=== PATIENT | female | born 1960 | race Caucasian/White ===

== ENCOUNTER 2018-02-05 07:05 | Inpatient (IN) ==
[2018-02-05] MEDS ORDERED: Naloxone 0.4 MG/ML INJ IVP PRN (10:51)
[2018-02-05] MEDS ORDERED: Vancomycin (wt based) 1,000 MG VIAL IVPB SCH (11:00)
[2018-02-05] MEDS ORDERED: Acetaminophen 325 MG TABLET PO PRN (11:09)
--- NOTE | 2018-02-05 11:44 | Internal Med History&Physical ---
Date of Encounter: 02/05/18 Time of Encounter: 11:36 Internal Medicine - H&P: HPI Chief complaint: Chest Pain Admitted From: Hospital to Hospital Transfer Plans for Post Hospital Care: Transfer Halfway Facility History of present illness: Ms. Orozco is a 57 year old female with many comorbidities presented to [facility] emergency department chief complaint of chest pain that started 20 minutes prior to arrival. The patient describes the pain as stabbing without radiation but with associated nausea. At [facility] emergency department multiple EKGs were obtained and no significant ischemic changes were noted compared to prior EKGs. Initial troponin at [facility] was negative as well. The patient was transferred to [facility] for further evaluation and treatment. Upon presentation the patient is somewhat somnolent but arousable and appropriate. The patient currently is not admitting to chest pain. Patient also denies any shortness of breath, palpitations, abdominal pain, vomiting, diarrhea. Patient does admit to intermittent nausea that was improved with Zofran at [facility]. Patient's temperature upon arrival was 102 RN reports it was [address] [facility]. Blood glucose is also over 300 upon evaluation. At [facility] the patient had CTA of the chest abdomen and pelvis which was negative for any acute pulmonary or abdominal pathology. Patient is end-stage dialysis receives dialysis Friday through a permacath. Patient also has a peritoneal dialysis catheter however she states she has not used this in 18 months. Initial labs reviewed from [facility] include anemia at 7.7 ; negative troponin, negative lactic acid; slightly elevated white blood cell count at 11.2. The patient has a wound on her right toe she is unable to elaborate how long this has been present or if it is painful. The patient falls asleep during conversation. Patient is able to move all extremities symmetrically however appears to have generalized weakness and somnolence. Stat labs were ordered including ECG, BMP, ABG, ammonia, , lactic acid, urinalysis, chest x-ray and right foot x-ray. Empiric broad-spectrum antibiotics were immediately started including vancomycin and cefepime and Flagyl to cover possible osteomyelitis and cellulitis of the right first toe. The patient will be admitted for sepsis, altered mental status, and chest pain; infectious disease, nephrology, podiatry will be consulted Past Med Surg Social Fam HX - Past Medical History Medical history: COPD, coronary artery disease, diabetes, dialysis, hypertension , renal disease Psychiatric history: anxiety, depression - Past Surgical History Surgical History: non-contributory Additional surgical history: ankle sx, hip sx, 3 hand sx, partial hysterectomy, tubal, left arm fistula, peritoneal port - Social History Smoking Status: Former smoker Smokeless Tobacco Status: No Alcohol use: none Drug use: none - Family History Mother Living Status: Hx Family Cardiac Disorders: Yes (CHF, PA) Father Living Status: Hx Family Respiratory Disorders: Yes (Asthma) Hx Family Endocrine Disorder: Yes (Kidney disease) - Additional Family History Additional family history: Family history reviewed; patient denies any pertinent family history Internal Medicine - H&P: Meds Albuterol Sulfate [Proair Hfa] 1 - 2 puff IH Q4-6H PRN 07/10/17 [History] Atorvastatin [Lipitor] 40 mg PO HS 07/10/17 [History] Esomeprazole Magnesium [Nexium] 40 mg PO DAILY 07/10/17 [History] Fenofibrate Nanocrystallized [Triglide] 160 mg PO DAILY 07/10/17 [History] Furosemide [Lasix] 40 mg PO 1400 07/10/17 [History] Furosemide [Lasix] 80 mg PO QAM 07/10/17 [History] Insulin Glargine,Hum.rec.anlog [Lantus Solostar] 60 unit SQ QPM 07/10/17 [ History] Isosorbide MONOnitrate (24 HR) [Imdur] 30 mg PO DAILY 07/10/17 [History] Lisinopril [Zestril] 10 mg PO BID 07/10/17 [History] Metoprolol [Lopressor] 50 mg PO QPM 07/10/17 [History] Metoprolol [Lopressor] 100 mg PO QAM 07/10/17 [History] Oxybutynin [Ditropan] 5 mg PO TID 07/10/17 [History] Renal Vitamin [Renal Caps Softgel] 1 mg PO DAILY 07/10/17 [History] Sertraline [Zoloft] 25 mg PO DAILY 07/10/17 [History] Sevelamer [Renvela] 800 mg PO TIDWM 07/10/17 [History] Tiotropium [Spiriva] 18 mcg IH DAILY 07/10/17 [History] Insulin LISPRO [HumaLOG] 15 - 20 units SQ TID 12/30/17 [History] Gabapentin [Neurontin] 100 mg PO TID 02/05/18 [History] 3 Allergy/AdvReac Type Severity Reaction Status Date / Time Penicillins Allergy Hives Verified 12/30/17 12:35 Sulfa (Sulfonamide Allergy Hives Verified 12/30/17 12:35 Antibiotics) hydrocodone AdvReac Nausea Verified 12/30/17 12:35 metformin [From Glucophage] AdvReac Nausea Verified 12/30/17 12:35 niacin AdvReac Redness of Verified 12/30/17 12:35 Skin Oxycodone [From Percocet] AdvReac Nausea Verified 12/30/17 12:35 tramadol [From Ultram] AdvReac Nausea Verified 12/30/17 12:35 All Systems PM: A 10-system review of systems was performed and is negative for pertinent findings except as documented above in the HPI. Review of systems: 10 point review of systems is somewhat limited secondary to the patient's altered mental status and somnolence but is otherwise negative other than described in history of present illness - Constitutional Vitals: Temp Pulse Resp BP Pulse Ox 102.2 F H 100 18 93/43 99 02/05/18 10:20 02/05/18 10:20 02/05/18 10:20 02/05/18 10:20 02/05/18 10:20 Exam: Constitutional: No acute distress, somnolent but arousable Derm: Appears mildly jaundiced Psych: AAO x 3 HEENT: NCAT, EOMI Neck: supple, no JVD Cardio: regular rate and rhythm, +s1s2, no murmurs/rubs/gallops, no JVD Chest: Right tunneled permacath in place with no surrounding erythema or tenderness felt patient Resp: Coarse breath sounds however no wheezes rales or rhonchi Abd: soft, non tender/non distended, positive bowel sounds, no gaurding/reboud/ ridgitity; peritoneal dialysis catheter and left abdomen with no obvious erythema or drainage from site Extremities: Right lower extremity with 2 areas of skin breakdown on interior chavarria with no surrounding erythema; right great toe necrotic with purulent drainage and loose toenail; there is surrounding erythema around the toe that extends to the base of the toe; there is no obvious crepitus appreciated Neuro: no focal deficits appreciated Lymph: no cervical/supraclavicular adenopahty apprecitated - Assessment and plan (1) Sepsis Current Visit: Yes Status: Acute Assessment and plan: -Patient meets sepsis criteria with tachycardia and temperature of 102-104 -Unclear etiology but currently suspect infected right first toe with cellulitis and possible osteomyelitis -Stat Blood and wound cultures ordered -Empiric antibiotics started, vancomycin, cefepime, Flagyl -Blood pressure currently okay and with history of hemodialysis will hold off on fluids for now will give fluids if blood pressure decreases -Podiatry consulted for evaluation of infected right first toe -Infectious disease consultation for any further recommendations -Monitor on telemetry Qualifiers: Sepsis type: sepsis due to unspecified organism Qualified Code(s): A41.9 - Sepsis, unspecified organism (2) Encephalopathy Current Visit: Yes Status: Acute Assessment and plan: -Patient with somnolence however is arousable and appropriate on exam alert and oriented 3 -Possibly toxic metabolic encephalopathy secondary to sepsis; also received Phenergan which could be contributing although this is a home medication -We will check stat ABG to rule out hypercapnia -We will check ammonia as the patient does appear slightly jaundiced -We will monitor closely (3) Necrosis of toe Current Visit: Yes Status: Acute Assessment and plan: Patient with necrosis of right first toe with surrounding cellulitis and foul purulent drainage -Currently concered about osteomyelitis -We will order stat x-ray of the foot to evaluate for osteomyelitis and rule out gas formation; no current crepitus appreciated -Consult podiatry for evaluation and possible debridement and biopsy if needed; Podiatry aware -Blood and wound cultures ordered -Continue broad-spectrum antibiotics including vancomycin, cefepime, Flagyl due to allergies to sulfa and penicillin; infectious disease consult for recommendation (4) Chest pain Current Visit: Yes Status: Acute Assessment and plan: Patient presented with substernal chest pain that was described as sharp with no radiation and associated nausea -Chest pain did improve with nitroglycerin and currently chest pain-free -initial troponin was negative and EKG largely unchanged from prior; EKG is reviewed personally by myself patient does have T-wave inversions in lateral leads that were present in December 2017 -We will trend troponins and order echocardiogram -We will consider cardiology evaluation based on workup Qualifiers: Chest pain type: unspecified Qualified Code(s): R07.9 - Chest pain, unspecified (5) ESRD (end stage renal disease) on dialysis Current Visit: Yes Status: Acute Assessment and plan: -Friday hemodialysis via permacath -Patient also has perineal dialysis catheter however she states she has not used this in 18 months -Nephrology will be consult. Further evaluation and scheduling of dialysis as needed (6) Diabetes Current Visit: Yes Status: Acute Assessment and plan: -History of long-standing diabetes on insulin with current hyperglycemia -Resume home insulin regimen -Patient does have history of DKA on review of paperwork -Due to somnolence will check urinalysis for ketones and check beta hydroxybutyric acid -Serum bicarbonate unremarkable on Liane labs current labs pending Qualifiers: Diabetes mellitus type: type 2 Diabetes mellitus roasterman insulin use: with care home use Diabetes mellitus complication status: with kidney complications Diabetes mellitus complication detail: with chronic kidney disease Chronic kidney disease stage: on chronic dialysis Qualified Code(s) : E11.22 - Type 2 diabetes mellitus with diabetic chronic kidney disease; N18.6 - End stage renal disease; Z79.4 - residential (current) use of insulin; Z99.2 - Dependence on renal dialysis (7) HTN (hypertension) Current Visit: Yes Status: Acute Assessment and plan: History of chronic essential hypertension -BP on low normal side -We will resume some home bp medications with parameters Qualifiers: Hypertension type: essential hypertension Qualified Code(s): I10 - Essential (primary) hypertension (8) COPD (chronic obstructive pulmonary disease) Current Visit: Yes Status: Acute Assessment and plan: -History of chronic COPD with no acute exacerbation -Continue home bronchodilators as needed Qualifiers: COPD type: unspecified COPD Qualified Code(s): J44.9 - Chronic obstructive pulmonary disease, unspecified (9) Pulmonary HTN Current Visit: Yes Status: Acute Assessment and plan: -Per review of records -Echocardiogram ordered to evaluate (10) CAD (coronary artery disease) Current Visit: Yes Status: Acute Assessment and plan: -History of CAD and coronary current catheterization and past per documentation -Unsure if the patient has coronary stent -Presented with chest pain and initial troponin negative EKG unchanged from prior -troponins will be trended and echocardiogram ordered -currently no cp Qualifiers: Coronary Disease-Associated Artery/Lesion type: unspecified vessel or lesion type [place] vs. transplanted heart: [place] heart Associated angina: angina presence unspecified Qualified Code(s): I25.10 - Atherosclerotic heart disease of [place] coronary artery without angina pectoris (11) KEMAR (obstructive sleep apnea) Current Visit: Yes Status: Acute Assessment and plan: -Per documentation history of KEMAR -Unknown if patient is on home CPAP will order at nighttime (12) CHF (congestive heart failure) Current Visit: Yes Status: Acute Assessment and plan: -Chronic compensated congestive heart failure not in acute exacerbation; unknown systolic versus diastolic dysfunction -Significantly elevated BNP; possibly due to other etiology -Echocardiogram ordered Qualifiers: Heart failure type: unspecified Heart failure chronicity: chronic Qualified Code(s): I50.9 - Heart failure, unspecified (13) DVT prophylaxis Current Visit: Yes Status: Acute Assessment and plan: hep sq - Time Spent With Patient Total time spent is greater than 50% in coordination of care (as documented) at patient's floor/unit and/or counseling patient: Greater than 35 minutes (65 minutes)
[2018-02-05 11:59] LABS: INR 1.4
[2018-02-05 12:00] LABS: Basophils % 0.1 %; Eosinophils % 0.1 %; Hematocrit 23.4 % (35.3-44.9); Hemoglobin 7.4 g/dL (11.5-15.4); Immature Granulocytes % 1.6 % (0-4); Lymphocytes # 0.4 K/mcL (0.6-4.6); Lymphocytes % 2.3 %; Mean Corpuscular HGB Conc 31.6 g/dL (31.6-35.5); Mean Corpuscular Hemoglobin 34.3 pg (28.0-33.3); Mean Corpuscular Volume 108.3 fL (83.0-100.0); Mean Platelet Volume 8.9 fL (9.4-12.4); Monocytes # 1.2 K/mcL (0.0-1.3); Monocytes % 7.4 %; Neutrophils # 14.1 K/mcL (1.6-8.9); Platelet Count 375 K/mcL (140-400); Red Blood Count 2.16 M/mcL (3.82-4.97); Red Cell Distribution Width 13.9 % (11.5-14.5); Segmented Neutrophils % 88.5 %
[2018-02-05] MEDS ORDERED: Cefepime HCl 1,000 MG in Water for inj. (sterile) 20 ML 10 ML IVP ONE (12:00)
[2018-02-05 12:10] LABS: ABG Base Excess 2 mEq/L (-2 to 3); ABG HCO3 25 mEq/L (21-27); ABG Oxygen Saturation 82 % (95-98); ABG PCO2 35 mmHg (35-45); ABG PH 7.47 pH Units (7.32-7.45); ABG PO2 43 mmHg (85-104); ABG TCO2 26 mEq/L (20-26)
[2018-02-05 12:28] LABS: Albumin 2.5 g/dL (3.5-5.7); Bilirubin,Direct 0.3 mg/dL (0.0-0.2); Bilirubin,Indirect 0.3 mg/dL (0.0-1.2); Bilirubin,Total 0.6 mg/dL (0.3-1.0); Calcium 7.6 mg/dL (8.6-10.3); Globulin 2.5 g/dL (2.4-3.5); Magnesium 1.7 mg/dL (1.6-2.6); Phosphorous 2.9 mg/dL (2.7-4.5); Potassium 3.7 mEq/L (3.5-5.1)
[2018-02-05] MEDS: Insulin LISPRO 300 UNITS/3 ML VIAL SQ SCH ×2 (12:28→17:47)
[2018-02-05] MEDS: *HR* Heparin 5,000 UNIT/ML VIAL SQ SCH ×2 (12:28→21:07)
--- NOTE | 2018-02-05 13:04 | Infectious Disease Consult ---
Date of Encounter: 02/05/18 Time of Encounter: 12:59 Assessment and Plan (1) Sepsis Status: Acute Assessment and plan: The patient has 3 sepsis criteria plus hypotension. Likely secondary to right great toe infection vs UTI vs. other. Blood cell count elevated at 16,000 with neutrophilic predominance. The patient continues to have tachycardia. She was febrile on admission with a MAXIMUM TEMPERATURE of 102. Peripheral blood cultures obtained 02/05/18 are pending 2 sets. The patient does have a relatively new Perma-cath noted to the right upper chest , but it does not appear infected. Qualifiers: Sepsis type: sepsis due to unspecified organism Qualified Code(s): A41.9 - Sepsis, unspecified organism (2) Necrosis of toe Status: Acute Assessment and plan: Location: Right great toe. Etiology: Unclear. The patient does have a known history of PVD. There is also concern that there may be an element of infection as well. X-ray of the right foot was negative for osteomyelitis. Pressure Test Operator been consulted. Will defer additional imaging recommendations and wound care to them. Get wound culture if able. There is a small area that is open and draining, but otherwise the toe is necrotic. Check ESR and CRP. The patient has a documented allergy to penicillin. She states she gets hives. She is unable to tell me when the last time she took penicillin was. We will avoid penicillins at this point. She may benefit from penicillin allergy testing at some point later. Continue cefepime 1 g IV every 24 hours for now. We will start with 2 g on HD days only starting tomorrow after the patient receives dialysis. Continue vancomycin IV. Pharmacy to dose. Goal trough approximately 15. Continue Flagyl 500 mg IV every 8 hours. Duration of treatment depends on the clinical picture. Monitor renal function for drug toxicity and dose adjust antibiotics. (3) Dysuria Status: Acute Assessment and plan: The patient reports a one-week history of urinary frequency and dysuria. Check urinalysis and culture. May need to straight catheter the patient is unable to provide an adequate specimen. Continue antibiotics as above for now. (4) Encephalopathy Status: Acute Assessment and plan: Etiology unclear: Medication-induced versus hyperammonemia vs. sepsis versus other. No focal neuro deficits noted on exam. Consider CT had her symptoms do not improve. Continue to monitor closely. (5) Hyperammonemia Status: Acute Assessment and plan: Ammonia level elevated at 76. Etiology unclear. LFTs are normal. Abdominal exam reveals mild tenderness with palpation over the entire abdomen, but nothing focal. CT of the abdomen and pelvis was negative for acute abnormality. Further workup and management per the primary team. (6) Anemia Status: Chronic Assessment and plan: Hemoglobin down to 7.4 on admission. No acute bleeding noted on exam. Further workup and management per the primary nephrology teams. Qualifiers: Anemia type: due to chronic kidney disease Chronic kidney disease stage: on chronic dialysis Qualified Code(s): N18.6 - End stage renal disease; D63.1 - Anemia in chronic kidney disease; Z99.2 - Dependence on renal dialysis (7) Nausea Status: Acute Assessment and plan: The patient reports persistent nausea for the past couple of weeks. Etiology unclear. Consider GI to evaluate if symptoms persist. Management per the primary team. (8) Chest pain Status: Acute Assessment and plan: Etiology unclear. Pain is reproducible on exam. EKGs have been unchanged. CT of the chest was negative. Further workup and management per the primary team. Qualifiers: Chest pain type: unspecified Qualified Code(s): R07.9 - Chest pain, unspecified (9) Pulmonary HTN Status: Chronic (10) CAD (coronary artery disease) Status: Chronic Qualifiers: Coronary Disease-Associated Artery/Lesion type: unspecified vessel or lesion type [place] vs. transplanted heart: [place] heart Associated angina: angina presence unspecified Qualified Code(s): I25.10 - Atherosclerotic heart disease of [place] coronary artery without angina pectoris (11) KEMAR (obstructive sleep apnea) Status: Chronic (12) CHF (congestive heart failure) Status: Chronic Qualifiers: Heart failure type: unspecified Heart failure chronicity: chronic Qualified Code(s): I50.9 - Heart failure, unspecified (13) ESRD (end stage renal disease) Status: Chronic Assessment and plan: Nephrology has been consulted to assist with HD management. We will dose adjust antibiotics based on HD status. (14) COPD (chronic obstructive pulmonary disease) Status: Chronic Qualifiers: COPD type: COPD with acute exacerbation Qualified Code(s): J44.1 - Chronic obstructive pulmonary disease with (acute) exacerbation Infectious Disease HPI - Data of Consult Patient: new to practice Consult date: 02/05/18 Requesting Physician: Alyx Andrade MD Primary Care Provider: Guero Clement, DO - Consult Narrative Reason for consult: Sepsis unclear source History of present illness: Ms. Orozco is a 57 year old female with a past medical history of end- stage renal disease currently on hemodialysis, diabetes, hypertension, CHF, GERD , COPD, PVD, and allergic rhinitis. The patient was admitted to the hospital February 05 for sepsis. We are consulted February 05 for further recommendations for sepsis of unclear etiology. Briefly, the patient is a 57-year-old female with past medical history as stated above. The patient presented to an outside hospital with complaints of 1 day history of substernal chest pain that was nonradiating and was worse with deep inspiration or cough. Upon arrival to the ER, the patient was febrile and tachycardic and had leukocytosis. Workup revealed findings consistent with her end-stage renal disease. Lactic acid was normal. BNP was elevated at 9717. Lipase was normal at 118. LFTs were within normal limits. She had a CT of the chest, abdomen, and pelvis that were negative for acute abnormality. She had blood cultures obtained 2 sets that were pending. She was transferred here for further evaluation. Since admission, the patient has continued to have fevers with a MAXIMUM TEMPERATURE of 102. She is still tachycardic. Ammonia level checked here is elevated at 76. Troponin is positive at 0.04. The patient does have a right great toe ulceration. Right foot x-ray was negative for acute abnormality. She also had a chest x-ray that was negative. Blood cultures obtained 2 sets here pending. Currently, patient is on IV vancomycin, cefepime, and Flagyl. Podiatry and nephrology have been consulted. We have been asked to evaluate and make further recommendations. During my exam today, the patient is somewhat drowsy and difficult to give me any information. She falls asleep several times throughout the interview. She does tell me that her chest pain started last night and she was unable to sleep for most of the night. She denies any associated shortness of breath or cough. She states the pain is substernal and is sharp in nature and worse with deep inspiration or cough. She reports nausea for the past several weeks, but denies any vomiting. She states her appetite is okay. She was recently transitioned to hemodialysis from peritoneal dialysis in December. She had a permacath placed on January 06 to the right upper chest via intermittent vaginal radiology. She has been going to dialysis as scheduled. She denies any pain or drainage or warmth at the permacath insertion site. She does still have her peritoneal dialysis catheter and states she has not been doing anything with that since starting hemodialysis. She does report that she still does still urinate and states she has had increased frequency and some dysuria over the past week. The ulceration to the right great toe is of unclear onset. She states she typically uses a wheelchair at home and stubbed her toe on the cabinet. She reports increased pain over the past few days. She denies any known drainage. She states she typically sees a fixed income director Liane for this wound. She denies any oral thrush or other skin lesions. The patient lives at home with her . She does not work outside the home. She does report she smokes pack of cigarettes per day. She denies any alcohol or illicit drug use. She denies any recent travel outside the [facility]. She denies any known chronic infectious diseases. CC: Alyx Andrade MD Past Med Surg Social Fam HX - Past Medical History Attestation: Yes The following information was validated with the patient. Source: patient, old records reviewed, nursing notes reviewed Medical history: COPD, coronary artery disease, diabetes, dialysis, hypertension , renal disease Psychiatric history: anxiety, depression - Past Surgical History Surgical History: other Additional surgical history: ankle sx, hip sx, 3 hand sx, partial hysterectomy, tubal, left arm fistula, peritoneal port - Social History Smoking Status: Former smoker Smokeless Tobacco Status: No Alcohol use: none Drug use: none Occupational status: unemployed Current living situation: Home, With Family Activity Level: Uses cane/walker Recent Out of Country Travel Within the Last 8 Weeks: No Exposure or Possible Exposure to Illness During Travel: No - Family History Mother Living Status: Hx Family Cardiac Disorders: Yes (CHF, [place]) Father Living Status: Hx Family Respiratory Disorders: Yes (Asthma) Hx Family Endocrine Disorder: Yes (Kidney disease) Infectious Disease-CN:Meds Albuterol Sulfate [Proair Hfa] 1 - 2 puff IH Q4-6H PRN 07/10/17 [History] Atorvastatin [Lipitor] 40 mg PO HS 07/10/17 [History] Esomeprazole Magnesium [Nexium] 40 mg PO DAILY 07/10/17 [History] Fenofibrate Nanocrystallized [Triglide] 160 mg PO DAILY 07/10/17 [History] Furosemide [Lasix] 40 mg PO 1400 07/10/17 [History] Furosemide [Lasix] 80 mg PO QAM 07/10/17 [History] Insulin Glargine,Hum.rec.anlog [Lantus Solostar] 60 unit SQ QPM 07/10/17 [ History] Isosorbide MONOnitrate (24 HR) [Imdur] 30 mg PO DAILY 07/10/17 [History] Lisinopril [Zestril] 10 mg PO BID 07/10/17 [History] Metoprolol [Lopressor] 50 mg PO QPM 07/10/17 [History] Metoprolol [Lopressor] 100 mg PO QAM 07/10/17 [History] Oxybutynin [Ditropan] 5 mg PO TID 07/10/17 [History] Renal Vitamin [Renal Caps Softgel] 1 mg PO DAILY 07/10/17 [History] Sertraline [Zoloft] 25 mg PO DAILY 07/10/17 [History] Sevelamer [Renvela] 800 mg PO TIDWM 07/10/17 [History] Tiotropium [Spiriva] 18 mcg IH DAILY 07/10/17 [History] Insulin LISPRO [HumaLOG] 15 - 20 units SQ TID 12/30/17 [History] Gabapentin [Neurontin] 100 mg PO TID 02/05/18 [History] 3 Allergy/AdvReac Type Severity Reaction Status Date / Time Penicillins Allergy Hives Verified 12/30/17 12:35 Sulfa (Sulfonamide Allergy Hives Verified 12/30/17 12:35 Antibiotics) hydrocodone AdvReac Nausea Verified 12/30/17 12:35 metformin [From Glucophage] AdvReac Nausea Verified 12/30/17 12:35 niacin AdvReac Redness of Verified 12/30/17 12:35 Skin Oxycodone [From Percocet] AdvReac Nausea Verified 12/30/17 12:35 tramadol [From Ultram] AdvReac Nausea Verified 12/30/17 12:35 All systems: reviewed and no additional remarkable complaints except as stated Exam - Constitutional Vitals: Temp Pulse Resp BP Pulse Ox 100.8 F H 97 18 127/58 99 02/05/18 12:52 02/05/18 12:30 02/05/18 12:30 02/05/18 12:30 02/05/18 12:30 General appearance: cooperative, no acute distress, obese - Head Head exam: Present: atraumatic, normal inspection, normocephalic - Eye Eye exam: Present: EOMI, normal appearance, PERRL Pupils: Present: normal accommodation - ENT ENT exam: Present: mucous membranes moist - Neck Neck exam: Present: normal inspection - Respiratory Respiratory exam: Present: CTAB. Absent: rales, respiratory distress, rhonchi, wheezes - Cardiovascular Cardiovascular exam: Present: +S1, +S2, tachycardia. Absent: irregular rhythm - GI/Abdominal GI/Abdominal exam: Present: distended (obese), normal bowel sounds, soft, tenderness (Generalized) - Extremities Exam Extremities exam: Present: tenderness (Right great toe). Absent: normal inspection (Necrotic ulceration noted to the distal plantar aspect of the right great toe extending to the lateral aspect. Foul odor noted. No purulent drainage. Tenderness noted with palpation. No streaking up the leg or lymphangitis noted.) - Neurological Exam Neurological exam: Present: altered (The patient is drowsy and difficult to maintain wakefulness during my exam.), oriented X3 - Psychiatric Psychiatric exam: Present: normal affect, normal mood - Skin Skin exam: Present: dry, intact, pallor, warm - Additional findings Additional findings: Permacath noted to the right upper chest wall with transparent dressing clean, dry, and intact. No erythema, warmth, tenderness, or drainage noted. Peritoneal dialysis catheter noted to the left lower abdomen. No erythema, drainage, or tenderness noted at the insertion site. Infectious Disease CN: Results - Labs CBC & Chem 7: 02/05/18 11:20 02/05/18 11:20 Cultures: Cultures 02/05/18 11:20 Blood Culture - Preliminary Peripheral Venipuncture Culture is incubating and being continuously monitored for growth. Final report to follow. 02/05/18 11:20 Blood Culture - Preliminary Peripheral Venipuncture Culture is incubating and being continuously monitored for growth. Final report to follow. Consult Discharge Plan - Plan Referrals: Guero Clement DO [Primary Care Provider] - - Attending Attestation I examined this patient and my medical decision-making was reviewed with the Resident Physician. I agree with the documented findings, disposition and treatment plan as described except to the extent set forth below. This is an addendum to original report dictated by Mayela Ayoub CNP. Please refer to Mayela's note for full detail. Patient is a 57-year-old woman with past medical history mentioned below and multiple drug allergies including penicillin and sulfa presented with sepsis like picture. Sepsis is likely secondary to necrosis of the great toe on the right foot or possibly due to UTI. Patient was treated By nursing and milky urine came out. Apparently the specimen had too many squamous cells so they did not on the culture. As for the necrotic toe the x-ray reveals no osteomyelitis fixed income director consult with awaiting further recommendations At this point I agree with broad-spectrum antibiotics including vancomycin, cefepime and Flagyl. Check inflammatory markers Check urine culture. I did speak with microanalysis to run a culture on the specimen. Await blood cultures to finalize. Dose adjust antibiotic creatinine clearance with hemodialysis. Monitor labs and for drug toxicity
[2018-02-05] MEDS ORDERED: 0.9 % Sodium Chloride 500 ML IVC SCH (13:30)
--- NOTE | 2018-02-05 13:52 | Nephrology Consult Note ---
<Ramya Wise - Last Filed: 02/05/18 14:18> Date of Encounter: 02/05/18 Time of Encounter: 13:50 Assessment and Plan (1) ESRD (end stage renal disease) on dialysis Status: Acute Current regimen MWF at [facility]. Last tx was yesterday (per patient). Will plan for HD tomorrow. Renal dose and avoid nephrotoxins. Strict I/O (2) COPD (chronic obstructive pulmonary disease) Status: Acute Continue breathing tx's. Qualifiers: COPD type: unspecified COPD Qualified Code(s): J44.9 - Chronic obstructive pulmonary disease, unspecified (3) Chest pain Status: Acute Per primary. Chest pain free at time of examination. Qualifiers: Chest pain type: unspecified Qualified Code(s): R07.9 - Chest pain, unspecified (4) Diabetes Status: Acute Per primary. Qualifiers: Diabetes mellitus type: type 2 Diabetes mellitus estimating engineer insulin use: with residential use Diabetes mellitus complication status: with kidney complications Diabetes mellitus complication detail: with chronic kidney disease Chronic kidney disease stage: on chronic dialysis Qualified Code(s): E11.22 - Type 2 diabetes mellitus with diabetic chronic kidney disease; N18.6 - End stage renal disease; Z79.4 - group home (current) use of insulin; Z99.2 - Dependence on renal dialysis History of Present Illness - Reason for Consult Consult date: 02/05/18 end stage renal disease - Chief Complaint CP/sepsis - History of Present Illness Ms. Orozco is a 57 year old female with ESRD. 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. The patient presented to [facility] for chest pain with nausea. She described the pain as stabbing. PMH: COPD, coronary artery disease, diabetes, dialysis, hypertension. The patient appears drowsy with examination. She does tell me that she had HD yesterday and her current regimen is MWF. She dialyzes through a Tunneled Line, that is "fairly new" she says. She also has a failed graft and a PD cath. She has not used her PD cath for approximately 3 months. In formed HD unit to please get cell count and culture PD cath. Pt is being followed by ID for sepsis. Etiology right great toe vs. UTI vs other. Dr. Denny examined right great toe. He does want to remove, but only when medically stable. Pt appears stable in ICU at this time. She was on 2 liters per n/c. SBP greater than 120. Will plan on HD for tomorrow. Past Med Surg Social Fam HX - Past Medical History Medical history: COPD, coronary artery disease, diabetes, dialysis, hypertension, renal disease Psychiatric history: anxiety, depression - Past Surgical History Surgical History: other Additional surgical history: ankle sx, hip sx, 3 hand sx, partial hysterectomy, tubal, left arm fistula, peritoneal port - Social History Smoking Status: Former smoker Smokeless Tobacco Status: No Alcohol use: none Drug use: none - Family History Father Living Status: Hx Family Respiratory Disorders: Yes (Asthma) Hx Family Endocrine Disorder: Yes (Kidney disease) Mother Living Status: Hx Family Cardiac Disorders: Yes (CHF, [place]) Medications and Allergies RX: Albuterol Sulfate [Proair Hfa] 1 - 2 puff IH Q4-6H PRN 07/10/17 [History] RX: Atorvastatin [Lipitor] 40 mg PO HS 07/10/17 [History] RX: Esomeprazole Magnesium [Nexium] 40 mg PO DAILY 07/10/17 [History] RX: Fenofibrate Nanocrystallized [Triglide] 160 mg PO DAILY 07/10/17 [History] RX: Furosemide [Lasix] 40 mg PO 1400 07/10/17 [History] RX: Furosemide [Lasix] 80 mg PO QAM 07/10/17 [History] RX: Insulin Glargine,Hum.rec.anlog [Lantus Solostar] 60 unit SQ QPM 07/10/17 [History] RX: Isosorbide MONOnitrate (24 HR) [Imdur] 30 mg PO DAILY 07/10/17 [History] RX: Lisinopril [Zestril] 10 mg PO BID 07/10/17 [History] RX: Metoprolol [Lopressor] 50 mg PO QPM 07/10/17 [History] RX: Metoprolol [Lopressor] 100 mg PO QAM 07/10/17 [History] RX: Oxybutynin [Ditropan] 5 mg PO TID 07/10/17 [History] RX: Renal Vitamin [Renal Caps Softgel] 1 mg PO DAILY 07/10/17 [History] RX: Sertraline [Zoloft] 25 mg PO DAILY 07/10/17 [History] RX: Sevelamer [Renvela] 800 mg PO TIDWM 07/10/17 [History] RX: Tiotropium [Spiriva] 18 mcg IH DAILY 07/10/17 [History] RX: Insulin LISPRO [HumaLOG] 15 - 20 units SQ TID 12/30/17 [History] RX: Gabapentin [Neurontin] 100 mg PO TID 02/05/18 [History] RX: Sucralfate [Carafate] 1 gm PO TIDAC #12 tablet 02/20/18 [Rx] Allergy/AdvReac Type Severity Reaction Status Date / Time Penicillins Allergy Hives Verified 12/30/17 12:35 Sulfa (Sulfonamide Allergy Hives Verified 12/30/17 12:35 Antibiotics) hydrocodone AdvReac Nausea Verified 12/30/17 12:35 metformin [From Glucophage] AdvReac Nausea Verified 12/30/17 12:35 niacin AdvReac Redness of Verified 12/30/17 12:35 Skin Oxycodone [From Percocet] AdvReac Nausea Verified 12/30/17 12:35 tramadol [From Ultram] AdvReac Nausea Verified 12/30/17 12:35 Review of Systems All Systems review (narrative): The remainder of the systems are negative. Constitutional: fever(s), no chills, no weakness Cardiovascular: chest pain, dyspnea, edema, no palpitations Gastrointestinal: no diarrhea, no nausea, no vomiting Exam - Vital Signs Vital signs: Initial Vital Signs Pulse 100 02/05/18 10:19 Vital Signs - Last 8 Hours Temp Pulse Resp BP Pulse Ox 02/05/18 13:00 94 20 124/59 99 02/05/18 12:52 100.8 F H 02/05/18 12:30 97 18 127/58 99 02/05/18 11:30 97 16 128/58 100 02/05/18 10:20 102.2 F H 100 18 93/43 99 02/05/18 10:19 100 Intake and Output 02/04/18 02/05/18 02/05/18 23:59 07:59 15:59 Intake Total Balance Intake: IV Fluids Maxipime 1,000 MG In Water for inj. (sterile) 10 ML @ 300 mls/ hr IVP ONCE ONE Rx#:[id number] Oral 0 / 0 Other: Weight 90.5 kg Blood Glucose* 278 Patient Weight 02/05/18 23:59 Weight 90.5 kg Results - Lab Results 02/05/18 11:20 02/05/18 11:20 Most recent lab results ABG pH 7.47 pH Units (7.32-7.45) H 02/05/18 11:49 ABG pCO2 35 mmHg (35-45) 02/05/18 11:49 ABG pO2 43 mmHg (85-104) L* 02/05/18 11:49 ABG HCO3 25 mEq/L (21-27) 02/05/18 11:49 ABG O2 Saturation 82 % (95-98) L 02/05/18 11:49 Calcium 7.6 mg/dL (8.6-10.3) L 02/05/18 11:20 Phosphorus 2.9 mg/dL (2.7-4.5) 02/05/18 11:20 Magnesium 1.7 mg/dL (1.6-2.6) 02/05/18 11:20 Consult Discharge Plan - Plan Additional Instructions: PWB right lower extremity. Orthowedge shoe for heel transfers. Follow up with Dr. Denny in wound care clinic next week. Follow-up with PCP and nephrology within 1 week. Take all medications as prescribed and return to the hospital stay worsening return of symptoms. Referrals: Mayela Ayoub CNP [Advanced Practice Nurse] - 02/26/18 8:40 am Guero Clement DO [Primary Care Provider] - 02/26/18 2:00 pm () Prescriptions: RX: Sucralfate [Carafate] 1 gm PO TIDAC #12 tablet <Travis Lee - Last Filed: 03/06/18 19:29> Assessment and Plan (1) Anemia Status: Chronic Qualifiers: Anemia type: due to chronic kidney disease Chronic kidney disease stage: on chronic dialysis Qualified Code(s): N18.6 - End stage renal disease; D63.1 - Anemia in chronic kidney disease; Z99.2 - Dependence on renal dialysis (2) ESRD (end stage renal disease) Status: Chronic (3) Diabetes Status: Chronic Qualifiers: Diabetes mellitus type: type 2 Diabetes mellitus residential insulin use: with residential use Diabetes mellitus complication status: with kidney complications Diabetes mellitus complication detail: with chronic kidney disease Chronic kidney disease stage: on chronic dialysis Qualified Code(s): E11.22 - Type 2 diabetes mellitus with diabetic chronic kidney disease; N18.6 - End stage renal disease; Z79.4 - group home (current) use of insulin; Z99.2 - Dependence on renal dialysis (4) Hyponatremia Status: Acute Exam - Vital Signs Vital signs: Initial Vital Signs Pulse 100 02/05/18 10:19 - General Appearance General appearance: chronically ill, fatigue EENT: ATNC, mucous membranes dry Neck: no JVD, supple Respiratory: course breath sounds Cardiology: no edema, normal S1, normal S2 - Dialysis Access Dialysis Vascular Access: Venous Catheter (permcath) Gastrointestinal: no tenderness, no guarding (PD catheter in place with no signs of erythema at exit site) Additional Comments: Right foot with dressing Neurologic: no focal deficit Psychiatric: mood/affect appropriate Results - Lab Results 02/20/18 04:00 02/20/18 04:00 Most recent lab results ABG pH 7.47 pH Units (7.32-7.45) H 02/05/18 11:49 ABG pCO2 35 mmHg (35-45) 02/05/18 11:49 ABG pO2 43 mmHg (85-104) L* 02/05/18 11:49 ABG HCO3 25 mEq/L (21-27) 02/05/18 11:49 ABG O2 Saturation 82 % (95-98) L 02/05/18 11:49 Calcium 7.7 mg/dL (8.6-10.3) L 02/20/18 04:00 Phosphorus 4.2 mg/dL (2.7-4.5) 02/06/18 04:15 Magnesium 1.9 mg/dL (1.6-2.6) 02/15/18 02:55 - Attending Attestation I examined this patient and my medical decision-making was reviewed with the Resident Physician/COMPUTER TECHNICIAN. I agree with the documented findings, disposition and treatment plan as described except to the extent set forth below. In brief; 57 y o female with PMH of DM, HTN, CAD , COPD and ESRD on HD, previously on PD but discontinued several months ago with PD catheter still in place! (follows with profile grinder technician, Dr Painting) admitted with chest pain but being assessed in the ICU for likely sepsis with noted gangrenous right great toe. She dialyzes via permcath placed months ago after failed AVG and stopped PD. Last HD was yesterday and uneventful. Pt seen and exaamied noted very lethargic and unable to give many answers. Also quite hypotensive. No acute indication for RESEARCH PROJECT COORDINATOR at this time. Infections sources include gangrenous toe vs PD catheter vs permcath. Though no abdominal discomfort. will ask dialysis nurse for cell count, gram stain and culture from peritoneal source. ID on board, empiric coverage pending culture results. Plan to dialyze tomorrow if hemodyna mically stable.
[2018-02-05] MEDS: Lactulose Oral Soln 20 GM/30 ML UDC PO SCH ×3 (13:57→20:52)
[2018-02-05 14:07] LABS: Bilirubin,Urine Negative (Negative); Blood,Urine Moderate (Negative); Clarity,Urine Turbid (Clear); Color,Urine Yellow (Yellow); Glucose,Urine (UA) 250 mg/dL (Normal); Ketones,Urine Negative (Negative); Leukocyte Esterase,Urine Large (Negative); Nitrite,Urine Negative (Negative); Protein,Urine >=300 mg/dL (Neg-Trace); Specific Gravity,Urine 1.017 (1.010-1.025); Urobilinogen,Urine Normal (Normal)
[2018-02-05 14:10] LABS: Bacteria,Urine Many per hpf (None-Few); Hyaline Casts,Urine None Seen per lpf (None-Few); RBC,Urine 15-30 per hpf (0-3); Squamous Epithelial Cell,Urine Many per lpf (None-Few); WBC,Urine TNTC per hpf (0-3)
[2018-02-05 14:56] LABS: Ferritin > 1500 ng/mL (10-120); Iron < 10 mcg/dL (50-170); Transferrin 105 mg/dL (203-362)
[2018-02-05] MEDS: MetroNIDAZOLE 500 MG/100 ML 500 MG/100 ML BAG IVPB SCH ×2 (15:40→23:26)
[2018-02-05] MEDS ORDERED: Aztreonam 2,000 MG in Water for inj. (sterile) 20 ML 20 ML IVP SCH (16:00)
[2018-02-05] MEDS ORDERED: Insulin DETEMIR 100 UNIT/ML X5UNITS SQ SCH (18:00)
[2018-02-05 19:09] LABS: Hepatitis B Surface Antigen Nonreactive (Nonreactive)
[2018-02-05] MEDS ORDERED: *HR* Promethazine 25 MG/ML VIAL ONE (22:09)
[2018-02-05] MEDS ORDERED: *HR* Promethazine 25 MG/ML VIAL IVP ONE (22:32)
[2018-02-05] MEDS ORDERED: Acetaminophen 650 MG RECTAL SUPP RC PRN (23:35)
[2018-02-06 02:03] LABS: Enterococcus by PCR Not Detected (Not Detect); blaKPC Carbapenem-Resist Gene Not Detected (Not Detect); mecA Methicillin-Resist Gene DETECTED (Not Detect); vanA/B Vancomycin-Resist Genes Not Detected (Not Detect)
[2018-02-06 02:04] LABS: Acinetobacter baumannii by PCR Not Detected (Not Detect); Candida albicans by PCR Not Detected (Not Detect); Candida glabrata by PCR Not Detected (Not Detect); Candida krusei by PCR Not Detected (Not Detect); Candida parapsilosis by PCR Not Detected (Not Detect); Candida tropicalis by PCR Not Detected (Not Detect); Enterobacter cloacae Cmplx PCR Not Detected (Not Detect); Enterobacteriaceae by PCR Not Detected (Not Detect); Escherichia coli by PCR Not Detected (Not Detect); Klebsiella oxytoca by PCR Not Detected (Not Detect); Klebsiella pneumoniae by PCR Not Detected (Not Detect); Proteus by PCR Not Detected (Not Detect); Pseudomonas aeruginosa by PCR Not Detected (Not Detect); Serratia marcescens by PCR Not Detected (Not Detect); Staphylococcus aureus by PCR DETECTED (Not Detect); Staphylococcus by PCR DETECTED (Not Detect); Streptococcus agalactiae(B)PCR Not Detected (Not Detect); Streptococcus by PCR Not Detected (Not Detect); Streptococcus pneumoniae PCR Not Detected (Not Detect); Streptococcus pyogenes (A) PCR Not Detected (Not Detect)
[2018-02-06 04:40] LABS: Basophils % 0.1 %; Eosinophils % 0.1 %; Hematocrit 21.8 % (35.3-44.9); Hemoglobin 6.9 g/dL (11.5-15.4); Immature Granulocytes % 2.4 % (0-4); Lymphocytes # 0.4 K/mcL (0.6-4.6); Lymphocytes % 2.5 %; Mean Corpuscular HGB Conc 31.7 g/dL (31.6-35.5); Mean Corpuscular Hemoglobin 33.7 pg (28.0-33.3); Mean Corpuscular Volume 106.3 fL (83.0-100.0); Monocytes # 0.9 K/mcL (0.0-1.3); Monocytes % 5.7 %; Neutrophils # 13.4 K/mcL (1.6-8.9); Platelet Count 356 K/mcL (140-400); Red Blood Count 2.05 M/mcL (3.82-4.97); Red Cell Distribution Width 14.3 % (11.5-14.5); Segmented Neutrophils % 89.2 %
[2018-02-06 04:49] LABS: Albumin 2.4 g/dL (3.5-5.7); Albumin/Globulin Ratio 0.8 (1.1-2.2); Bilirubin,Total 0.5 mg/dL (0.3-1.0); Calcium 7.5 mg/dL (8.6-10.3); Globulin 2.9 g/dL (2.4-3.5); Magnesium 1.8 mg/dL (1.6-2.6); Phosphorous 4.2 mg/dL (2.7-4.5); Total Protein 5.3 g/dL (6.4-8.9)
[2018-02-06 04:59] LABS: Hypochromasia Present (Not Present); Platelet Estimate Normal (Normal)
[2018-02-06] MEDS: *HR* Heparin 5,000 UNIT/ML VIAL SQ SCH (05:58)
[2018-02-06] MEDS ORDERED: *HR* Heparin 10,000 UNIT/10 ML VIAL IV PRN (08:03)
[2018-02-06] MEDS ORDERED: 0.9 % Sodium Chloride 250 ML IVC PRN (08:03)
[2018-02-06] MEDS: Tiotropium 18 MCG inhalation IH SCH (08:04)
[2018-02-06] MEDS ORDERED: 0.9 % Sodium Chloride 1,000 ML PRIME SCH (08:15)
[2018-02-06] MEDS: Lactulose Oral Soln 20 GM/30 ML UDC PO SCH ×2 (08:16→20:25)
[2018-02-06] MEDS: MetroNIDAZOLE 500 MG/100 ML 500 MG/100 ML BAG IVPB SCH ×2 (08:24→15:32)
[2018-02-06] MEDS: Insulin LISPRO 300 UNITS/3 ML VIAL SQ SCH (08:29)
--- NOTE | 2018-02-06 08:54 | Cardiology Consult Note ---
Date of Encounter: 02/06/18 Time of Encounter: 08:51 Assessment and Plan (1) Chest pain Current Visit: Yes Status: Acute atypical chest pain Qualifiers: Chest pain type: unspecified Qualified Code(s): R07.9 - Chest pain, unspecified (2) Elevated troponin Current Visit: Yes Status: Acute minimal, type 2 NSTEMI likely 2/2 sepsis, ESRD. unlikley ACS. no heparin needed. (3) PAD (peripheral artery disease) Current Visit: Yes Status: Acute recent B/L LE artery stents per pt, please obtain records fro [facility]. need ASA+plavix (4) CAD (coronary artery disease) Current Visit: Yes Status: Chronic please obtain records from [facility]. S/p 2 stents, no angina on BB, imdur at home c/w home meds Qualifiers: Coronary Disease-Associated Artery/Lesion type: unspecified vessel or lesion type [place] vs. transplanted heart: [place] heart Associated angina: without angina Qualified Code(s): I25.10 - Atherosclerotic heart disease of [place] coronary artery without angina pectoris (5) CHF (congestive heart failure) Current Visit: Yes Status: Chronic limited ET, NYNA unclear, likely II, no [place] fluid overload, on HD. pending echo c/w HD, BB, ACEi, lasix home meds Qualifiers: Heart failure type: unspecified Heart failure chronicity: chronic Qualified Code(s): I50.9 - Heart failure, unspecified (6) ESRD (end stage renal disease) Current Visit: No Status: Chronic on HD MWF (7) Sepsis Current Visit: Yes Status: Acute MRSA bacteremia w/u and management per ID, source UTI vs others TTE pending, FREDIS if source of MRSA bacteremia unclear Qualifiers: Sepsis type: sepsis due to unspecified organism Qualified Code(s): A41.9 - Sepsis, unspecified organism (8) Anemia Current Visit: No Status: Chronic Qualifiers: Anemia type: due to chronic kidney disease Chronic kidney disease stage: on chronic dialysis Qualified Code(s): N18.6 - End stage renal disease; D63.1 - Anemia in chronic kidney disease; Z99.2 - Dependence on renal dialysis Discussion w patient/family: The assessment and plan as outlined above was discussed with the patient and/or family members who expressed understanding and agreement. All questions were answered. Thank you for involving us in the care of your patient. Please call with any questions. History of Present Illness Consult date: 02/06/18 Requesting physician: Diego Cody Consult reason: elevated troponin Chief complaint: chest pain History of present illness: Ms. Orozco is a 57 year old female ho ESRD on HD, CAD (stentsx2 in [facility] for + stress test 5 yrs ago), PAD ("B/L leg stents" in [facility] 2 wks ago per pt) , CHF unclear detail, DM, HTN, COPD, KEMAR. P/w cp w/ fever to OSH, CTA chest and abd neg for acute findings; transfer to [place] for sepsis, AMS. Imp SIRS, suspected MRSA bacteremia source UTI or DM foot , anemia 7. Consulted for trop 0.04-0.06 flat. Pt's chest pain feels different than angina in the past, rest, sharp, lasting hrs. No angina since stents 4-5 yrs ago. No dynamic ECG changes (Reviewed ECGs from [facility] and [place]). Baseline sedentary due to left ankle fractures and hip pain. No PND/orthopnea. + chronic B/L LE edema. No palpitations, syncope. + intermittent N/V. ECG NSR, low voltage precordial, NS STT Tele no events TTE pending Past Med Surg Social Fam HX - Past Medical History Medical history: COPD, coronary artery disease, diabetes, dialysis, hypertension , renal disease Additional medical history: vascular stents Psychiatric history: anxiety, depression - Past Surgical History Surgical History: other Additional surgical history: ankle sx, hip sx, 3 hand sx, partial hysterectomy, tubal, left arm fistula, peritoneal port - Social History Smoking Status: Former smoker Smokeless Tobacco Status: No Alcohol use: none Drug use: none - Family History Mother Living Status: Hx Family Cardiac Disorders: Yes (CHF, [place]) Father Living Status: Hx Family Respiratory Disorders: Yes (Asthma) Hx Family Endocrine Disorder: Yes (Kidney disease) Medications and Allergies Albuterol Sulfate [Proair Hfa] 1 - 2 puff IH Q4-6H PRN 07/10/17 [History] Atorvastatin [Lipitor] 40 mg PO HS 07/10/17 [History] Esomeprazole Magnesium [Nexium] 40 mg PO DAILY 07/10/17 [History] Fenofibrate Nanocrystallized [Triglide] 160 mg PO DAILY 07/10/17 [History] Furosemide [Lasix] 40 mg PO 1400 07/10/17 [History] Furosemide [Lasix] 80 mg PO QAM 07/10/17 [History] Insulin Glargine,Hum.rec.anlog [Lantus Solostar] 60 unit SQ QPM 07/10/17 [ History] Isosorbide MONOnitrate (24 HR) [Imdur] 30 mg PO DAILY 07/10/17 [History] Lisinopril [Zestril] 10 mg PO BID 07/10/17 [History] Metoprolol [Lopressor] 50 mg PO QPM 07/10/17 [History] Metoprolol [Lopressor] 100 mg PO QAM 07/10/17 [History] Oxybutynin [Ditropan] 5 mg PO TID 07/10/17 [History] Renal Vitamin [Renal Caps Softgel] 1 mg PO DAILY 07/10/17 [History] Sertraline [Zoloft] 25 mg PO DAILY 07/10/17 [History] Sevelamer [Renvela] 800 mg PO TIDWM 07/10/17 [History] Tiotropium [Spiriva] 18 mcg IH DAILY 07/10/17 [History] Insulin LISPRO [HumaLOG] 15 - 20 units SQ TID 12/30/17 [History] Gabapentin [Neurontin] 100 mg PO TID 02/05/18 [History] 3 Allergy/AdvReac Type Severity Reaction Status Date / Time Penicillins Allergy Hives Verified 12/30/17 12:35 Sulfa (Sulfonamide Allergy Hives Verified 12/30/17 12:35 Antibiotics) hydrocodone AdvReac Nausea Verified 12/30/17 12:35 metformin [From Glucophage] AdvReac Nausea Verified 12/30/17 12:35 niacin AdvReac Redness of Verified 12/30/17 12:35 Skin Oxycodone [From Percocet] AdvReac Nausea Verified 12/30/17 12:35 tramadol [From Ultram] AdvReac Nausea Verified 12/30/17 12:35 All Systems Review: The remainder of the systems were reviewed and are negative - Constitutional Constitutional: fever(s), malaise - Cardiovascular Cardiovascular: as per HPI - Gastrointestinal Gastrointestinal: nausea - Hematological/Lymphatic Hematologic/Lymphatic: no easy bleeding Physical Examination Vital Signs, Last 4 Hours Temp Pulse Resp BP Pulse Ox 02/06/18 08:00 98.5 F 86 14 129/63 95 02/06/18 07:40 16 96 02/06/18 06:00 98.7 F 89 16 121/60 94 02/06/18 05:00 94 20 135/61 92 Other: General: NAD, AAO, cogent HEENT: anicteric Neck: no JVD, no bruits Chest: CTA B/L, no W/R/C Heart: RRR, S1/S2, no S3/S4, no M/G/R Abdominal: BS +, soft, ND, NT Peripheral Pulses: radial pulse 2+ B/L, DP vague B/L Skin/Extremities: no cyanosis, B/L lower chavarria edema chronic Neurological: grossly non-focal. Results 02/06/18 04:15 02/06/18 04:15 Lab Results 02/05/18 02/05/18 02/05/18 11:15 11:20 11:20 WBC 16.0 H Hgb 7.4 L Hct 23.4 L Plt Count 375 INR 1.4 Sodium Potassium Chloride Carbon Dioxide BUN Creatinine Glucose Calcium Magnesium Total Bilirubin AST ALT Alkaline Phosphatase Troponin I 0.04 H* B-Natriuretic Peptide 02/05/18 02/05/18 02/05/18 11:20 11:20 16:56 WBC Hgb Hct Plt Count INR Sodium 135 L Potassium 3.7 Chloride 96 L Carbon Dioxide 24 BUN 17 Creatinine 4.32 H Glucose 263 H Calcium 7.6 L Magnesium 1.7 Total Bilirubin 0.6 AST 35 ALT 15 Alkaline Phosphatase 40 Troponin I 0.05 H* B-Natriuretic Peptide 580 H 02/05/18 02/06/18 02/06/18 23:00 04:15 04:15 WBC 15.0 H Hgb 6.9 L Hct 21.8 L Plt Count 356 INR Sodium 136 Potassium 4.0 Chloride 98 Carbon Dioxide 25 BUN 25 H Creatinine 5.20 H Glucose 230 H Calcium 7.5 L Magnesium 1.8 Total Bilirubin 0.5 AST 34 ALT 15 Alkaline Phosphatase 45 Troponin I 0.06 H* B-Natriuretic Peptide - Imaging and Cardiology Chest Xray: report reviewed Echo: pending Other Results: Tele reviewed - EKG Interpretation EKG results cardiology: personally reviewed, sinus rhythm, no diagnostic ischemia Consult Discharge Plan - Plan Referrals: Guero Clement DO [Primary Care Provider] -
[2018-02-06] MEDS ORDERED: Isosorbide MONOnitrate (24 HR) 30 MG TAB.ER.24H PO SCH (09:00)
[2018-02-06] MEDS ORDERED: Ondansetron 4 MG/2 ML VIAL ONE (09:00)
[2018-02-06] MEDS ORDERED: 0.9 % Sodium Chloride 250 ML ONE (09:00)
[2018-02-06] MEDS ORDERED: Vancomycin 1 EACH in EMPTY BAG 1 EACH IVPB SCH (09:00)
[2018-02-06] MEDS ORDERED: Renal Vitamin 1 CAP CAPSULE PO SCH (09:00)
[2018-02-06] MEDS ORDERED: Metoprolol 100 MG TABLET PO SCH (09:00)
[2018-02-06] MEDS ORDERED: Fenofibrate 54 MG TABLET PO SCH (09:00)
[2018-02-06] MEDS: Ondansetron 4 MG/2 ML VIAL IVP PRN ×3 (09:02→18:57)
--- NOTE | 2018-02-06 09:16 | Electrocardiograph Report ---
[address] [address] Test Date: 2018-02-05 Pat Name: Marilynn Orozco Department: 112 Room: [facility] Gender: F Business Assistant: : 1960 Requested By: Benny Cody Order Number: [id number] Reading MD: Efren Varner Measurements Intervals [place] Rate: 93 P: 52 MN: 179 QRS: 21 QRSD: 108 T: 15 QT: 400 QTc: 451 Interpretive Statements SINUS RHYTHM LOW QRS VOLTAGE IN PRECORDIAL LEADS Borderline prolonged QT interval nonspecific ST T changes Electronically Signed On 02-06-2018 9:14:36 EDT by Efren Varner
--- NOTE | 2018-02-06 09:34 | Internal Med Progress Note ---
<JimboMik - Last Filed: 02/06/18 11:28> Hospitalist Progress Note - Encounter Date of Encounter: 02/06/18 Time of Encounter: 09:34 - Subjective Interval History: Patient reports doing better overnight. Patient is a lot more awake and alert than yesterday and even according to patient report. Patient reports that she had been dealing with wound care for her right hallux wound for about 6 weeks. Overnight patient has had some nausea with vomiting, vomitus is brown in color and on gown does not appear to be coffee ground, no large volume vomitus. Did have a bowel movement overnight that was soft nondiarrhea. Patient also denies dysuria this morning. Patient denies any abdominal pain and denies chest pain. Has some chills on occassion. Has known neuropathy with loss of sensation of feet bilaterally. Patient denies fevers, sweats, changes in vision or hearing, neck pain, chest pain, shortness of breath, cough, abdominal pain, changes in bowels or bladder, weakness, new loss of sensation, or new skin lesions. - Exam Vitals: Temp Pulse Resp BP Pulse Ox 98.6 F 98 16 206/92 100 02/06/18 09:17 02/06/18 09:17 02/06/18 09:17 02/06/18 09:17 02/06/18 09:17 Exam: General: alert and oriented x 3, no acute distress, awake HEENT: moist mucus membranes, noted brown vomitus dried on gown and in bag Neck: no adenopathy, supple CV: RRR, no murmurs Lungs: CTAB, no wheezes, rhonchi or rales Abd: soft nontender, normal bowel sounds, nondistended. Ports: Right upper chest perma cath in place no surrouding erythema or drainage , Left abdominal peritoneal dialysis port clean dry intact no surrounding erythema. Extremities: Right lower extremity with hallux darkened/necrotic, clean dry intact dressings, no sensation bilaterally plantar surface, no edema, no cyanosis. MSK: 5/5 bilatrally all extremities Neuro: no focal deficits, answers questions appropriately, EOMI, PERRLA. - Assessment and Plan (1) Sepsis Current Visit: Yes Status: Acute Assessment and Plan: Patient meets sepsis criteria with tachycardia, temp to 102-104F, WBC 16.0, lactic acid 3.9 on arrival and likely source R hallux wound vs permacath, and bp low but responsive at 93/43 WBC today improved to 15 from 16 yesterday. Lactic acidosis resolved: 3.9, 2.4, 1.6 Blood cultures 02/05/18 x 2 gram positive cocci, PCR with Staph aureus and mecA gene positive Blood cultures 02/06/18 x 2 drawn Wound culture sent 02/05/18 Continue with d2 of Cefepime, Vancomycin, and Flagyl. -Caution with fluids as patient is ESRD on dialysis. -ID on board, continue following recommendations -Continued telemetry -Podiatry consulted -Cardiology on board, Echo ordered -ICU consulted (2) Encephalopathy acute Current Visit: Yes Status: Resolved Assessment and Plan: Presented with AMS, suspected likely due to Sepsis, possible hyperammonenemia, and hypoxia (noted on ABG, not pulse ox) Resolved Ammonia elevated 76 on arrival, repeat 40. ABG: pH 7.47, pCO2 35, pO2 43, O2 sat 82%. -Continue to monitor symptoms. (3) Bacteremia Current Visit: Yes Status: Acute Assessment and Plan: Blood cultures 02/05/18 x 2 gram positive cocci Blood cultures drawn 02/06/18 x 2 PCR with Staph aureus and mecA gene positive Source likely Right hallux wound vs perma cath Continue with antibiotics per plan in assessment above -ID on board. (4) Necrosis of toe Current Visit: Yes Status: Acute Assessment and Plan: Found to have Right hallux necrosis Likely source of gram positive cocci bacteremia and sepsis XR foot revealed no evidence of osteomyelitis, no obvious gas identified Wound culture sent -Podiatry consulted -Antibiotics per plan in assessments above. (5) Nausea & vomiting Current Visit: Yes Status: Acute Assessment and Plan: Patient developed some nausea and vomiting overnight. Vomitus was visualized as brown, questionable if feculent. No abdominal pain, did have bowel movement overnight. KUB overnight revealed moderate gaseous distension, nonobstructive gas patten. -Continue serial abdominal exams -Phenergan as needed -Protonix bid for ppx. -Consider additional or repeat imaging if continues or does not improve. (6) Chest pain Current Visit: Yes Status: Resolved Assessment and Plan: Patient presented with chest pain. Symptoms resolved overnight, no active chest pain Uncertain etiology EKG with no acute findings/changes from prior, has some T-wave inversion in lateral leads. Troponin adynamic 0.04, 0.05, 0.06 -Echo ordered -Cardiology consulted (7) Elevated troponin Current Visit: Yes Status: Acute Assessment and Plan: Elevated troponin 0.04, 0.05, 0.06 Adynamic -Cardiology consulted. (8) Dysuria Current Visit: Yes Status: Resolved Assessment and Plan: Complaint of dysuria on admission. Currently symptom resolved. UA with protein > 300, glucose, moderate blood, large leuk, 15-30 RBC, TNTC wbc , many squamous, many bacteria. -Urine culture was ordered -Continue per plan in assessments above for sepsis/abx. (9) Anemia Current Visit: Yes Status: Chronic Assessment and Plan: acute on chronic mixed anemia from esrd, iron deficiency, and megaloblastic anemia of unknown etiology. Question if vomit of brown vomitus concerning for gi bleed Hb on admission 7.4, currently 6.9 B12 normal, folate pending -3 Units pRBC ordered, 1 transfusing. -Goal Hb in ESRD 10-11. -Hemoccult ordered (10) Hyperammonemia Current Visit: Yes Status: Resolved Assessment and Plan: AMS upon arrival now resolved. Ammonia level on arrival elevated at 76, currently 40. Uncertain etiology. Not necessary to follow as mental status improved and liver enzymes have been normal. (11) ESRD (end stage renal disease) on dialysis Current Visit: Yes Status: Chronic Assessment and Plan: Known ESRD on dialysis MWF -Nephrology on board. -Access: right upper chest perma cath, left abdominal peritoneal cath. -Continue monitoring labs. 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 (13) CAD (coronary artery disease) Current Visit: No Status: Chronic Assessment and Plan: Known history of CAD with cath and stents in past. Presented with chest pain which is now resolved. EKG on this visit unchanged, troponins adynamic. -Cardiology consulted -Echo ordered (14) COPD (chronic obstructive pulmonary disease) Current Visit: No Status: Chronic Assessment and Plan: Known history of COPD, no acute exacerbation. -Continue home meds for chronic disease management. (15) PAD (peripheral artery disease) Current Visit: No Status: Chronic Assessment and Plan: Known history of PAD with leg stents bilaterally -Continue with asa and plavix. (16) Pulmonary HTN Current Visit: No Status: Chronic Assessment and Plan: History mentioned pulmonary hypertension. -Echo ordered. (17) HTN (hypertension) Current Visit: No Status: Chronic Assessment and Plan: Known history of chronic htn Continue monitoring bp -Continue home meds for chronic disease management. (18) KEMAR (obstructive sleep apnea) Current Visit: No Status: Chronic Assessment and Plan: Known history of KEMAR, CPAP ordered. (19) DVT prophylaxis Current Visit: Yes Status: Acute Assessment and Plan: heparin sq - Time Spent with Patient Total time spent is greater than 50% in coordination of care (as documented) at patient's floor/unit and/or counseling patient: Internal Medicine: Result - Labs CBC & Chem 7: 02/06/18 04:15 02/06/18 04:15 Labs: Short CBC 02/05/18 02/06/18 Range/Units 11:20 04:15 WBC 16.0 H 15.0 H (4.3-11.1) K/mcL Hgb 7.4 L 6.9 L (11.5-15.4) g/dL Hct 23.4 L 21.8 L (35.3-44.9) % Plt Count 375 356 (140-400) K/mcL Neutrophils # 14.1 H 13.4 H (1.6-8.9) K/mcL BMP 02/05/18 02/06/18 11:20 04:15 Sodium 135 L 136 Potassium 3.7 4.0 Chloride 96 L 98 Carbon Dioxide 24 25 BUN 17 25 H Creatinine 4.32 H 5.20 H Glucose 263 H 230 H Calcium 7.6 L 7.5 L Cardiac Enzymes 02/05/18 02/05/18 02/05/18 Range/Units 11:15 16:56 23:00 Troponin I 0.04 H* 0.05 H* 0.06 H* (< 0.04) ng/mL Liver Function 02/05/18 02/06/18 Range/Units 11:20 04:15 Total Bilirubin 0.6 0.5 (0.3-1.0) mg/dL Direct Bilirubin 0.3 H (0.0-0.2) mg/dL AST 35 34 (13-39) Units/L ALT 15 15 (7-52) Units/L Alkaline Phosphatase 40 45 (34-104) Units/L Albumin 2.5 L 2.4 L (3.5-5.7) g/dL Urine 02/05/18 Range/Units 10:58 Urine Color Yellow (Yellow) Urine Clarity Turbid A (Clear) Urine pH 6.0 (5.0-8.0) pH Units Ur Specific [place] 1.017 (1.010-1.025) Urine Protein >=300 H (Neg-Trace) mg/dL Urine Glucose (UA) 250 H (Normal) mg/dL - ABG Interpretation ABG results: ABG ABG pH 7.47 pH Units (7.32-7.45) H 02/05/18 11:49 ABG pCO2 35 mmHg (35-45) 02/05/18 11:49 ABG pO2 43 mmHg (85-104) L* 02/05/18 11:49 ABG O2 Saturation 82 % (95-98) L 02/05/18 11:49 PT/INR, D-dimer PT 16.0 Seconds (9.4-12.1) H 02/05/18 11:20 - Impressions Impressions Chest X-Ray 02/05/18 10:56 IMPRESSION: 1. No acute cardiopulmonary disease. D/ / 02/05/2018 12:01:39 Dolores Morgan MD / vicky Interpreting Provider: Dolores Morgan MD Foot X-Ray 02/05/18 10:56 IMPRESSION: 1. No radiographic evidence of osteomyelitis. 2. Overlying bandage of the great toe limits evaluation for subcutaneous gas. No obvious gas identified. D/ / 02/05/2018 12:02:09 Dolores Morgan MD / Hannah Davison Interpreting Provider: Dolores Morgan MD KUB X-Ray 02/06/18 04:52 IMPRESSION: Moderate gaseous distention of the stomach. Nonobstructive bowel gas pattern. D/ / Benny Baumann / Benny Baumann Interpreting Provider: Benny Baumann Consult Discharge Plan - Plan Referrals: Guero Clement DO [Primary Care Provider] - <HemantMariellechencho - Last Filed: 02/06/18 14:19> Hospitalist Progress Note - Encounter Date of Encounter: 02/06/18 - Exam Vitals: Temp Pulse Resp BP Pulse Ox 98 F 88 14 157/68 100 02/06/18 13:15 02/06/18 13:15 02/06/18 13:15 02/06/18 13:45 02/06/18 13:15 - Assessment and Plan (1) Sepsis Current Visit: Yes Status: Acute (2) Necrosis of toe Current Visit: Yes Status: Acute (3) Chest pain Current Visit: Yes Status: Resolved (4) ESRD (end stage renal disease) on dialysis Current Visit: Yes Status: Chronic (5) Diabetes Current Visit: Yes Status: Acute (6) HTN (hypertension) Current Visit: Yes Status: Acute (7) COPD (chronic obstructive pulmonary disease) Current Visit: No Status: Chronic (8) Pulmonary HTN Current Visit: No Status: Chronic (9) CAD (coronary artery disease) Current Visit: No Status: Chronic (10) KEMAR (obstructive sleep apnea) Current Visit: No Status: Chronic (11) CHF (congestive heart failure) Current Visit: Yes Status: Chronic (12) DVT prophylaxis Current Visit: Yes Status: Acute (13) Encephalopathy Current Visit: Yes Status: Acute - Time Spent with Patient Total time spent is greater than 50% in coordination of care (as documented) at patient's floor/unit and/or counseling patient: Internal Medicine: Result - Labs CBC & Chem 7: 02/06/18 04:15 02/06/18 04:15 Labs: Short CBC 02/06/18 Range/Units 04:15 WBC 15.0 H (4.3-11.1) K/mcL Hgb 6.9 L (11.5-15.4) g/dL Hct 21.8 L (35.3-44.9) % Plt Count 356 (140-400) K/mcL Neutrophils # 13.4 H (1.6-8.9) K/mcL BMP 02/06/18 04:15 Sodium 136 Potassium 4.0 Chloride 98 Carbon Dioxide 25 BUN 25 H Creatinine 5.20 H Glucose 230 H Calcium 7.5 L Cardiac Enzymes 02/05/18 02/05/18 Range/Units 16:56 23:00 Troponin I 0.05 H* 0.06 H* (< 0.04) ng/mL Liver Function 02/06/18 Range/Units 04:15 Total Bilirubin 0.5 (0.3-1.0) mg/dL AST 34 (13-39) Units/L ALT 15 (7-52) Units/L Alkaline Phosphatase 45 (34-104) Units/L Albumin 2.4 L (3.5-5.7) g/dL - ABG Interpretation ABG results: ABG ABG pH 7.47 pH Units (7.32-7.45) H 02/05/18 11:49 ABG pCO2 35 mmHg (35-45) 02/05/18 11:49 ABG pO2 43 mmHg (85-104) L* 02/05/18 11:49 ABG O2 Saturation 82 % (95-98) L 02/05/18 11:49 PT/INR, D-dimer PT 16.0 Seconds (9.4-12.1) H 02/05/18 11:20 - Impressions Impressions Echocardiogram 02/05/18 11:36 Impressions: LVEF 60%. Mildly dilated left ventricle. Normal LV wall thickness and function. Moderate left ventricular diastolic dysfunction. Normal right ventricular structure and function. No evidence of a PFO with agitated saline contrast. Mild mitral regurgitation. No evidence of pulmonary hypertension. There is a small inferior and inferoalteral pericardial effusion present. Left Ventricular Wall Motion: Rest Echo Findings All wall segments showed normal motion. Findings: Study Quality * Technically sub-optimal due to poor echocardiographic windows. ECG Findings * Normal sinus rhythm. Left Ventricle * LVEF 60%. * Mildly dilated left ventricle. * Normal LV wall thickness and function. * Moderate left ventricular diastolic dysfunction. Right Ventricle * Normal right ventricular structure and function. Left Atrium * Moderately dilated left atrium. Right Atrium * Normal right atrial size. Interatrial Septum * No evidence of a PFO with agitated saline contrast. Aortic Valve * No aortic stenosis. * Trileaflet aortic valve. * Trace aortic regurgitation. Mitral Valve * Normal mitral valve structure. * Mild mitral regurgitation. * No mitral stenosis. Tricuspid Valve * Normal tricuspid valve structure and function. * Trace tricuspid regurgitation. * No evidence of pulmonary hypertension. Pulmonic Valve * Pulmonic valve is not well visualized. * No pulmonic regurgitation. Aorta * Normally sized aortic root. Pericardium * There is a small inferior and inferoalteral pericardial effusion present. IVC * Normal IVC dimensions and inspiratory collapse. Pulmonary Artery * Normal visualized portions of the main pulmonary artery. KUB X-Ray 02/06/18 04:52 IMPRESSION: Moderate gaseous distention of the stomach. Nonobstructive bowel gas pattern. D/ / Benny Baumann / Benny Baumann Interpreting Provider: Benny Baumann - Attending Attestation I have seen and examined this pt independently. I have discussed with resident physician Dr Choi regarding the management plan. Agree with the documentation. <Mik Choi - Last Filed: 02/06/18 11:28> (1) Sepsis Qualifiers: Sepsis type: sepsis due to unspecified organism Qualified Code(s): A41.9 - Sepsis, unspecified organism (5) Nausea & vomiting Qualifiers: Vomiting type: unspecified Vomiting Intractability: unspecified Qualified Code(s): R11.2 - Nausea with vomiting, unspecified (6) Chest pain Qualifiers: Chest pain type: unspecified Qualified Code(s): R07.9 - Chest pain, unspecified (9) Anemia Qualifiers: Anemia type: due to chronic kidney disease Chronic kidney disease stage: on chronic dialysis Qualified Code(s): N18.6 - End stage renal disease; D63.1 - Anemia in chronic kidney disease; Z99.2 - Dependence on renal dialysis (12) Diabetes Qualifiers: Diabetes mellitus type: type 2 Diabetes mellitus buttermaker helper insulin use: with nursing home use Diabetes mellitus complication status: without complication Qualified Code(s): E11.9 - Type 2 diabetes mellitus without complications; Z79.4 - supervisor intermediates (current) use of insulin (13) CAD (coronary artery disease) Qualifiers: Coronary Disease-Associated Artery/Lesion type: unspecified vessel or lesion type [place] vs. transplanted heart: [place] heart Associated angina: without angina Qualified Code(s): I25.10 - Atherosclerotic heart disease of [place] coronary artery without angina pectoris (14) COPD (chronic obstructive pulmonary disease) Qualifiers: COPD type: unspecified COPD Qualified Code(s): J44.9 - Chronic obstructive pulmonary disease, unspecified (17) HTN (hypertension) Qualifiers: Hypertension type: essential hypertension Qualified Code(s): I10 - Essential (primary) hypertension <Chloe Marcos - Last Filed: 02/06/18 14:19> (1) Sepsis Qualifiers: Qualified Code(s): A41.9 - Sepsis, unspecified organism (3) Chest pain Qualifiers: Qualified Code(s): R07.9 - Chest pain, unspecified (5) Diabetes Qualifiers: Qualified Code(s): E11.22 - Type 2 diabetes mellitus with diabetic chronic kidney disease; N18.6 - End stage renal disease; Z79.4 - halfway (current) use of insulin; Z99.2 - Dependence on renal dialysis (6) HTN (hypertension) Qualifiers: Qualified Code(s): I10 - Essential (primary) hypertension (7) COPD (chronic obstructive pulmonary disease) Qualifiers: Qualified Code(s): J44.9 - Chronic obstructive pulmonary disease, unspecified (9) CAD (coronary artery disease) Qualifiers: Qualified Code(s): I25.10 - Atherosclerotic heart disease of [place] coronary artery without angina pectoris (11) CHF (congestive heart failure) Qualifiers: Qualified Code(s): I50.9 - Heart failure, unspecified
[2018-02-06] MEDS: *HR* Promethazine 25 MG/ML VIAL IVP PRN ×2 (09:37→15:26)
[2018-02-06] MEDS ORDERED: 0.9 % Sodium Chloride 1,000 ML ONE (09:38)
[2018-02-06] MEDS: Pantoprazole 40 MG VIAL IVP SCH ×2 (11:59→17:30)
[2018-02-06] MEDS ORDERED: Vancomycin 500 MG in 0.9 % Sodium Chloride Mini Bag 100 ML IVPB ONE ×2 (12:00→17:00)
--- NOTE | 2018-02-06 12:18 | Pulmonology Consult Note ---
<AdorehermannWes nina M - Last Filed: 02/06/18 13:19> Date of Encounter: 02/06/18 Medications and Allergies Albuterol Sulfate [Proair Hfa] 1 - 2 puff IH Q4-6H PRN 07/10/17 [History] Atorvastatin [Lipitor] 40 mg PO HS 07/10/17 [History] Esomeprazole Magnesium [Nexium] 40 mg PO DAILY 07/10/17 [History] Fenofibrate Nanocrystallized [Triglide] 160 mg PO DAILY 07/10/17 [History] Furosemide [Lasix] 40 mg PO 1400 07/10/17 [History] Furosemide [Lasix] 80 mg PO QAM 07/10/17 [History] Insulin Glargine,Hum.rec.anlog [Lantus Solostar] 60 unit SQ QPM 07/10/17 [ History] Isosorbide MONOnitrate (24 HR) [Imdur] 30 mg PO DAILY 07/10/17 [History] Lisinopril [Zestril] 10 mg PO BID 07/10/17 [History] Metoprolol [Lopressor] 50 mg PO QPM 07/10/17 [History] Metoprolol [Lopressor] 100 mg PO QAM 07/10/17 [History] Oxybutynin [Ditropan] 5 mg PO TID 07/10/17 [History] Renal Vitamin [Renal Caps Softgel] 1 mg PO DAILY 07/10/17 [History] Sertraline [Zoloft] 25 mg PO DAILY 07/10/17 [History] Sevelamer [Renvela] 800 mg PO TIDWM 07/10/17 [History] Tiotropium [Spiriva] 18 mcg IH DAILY 07/10/17 [History] Insulin LISPRO [HumaLOG] 15 - 20 units SQ TID 12/30/17 [History] Gabapentin [Neurontin] 100 mg PO TID 02/05/18 [History] 3 Allergy/AdvReac Type Severity Reaction Status Date / Time Penicillins Allergy Hives Verified 12/30/17 12:35 Sulfa (Sulfonamide Allergy Hives Verified 12/30/17 12:35 Antibiotics) hydrocodone AdvReac Nausea Verified 12/30/17 12:35 metformin [From Glucophage] AdvReac Nausea Verified 12/30/17 12:35 niacin AdvReac Redness of Verified 12/30/17 12:35 Skin Oxycodone [From Percocet] AdvReac Nausea Verified 12/30/17 12:35 tramadol [From Ultram] AdvReac Nausea Verified 12/30/17 12:35 All Systems: The remainder of the systems were reviewed and are negative Physical Examination Vital Signs: Vital Signs, Last 4 Hours Temp Pulse Resp BP Pulse Ox 02/06/18 13:15 166/77 02/06/18 13:00 168/78 02/06/18 12:45 169/78 02/06/18 12:30 98.2 F 87 14 169/74 100 02/06/18 12:15 98.3 F 88 12 169/78 100 02/06/18 12:14 98.3 F 88 12 169/78 100 02/06/18 12:00 88 14 167/79 100 02/06/18 11:45 142/67 02/06/18 11:35 98.5 F 90 16 133/68 100 02/06/18 11:30 148/76 02/06/18 11:21 98.5 F 88 14 147/68 100 02/06/18 11:15 142/67 02/06/18 11:07 98.5 F 87 16 148/72 100 02/06/18 11:01 98.5 F 91 14 155/70 100 02/06/18 11:00 148/72 02/06/18 10:45 142/69 02/06/18 10:30 98.5 F 20 142/66 02/06/18 10:00 89 16 142/66 100 Results - Laboratory Findings CBC and BMP: 02/06/18 04:15 02/06/18 04:15 ABG ABG pH 7.47 pH Units (7.32-7.45) H 02/05/18 11:49 ABG pCO2 35 mmHg (35-45) 02/05/18 11:49 ABG pO2 43 mmHg (85-104) L* 02/05/18 11:49 ABG O2 Saturation 82 % (95-98) L 02/05/18 11:49 PT/INR, D-dimer PT 16.0 Seconds (9.4-12.1) H 02/05/18 11:20 Abnormal lab findings: Abnormal lab results WBC 15.0 K/mcL (4.3-11.1) H 02/06/18 04:15 RBC 2.05 M/mcL (3.82-4.97) L 02/06/18 04:15 Hgb 6.9 g/dL (11.5-15.4) L 02/06/18 04:15 Hct 21.8 % (35.3-44.9) L 02/06/18 04:15 MCV 106.3 fL (83.0-100.0) H 02/06/18 04:15 MCH 33.7 pg (28.0-33.3) H 02/06/18 04:15 MPV 9.0 fL (9.4-12.4) L 02/06/18 04:15 Neutrophils # 13.4 K/mcL (1.6-8.9) H 02/06/18 04:15 Lymphocytes # 0.4 K/mcL (0.6-4.6) L 02/06/18 04:15 Hypochromasia Present (Not Present) A 02/06/18 04:15 PT 16.0 Seconds (9.4-12.1) H 02/05/18 11:20 ABG pH 7.47 pH Units (7.32-7.45) H 02/05/18 11:49 ABG pO2 43 mmHg (85-104) L* 02/05/18 11:49 ABG O2 Saturation 82 % (95-98) L 02/05/18 11:49 BUN 25 mg/dL (6-20) H 02/06/18 04:15 Creatinine 5.20 mg/dL (0.60-1.20) H 02/06/18 04:15 Est GFR ( Amer) 10 (> 60) L 02/06/18 04:15 Est GFR (Non-Af Amer) 8 (> 60) L 02/06/18 04:15 BUN/Creatinine Ratio 5 (6-26) L 02/06/18 04:15 Glucose 230 mg/dL (70-105) H 02/06/18 04:15 POC Glucose 122 mg/dL (70-99) H 02/06/18 11:52 Calcium 7.5 mg/dL (8.6-10.3) L 02/06/18 04:15 Iron < 10 mcg/dL (50-170) L 02/05/18 13:50 Transferrin 105 mg/dL (203-362) L 02/05/18 13:50 Ferritin > 1500 ng/mL (10-120) H 02/05/18 13:50 Direct Bilirubin 0.3 mg/dL (0.0-0.2) H 02/05/18 11:20 Troponin I 0.06 ng/mL (< 0.04) H* 02/05/18 23:00 B-Natriuretic Peptide 580 pg/mL (Less than 100) H 02/05/18 11:20 Serum Total Protein 5.3 g/dL (6.4-8.9) L 02/06/18 04:15 Albumin 2.4 g/dL (3.5-5.7) L 02/06/18 04:15 Albumin/Globulin Ratio 0.8 (1.1-2.2) L 02/06/18 04:15 Ur Specimen Adequacy See below A 02/05/18 10:58 Urine Clarity Turbid (Clear) A 02/05/18 10:58 Urine Protein >=300 mg/dL (Neg-Trace) H 02/05/18 10:58 Urine Glucose (UA) 250 mg/dL (Normal) H 02/05/18 10:58 Urine Blood Moderate (Negative) H 02/05/18 10:58 Ur Leukocyte Esterase Large (Negative) H 02/05/18 10:58 Urine Microscopic RBC 15-30 per hpf (0-3) H 02/05/18 10:58 Urine Microscopic WBC TNTC per hpf (0-3) H 02/05/18 10:58 Ur Squamous Epith Cells Many per lpf (None-Few) H 02/05/18 10:58 Urine Bacteria Many per hpf (None-Few) H 02/05/18 10:58 Ur Culture Indicated? NO. (NO) A 02/05/18 10:58 Staphylococcus sp PCR DETECTED (Not Detect) A 02/05/18 11:20 Staph aureus (PCR) DETECTED (Not Detect) A 02/05/18 11:20 mecA-Methicil Res Gene DETECTED (Not Detect) A 02/05/18 11:20 - Microbiology Findings Microbiology Findings: Microbiology, Last 48 Hours 02/06/18 03:22 Blood Culture - Preliminary Peripheral Venipuncture Culture is incubating and being continuously monitored for growth. Final report to follow. 02/06/18 03:22 Blood Culture - Preliminary Peripheral Venipuncture Culture is incubating and being continuously monitored for growth. Final report to follow. 02/05/18 11:20 Blood Culture - Preliminary Peripheral Venipuncture Gram Positive Cocci 02/05/18 11:20 Blood Culture - Preliminary Peripheral Venipuncture Gram Positive Cocci 02/05/18 14:10 Body Fluid Culture - Preliminary Peritoneal Fluid - Clinical Findings Intake & Output: Intake & Output 02/05/18 02/06/18 02/06/18 23:59 07:59 15:59 Intake Total 600 / 600 100 / 100 1400 / 1400 Output Total 10 / 10 140 / 140 Balance 590 / 590 -40 / -40 1400 / 1400 Weight 91.1 kg 91.1 kg Consult Discharge Plan - Plan Referrals: Guero Clement DO [Primary Care Provider] - - Attending Attestation I examined this patient and my medical decision-making was reviewed with the Resident Physician. I agree with the documented findings, disposition and treatment plan as described except to the extent set forth below. Patient seen and examined. Labs, radiology, chart personally reviewed. Agree with resident's history and physical, assessment, plan with following comments: QUALITY ANALYST: Patient follows commands, Pulmonary: Acceptable oxygenation and ventilation. Patient has history of obstructive sleep apnea and she is on positive airway pressure. Cardiovascular: At this time her blood pressure in the high side and we will be gentle to lower it because of the sepsis and potential worsening if source control is not done. Patient will need FREDIS and cardiology has seen patient. GI: Nutrition per dietary and GI prophylaxis per routine. Patient has evidence of GI bleed and explained to patient she will need nasogastric tube and gastric lavage and GI has been consulted. Heme: DVT prophylaxis per routine. Transfusion with hemodialysis. Mechanical DVT prophylaxis. ID: Continue antibiotics and plan to de-escalation. Patient has bacteremia and source is not clear at this time. Even though there is no evidence of osteomyelitis and x-ray of the foot, I feel she will need MRI to prove that. I am concerned in this is a line related. Renal; patient on hemodialysis. And she has . Peritoneal catheter and if not been used, it needs to be removed.. Nephrology is following. Endorcine: blood glucose is monitored Lines: all lines checked and no evidence of infections Skin: skin care to prevent pressure ulcers per nursing routine care Patient needs to be in ICU for close monitoring because her condition could deteriorate. <Mika Hilliard R - Last Filed: 02/06/18 17:19> Date of Encounter: 02/06/18 Time of Encounter: 11:45 Assessment and Plan (1) Sepsis Current Visit: Yes Status: Acute Patient meeting sepsis criteria with MAXIMUM TEMPERATURE of 103.2 and WBC of 16 , at admission lactate elevated to 3.9. Patient with multiple possible sources of infection. Gangrenous right great toe, peroneal dialysis catheter, hemodialysis catheter, and urine culture positive for gram-negative rods. Gram- positive cocci were identified on initial blood cultures with PCR positive for MRSA. Infectious diseases is following, appreciate the recommendations. Continue cefepime, vancomycin, and Flagyl day 2, will de-escalate as appropriate. Evaluating all lines as possible source of infection, blood cultures obtained today from hemodialysis port Qualifiers: Qualified Code(s): A41.9 - Sepsis, unspecified organism (2) Bacteremia Current Visit: Yes Status: Acute Gram-positive cocci present initial blood culture, PCR positive for MRSA. Gram- negative rods identified on urine culture It is believed that source is gangrenous right great toe, however cannot exclude dialysis catheters. No valvular abnormality or vegetation with no endocardial lesions identified on transthoracic echo Patient will require FREDIS for further evaluation for endocardial lesions. Repeat blood cultures drawn today Additional blood cultures from hemodialysis catheter site Infectious diseases is following, appreciate the recommendations We will continue broad-spectrum antibiotics and de-escalate as appropriate (3) Gangrene of toe of right foot Current Visit: Yes Status: Acute Gangrenous necrosis of the right great toe 2 view foot x-ray did not reveal evidence of osteomyelitis Wound cultures pending Podiatry consulted, appreciate the recommendations. Per podiatry patient will require surgical intervention with amputation. MRI could be performed if desired, however regardless of findings patient will likely require amputation for management. Continue antibiotics, de-escalate as appropriate (4) Nausea & vomiting Current Visit: Yes Status: Acute Patient endorsing ongoing nausea, multiple episodes of vomiting dark vomitus today. Reported by nurse to be consistent with coffee-ground emesis. Patient is reporting epigastric pain yesterday with vomiting before presenting to ED. patient taking Plavix. Hemoglobin 6.9 on check this a.m. No history of GI bleed or ulcer. Patient has now been transfused 3 units of packed red blood cells Consultations GI for possible upper GI bleed, appreciate their recommendations Place and manage NG tube We will monitor serial H/H Transfuse as necessary Qualifiers: Qualified Code(s): R11.2 - Nausea with vomiting, unspecified (5) Anemia Current Visit: Yes Status: Chronic Acute worsening of chronic anemia. Patient is vomiting dark colored vomitus with some associated epigastric pain. Hemoglobin 6.9 today, has been transfused 3 units packed red blood cells. GI consult as above Serial H/H with transfusion as necessary Qualifiers: Qualified Code(s): N18.6 - End stage renal disease; D63.1 - Anemia in chronic kidney disease; Z99.2 - Dependence on renal dialysis (6) Diabetes Current Visit: Yes Status: Acute Patient is nothing by mouth at this time pending further evaluation by GI. We will reduce basal insulin until patient is eating again. 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 Nephrology following, appreciate their recommendations Hemodialysis scheduled this afternoon (8) PAD (peripheral artery disease) Current Visit: No Status: Chronic Patient is status post bilateral lower extremity vascular stent placement approximately 8-10 days ago at [facility]. Patient was started on Plavix after this procedure. Will hold aspirin and plavix in the setting of possible upper GI bleed until further recommendations from GI Will obtain ABIs (9) UTI (urinary tract infection) Current Visit: No Status: Resolved Gram negative rods identified on urine culture, with final results pending. We will continue antibiotics as outlined above Qualifiers: Qualified Code(s): N39.0 - Urinary tract infection, site not specified (10) KEMAR (obstructive sleep apnea) Current Visit: No Status: Chronic Known history of sleep apnea. Continue CPAP use (11) HTN (hypertension) Current Visit: No Status: Chronic Patient blood pressure currently stable with systolic in the 160s. We will hold blood pressure medications at this time, allow for some permissive hypertension in the setting of sepsis. Qualifiers: Qualified Code(s): I10 - Essential (primary) hypertension (12) COPD (chronic obstructive pulmonary disease) Current Visit: No Status: Chronic COPD without acute exacerbation We will continue patient's home medications Qualifiers: Qualified Code(s): J44.9 - Chronic obstructive pulmonary disease, unspecified (13) DVT prophylaxis Current Visit: Yes Status: Acute We will hold pharmaceutical prophylaxis at this time in the setting of suspected upper GI bleed EPCDs to lower extremities History of Present Illness Consult date: 02/06/18 Requesting physician: Franc Andrade Reason for consult: other (sepsis) Chief complaint: weakness, chest pain, vomitting History of present illness: Ms. Orozco is a 57-year-old female with history significant for multiple comorbidities including COPD, hypertension, CAD, diabetes, and end-stage renal disease requiring hemodialysis. Patient initially presented on 02/05/[address] [facility] emergency department for evaluation of chest pain. Initial evaluation in the ED revealed no elevation in troponins and no acute EKG abnormalities, CTA negative for pathology. Patient was found to have altered mental status and was transferred to [facility] for further evaluation and management. Upon arrival patient was found to be altered she remained arousable to voice. Patient was found to meet sepsis criteria. temp 102, WBC elevated at 16, acute on chronic anemia identified, blood glucose over 300, lactate 3.9, ammonia 76. Wound on the right great toe was identified and gangrenous in appearance. Patient was unable to confirm how long this has been present. Peritoneal dialysis catheter present, however patient states this is not the used for over a year. Right subclavian hemodialysis catheter present with HD on MWF. Patient was started on cefepime, Flagyl, and vancomycin for broad-spectrum coverage. Initial blood cultures were drawn and found to be positive for Staphylococcus aureus. Nephrology, cardiology, podiatry consulted. Since admission lactate, ammonia have normalized. Patient mental status has significantly improved. Her hemoglobin was found to be 6.9 today. Patient endorsing nausea and has vomited multiple times. Vomitus is dark brown in color. Patient denies history of gastric intestinal bleed or ulcer. Reports last colonoscopy was 1 years ago with no significant findings. Denies melena, hematochezia, hematemesis. Denies shortness of breath, chest pain. Endorses fatigue and weakness. Blood was ordered and patient is currently being transfused. Patient reports lower extremity stent placement approximately 8-10 days ago, with initiation of plavix at that time. Past Med Surg Social Fam HX - Past Medical History Medical history: COPD, coronary artery disease, diabetes, dialysis, hypertension , renal disease Additional medical history: vascular stents Psychiatric history: anxiety, depression - Past Surgical History Surgical History: other Additional surgical history: ankle sx, hip sx, 3 hand sx, partial hysterectomy, tubal, left arm fistula, peritoneal port - Social History Smoking Status: Former smoker Smokeless Tobacco Status: No Alcohol use: none Drug use: none - Family History Mother Living Status: Hx Family Cardiac Disorders: Yes (CHF, PA) Father Living Status: Hx Family Respiratory Disorders: Yes (Asthma) Hx Family Endocrine Disorder: Yes (Kidney disease) All Systems: The remainder of the systems were reviewed and are negative - Constitutional Constitutional: fatigue, weakness - EENT Nose, mouth and throat: no dysphagia, no odynophagia - Cardiovascular Cardiovascular: no chest pain - Respiratory Respiratory: no cough, no dyspnea, no hemoptysis - Gastrointestinal Gastrointestinal: abdominal pain, nausea, vomiting, no hematemesis, no hematochezia, no melena - Genitourinary Genitourinary: dysuria - Integumentary Integumentary: as per HPI - Hematologic/Lymphatic Hematologic/Lymphatic: no easy bleeding, no easy bruising Physical Examination Vital Signs: Vital Signs, Last 4 Hours Temp Pulse Resp BP Pulse Ox 02/06/18 11:35 98.5 F 90 16 133/68 100 02/06/18 11:21 98.5 F 88 14 147/68 100 02/06/18 11:07 98.5 F 87 16 148/72 100 02/06/18 11:01 91 14 155/70 100 02/06/18 10:30 98.5 F 20 142/66 02/06/18 10:00 89 16 142/66 100 02/06/18 09:17 98.6 F 98 16 206/92 100 02/06/18 09:02 98.5 F 95 16 192/74 96 General appearance: no acute distress, alert Eyes: nonicteric ENT: oropharynx moist Neck: supple, no lymphadenopathy Effort: normal Inspection: normal Auscultation: bilateral: clear (No wheezing or rales bilaterally) Cardiovascular: regular rate and rhythm (No murmur) Gastrointestinal: normoactive bowel sounds, soft, non-tender, non-distended Integumentary: other (Left peritoneal dialysis catheter and right subclavian hemodialysis catheter present, both without erythema or swelling. Right great toe necrotic distally with small open wound.) Extremities: other (Decrease peripheral pulses bilateral lower extremities.) Musculoskeletal: other (Scar of anterior left ankle from prior orthopedic procedures, nontender to palpation and motion.) Gait: normal posture normal mental status, non-focal exam mood appropriate Results - Laboratory Findings CBC and BMP: 02/06/18 04:15 02/06/18 04:15 ABG ABG pH 7.47 pH Units (7.32-7.45) H 02/05/18 11:49 ABG pCO2 35 mmHg (35-45) 02/05/18 11:49 ABG pO2 43 mmHg (85-104) L* 02/05/18 11:49 ABG O2 Saturation 82 % (95-98) L 02/05/18 11:49 PT/INR, D-dimer PT 16.0 Seconds (9.4-12.1) H 02/05/18 11:20 Abnormal lab findings: Abnormal lab results WBC 15.0 K/mcL (4.3-11.1) H 02/06/18 04:15 RBC 2.05 M/mcL (3.82-4.97) L 02/06/18 04:15 Hgb 6.9 g/dL (11.5-15.4) L 02/06/18 04:15 Hct 21.8 % (35.3-44.9) L 02/06/18 04:15 MCV 106.3 fL (83.0-100.0) H 02/06/18 04:15 MCH 33.7 pg (28.0-33.3) H 02/06/18 04:15 MPV 9.0 fL (9.4-12.4) L 02/06/18 04:15 Neutrophils # 13.4 K/mcL (1.6-8.9) H 02/06/18 04:15 Lymphocytes # 0.4 K/mcL (0.6-4.6) L 02/06/18 04:15 Hypochromasia Present (Not Present) A 02/06/18 04:15 PT 16.0 Seconds (9.4-12.1) H 02/05/18 11:20 ABG pH 7.47 pH Units (7.32-7.45) H 02/05/18 11:49 ABG pO2 43 mmHg (85-104) L* 02/05/18 11:49 ABG O2 Saturation 82 % (95-98) L 02/05/18 11:49 BUN 25 mg/dL (6-20) H 02/06/18 04:15 Creatinine 5.20 mg/dL (0.60-1.20) H 02/06/18 04:15 Est GFR ( Amer) 10 (> 60) L 02/06/18 04:15 Est GFR (Non-Af Amer) 8 (> 60) L 02/06/18 04:15 BUN/Creatinine Ratio 5 (6-26) L 02/06/18 04:15 Glucose 230 mg/dL (70-105) H 02/06/18 04:15 POC Glucose 301 mg/dL (70-99) H 02/06/18 07:50 Calcium 7.5 mg/dL (8.6-10.3) L 02/06/18 04:15 Iron < 10 mcg/dL (50-170) L 02/05/18 13:50 Transferrin 105 mg/dL (203-362) L 02/05/18 13:50 Ferritin > 1500 ng/mL (10-120) H 02/05/18 13:50 Direct Bilirubin 0.3 mg/dL (0.0-0.2) H 02/05/18 11:20 Troponin I 0.06 ng/mL (< 0.04) H* 02/05/18 23:00 B-Natriuretic Peptide 580 pg/mL (Less than 100) H 02/05/18 11:20 Serum Total Protein 5.3 g/dL (6.4-8.9) L 02/06/18 04:15 Albumin 2.4 g/dL (3.5-5.7) L 02/06/18 04:15 Albumin/Globulin Ratio 0.8 (1.1-2.2) L 02/06/18 04:15 Ur Specimen Adequacy See below A 02/05/18 10:58 Urine Clarity Turbid (Clear) A 02/05/18 10:58 Urine Protein >=300 mg/dL (Neg-Trace) H 02/05/18 10:58 Urine Glucose (UA) 250 mg/dL (Normal) H 02/05/18 10:58 Urine Blood Moderate (Negative) H 02/05/18 10:58 Ur Leukocyte Esterase Large (Negative) H 02/05/18 10:58 Urine Microscopic RBC 15-30 per hpf (0-3) H 02/05/18 10:58 Urine Microscopic WBC TNTC per hpf (0-3) H 02/05/18 10:58 Ur Squamous Epith Cells Many per lpf (None-Few) H 02/05/18 10:58 Urine Bacteria Many per hpf (None-Few) H 02/05/18 10:58 Ur Culture Indicated? NO. (NO) A 02/05/18 10:58 Staphylococcus sp PCR DETECTED (Not Detect) A 02/05/18 11:20 Staph aureus (PCR) DETECTED (Not Detect) A 02/05/18 11:20 mecA-Methicil Res Gene DETECTED (Not Detect) A 02/05/18 11:20 - Microbiology Findings Microbiology Findings: Microbiology, Last 48 Hours 02/06/18 03:22 Blood Culture - Preliminary Peripheral Venipuncture Culture is incubating and being continuously monitored for growth. Final report to follow. 02/06/18 03:22 Blood Culture - Preliminary Peripheral Venipuncture Culture is incubating and being continuously monitored for growth. Final report to follow. 02/05/18 11:20 Blood Culture - Preliminary Peripheral Venipuncture Gram Positive Cocci 02/05/18 11:20 Blood Culture - Preliminary Peripheral Venipuncture Gram Positive Cocci 02/05/18 14:10 Body Fluid Culture - Preliminary Peritoneal Fluid - Clinical Findings Intake & Output: Intake & Output 02/05/18 02/06/18 02/06/18 23:59 07:59 15:59 Intake Total 600 / 600 100 / 100 1400 / 1400 Output Total 140 / 140 Balance 590 / 590 -40 / -40 1400 / 1400 Weight 91.1 kg 91.1 kg
--- NOTE | 2018-02-06 13:03 | Podiatry Consult Note ---
Date of Encounter: 02/06/18 Time of Encounter: 12:00 Assessment and Plan (1) Gangrene of toe of right foot Current visit: Yes Status: Acute Assessment: #1: Gangrene right great toe #2 multiple comorbidities including diabetes with angiopathy neuropathy and nephropathy #3 multiple comorbidities as outlined in history Plan: #1 agree with present broad-spectrum antibiotic therapy #2 patient will need likely amputation of the great toe and possible first ray to control infection and gangrenous changes once she is stabilized to the point where we can proceed with the procedure under sedation and local anesthetic #3 local wound care History of Present Illness Chief complaint: Necrotic great toe HPI: Ms. Orozco is a 57 year old female presently somnambulant but arousable she is not alert. History gleaned from present medical records. Patient with history of end-stage renal disease diabetes hypertension CHF GERD COPD and PVD. Patient has a roughly a 6 week history of injury to the right great toe where she may have injured it at home. She is no specific recollection of trauma. She does have a long history of tobacco use. Patient was being treated a different institution for her right great toe. She presently admitted with 3 criteria for sepsis and hypotension and multiple comorbidities as outlined. Concern for the nidus of sepsis could possibly be the right great toe which is likely to undergo amputation because of the gangrene brought presently unstable to proceed to the operating room until such time internal medicine and intensivists and nephrology and infectious disease have had an opportunity to intervene. Past Med Surg Social Fam HX - Past Medical History Medical history: COPD, coronary artery disease, diabetes, dialysis, hypertension , renal disease Additional medical history: vascular stents Psychiatric history: anxiety, depression - Past Surgical History Surgical History: other Additional surgical history: ankle sx, hip sx, 3 hand sx, partial hysterectomy, tubal, left arm fistula, peritoneal port - Social History Smoking Status: Former smoker Smokeless Tobacco Status: No Alcohol use: none Drug use: none - Family History Mother Living Status: Hx Family Cardiac Disorders: Yes (CHF, [place]) Father Living Status: Hx Family Respiratory Disorders: Yes (Asthma) Hx Family Endocrine Disorder: Yes (Kidney disease) Medications and Allergies Albuterol Sulfate [Proair Hfa] 1 - 2 puff IH Q4-6H PRN 07/10/17 [History] Atorvastatin [Lipitor] 40 mg PO HS 07/10/17 [History] Esomeprazole Magnesium [Nexium] 40 mg PO DAILY 07/10/17 [History] Fenofibrate Nanocrystallized [Triglide] 160 mg PO DAILY 07/10/17 [History] Furosemide [Lasix] 40 mg PO 1400 07/10/17 [History] Furosemide [Lasix] 80 mg PO QAM 07/10/17 [History] Insulin Glargine,Hum.rec.anlog [Lantus Solostar] 60 unit SQ QPM 07/10/17 [ History] Isosorbide MONOnitrate (24 HR) [Imdur] 30 mg PO DAILY 07/10/17 [History] Lisinopril [Zestril] 10 mg PO BID 07/10/17 [History] Metoprolol [Lopressor] 50 mg PO QPM 07/10/17 [History] Metoprolol [Lopressor] 100 mg PO QAM 07/10/17 [History] Oxybutynin [Ditropan] 5 mg PO TID 07/10/17 [History] Renal Vitamin [Renal Caps Softgel] 1 mg PO DAILY 07/10/17 [History] Sertraline [Zoloft] 25 mg PO DAILY 07/10/17 [History] Sevelamer [Renvela] 800 mg PO TIDWM 07/10/17 [History] Tiotropium [Spiriva] 18 mcg IH DAILY 07/10/17 [History] Insulin LISPRO [HumaLOG] 15 - 20 units SQ TID 12/30/17 [History] Gabapentin [Neurontin] 100 mg PO TID 02/05/18 [History] 3 Allergy/AdvReac Type Severity Reaction Status Date / Time Penicillins Allergy Hives Verified 12/30/17 12:35 Sulfa (Sulfonamide Allergy Hives Verified 12/30/17 12:35 Antibiotics) hydrocodone AdvReac Nausea Verified 12/30/17 12:35 metformin [From Glucophage] AdvReac Nausea Verified 12/30/17 12:35 niacin AdvReac Redness of Verified 12/30/17 12:35 Skin Oxycodone [From Percocet] AdvReac Nausea Verified 12/30/17 12:35 tramadol [From Ultram] AdvReac Nausea Verified 08/21/18 12:35 ROS unobtainable: due to mental status All Systems Reviewed: The remainder of the systems were reviewed and are negative, patient somnambulant and not responsive to direct questions today Physical Exam - Constitutional Vitals: Temp Pulse Resp BP Pulse Ox 98.3 F 88 12 169/78 100 02/06/18 12:15 02/06/18 12:15 02/06/18 12:15 02/06/18 12:45 02/06/18 12:15 General appearance: cooperative, no acute distress, obese - Expanded Lower Extremities Exam Foot/Toe exam: Present: erythema (Patient with dry gangrene of the right great toe, sitting the distal 50% of the digit. We observe surrounding erythema no ascending lymphangitis. No putrid or foul fetid odor. No obvious fluctuance.) Neuro vascular tendon exam: Present: motor deficit, pulse deficit (Pedal pulses are not readily palpable but the skin is warm to touch capillary rebound time is within 3 seconds of digits 1 through 5 bilaterally.), sensory deficit Gait: Present: not tested/not observed - Neurological Exam Neurological exam: Present: altered - Skin Skin exam: Present: petechiae Additional comments: Patient with gangrene of the distal 50% of the, right #1 toe medially. We see encroaching petechiae purpura the base of the digits which can indicate advancing pregangrenous changes Results - Labs Result Diagrams: 02/06/18 04:15 02/06/18 04:15 Labs: Abnormal lab results WBC 15.0 K/mcL (4.3-11.1) H 02/06/18 04:15 RBC 2.05 M/mcL (3.82-4.97) L 02/06/18 04:15 Hgb 6.9 g/dL (11.5-15.4) L 02/06/18 04:15 Hct 21.8 % (35.3-44.9) L 02/06/18 04:15 MCV 106.3 fL (83.0-100.0) H 02/06/18 04:15 MCH 33.7 pg (28.0-33.3) H 02/06/18 04:15 MPV 9.0 fL (9.4-12.4) L 02/06/18 04:15 Neutrophils # 13.4 K/mcL (1.6-8.9) H 02/06/18 04:15 Lymphocytes # 0.4 K/mcL (0.6-4.6) L 02/06/18 04:15 Hypochromasia Present (Not Present) A 02/06/18 04:15 PT 16.0 Seconds (9.4-12.1) H 02/05/18 11:20 ABG pH 7.47 pH Units (7.32-7.45) H 02/05/18 11:49 ABG pO2 43 mmHg (85-104) L* 02/05/18 11:49 ABG O2 Saturation 82 % (95-98) L 02/05/18 11:49 BUN 25 mg/dL (6-20) H 02/06/18 04:15 Creatinine 5.20 mg/dL (0.60-1.20) H 02/06/18 04:15 Est GFR ( Amer) 10 (> 60) L 02/06/18 04:15 Est GFR (Non-Af Amer) 8 (> 60) L 02/06/18 04:15 BUN/Creatinine Ratio 5 (6-26) L 02/06/18 04:15 Glucose 230 mg/dL (70-105) H 02/06/18 04:15 POC Glucose 122 mg/dL (70-99) H 02/06/18 11:52 Calcium 7.5 mg/dL (8.6-10.3) L 02/06/18 04:15 Iron < 10 mcg/dL (50-170) L 02/05/18 13:50 Transferrin 105 mg/dL (203-362) L 02/05/18 13:50 Ferritin > 1500 ng/mL (10-120) H 02/05/18 13:50 Direct Bilirubin 0.3 mg/dL (0.0-0.2) H 02/05/18 11:20 Troponin I 0.06 ng/mL (< 0.04) H* 02/05/18 23:00 B-Natriuretic Peptide 580 pg/mL (Less than 100) H 02/05/18 11:20 Serum Total Protein 5.3 g/dL (6.4-8.9) L 02/06/18 04:15 Albumin 2.4 g/dL (3.5-5.7) L 02/06/18 04:15 Albumin/Globulin Ratio 0.8 (1.1-2.2) L 02/06/18 04:15 Ur Specimen Adequacy See below A 02/05/18 10:58 Urine Clarity Turbid (Clear) A 02/05/18 10:58 Urine Protein >=300 mg/dL (Neg-Trace) H 02/05/18 10:58 Urine Glucose (UA) 250 mg/dL (Normal) H 02/05/18 10:58 Urine Blood Moderate (Negative) H 02/05/18 10:58 Ur Leukocyte Esterase Large (Negative) H 02/05/18 10:58 Urine Microscopic RBC 15-30 per hpf (0-3) H 02/05/18 10:58 Urine Microscopic WBC TNTC per hpf (0-3) H 02/05/18 10:58 Ur Squamous Epith Cells Many per lpf (None-Few) H 02/05/18 10:58 Urine Bacteria Many per hpf (None-Few) H 02/05/18 10:58 Ur Culture Indicated? NO. (NO) A 02/05/18 10:58 Staphylococcus sp PCR DETECTED (Not Detect) A 02/05/18 11:20 Staph aureus (PCR) DETECTED (Not Detect) A 02/05/18 11:20 mecA-Methicil Res Gene DETECTED (Not Detect) A 02/05/18 11:20 H & H 02/06/18 Range/Units 04:15 Hgb 6.9 L (11.5-15.4) g/dL Hct 21.8 L (35.3-44.9) % All other labs normal. - Diagnostic results Ankle/Foot x-ray: report reviewed Consult Discharge Plan - Plan Referrals: Guero Clement DO [Primary Care Provider] -
--- NOTE | 2018-02-06 14:58 | Gastroenterology Consult Note ---
<Jacquelin De Paz - Last Filed: 02/06/18 15:49> Date of Encounter: 02/06/18 Time of Encounter: 13:20 - Assessment and plan (1) Dark emesis Current Visit: Yes Status: Acute Assessment and plan: Likely secondary to gastritis and inflammation. She has had multiple episodes of non-bloody vomiting prior to admission to hospital. In hospital she had 3 episodes of brown emesis, too yesterday and one this morning. She has had no other brown emesis. Hemoglobin 6.9 (7.4) baseline 9-10 hematocrit 21.8 07/[address] Hess: LA grade a reflex esophagitis, Single nonbleeding angiodysplastic lesion in stomach that was treated with bipolar cautery. Chronic gastritis. Plan: -will plan for EGD tomorrow to evaluate for gastritis, G.I. bleed from ulcer, AVM, Luz reveles tear -NPO -will order carafate TID -monitor H&H -continue IV Protonix (2) Anemia Current Visit: Yes Status: Chronic Assessment and plan: Macrocytic Anemia likely secondary to chronic disease in May be folate or vitamin B12 deficiency. May also be decrease in light of new Brown emesis concerning for blood. 3 episodes. Hgb 6.9 (7.4) baseline 9-10) Hct 21.8 MCV 106.3 iron <10 transferrin 105 ferritin >1500 vitamin B12 862 -recommend to monitor for active bleeding. H&H. Consider MMA and folic acid levels -fecal occult test pending Qualifiers: Anemia type: due to chronic kidney disease Chronic kidney disease stage: on chronic dialysis Qualified Code(s): N18.6 - End stage renal disease; D63.1 - Anemia in chronic kidney disease; Z99.2 - Dependence on renal dialysis (3) Sepsis Current Visit: Yes Status: Acute Assessment and plan: Sepsis secondary to gangrenous necrotic right foot and MRSA bacteremia -patient is on antibiotics -management per infectious disease and primary team Qualifiers: Sepsis type: sepsis due to unspecified organism Qualified Code(s): A41.9 - Sepsis, unspecified organism (4) Bacteremia Current Visit: Yes Status: Acute Assessment and plan: MRSA bacteremia Management per infectious disease and primary team (5) Gangrene of toe of right foot Current Visit: Yes Status: Acute Assessment and plan: Management per primary team (6) ESRD (end stage renal disease) on dialysis Current Visit: Yes Status: Chronic Assessment and plan: End-stage renal disease on dialysis -nephrology following (7) Hyperammonemia Current Visit: Yes Status: Resolved Assessment and plan: Elevated ammonia level 76 at admission and now 40. Patient is alert and oriented times 3. -Receiving lactulose 20gm PO b.i.d. (8) Encephalopathy Current Visit: Yes Status: Acute Assessment and plan: Resolved. Patient is alert and oriented times 3. Likely secondary to sepsis. There was concern that elevated ammonia level 76 may have been cause. - See above - Time Spent With Patient Total time spent is greater than 50% in coordination of care (as documented) at patient's floor/unit and/or counseling patient: GI History of Present Illness - Data of Consult Patient: known to practice within the last 3 years Consult date: 02/06/18 Requesting Physician: Chloe Marcos MD - Consult Narrative Reason for consult: Possible G.I. bleed History of present illness: Ms. Orozco is a 57 year old female with past medical history of ESRD on dialysis, COPD, CAD, diabetes, hypertension who presented to [facility] from [place] is currently being treated for sepsis secondary to gangrenous necrosis of right great toe with MRSA bacteremia. She was also found to have altered mental status is thought to be secondary to sepsis or elevated ammonia level. Ammonia level was 76. Infectious disease and podiatry are following patient. She is currently being treated with cefepime, Flagyl, vancomycin. She has a right subclavian hemodialysis catheter in place for hemodialysis for which nephrology's managing. Gastroenterology was consulted due to new dark brown emesis x3 which occurred twice yesterday and once this morning. Her was at bedside and reported that prior to admission she had had multiple episodes of nonbloody vomiting. She admits to fever, chills. She denied dysphagia, chest pain, abdominal pain, melena, hematechezia. She denies taking NSAIDs. She denies alcohol and drug use. She is a former smoker. 07/[address] Hess: Grade II nonbleeding internal hemorrhoids 07/[address] Hess: LA grade a reflex esophagitis, Single nonbleeding angiodysplastic lesion in stomach that was treated with bipolar cautery. Chronic gastritis. Colonoscopy: 07/[address] Hess EGD: 07/[address] Hess Past Med Surg Social Fam HX - Past Medical History Attestation: Yes The following information was validated with the patient. Source: patient Medical history: COPD, coronary artery disease, diabetes, dialysis, hypertension , renal disease Additional medical history: vascular stents Psychiatric history: anxiety, depression - Past Surgical History Surgical History: other Additional surgical history: ankle sx, hip sx, 3 hand sx, partial hysterectomy, tubal, left arm fistula, peritoneal port - Social History Smoking Status: Former smoker Smokeless Tobacco Status: No Alcohol use: none Drug use: none - Family History Mother Living Status: Hx Family Cardiac Disorders: Yes (CHF, [place]) Father Living Status: Hx Family Respiratory Disorders: Yes (Asthma) Hx Family Endocrine Disorder: Yes (Kidney disease) - Gastrointestinal Gastrointestinal: Present: coffee ground emesis, nausea, vomiting. Absent: abdominal pain, bloating, hematemesis, hematochezia, melena - Constitutional Constitutional: fever(s) - EENT Nose, mouth and throat: Absent: dysphagia - Cardiovascular Cardiovascular ROS: Absent: chest pain - Respiratory Respiratory IM: Absent: cough, dyspnea - Genitourinary Genitourinary: Absent: change in color, Urinary frequency - Neurological ROS Neurological GI: Present: confusion - Hematologic/Lymphatic Hematologic/Lymphatic pediatric: Absent: easy bleeding - Musculoskeletal Musculoskeletal ROS GI: Absent: joint swelling - Integumentary Integumentary GI: Absent: jaundice, pruritis, rash - Endocrine Endocrine IM: Present: fatigue - Constitutional Vitals: Temp Pulse Resp BP Pulse Ox 98.6 F 88 20 158/76 100 02/06/18 14:15 02/06/18 13:15 02/06/18 14:15 02/06/18 14:15 02/06/18 13:15 Exam: Gen.: Vitals noted. No acute distress. AAOx3 HEENT: oropharynx clear, Normocephalic, atraumatic Cardiac: RRR, no murmur, +S1/S2 Pulmonary: CTA bilaterally, no wheezes, rales or rhonchi, equal chest expansion Abdomen: soft, nontender, Bowel sounds noted, no guarding MSK: ROM intact, no joint swelling noted Extremities: non pitting BLE edema, nontender calf, no cyanosis or clubbing Neuro: A&Ox3, moves all extremities, no focal deficits Psych: Appropriate mood and behavior Results - Labs CBC & Chem 7: 02/06/18 04:15 02/06/18 04:15 Labs: Last Result Calcium 7.5 mg/dL (8.6-10.3) L 02/06/18 04:15 Iron < 10 mcg/dL (50-170) L 02/05/18 13:50 % Saturation TNP 02/05/18 13:50 Transferrin 105 mg/dL (203-362) L 02/05/18 13:50 Ferritin > 1500 ng/mL (10-120) H 02/05/18 13:50 Troponin I 0.06 ng/mL (< 0.04) H* 02/05/18 23:00 Vitamin B12 862 pg/mL (250-1100) 02/05/18 13:50 Entire Visit Hgb 6.9 g/dL (11.5-15.4) L 02/06/18 04:15 Hct 21.8 % (35.3-44.9) L 02/06/18 04:15 PT 16.0 Seconds (9.4-12.1) H 02/05/18 11:20 Ferritin > 1500 ng/mL (10-120) H 02/05/18 13:50 Total Bilirubin 0.5 mg/dL (0.3-1.0) 02/06/18 04:15 AST 34 Units/L (13-39) 02/06/18 04:15 ALT 15 Units/L (7-52) 02/06/18 04:15 Ammonia 40 mcmol/L (16-53) 02/06/18 04:15 E. coli (PCR) Not Detected (Not Detect) 02/05/18 11:20 - ABG ABG results: ABG ABG pH 7.47 pH Units (7.32-7.45) H 02/05/18 11:49 ABG pCO2 35 mmHg (35-45) 02/05/18 11:49 ABG pO2 43 mmHg (85-104) L* 02/05/18 11:49 ABG O2 Saturation 82 % (95-98) L 02/05/18 11:49 PT/INR, D-dimer PT 16.0 Seconds (9.4-12.1) H 02/05/18 11:20 - Impressions Impressions Echocardiogram 02/05/18 11:36 Impressions: LVEF 60%. Mildly dilated left ventricle. Normal LV wall thickness and function. Moderate left ventricular diastolic dysfunction. Normal right ventricular structure and function. No evidence of a PFO with agitated saline contrast. Mild mitral regurgitation. No evidence of pulmonary hypertension. There is a small inferior and inferoalteral pericardial effusion present. Left Ventricular Wall Motion: Rest Echo Findings All wall segments showed normal motion. Findings: Study Quality * Technically sub-optimal due to poor echocardiographic windows. ECG Findings * Normal sinus rhythm. Left Ventricle * LVEF 60%. * Mildly dilated left ventricle. * Normal LV wall thickness and function. * Moderate left ventricular diastolic dysfunction. Right Ventricle * Normal right ventricular structure and function. Left Atrium * Moderately dilated left atrium. Right Atrium * Normal right atrial size. Interatrial Septum * No evidence of a PFO with agitated saline contrast. Aortic Valve * No aortic stenosis. * Trileaflet aortic valve. * Trace aortic regurgitation. Mitral Valve * Normal mitral valve structure. * Mild mitral regurgitation. * No mitral stenosis. Tricuspid Valve * Normal tricuspid valve structure and function. * Trace tricuspid regurgitation. * No evidence of pulmonary hypertension. Pulmonic Valve * Pulmonic valve is not well visualized. * No pulmonic regurgitation. Aorta * Normally sized aortic root. Pericardium * There is a small inferior and inferoalteral pericardial effusion present. IVC * Normal IVC dimensions and inspiratory collapse. Pulmonary Artery * Normal visualized portions of the main pulmonary artery. KUB X-Ray 02/06/18 04:52 IMPRESSION: Moderate gaseous distention of the stomach. Nonobstructive bowel gas pattern. D/ / Benny Baumann / Benny Baumann Interpreting Provider: Benny Baumann Consult Discharge Plan - Plan Referrals: Guero Clement DO [Primary Care Provider] - <Vitaliy Parada - Last Filed: 02/06/18 16:56> Date of Encounter: 02/06/18 - Time Spent With Patient Total time spent is greater than 50% in coordination of care (as documented) at patient's floor/unit and/or counseling patient: GI History of Present Illness - Data of Consult Requesting Physician: Chloe Marcos MD - Consult Narrative History of present illness: Ms. Orozco is a 57 year old female - Constitutional Vitals: Temp Pulse Resp BP Pulse Ox 98.6 F 95 16 169/78 96 02/06/18 14:15 02/06/18 15:02 02/06/18 15:57 02/06/18 15:00 02/06/18 15:57 Results - Labs CBC & Chem 7: 02/06/18 04:15 02/06/18 04:15 Labs: Last Result Calcium 7.5 mg/dL (8.6-10.3) L 02/06/18 04:15 Iron < 10 mcg/dL (50-170) L 02/05/18 13:50 % Saturation TNP 02/05/18 13:50 Transferrin 105 mg/dL (203-362) L 02/05/18 13:50 Ferritin > 1500 ng/mL (10-120) H 02/05/18 13:50 Troponin I 0.06 ng/mL (< 0.04) H* 02/05/18 23:00 Vitamin B12 862 pg/mL (250-1100) 02/05/18 13:50 Entire Visit Hgb 6.9 g/dL (11.5-15.4) L 02/06/18 04:15 Hct 21.8 % (35.3-44.9) L 02/06/18 04:15 PT 16.0 Seconds (9.4-12.1) H 02/05/18 11:20 Ferritin > 1500 ng/mL (10-120) H 02/05/18 13:50 Total Bilirubin 0.5 mg/dL (0.3-1.0) 02/06/18 04:15 AST 34 Units/L (13-39) 02/06/18 04:15 ALT 15 Units/L (7-52) 02/06/18 04:15 Ammonia 40 mcmol/L (16-53) 02/06/18 04:15 E. coli (PCR) Not Detected (Not Detect) 02/05/18 11:20 - ABG ABG results: ABG ABG pH 7.47 pH Units (7.32-7.45) H 02/05/18 11:49 ABG pCO2 35 mmHg (35-45) 02/05/18 11:49 ABG pO2 43 mmHg (85-104) L* 02/05/18 11:49 ABG O2 Saturation 82 % (95-98) L 02/05/18 11:49 PT/INR, D-dimer PT 16.0 Seconds (9.4-12.1) H 02/05/18 11:20 - Impressions Impressions Echocardiogram 02/05/18 11:36 Impressions: LVEF 60%. Mildly dilated left ventricle. Normal LV wall thickness and function. Moderate left ventricular diastolic dysfunction. Normal right ventricular structure and function. No evidence of a PFO with agitated saline contrast. Mild mitral regurgitation. No evidence of pulmonary hypertension. There is a small inferior and inferoalteral pericardial effusion present. Left Ventricular Wall Motion: Rest Echo Findings All wall segments showed normal motion. Findings: Study Quality * Technically sub-optimal due to poor echocardiographic windows. ECG Findings * Normal sinus rhythm. Left Ventricle * LVEF 60%. * Mildly dilated left ventricle. * Normal LV wall thickness and function. * Moderate left ventricular diastolic dysfunction. Right Ventricle * Normal right ventricular structure and function. Left Atrium * Moderately dilated left atrium. Right Atrium * Normal right atrial size. Interatrial Septum * No evidence of a PFO with agitated saline contrast. Aortic Valve * No aortic stenosis. * Trileaflet aortic valve. * Trace aortic regurgitation. Mitral Valve * Normal mitral valve structure. * Mild mitral regurgitation. * No mitral stenosis. Tricuspid Valve * Normal tricuspid valve structure and function. * Trace tricuspid regurgitation. * No evidence of pulmonary hypertension. Pulmonic Valve * Pulmonic valve is not well visualized. * No pulmonic regurgitation. Aorta * Normally sized aortic root. Pericardium * There is a small inferior and inferoalteral pericardial effusion present. IVC * Normal IVC dimensions and inspiratory collapse. Pulmonary Artery * Normal visualized portions of the main pulmonary artery. KUB X-Ray 02/06/18 04:52 IMPRESSION: Moderate gaseous distention of the stomach. Nonobstructive bowel gas pattern. D/ / Benny Baumann / Benny Baumann Interpreting Provider: Benny Baumann - Attending Attestation I examined this patient and my medical decision-making was reviewed with the Resident Physician. I agree with the documented findings, disposition and treatment plan as described except to the extent set forth below. Pt seen. Pt with coffe ground emesis most prob due to esophagitis/gastritis etc. Rec: EGD am
[2018-02-06] MEDS: Aspirin 81 MG TAB.CHEW PO SCH (15:05)
--- NOTE | 2018-02-06 16:31 | Infectious Disease Progress No ---
Date of Encounter: 02/06/18 Time of Encounter: 16:27 - Assessment and Plan (1) Sepsis Current Visit: Yes Status: Acute Secondary to MRSA bacteremia Source not clear Could be from dialysis catheter I spoke with the and the . Patient apparently has a fistula and for a long time did not use it because she was using peritoneal dialysis. When they try to access the fistula again it stopped working. They were supposed to follow next week with the Dr. Washburn that placed the fistula. There is no obvious infection around the dialysis catheter in the right chest. My recommendation is catheter gets removed we will continue treatment once the patient is without bacteremia for 48 hours we will continue dialysis catheter if that is okay with nephrology Patient will need a TTE to rule out endocarditis Repeat blood cultures 2 Qualifiers: Qualified Code(s): A41.9 - Sepsis, unspecified organism (2) Necrosis of toe Current Visit: Yes Status: Acute (3) Dysuria Current Visit: Yes Status: Resolved Urine is showing gram-negative rods Patient with minimal urine output and is on dialysis If the patient asymptomatic we will not treat (4) Encephalopathy Current Visit: Yes Status: Acute (5) Hyperammonemia Current Visit: Yes Status: Resolved (6) Anemia Current Visit: Yes Status: Chronic Qualifiers: Qualified Code(s): N18.6 - End stage renal disease; D63.1 - Anemia in chronic kidney disease; Z99.2 - Dependence on renal dialysis (7) Nausea Current Visit: No Status: Acute (8) Chest pain Current Visit: Yes Status: Resolved Qualifiers: Qualified Code(s): R07.9 - Chest pain, unspecified (9) Pulmonary HTN Current Visit: No Status: Chronic (10) CAD (coronary artery disease) Current Visit: No Status: Chronic Qualifiers: Qualified Code(s): I25.10 - Atherosclerotic heart disease of [place] coronary artery without angina pectoris (11) KEMAR (obstructive sleep apnea) Current Visit: No Status: Chronic (12) CHF (congestive heart failure) Current Visit: Yes Status: Chronic Qualifiers: Qualified Code(s): I50.9 - Heart failure, unspecified (13) ESRD (end stage renal disease) Current Visit: No Status: Chronic (14) COPD (chronic obstructive pulmonary disease) Current Visit: No Status: Chronic Qualifiers: Qualified Code(s): J44.1 - Chronic obstructive pulmonary disease with (acute ) exacerbation - Subjective Interval history: Patient seen and examined. Was getting dialyzed. Appears comfortable. at bedside. Patient denies any chest pain or shortness of breath. Denies any respiratory failure. She states that she does not remember what happened yesterday. Denies any abdominal pain. Over the last 24 hours: Continues to be febrile with a MAXIMUM TEMPERATURE of 103.2 WBC mildly improved to 15,000 with 89% neutrophils Blood cultures grew MRSA 2 out of 2 sets Infect Dis PN-Objective Data - Labs CBC & Chem 7: 02/06/18 04:15 02/06/18 04:15 Labs: Laboratory Results - last 24 hr 02/05/18 02/05/18 02/05/18 11:20 16:24 16:56 WBC RBC Hgb Hct MCV MCH MCHC RDW Plt Count MPV Immature Gran % Seg Neutrophils % Lymphocytes % Monocytes % Eosinophils % Basophils % Neutrophils # Lymphocytes # Monocytes # Eosinophils # Basophils # Platelet Estimate Hypochromasia Sodium Potassium Chloride Carbon Dioxide BUN Creatinine Est GFR ( Amer) Est GFR (Non-Af Amer) BUN/Creatinine Ratio Glucose POC Glucose 156 H Calculated Osmolality Lactic Acid Calcium Phosphorus Magnesium Total Bilirubin AST ALT Alkaline Phosphatase Ammonia Troponin I 0.05 H* Serum Total Protein Albumin Globulin Albumin/Globulin Ratio Random Vancomycin A. baumannii (PCR) Not Detected Lynne albicans (PCR) Not Detected C. glabrata (PCR) Not Detected C. krusei (PCR) Not Detected C. parapsilosis (PCR) Not Detected C. tropicalis (PCR) Not Detected Enterobacteriac sp PCR Not Detected E. cloacae complex PCR Not Detected Enterococcus sp PCR Not Detected E. coli (PCR) Not Detected H. influenzae (PCR) Not Detected Hep Bs Antigen Hep Bs Antibody Klebsiella oxytoca PCR Not Detected Klebsiella pneumoniae Not Detected List. monocytogenes PCR Not Detected N. meningitidis (PCR) Not Detected Proteus species (PCR) Not Detected Serratia marcescens PCR Not Detected Staphylococcus sp PCR DETECTED A Staph aureus (PCR) DETECTED A mecA-Methicil Res Gene DETECTED A Streptococcus sp PCR Not Detected Group A Strep DNA Not Detected Group B Strep (PCR) Not Detected Strep pneumoniae (PCR) Not Detected P. aeruginosa (PCR) Not Detected Aki/B-Vanco Res Genes Not Detected KPC (blaKPC) Detect PCR Not Detected Blood Type Antibody Screen Crossmatch 02/05/18 02/05/1802/05/18 16:56 16:57 18:20 WBC RBC Hgb Hct MCV MCH MCHC RDW Plt Count MPV Immature Gran % Seg Neutrophils % Lymphocytes % Monocytes % Eosinophils % Basophils % Neutrophils # Lymphocytes # Monocytes # Eosinophils # Basophils # Platelet Estimate Hypochromasia Sodium Potassium Chloride Carbon Dioxide BUN Creatinine Est GFR ( Amer) Est GFR (Non-Af Amer) BUN/Creatinine Ratio Glucose POC Glucose 133 H Calculated Osmolality Lactic Acid 2.4 H Calcium Phosphorus Magnesium Total Bilirubin AST ALT Alkaline Phosphatase Ammonia Troponin I Serum Total Protein Albumin Globulin Albumin/Globulin Ratio Random Vancomycin A. baumannii (PCR) Lynne albicans (PCR) C. glabrata (PCR) C. krusei (PCR) C. parapsilosis (PCR) C. tropicalis (PCR) Enterobacteriac sp PCR E. cloacae complex PCR Enterococcus sp PCR E. coli (PCR) H. influenzae (PCR) Hep Bs Antigen Nonreactive Hep Bs Antibody 0.00 Klebsiella oxytoca PCR Klebsiella pneumoniae List. monocytogenes PCR N. meningitidis (PCR) Proteus species (PCR) Serratia marcescens PCR Staphylococcus sp PCR Staph aureus (PCR) mecA-Methicil Res Gene Streptococcus sp PCR Group A Strep DNA Group B Strep (PCR) Strep pneumoniae (PCR) P. aeruginosa (PCR) Aki/B-Vanco Res Genes KPC (blaKPC) Detect PCR Blood Type Antibody Screen Crossmatch 02/05/18 02/05/18 02/05/18 20:03 20:45 23:00 WBC RBC Hgb Hct MCV MCH MCHC RDW Plt Count MPV Immature Gran % Seg Neutrophils % Lymphocytes % Monocytes % Eosinophils % Basophils % Neutrophils # Lymphocytes # Monocytes # Eosinophils # Basophils # Platelet Estimate Hypochromasia Sodium Potassium Chloride Carbon Dioxide BUN Creatinine Est GFR ( Amer) Est GFR (Non-Af Amer) BUN/Creatinine Ratio Glucose POC Glucose 157 H Calculated Osmolality Lactic Acid 1.6 Calcium Phosphorus Magnesium Total Bilirubin AST ALT Alkaline Phosphatase Ammonia Troponin I 0.06 H* Serum Total Protein Albumin Globulin Albumin/Globulin Ratio Random Vancomycin A. baumannii (PCR) Lynne albicans (PCR) C. glabrata (PCR) C. krusei (PCR) C. parapsilosis (PCR) C. tropicalis (PCR) Enterobacteriac sp PCR E. cloacae complex PCR Enterococcus sp PCR E. coli (PCR) H. influenzae (PCR) Hep Bs Antigen Hep Bs Antibody Klebsiella oxytoca PCR Klebsiella pneumoniae List. monocytogenes PCR N. meningitidis (PCR) Proteus species (PCR) Serratia marcescens PCR Staphylococcus sp PCR Staph aureus (PCR) mecA-Methicil Res Gene Streptococcus sp PCR Group A Strep DNA Group B Strep (PCR) Strep pneumoniae (PCR) P. aeruginosa (PCR) Aki/B-Vanco Res Genes KPC (blaKPC) Detect PCR Blood Type Antibody Screen Crossmatch 02/05/18 02/06/18 02/06/18 23:31 03:20 04:15 WBC RBC Hgb Hct MCV MCH MCHC RDW Plt Count MPV Immature Gran % Seg Neutrophils % Lymphocytes % Monocytes % Eosinophils % Basophils % Neutrophils # Lymphocytes # Monocytes # Eosinophils # Basophils # Platelet Estimate Hypochromasia Sodium 136 Potassium 4.0 Chloride 98 Carbon Dioxide 25 BUN 25 H Creatinine 5.20 H Est GFR ( Amer) 10 L Est GFR (Non-Af Amer) 8 L BUN/Creatinine Ratio 5 L Glucose 230 H POC Glucose 218 H 230 H Calculated Osmolality 294 Lactic Acid Calcium 7.5 L Phosphorus 4.2 Magnesium 1.8 Total Bilirubin 0.5 AST 34 ALT 15 Alkaline Phosphatase 45 Ammonia Troponin I Serum Total Protein 5.3 L Albumin 2.4 L Globulin 2.9 Albumin/Globulin Ratio 0.8 L Random Vancomycin A. baumannii (PCR) Lynne albicans (PCR) C. glabrata (PCR) C. krusei (PCR) C. parapsilosis (PCR) C. tropicalis (PCR) Enterobacteriac sp PCR E. cloacae complex PCR Enterococcus sp PCR E. coli (PCR) H. influenzae (PCR) Hep Bs Antigen Hep Bs Antibody Klebsiella oxytoca PCR Klebsiella pneumoniae List. monocytogenes PCR N. meningitidis (PCR) Proteus species (PCR) Serratia marcescens PCR Staphylococcus sp PCR Staph aureus (PCR) mecA-Methicil Res Gene Streptococcus sp PCR Group A Strep DNA Group B Strep (PCR) Strep pneumoniae (PCR) P. aeruginosa (PCR) Aki/B-Vanco Res Genes KPC (blaKPC) Detect PCR Blood Type Antibody Screen Crossmatch 02/06/18 02/06/18 02/06/18 04:15 04:15 04:15 WBC 15.0 H RBC 2.05 L Hgb 6.9 L Hct 21.8 L MCV 106.3 H MCH 33.7 H MCHC 31.7 RDW 14.3 Plt Count 356 MPV 9.0 L Immature Gran % 2.4 Seg Neutrophils % 89.2 Lymphocytes % 2.5 Monocytes % 5.7 Eosinophils % 0.1 Basophils % 0.1 Neutrophils # 13.4 H Lymphocytes # 0.4 L Monocytes # 0.9 Eosinophils # 0.0 Basophils # 0.0 Platelet Estimate Normal Hypochromasia Present A Sodium Potassium Chloride Carbon Dioxide BUN Creatinine Est GFR ( Amer) Est GFR (Non-Af Amer) BUN/Creatinine Ratio Glucose POC Glucose Calculated Osmolality Lactic Acid Calcium Phosphorus Magnesium Total Bilirubin AST ALT Alkaline Phosphatase Ammonia 40 Troponin I Serum Total Protein Albumin Globulin Albumin/Globulin Ratio Random Vancomycin 21 A. baumannii (PCR) Lynne albicans (PCR) C. glabrata (PCR) C. krusei (PCR) C. parapsilosis (PCR) C. tropicalis (PCR) Enterobacteriac sp PCR E. cloacae complex PCR Enterococcus sp PCR E. coli (PCR) H. influenzae (PCR) Hep Bs Antigen Hep Bs Antibody Klebsiella oxytoca PCR Klebsiella pneumoniae List. monocytogenes PCR N. meningitidis (PCR) Proteus species (PCR) Serratia marcescens PCR Staphylococcus sp PCR Staph aureus (PCR) mecA-Methicil Res Gene Streptococcus sp PCR Group A Strep DNA Group B Strep (PCR) Strep pneumoniae (PCR) P. aeruginosa (PCR) Aki/B-Vanco Res Genes KPC (blaKPC) Detect PCR Blood Type Antibody Screen Crossmatch 02/06/18 02/06/18 02/06/18 05:45 07:50 11:52 WBC RBC Hgb Hct MCV MCH MCHC RDW Plt Count MPV Immature Gran % Seg Neutrophils % Lymphocytes % Monocytes % Eosinophils % Basophils % Neutrophils # Lymphocytes # Monocytes # Eosinophils # Basophils # Platelet Estimate Hypochromasia Sodium Potassium Chloride Carbon Dioxide BUN Creatinine Est GFR ( Amer) Est GFR (Non-Af Amer) BUN/Creatinine Ratio Glucose POC Glucose 301 H 122 H Calculated Osmolality Lactic Acid Calcium Phosphorus Magnesium Total Bilirubin AST ALT Alkaline Phosphatase Ammonia Troponin I Serum Total Protein Albumin Globulin Albumin/Globulin Ratio Random Vancomycin A. baumannii (PCR) Lynne albicans (PCR) C. glabrata (PCR) C. krusei (PCR) C. parapsilosis (PCR) C. tropicalis (PCR) Enterobacteriac sp PCR E. cloacae complex PCR Enterococcus sp PCR E. coli (PCR) H. influenzae (PCR) Hep Bs Antigen Hep Bs Antibody Klebsiella oxytoca PCR Klebsiella pneumoniae List. monocytogenes PCR N. meningitidis (PCR) Proteus species (PCR) Serratia marcescens PCR Staphylococcus sp PCR Staph aureus (PCR) mecA-Methicil Res Gene Streptococcus sp PCR Group A Strep DNA Group B Strep (PCR) Strep pneumoniae (PCR) P. aeruginosa (PCR) Aki/B-Vanco Res Genes KPC (blaKPC) Detect PCR Blood Type A POSITIVE Antibody Screen NEGATIVE Crossmatch See Detail Cultures: Cultures 02/05/18 13:30 Wound Culture - Preliminary Right Great Toe Gram Negative [place] Staphylococcus aureus 02/06/18 14:39 Blood Culture - Preliminary Central Venous Catheter Culture is incubating and being continuously monitored for growth. Final report to follow. 02/06/18 14:39 Blood Culture - Preliminary Central Venous Catheter Culture is incubating and being continuously monitored for growth. Final report to follow. 02/05/18 14:10 Body Fluid Culture - Preliminary Peritoneal Fluid 02/05/18 13:50 Urine Culture - Preliminary Urine,Catheterized Gram Negative [place] 02/06/18 03:22 Blood Culture - Preliminary Peripheral Venipuncture Culture is incubating and being continuously monitored for growth. Final report to follow. 02/06/18 03:22 Blood Culture - Preliminary Peripheral Venipuncture Culture is incubating and being continuously monitored for growth. Final report to follow. 02/05/18 11:20 Blood Culture - Preliminary Peripheral Venipuncture Gram Positive Cocci 02/05/18 11:20 Blood Culture - Preliminary Peripheral Venipuncture Gram Positive Cocci Serology 02/05/18 02/05/18 02/05/18 Range/Units 16:57 11:20 10:58 Ur Specimen Adequacy See below A Urine Color Yellow (Yellow) Urine Clarity Turbid A (Clear) Urine pH 6.0 (5.0-8.0) pH Units Ur Specific [place] 1.017 (1.010-1.025) Urine Protein >=300 H (Neg-Trace) mg/dL Urine Glucose (UA) 250 H (Normal) mg/dL Urine Ketones Negative (Negative) mg/dL Urine Blood Moderate H (Negative) Urine Nitrite Negative (Negative) Urine Bilirubin Negative (Negative) Urine Urobilinogen Normal (Normal) mg/dL Ur Leukocyte Esterase Large H (Negative) Urine Microscopic RBC 15-30 H (0-3) per hpf Urine Microscopic WBC TNTC H (0-3) per hpf Ur Squamous Epith Cells Many H (None-Few) per lpf Urine Bacteria Many H (None-Few) per hpf Hyaline Casts None Seen (None-Few) per lpf Ur Culture Indicated? NO. A (NO) A. baumannii (PCR) Not Detected (Not Detect) Lynne albicans (PCR) Not Detected (Not Detect) C. glabrata (PCR) Not Detected (Not Detect) C. krusei (PCR) Not Detected (Not Detect) C. parapsilosis (PCR) Not Detected (Not Detect) C. tropicalis (PCR) Not Detected (Not Detect) Enterobacteriac sp PCR Not Detected (Not Detect) E. cloacae complex PCR Not Detected (Not Detect) Enterococcus sp PCR Not Detected (Not Detect) E. coli (PCR) Not Detected (Not Detect) H. influenzae (PCR) Not Detected (Not Detect) Hep Bs Antigen Nonreactive (Nonreactive) Hep Bs Antibody 0.00 mIU/mL Klebsiella oxytoca PCR Not Detected (Not Detect) Klebsiella pneumoniae Not Detected (Not Detect) List. monocytogenes PCR Not Detected (Not Detect) N. meningitidis (PCR) Not Detected (Not Detect) Proteus species (PCR) Not Detected (Not Detect) Serratia marcescens PCR Not Detected (Not Detect) Staphylococcus sp PCR DETECTED A (Not Detect) Staph aureus (PCR) DETECTED A (Not Detect) mecA-Methicil Res Gene DETECTED A (Not Detect) Streptococcus sp PCR Not Detected (Not Detect) Group A Strep DNA Not Detected (Not Detect) Group B Strep (PCR) Not Detected (Not Detect) Strep pneumoniae (PCR) Not Detected (Not Detect) P. aeruginosa (PCR) Not Detected (Not Detect) Aki/B-Vanco Res Genes Not Detected (Not Detect) KPC (blaKPC) Detect PCR Not Detected (Not Detect) - Impressions Impressions Echocardiogram 02/05/18 11:36 Impressions: LVEF 60%. Mildly dilated left ventricle. Normal LV wall thickness and function. Moderate left ventricular diastolic dysfunction. Normal right ventricular structure and function. No evidence of a PFO with agitated saline contrast. Mild mitral regurgitation. No evidence of pulmonary hypertension. There is a small inferior and inferoalteral pericardial effusion present. Left Ventricular Wall Motion: Rest Echo Findings All wall segments showed normal motion. Findings: Study Quality * Technically sub-optimal due to poor echocardiographic windows. ECG Findings * Normal sinus rhythm. Left Ventricle * LVEF 60%. * Mildly dilated left ventricle. * Normal LV wall thickness and function. * Moderate left ventricular diastolic dysfunction. Right Ventricle * Normal right ventricular structure and function. Left Atrium * Moderately dilated left atrium. Right Atrium * Normal right atrial size. Interatrial Septum * No evidence of a PFO with agitated saline contrast. Aortic Valve * No aortic stenosis. * Trileaflet aortic valve. * Trace aortic regurgitation. Mitral Valve * Normal mitral valve structure. * Mild mitral regurgitation. * No mitral stenosis. Tricuspid Valve * Normal tricuspid valve structure and function. * Trace tricuspid regurgitation. * No evidence of pulmonary hypertension. Pulmonic Valve * Pulmonic valve is not well visualized. * No pulmonic regurgitation. Aorta * Normally sized aortic root. Pericardium * There is a small inferior and inferoalteral pericardial effusion present. IVC * Normal IVC dimensions and inspiratory collapse. Pulmonary Artery * Normal visualized portions of the main pulmonary artery. KUB X-Ray 02/06/18 04:52 IMPRESSION: Moderate gaseous distention of the stomach. Nonobstructive bowel gas pattern. D/ / Benny Baumann / Benny Baumann Interpreting Provider: Benny Baumann Exam - Constitutional Vitals: Temp Pulse Resp BP Pulse Ox 98.6 F 95 16 169/78 96 02/06/18 14:15 02/06/18 15:02 02/06/18 15:57 02/06/18 15:00 02/06/18 15:57 General appearance: cooperative, no acute distress, no febrile - Eye Eye exam: Present: EOMI, PERRL Additional comments: No conjunctival hemorrhage - Respiratory Respiratory exam: Present: CTAB. Absent: wheezes - Cardiovascular Cardiovascular exam: Present: RRR, +S1, +S2. Absent: diastolic murmur, systolic murmur - GI/Abdominal GI/Abdominal exam: Present: soft. Absent: tenderness Additional comments: Peritoneal dialysis catheter intact - Extremities Exam Additional comments: No endocarditis stigmata. Adequate perfusion. No edema Consult Discharge Plan - Plan Referrals: Guero Clement DO [Primary Care Provider] -
--- NOTE | 2018-02-06 17:18 | Nephrology Progress Note ---
Date of Encounter: 02/06/18 Time of Encounter: 12:00 - Assessment and Plan (1) ESRD (end stage renal disease) on dialysis Current Visit: Yes Status: Chronic Continue HD with UF as tolerated Will send blood cxs via permcath but suspect sepsis due to toe wound Will need to also address PD catheter removal as soon as pt is stable. Will consider consulting Dr Thomas for this (2) Chest pain Current Visit: Yes Status: Resolved Qualifiers: Chest pain type: unspecified Qualified Code(s): R07.9 - Chest pain, unspecified (3) Sepsis Current Visit: Yes Status: Acute per ID with abx management Qualifiers: Sepsis type: sepsis due to unspecified organism Qualified Code(s): A41.9 - Sepsis, unspecified organism (4) Diabetes Current Visit: Yes Status: Acute Qualifiers: Diabetes mellitus type: type 2 Diabetes mellitus long term care administrator insulin use: with long term care administrator use Diabetes mellitus complication status: with kidney complications Diabetes mellitus complication detail: with chronic kidney disease Chronic kidney disease stage: on chronic dialysis Qualified Code(s) : E11.22 - Type 2 diabetes mellitus with diabetic chronic kidney disease; N18.6 - End stage renal disease; 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 GI workup pending Qualifiers: Anemia type: due to chronic kidney disease Chronic kidney disease stage: on chronic dialysis Qualified Code(s): N18.6 - End stage renal disease; D63.1 - Anemia in chronic kidney disease; Z99.2 - Dependence on renal dialysis (7) COPD (chronic obstructive pulmonary disease) Current Visit: No Status: Chronic Qualifiers: COPD type: unspecified COPD Qualified Code(s): J44.9 - Chronic obstructive pulmonary disease, unspecified Subjective Interval history: Interim noted, pt seen and examined on HD much more awake today than yesterday and responsive. Pt reports PD catheter has been out of use for at least 6 months but was not removed due to "plavix". She has een receiving HD via permcath with no issues. She denies any abd. pain and catheter sites are clean Objective - Vital Signs Vital signs: Vital Signs Temp Pulse Resp BP Pulse Ox 02/06/18 15:57 16 96 02/06/18 15:02 95 02/06/18 15:00 95 14 169/78 99 02/06/18 14:15 98.6 F 20 158/76 02/06/18 14:00 92 10 158/76 98 02/06/18 13:45 157/68 02/06/18 13:30 168/77 02/06/18 13:15 98 F 88 14 166/77 100 02/06/18 13:00 88 12 168/76 99 02/06/18 12:45 169/78 02/06/18 12:30 98.2 F 87 14 169/74 100 02/06/18 12:15 98.3 F 88 12 169/78 100 02/06/18 12:14 98.3 F 88 12 169/78 100 02/06/18 12:00 88 14 167/79 100 02/06/18 11:45 142/67 02/06/18 11:35 98.5 F 90 16 133/68 100 02/06/18 11:30 148/76 02/06/18 11:21 98.5 F 88 14 147/68 100 02/06/18 11:15 142/67 02/06/18 11:07 98.5 F 87 16 148/72 100 02/06/18 11:01 98.5 F 91 14 155/70 100 02/06/18 11:00 148/72 02/06/18 10:45 142/69 02/06/18 10:30 98.5 F 20 142/66 02/06/18 10:00 89 16 142/66 100 02/06/18 09:17 98.6 F 98 16 206/92 100 02/06/18 09:02 98.5 F 95 16 192/74 96 02/06/18 08:00 98.5 F 86 14 129/63 95 02/06/18 07:40 16 96 02/06/18 06:00 98.7 F 89 16 121/60 94 02/06/18 05:00 94 20 135/61 92 02/06/18 04:10 95 02/06/18 04:00 96 16 134/59 91 02/06/18 03:41 15 92 02/06/18 03:38 101.8 F H 02/06/18 03:00 93 20 127/57 91 02/06/18 02:00 102.7 F H 92 18 136/57 92 02/06/18 01:00 92 20 130/67 97 02/06/18 00:00 100 20 186/67 98 02/05/18 23:54 101 02/05/18 23:52 103.2 F H 02/05/18 23:40 18 98 02/05/18 23:00 100 20 199/72 97 02/05/18 22:00 98.7 F 104 24 98 02/05/18 21:20 18 128/85 98 02/05/18 21:00 107 26 146/66 100 02/05/18 20:30 18 100 02/05/18 20:04 98.6 F 02/05/18 20:00 83 22 124/77 100 02/05/18 19:54 81 02/05/18 19:00 80 20 127/49 100 02/05/18 18:00 74 16 129/51 100 Intake and Output 02/06/18 02/06/18 02/06/18 07:59 15:59 23:59 Intake Total 100 / 100 1750 / 1750 Output Total 140 / 140 2600 / 2600 Balance -40 / -40 -850 / -850 Intake: IV Fluids 100 / 100 100 / 100 Flagyl Premix 500 MG/100 ML 500 100 / 100 100 / 100 mg In 100 ml @ 100 mls/hr IVPB Q8HR [facility] Rx#:[id number] Oral 0 / 0 Blood Product 1050 / 1050 Rbcs Leuko Poor As-1 Unit 350 / 350 [id number] Rbcs Leuko Poor As-1 Unit 350 / 350 [id number] Rbcs Leuko Poor As-1 Unit 350 / 350 [id number] Intake, Rinseback and Flushes 600 / 600 Output: Urine 0 / 0 Emesis 140 / 140 300 / 300 Total Dialysis (HD) Output 2300 / 2300 Other: Weight 91.1 kg Blood Glucose* 230 122 Hemodialysis Net Fluid Removed 1000 (mL) Patient Weight 02/06/18 23:59 Weight 91.1 kg - General Appearance General appearance: Present: chronically ill EENT: Present: ATNC, mucous membranes moist Neck: Present: no JVD, supple Respiratory: Present: clear Cardiology: Present: no edema, normal S1, normal S2 Dialysis Vascular Access: Venous Catheter (permcath) Additional Comments: PD catheter also in place Gastrointestinal: Present: no tenderness, no guarding Integumentary: Present: warm and dry Neurologic: Present: no focal deficit Musculoskeletal: Present: no deformities Psychiatric: Present: mood/affect appropriate, cooperative - Lab 02/06/18 04:15 02/06/18 04:15 Most recent lab results ABG pH 7.47 pH Units (7.32-7.45) H 02/05/18 11:49 ABG pCO2 35 mmHg (35-45) 02/05/18 11:49 ABG pO2 43 mmHg (85-104) L* 02/05/18 11:49 ABG HCO3 25 mEq/L (21-27) 02/05/18 11:49 ABG O2 Saturation 82 % (95-98) L 02/05/18 11:49 Calcium 7.5 mg/dL (8.6-10.3) L 02/06/18 04:15 Phosphorus 4.2 mg/dL (2.7-4.5) 02/06/18 04:15 Magnesium 1.8 mg/dL (1.6-2.6) 02/06/18 04:15 Consult Discharge Plan - Plan Referrals: Guero Clement DO [Primary Care Provider] -
[2018-02-06] MEDS: Cefepime HCl 1,000 MG in Water for inj. (sterile) 20 ML 10 ML IVP SCH (17:23)
[2018-02-06] MEDS: Insulin DETEMIR 100 UNIT/ML X5UNITS SQ SCH (17:24)
[2018-02-06 17:58] LABS: Hematocrit 33.2 % (35.3-44.9); Hemoglobin 11.4 g/dL (11.5-15.4)
[2018-02-06] MEDS: Sucralfate 1 GM TABLET PO SCH (18:57)
[2018-02-06] MEDS: *HR* Metoprolol 5 MG/5 ML VIAL IVP PRN (18:58)
[2018-02-06 19:20] LABS: Hematocrit RBC Folate 20.3 %
[2018-02-07] MEDS: MetroNIDAZOLE 500 MG/100 ML 500 MG/100 ML BAG IVPB SCH ×4 (00:05→23:44)
[2018-02-07 00:35] LABS: Hematocrit 29.3 % (35.3-44.9)
[2018-02-07 00:36] LABS: Hemoglobin 9.7 g/dL (11.5-15.4)
[2018-02-07] MEDS ORDERED: Benzonatate 100 MG CAPSULE PO PRN (03:12)
[2018-02-07 04:17] LABS: Calcium 7.6 mg/dL (8.6-10.3)
[2018-02-07 04:39] LABS: Basophils % 0.2 %; Eosinophils % 0.2 %; Hematocrit 30.6 % (35.3-44.9); Immature Granulocytes % 1.9 % (0-4); Lymphocytes # 0.5 K/mcL (0.6-4.6); Lymphocytes % 4.4 %; Mean Corpuscular HGB Conc 32.7 g/dL (31.6-35.5); Mean Corpuscular Hemoglobin 31.9 pg (28.0-33.3); Mean Corpuscular Volume 97.8 fL (83.0-100.0); Mean Platelet Volume 9.1 fL (9.4-12.4); Monocytes % 7.7 %; Neutrophils # 10.6 K/mcL (1.6-8.9); Nucleated Red Blood Cells 0.2 /100 WBC (0); Platelet Count 315 K/mcL (140-400); Red Blood Count 3.13 M/mcL (3.82-4.97); Red Cell Distribution Width 19.6 % (11.5-14.5); Segmented Neutrophils % 85.6 %
[2018-02-07] MEDS: Pantoprazole 40 MG VIAL IVP SCH ×2 (06:30→17:13)
--- NOTE | 2018-02-07 06:53 | Pulmonology Progress Note ---
<Dick Atkinson - Last Filed: 02/07/18 10:57> Date of Encounter: 02/07/18 Time of Encounter: 10:57 Assessment and Plan (1) Sepsis Current Visit: Yes Status: Acute Sepsis secondary to MRSA bacteremia Source: Right permacath, right great toe, possible right peritoneal dialysis catheter Patient has leukocytosis, fever and tachycardia on admission Fever and tachycardia have resolved. Leukocytosis has improved from 16-12.4 Initial lactic acid was 3.9 with IV fluids patient's lactic acid now is 1.6. Patient is hemodynamically stable. Qualifiers: Sepsis type: methicillin susceptible Staphylococcus aureus Qualified Code(s ): A41.01 - Sepsis due to Methicillin susceptible Staphylococcus aureus (2) Bacteremia Current Visit: Yes Status: Acute Patient has MRSA bacteremia Source includes right IJ permacath, peritoneal dialysis catheter, right great toe Peripheral blood cultures on and were positive for MRSA Wound culture right great toe is positive for klebsiella and MRSA Peritoneal fluid culture is negative 02/06 permacath blood cultures positive for gram-positive cocci likely MRSA Patient is on vancomycin. Trough level is 19 this morning. IR consulted to remove right permacath. (3) Anemia Current Visit: Yes Status: Chronic Acute on chronic anemia Patient had coffee-ground emesis yesterday and required 3 units of packed red blood cells GI was consulted for evaluation of upper GI bleed. Patient will have EGD today. She is nothing by mouth with PPI twice a day and Carafate. Hemoglobin is stable at 10.0. CBC in the morning. Qualifiers: Anemia type: due to chronic kidney disease Chronic kidney disease stage: on chronic dialysis Qualified Code(s): N18.6 - End stage renal disease; D63.1 - Anemia in chronic kidney disease; Z99.2 - Dependence on renal dialysis (4) Diabetes Current Visit: Yes Status: Acute Patient has history of diabetes mellitus [id number] Currently she is nothing by mouth for EGD Patient is on basal insulin at 20 units subcutaneous every afternoon. Her platelet her glucose is at goal. Qualifiers: Diabetes mellitus type: type 2 Diabetes mellitus skilled nursing insulin use: with skilled nursing use Diabetes mellitus complication status: with kidney complications Diabetes mellitus complication detail: with chronic kidney disease Chronic kidney disease stage: on chronic dialysis Qualified Code(s) : E11.22 - Type 2 diabetes mellitus with diabetic chronic kidney disease; N18.6 - End stage renal disease; Z79.4 - intermediate (current) use of insulin; Z99.2 - Dependence on renal dialysis (5) DVT prophylaxis Current Visit: Yes Status: Acute epcd (6) Encephalopathy Current Visit: Yes Status: Acute Resolved. Patient is awake alert and oriented 3 This is likely secondary to sepsis from MRSA bacteremia. (7) ESRD (end stage renal disease) on dialysis Current Visit: Yes Status: Chronic Patient is ESRD patient on dialysis. She has a right permacath and a peritoneal dialysis catheter. She has not used peritoneal dialysis catheter for many months now. Patient's right permacath is growing MRSA and will BE removed by her today. We will place a temporary line as well. (8) Gangrene of toe of right foot Current Visit: Yes Status: Acute Patient has gangrenous necrosis of the right great toe Imaging was negative for osteomyelitis Wound cultures positive for MRSA and Klebsiella Patient is on vancomycin and cefepime both day 3. Podiatry was consulted and recommended amputation of the great toe once patient is stable. (9) KEMAR (obstructive sleep apnea) Current Visit: Yes Status: Chronic CPAP at night. (10) PAD (peripheral artery disease) Current Visit: Yes Status: Chronic Patient is status post bilateral lower extremity vascular stent placement around 8-10 days ago at [facility] facility. She was started on Plavix which is on hold secondary to GI bleed. ABIs are normal We will obtain records from [facility]. Subjective Interval history: Overnight patient did not have any acute complications. She reports nausea this morning. She denies shortness of breath, abdominal pain, lower extremity pain, chest pain. Objective PUL Vital signs: Last Vital Signs Temp 98.1 F 02/07/18 03:50 Pulse 92 02/07/18 06:00 Resp 15 02/07/18 06:00 BP 152/80 02/07/18 06:00 Pulse Ox 96 02/07/18 06:00 General appearance: appears uncomfortable Eyes: nonicteric, other (Absent subjonjuctival hemorrhages) ENT: oropharynx moist Mallampati (class): 2 Neck: no lymphadenopathy, no JVD Effort: normal Auscultation: bilateral: clear Cardiovascular: regular rate and rhythm Gastrointestinal: normoactive bowel sounds, soft, non-tender, non-distended Integumentary: normal, other (Right permacath without surrounding erythema or. Absence splinter hemorrhages, Janeway lesions, Osler nodes.) Extremities: no cyanosis, no edema, no clubbing Musculoskeletal: no deformities Gait: normal gait normal mental status, non-focal exam, CN II-XII normal, motor strength normal and symmetric mood appropriate, affect normal Results - Laboratory Findings CBC and BMP: 02/07/18 04:15 02/07/18 03:33 ABG ABG pH 7.47 pH Units (7.32-7.45) H 02/05/18 11:49 ABG pCO2 35 mmHg (35-45) 02/05/18 11:49 ABG pO2 43 mmHg (85-104) L* 02/05/18 11:49 ABG O2 Saturation 82 % (95-98) L 02/05/18 11:49 PT/INR, D-dimer PT 16.0 Seconds (9.4-12.1) H 02/05/18 11:20 Abnormal lab findings: Abnormal lab results WBC 12.4 K/mcL (4.3-11.1) H 02/07/18 04:15 RBC 3.13 M/mcL (3.82-4.97) L 02/07/18 04:15 Hgb 10.0 g/dL (11.5-15.4) L 02/07/18 04:15 Hct 30.6 % (35.3-44.9) L 02/07/18 04:15 RDW 19.6 % (11.5-14.5) H 02/07/18 04:15 MPV 9.1 fL (9.4-12.4) L 02/07/18 04:15 Neutrophils # 10.6 K/mcL (1.6-8.9) H 02/07/18 04:15 Lymphocytes # 0.5 K/mcL (0.6-4.6) L 02/07/18 04:15 Nucleated RBCs/100 WBC 0.2 /100 WBC (0) H 02/07/18 04:15 Hypochromasia Present (Not Present) A 02/06/18 04:15 PT 16.0 Seconds (9.4-12.1) H 02/05/18 11:20 ABG pH 7.47 pH Units (7.32-7.45) H 02/05/18 11:49 ABG pO2 43 mmHg (85-104) L* 02/05/18 11:49 ABG O2 Saturation 82 % (95-98) L 02/05/18 11:49 Creatinine 3.51 mg/dL (0.60-1.20) H 02/07/18 03:33 Est GFR ( Amer) 16 (> 60) L 02/07/18 03:33 Est GFR (Non-Af Amer) 13 (> 60) L 02/07/18 03:33 BUN/Creatinine Ratio 5 (6-26) L 02/07/18 03:33 Glucose 202 mg/dL (70-105) H 02/07/18 03:33 POC Glucose 178 mg/dL (70-99) H 02/07/18 00:30 Calcium 7.6 mg/dL (8.6-10.3) L 02/07/18 03:33 Iron < 10 mcg/dL (50-170) L 02/05/18 13:50 Transferrin 105 mg/dL (203-362) L 02/05/18 13:50 Ferritin > 1500 ng/mL (10-120) H 02/05/18 13:50 Direct Bilirubin 0.3 mg/dL (0.0-0.2) H 02/05/18 11:20 Troponin I 0.06 ng/mL (< 0.04) H* 02/05/18 23:00 B-Natriuretic Peptide 580 pg/mL (Less than 100) H 02/05/18 11:20 Serum Total Protein 5.3 g/dL (6.4-8.9) L 02/06/18 04:15 Albumin 2.4 g/dL (3.5-5.7) L 02/06/18 04:15 Albumin/Globulin Ratio 0.8 (1.1-2.2) L 02/06/18 04:15 Ur Specimen Adequacy See below A 02/05/18 10:58 Urine Clarity Turbid (Clear) A 02/05/18 10:58 Urine Protein >=300 mg/dL (Neg-Trace) H 02/05/18 10:58 Urine Glucose (UA) 250 mg/dL (Normal) H 02/05/18 10:58 Urine Blood Moderate (Negative) H 02/05/18 10:58 Ur Leukocyte Esterase Large (Negative) H 02/05/18 10:58 Urine Microscopic RBC 15-30 per hpf (0-3) H 02/05/18 10:58 Urine Microscopic WBC TNTC per hpf (0-3) H 02/05/18 10:58 Ur Squamous Epith Cells Many per lpf (None-Few) H 02/05/18 10:58 Urine Bacteria Many per hpf (None-Few) H 02/05/18 10:58 Ur Culture Indicated? NO. (NO) A 02/05/18 10:58 Staphylococcus sp PCR DETECTED (Not Detect) A 02/05/18 11:20 Staph aureus (PCR) DETECTED (Not Detect) A 02/05/18 11:20 mecA-Methicil Res Gene DETECTED (Not Detect) A 02/05/18 11:20 - Microbiology Findings Microbiology Findings: Microbiology, Last 48 Hours 02/05/18 13:30 Wound Culture - Preliminary Right Great Toe Klebsiella oxytoca Staphylococcus aureus 02/06/18 03:22 Blood Culture - Preliminary Peripheral Venipuncture Gram Positive Cocci 02/06/18 03:22 Blood Culture - Preliminary Peripheral Venipuncture Gram Positive Cocci 02/06/18 14:39 Blood Culture - Preliminary Central Venous Catheter Culture is incubating and being continuously monitored for growth. Final report to follow. 02/06/18 14:39 Blood Culture - Preliminary Central Venous Catheter Culture is incubating and being continuously monitored for growth. Final report to follow. 02/05/18 14:10 Body Fluid Culture - Preliminary Peritoneal Fluid 02/05/18 13:50 Urine Culture - Preliminary Urine,Catheterized Gram Negative Carroll 02/05/18 11:20 Blood Culture - Preliminary Peripheral Venipuncture Gram Positive Cocci 02/05/18 11:20 Blood Culture - Preliminary Peripheral Venipuncture Gram Positive Cocci - Clinical Findings Intake & Output: Intake & Output 02/06/18 02/06/18 02/07/18 15:59 23:59 07:59 Intake Total 1750 / 1750 110 / 110 100 / 100 Output Total 2600 / 2600 240 / 240 70 / 70 Balance -850 / -850 -130 / -130 30 / 30 Weight 91.1 kg 89.5 kg Consult Discharge Plan - Plan Referrals: Guero Clement, [Primary Care Provider] - <Wes Vyas - Last Filed: 02/07/18 11:50> Date of Encounter: 02/07/18 Objective PUL Vital signs: Last Vital Signs Temp 98.0 F 02/07/18 08:47 Pulse 98 02/07/18 08:00 Resp 14 02/07/18 08:00 BP 178/70 02/07/18 08:00 Pulse Ox 99 02/07/18 08:00 Results - Laboratory Findings CBC and BMP: 02/07/18 04:15 02/07/18 03:33 ABG ABG pH 7.47 pH Units (7.32-7.45) H 02/05/18 11:49 ABG pCO2 35 mmHg (35-45) 02/05/18 11:49 ABG pO2 43 mmHg (85-104) L* 02/05/18 11:49 ABG O2 Saturation 82 % (95-98) L 02/05/18 11:49 PT/INR, D-dimer PT 16.0 Seconds (9.4-12.1) H 02/05/18 11:20 Abnormal lab findings: Abnormal lab results WBC 12.4 K/mcL (4.3-11.1) H 02/07/18 04:15 RBC 3.13 M/mcL (3.82-4.97) L 02/07/18 04:15 Hgb 10.0 g/dL (11.5-15.4) L 02/07/18 04:15 Hct 30.6 % (35.3-44.9) L 02/07/18 04:15 RDW 19.6 % (11.5-14.5) H 02/07/18 04:15 MPV 9.1 fL (9.4-12.4) L 02/07/18 04:15 Neutrophils # 10.6 K/mcL (1.6-8.9) H 02/07/18 04:15 Lymphocytes # 0.5 K/mcL (0.6-4.6) L 02/07/18 04:15 Nucleated RBCs/100 WBC 0.2 /100 WBC (0) H 02/07/18 04:15 Hypochromasia Present (Not Present) A 02/06/18 04:15 PT 16.0 Seconds (9.4-12.1) H 02/05/18 11:20 ABG pH 7.47 pH Units (7.32-7.45) H 02/05/18 11:49 ABG pO2 43 mmHg (85-104) L* 02/05/18 11:49 ABG O2 Saturation 82 % (95-98) L 02/05/18 11:49 Creatinine 3.51 mg/dL (0.60-1.20) H 02/07/18 03:33 Est GFR ( Amer) 16 (> 60) L 02/07/18 03:33 Est GFR (Non-Af Amer) 13 (> 60) L 02/07/18 03:33 BUN/Creatinine Ratio 5 (6-26) L 02/07/18 03:33 Glucose 202 mg/dL (70-105) H 02/07/18 03:33 POC Glucose 178 mg/dL (70-99) H 02/07/18 00:30 Calcium 7.6 mg/dL (8.6-10.3) L 02/07/18 03:33 Iron < 10 mcg/dL (50-170) L 02/05/18 13:50 Transferrin 105 mg/dL (203-362) L 02/05/18 13:50 Ferritin > 1500 ng/mL (10-120) H 02/05/18 13:50 Direct Bilirubin 0.3 mg/dL (0.0-0.2) H 02/05/18 11:20 Troponin I 0.06 ng/mL (< 0.04) H* 02/05/18 23:00 B-Natriuretic Peptide 580 pg/mL (Less than 100) H 02/05/18 11:20 Serum Total Protein 5.3 g/dL (6.4-8.9) L 02/06/18 04:15 Albumin 2.4 g/dL (3.5-5.7) L 02/06/18 04:15 Albumin/Globulin Ratio 0.8 (1.1-2.2) L 02/06/18 04:15 Ur Specimen Adequacy See below A 02/05/18 10:58 Urine Clarity Turbid (Clear) A 02/05/18 10:58 Urine Protein >=300 mg/dL (Neg-Trace) H 02/05/18 10:58 Urine Glucose (UA) 250 mg/dL (Normal) H 02/05/18 10:58 Urine Blood Moderate (Negative) H 02/05/18 10:58 Ur Leukocyte Esterase Large (Negative) H 02/05/18 10:58 Urine Microscopic RBC 15-30 per hpf (0-3) H 02/05/18 10:58 Urine Microscopic WBC TNTC per hpf (0-3) H 02/05/18 10:58 Ur Squamous Epith Cells Many per lpf (None-Few) H 02/05/18 10:58 Urine Bacteria Many per hpf (None-Few) H 02/05/18 10:58 Ur Culture Indicated? NO. (NO) A 02/05/18 10:58 Staphylococcus sp PCR DETECTED (Not Detect) A 02/05/18 11:20 Staph aureus (PCR) DETECTED (Not Detect) A 02/05/18 11:20 mecA-Methicil Res Gene DETECTED (Not Detect) A 02/05/18 11:20 - Microbiology Findings Microbiology Findings: Microbiology, Last 48 Hours 02/06/18 03:22 Blood Culture - Preliminary Peripheral Venipuncture Staphylococcus aureus 02/06/18 03:22 Blood Culture - Preliminary Peripheral Venipuncture Staphylococcus aureus 02/05/18 11:20 Blood Culture - Preliminary Peripheral Venipuncture Staphylococcus aureus 02/05/18 11:20 Blood Culture - Preliminary Peripheral Venipuncture Staphylococcus aureus 02/05/18 13:30 Wound Culture - Preliminary Right Great Toe Klebsiella oxytoca Staphylococcus aureus 02/06/18 14:39 Blood Culture - Preliminary Central Venous Catheter Culture is incubating and being continuously monitored for growth. Final report to follow. 02/06/18 14:39 Blood Culture - Preliminary Central Venous Catheter Culture is incubating and being continuously monitored for growth. Final report to follow. 02/05/18 14:10 Body Fluid Culture - Preliminary Peritoneal Fluid 02/05/18 13:50 Urine Culture - Preliminary Urine,Catheterized Gram Negative Carroll - Clinical Findings Intake & Output: Intake & Output 02/06/18 02/07/18 02/07/18 23:59 07:59 15:59 Intake Total 110 / 110 450 / 450 Output Total 240 / 240 70 / 70 5 / 5 Balance -130 / -130 380 / 380 -5 / -5 Weight 89.5 kg - Attending Attestation I examined this patient and my medical decision-making was reviewed with the Resident Physician. I agree with the documented findings, disposition and treatment plan as described except to the extent set forth below. Patient seen and examined. Labs, radiology, chart personally reviewed. 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 Abdomen very concerned about the agitation and patient will need FREDIS will contact cardiology for on this test. GI: Nutrition per dietary and GI prophylaxis per routine. Patient is being treated for nausea and gastroenterology has seen the patient. Heme: DVT prophylaxis per routine ID: Continue antibiotics and plan to de-escalation. Patient continued to be positive blood culture and one more time and very concerned about the agitation and will need FREDIS. Source is still not clear. Infectious disease has seen the patient. Discussed with the artificial breeding distributor and please refer to his note regarding FREDIS. Renal; patient is on hemodialysis. Awaiting to remove peritoneal dialysis catheter. I have discussed with the manager of school and source of the infection is most likely related to dialysis catheter and interventional radiologist has been contacted as well. Endorcine: blood glucose is monitored Lines: all lines checked and no evidence of infections Skin: skin care to prevent pressure ulcers per nursing routine care I am very concerned about this patient with continue to be positive blood culture. Continue broad-spectrum antibiotics I have explained all this to the patient and she needed agreement with the plan of care.
[2018-02-07] MEDS: Tiotropium 18 MCG inhalation IH SCH (07:58)
[2018-02-07] MEDS: Lactulose Oral Soln 20 GM/30 ML UDC PO SCH ×2 (08:07→13:17)
[2018-02-07] MEDS: Aspirin 81 MG TAB.CHEW PO SCH ×2 (08:07→13:17)
[2018-02-07] MEDS: Sucralfate 1 GM TABLET PO SCH ×3 (08:07→13:19)
[2018-02-07] MEDS: *HR* Metoprolol 5 MG/5 ML VIAL IVP PRN (09:41)
--- NOTE | 2018-02-07 10:02 | Event Note ---
Date of Encounter: 02/07/18 Time of Encounter: 09:56 - Cardiology Event Note Plan for FREDIS given MRSA bacteremia of uncertain source. Pt seen by me, no dyspnea, intermittent hypertensive, no O2 requirement, HR 80s- 90s, CTA B/L, RRR, no murmur appreciated. TTE 02/06/19 reviewed by me, no gross vegetation on MV, TV, AV, trace-mild MR. A: MRSA bacteremia, TTE unrevealing, no significant valvular dysfunction, no evidence of HF P: Plan FREDIS on Friday 02/09 to r/o infective endocarditis If evidence of heart failure or new murmur with O2 requirement, then STAT TTE and possible urgent FREDIS.
[2018-02-07] MEDS: *HR* Promethazine 25 MG/ML VIAL IVP PRN ×3 (10:54→23:49)
--- NOTE | 2018-02-07 11:58 | Nephrology Progress Note ---
Date of Encounter: 02/07/18 Time of Encounter: 11:50 - Assessment and Plan (1) ESRD (end stage renal disease) on dialysis Status: Chronic s/p Hd yesterday, next HD planned onday Agree with removing permcath given persistent bacteremia with MRSA Will also need PD catheter removed by surgery next week ( Dr Slick Abbott stable (2) Chest pain Status: Resolved Per primary. Chest pain free at time of examination. Qualifiers: Chest pain type: unspecified Qualified Code(s): R07.9 - Chest pain, unspecified (3) Sepsis Status: Resolved Per ID. 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: with elementary school teacher's aide use Diabetes mellitus complication status: with kidney complications Diabetes mellitus complication detail: with chronic kidney disease Chronic kidney disease stage: on chronic dialysis Qualified Code(s): E11.22 - Type 2 diabetes mellitus with diabetic chronic kidney disease; N18.6 - End stage renal disease; Z79.4 - pattern grader cutter (current) use of insulin; Z99.2 - Dependence on renal dialysis (5) Gangrene of toe of right foot Status: Acute per podiatry (6) Anemia Status: Chronic Qualifiers: Anemia type: due to chronic kidney disease Chronic kidney disease stage: on chronic dialysis Qualified Code(s): N18.6 - End stage renal disease; D63.1 - Anemia in chronic kidney disease; Z99.2 - Dependence on renal dialysis (7) COPD (chronic obstructive pulmonary disease) Status: Chronic Qualifiers: COPD type: unspecified COPD Qualified Code(s): J44.9 - Chronic obstructive pulmonary disease, unspecified Subjective Interval history: Interim noted, pt seen and examined s/p HD yesterday. Objective - Vital Signs Vital signs: Vital Signs Temp Pulse Resp BP Pulse Ox 02/07/18 10:59 17 94 02/07/18 09:00 101 14 172/73 99 02/07/18 08:47 98.0 F 02/07/18 08:00 98 14 178/70 99 02/07/18 07:56 16 172/73 98 02/07/18 07:00 93 12 182/68 97 02/07/18 06:00 92 15 152/80 96 02/07/18 05:00 94 12 172/74 97 02/07/18 04:00 94 17 177/79 97 02/07/18 03:50 98.1 F 02/07/18 03:47 16 99 02/07/18 03:00 91 17 171/67 98 02/07/18 02:00 87 16 164/73 96 02/07/18 01:00 92 18 162/74 96 02/07/18 00:34 98.0 F 02/07/18 00:04 16 96 02/07/18 00:00 90 20 178/78 93 02/06/18 23:53 90 02/06/18 23:00 90 19 150/83 95 02/06/18 22:00 94 20 167/70 94 02/06/18 21:00 97 18 180/75 94 02/06/18 20:30 98.9 F 02/06/18 20:00 100 19 185/87 96 02/06/18 19:30 15 93 02/06/18 19:00 91 18 187/80 96 02/06/18 18:00 100 16 203/81 97 02/06/18 17:00 100 16 177/75 96 02/06/18 16:00 99.4 F 100 14 173/80 93 02/06/18 15:57 16 96 02/06/18 15:02 95 02/06/18 15:00 95 14 169/78 99 02/06/18 14:15 98.6 F 20 158/76 02/06/18 14:00 92 10 158/76 98 02/06/18 13:45 157/68 02/06/18 13:30 168/77 02/06/18 13:15 98 F 88 14 166/77 100 02/06/18 13:00 88 12 168/76 99 02/06/18 12:45 169/78 02/06/18 12:30 98.2 F 87 14 169/74 100 02/06/18 12:15 98.3 F 88 12 169/78 100 02/06/18 12:14 98.3 F 88 12 169/78 100 02/06/18 12:00 88 14 167/79 100 Intake and Output 02/06/18 02/07/18 02/07/18 23:59 07:59 15:59 Intake Total 110 / 110 450 / 450 100 / 100 Output Total 240 / 240 70 / 70 5 / 5 Balance -130 / -130 380 / 380 95 / 95 Intake: IV Fluids 110 / 110 450 / 450 100 / 100 Maxipime 1,000 MG In Water for inj. (sterile) 10 ML @ 300 mls/ hr IVP Q24H [facility] Rx#:[id number] Flagyl Premix 500 MG/100 ML 500 100 / 100 100 / 100 100 / 100 mg In 100 ml @ 100 mls/hr IVPB Q8HR [facility] Rx#:[id number] Output: Urine 0 / 0 0 / 0 5 / 5 Gastric Drainage 240 / 240 70 / 70 Other: Stool Size Small Stool Consistency soft Stool Color Brown # Bowel Movements 1 Weight 89.5 kg Blood Glucose* 178 Patient Weight 02/07/18 23:59 Weight 89.5 kg - General Appearance General appearance: Present: chronically ill EENT: Present: ATNC, mucous membranes moist Neck: Present: no JVD, supple Respiratory: Present: clear Cardiology: Present: no edema, normal S1, normal S2 Dialysis Vascular Access: Venous Catheter (permcath) Gastrointestinal: Present: no tenderness, no guarding (PD catheter in place) Integumentary: Present: warm and dry Neurologic: Present: no focal deficit Musculoskeletal: Present: no deformities Psychiatric: Present: mood/affect appropriate, cooperative - Lab 02/20/18 04:00 02/20/18 04:00 Most recent lab results ABG pH 7.47 pH Units (7.32-7.45) H 02/05/18 11:49 ABG pCO2 35 mmHg (35-45) 02/05/18 11:49 ABG pO2 43 mmHg (85-104) L* 02/05/18 11:49 ABG HCO3 25 mEq/L (21-27) 02/05/18 11:49 ABG O2 Saturation 82 % (95-98) L 02/05/18 11:49 Calcium 7.6 mg/dL (8.6-10.3) L 02/07/18 03:33 Phosphorus 4.2 mg/dL (2.7-4.5) 02/06/18 04:15 Magnesium 1.8 mg/dL (1.6-2.6) 02/06/18 04:15 Consult Discharge Plan - Plan Additional Instructions: PWB right lower extremity. Orthowedge shoe for heel transfers. Follow up with Dr. Denny in wound care clinic next week. Follow-up with PCP and nephrology within 1 week. Take all medications as prescribed and return to the hospital stay worsening return of symptoms. Referrals: Mayela Ayoub CNP [Advanced Practice Nurse] - 02/26/18 8:40 am Guero Clement DO [Primary Care Provider] - 02/26/18 2:00 pm () Prescriptions: RX: Sucralfate [Carafate] 1 gm PO TIDAC #12 tablet
[2018-02-07] MEDS ORDERED: *HR* Dextrose 50 % in Water (Syg) 50 ML SYRINGE IVP PRN (12:48)
[2018-02-07] MEDS ORDERED: Dextrose Gel 15 GM/37.5 ML TUBE PO PRN ×2 (12:48)
[2018-02-07] MEDS ORDERED: D5% in Water 1,000 ML IVC PRN (12:48)
--- NOTE | 2018-02-07 15:56 | IR Procedure Note ---
Date of procedure: 02/07/18 Consent Obtained: Verbal consent, Written consent Timeout: Correct patient and procedure verified, Correct site verified, Time out performed, Skin prep completed Local anesthetic: Lidocaine 1% Indications: bacteremia Procedure Performed: right IJ permacath removal Was there an assistant oceanographer present: No Site/Technique: removed with blunt dissection Results/Findings: NA Estimated blood loss (cc): 0 Complications: None; Tolerated procedure well Post Procedure Treatment Plan: sent tip for culture Specimen: catheter tip
[2018-02-07] MEDS: Cefepime HCl 1,000 MG in Water for inj. (sterile) 20 ML 10 ML IVP SCH (17:13)
[2018-02-07] MEDS: Metoclopramide 10 MG/2 ML VIAL IVP SCH ×2 (17:14→23:45)
[2018-02-07] MEDS: Insulin DETEMIR 100 UNIT/ML X5UNITS SQ SCH (17:14)
[2018-02-07] MEDS: Insulin LISPRO 300 UNITS/3 ML VIAL SQ SCH ×2 (17:20→23:54)
[2018-02-08 03:46] LABS: Basophils # 0.1 K/mcL (0.0-0.2); Basophils % 0.5 %; Eosinophils # 0.2 K/mcL (0.0-0.6); Eosinophils % 1.9 %; Hematocrit 31.8 % (35.3-44.9); Hemoglobin 10.6 g/dL (11.5-15.4); Immature Granulocytes % 4.9 % (0-4); Lymphocytes # 0.6 K/mcL (0.6-4.6); Lymphocytes % 5.3 %; Mean Corpuscular HGB Conc 33.3 g/dL (31.6-35.5); Mean Corpuscular Hemoglobin 32.4 pg (28.0-33.3); Mean Corpuscular Volume 97.2 fL (83.0-100.0); Mean Platelet Volume 9.1 fL (9.4-12.4); Monocytes % 8.9 %; Neutrophils # 9.2 K/mcL (1.6-8.9); Nucleated Red Blood Cells 0.3 /100 WBC (0); Platelet Count 311 K/mcL (140-400); Red Blood Count 3.27 M/mcL (3.82-4.97); Segmented Neutrophils % 78.5 %
[2018-02-08 04:09] LABS: Calcium 7.6 mg/dL (8.6-10.3); Potassium 3.3 mEq/L (3.5-5.1)
[2018-02-08] MEDS: Metoclopramide 10 MG/2 ML VIAL IVP SCH ×5 (05:16→23:39)
[2018-02-08] MEDS: Pantoprazole 40 MG VIAL IVP SCH ×2 (05:18→17:51)
[2018-02-08] MEDS: Insulin LISPRO 300 UNITS/3 ML VIAL SQ SCH ×5 (05:20→23:42)
[2018-02-08] MEDS: Sucralfate 1 GM TABLET PO SCH ×3 (07:55→16:35)
--- NOTE | 2018-02-08 07:58 | Pulmonology Progress Note ---
<Norberto Abreu - Last Filed: 02/08/18 12:45> Date of Encounter: 02/08/18 Time of Encounter: 07:57 Assessment and Plan (1) Sepsis Current Visit: Yes Status: Acute Patient septic on admission with temperature of 103.2, white blood cell count of 16, lactate level of 3.9 Patient has gangrene of the right great toe along with MRSA bacteremia, and urine culture positive for gram-negative rods Tunneled catheter was removed due to concerns for nidus of infection Patient is currently afebrile, white blood cell count of 11.7 down from 12.4 on February 07, most recent recent lactic acid at 1.6 on February 05. Infectious disease consulted and is following Continue cefepime, Flagyl, vancomycin Qualifiers: Sepsis type: methicillin susceptible Staphylococcus aureus Qualified Code(s ): A41.01 - Sepsis due to Methicillin susceptible Staphylococcus aureus (2) Bacteremia Current Visit: Yes Status: Acute Gram-positive cocci present initial blood culture, PCR positive for MRSA, gram- negative rods noted in urine Likely source is gangrene of the right great toe which is scheduled for podiatry assessment for the possibility of amputation tomorrow FREDIS scheduled for tomorrow to evaluate for endocardial lesions Infectious disease consulted and is following Continue cefepime, Flagyl, vancomycin (3) Gangrene of toe of right foot Current Visit: Yes Status: Acute Podiatry consulted and is following Per podiatry, patient will require surgical intervention with amputation 2 view foot x-ray did not reveal evidence of osteomyelitis Continue antibiotics, de-escalate as appropriate (4) Nausea & vomiting Current Visit: Yes Status: Acute Patient has had a recent history of dark coffee-ground emesis requiring 3 units of packed red blood cells Current H&H is 10.6 and 31.8, respectively. GI consulted and is following Continue to monitor H&H with transfusion as necessary Qualifiers: Vomiting type: unspecified Vomiting Intractability: unspecified Qualified Code(s): R11.2 - Nausea with vomiting, unspecified (5) ESRD (end stage renal disease) Current Visit: No Status: Chronic End-stage renal disease patient on dialysis with Mon/Wed/Fri hemodialysis schedule BUNs/creatinine at 31 and 4.83, respectively Nephrology consulted and is following Continue to monitor (6) COPD (chronic obstructive pulmonary disease) Current Visit: No Status: Chronic COPD without acute exacerbation We will continue patient's home medications Qualifiers: COPD type: COPD with acute exacerbation Qualified Code(s): J44.1 - Chronic obstructive pulmonary disease with (acute) exacerbation (7) Diabetes Current Visit: No Status: Chronic Patient nothing by mouth diet 20 units of Levemir every afternoon with medium sliding scale insulin regimen every 6 hour Blood sugar currently 121 at last check Continue to monitor Qualifiers: Diabetes mellitus type: type 2 Diabetes mellitus keno terminal operator insulin use: with halfway use Diabetes mellitus complication status: without complication Qualified Code(s): E11.9 - Type 2 diabetes mellitus without complications; Z79.4 - terminal make 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) use of insulin (8) HTN (hypertension) Current Visit: No Status: Chronic Patient blood pressure is currently 127/63 Home by mouth antihypertensive medicines being held Currently stable and well controlled on 10 mg IVP hydralazine when necessary for hypertension Continue to monitor Qualifiers: Hypertension type: essential hypertension Qualified Code(s): I10 - Essential (primary) hypertension (9) KEMAR (obstructive sleep apnea) Current Visit: Yes Status: Chronic Patient with known history of obstructive sleep apnea Continue CPAP use daily at bedtime Lifestyle modifications including weight loss and sleep hygiene are highly recommended (10) DVT prophylaxis Current Visit: Yes Status: Acute Chemical DVT prophylaxis held in the setting of potential for GI bleed EPCDs applied to lower extremities Subjective Principal diagnosis: Sepsis Interval history: No acute events overnight. Patient is resting comfortably at 99% oxygen saturation on room air. Patient is currently afebrile, non-tachycardic, nontachypneic, white blood cell count 11.7 down from 12.4 yesterday. Plan is to transfer patient to [address] [place] [address] ICU stepdown unit. Objective PUL Vital signs: Last Vital Signs Temp 98.6 F 02/08/18 04:00 Pulse 90 02/08/18 06:00 Resp 14 02/08/18 06:00 BP 140/62 02/08/18 06:00 Pulse Ox 94 02/08/18 06:00 General appearance: no acute distress Eyes: nonicteric Effort: normal Auscultation: bilateral: clear Cardiovascular: regular rate and rhythm Gastrointestinal: normoactive bowel sounds, soft, non-tender, non-distended Extremities: no cyanosis, no edema non-focal exam Results - Laboratory Findings CBC and BMP: 02/08/18 03:35 02/08/18 03:35 ABG ABG pH 7.47 pH Units (7.32-7.45) H 02/05/18 11:49 ABG pCO2 35 mmHg (35-45) 02/05/18 11:49 ABG pO2 43 mmHg (85-104) L* 02/05/18 11:49 ABG O2 Saturation 82 % (95-98) L 02/05/18 11:49 PT/INR, D-dimer PT 16.0 Seconds (9.4-12.1) H 02/05/18 11:20 Abnormal lab findings: Abnormal lab results WBC 11.7 K/mcL (4.3-11.1) H 02/08/18 03:35 RBC 3.27 M/mcL (3.82-4.97) L 02/08/18 03:35 Hgb 10.6 g/dL (11.5-15.4) L 02/08/18 03:35 Hct 31.8 % (35.3-44.9) L 02/08/18 03:35 RDW 19.0 % (11.5-14.5) H 02/08/18 03:35 MPV 9.1 fL (9.4-12.4) L 02/08/18 03:35 Immature Gran % 4.9 % (0-4) H 02/08/18 03:35 Neutrophils # 9.2 K/mcL (1.6-8.9) H 02/08/18 03:35 Nucleated RBCs/100 WBC 0.3 /100 WBC (0) H 02/08/18 03:35 Hypochromasia Present (Not Present) A 02/06/18 04:15 PT 16.0 Seconds (9.4-12.1) H 02/05/18 11:20 ABG pH 7.47 pH Units (7.32-7.45) H 02/05/18 11:49 ABG pO2 43 mmHg (85-104) L* 02/05/18 11:49 ABG O2 Saturation 82 % (95-98) L 02/05/18 11:49 Potassium 3.3 mEq/L (3.5-5.1) L 02/08/18 03:35 BUN 31 mg/dL (6-20) H 02/08/18 03:35 Creatinine 4.83 mg/dL (0.60-1.20) H 02/08/18 03:35 Est GFR ( Amer) 11 (> 60) L 02/08/18 03:35 Est GFR (Non-Af Amer) 9 (> 60) L 02/08/18 03:35 Glucose 121 mg/dL (70-105) H 02/08/18 03:35 POC Glucose 112 mg/dL (70-99) H 02/08/18 05:15 Calcium 7.6 mg/dL (8.6-10.3) L 02/08/18 03:35 Iron < 10 mcg/dL (50-170) L 02/05/18 13:50 Transferrin 105 mg/dL (203-362) L 02/05/18 13:50 Ferritin > 1500 ng/mL (10-120) H 02/05/18 13:50 Direct Bilirubin 0.3 mg/dL (0.0-0.2) H 02/05/18 11:20 Troponin I 0.06 ng/mL (< 0.04) H* 02/05/18 23:00 B-Natriuretic Peptide 580 pg/mL (Less than 100) H 02/05/18 11:20 Serum Total Protein 5.3 g/dL (6.4-8.9) L 02/06/18 04:15 Albumin 2.4 g/dL (3.5-5.7) L 02/06/18 04:15 Albumin/Globulin Ratio 0.8 (1.1-2.2) L 02/06/18 04:15 Ur Specimen Adequacy See below A 02/05/18 10:58 Urine Clarity Turbid (Clear) A 02/05/18 10:58 Urine Protein >=300 mg/dL (Neg-Trace) H 02/05/18 10:58 Urine Glucose (UA) 250 mg/dL (Normal) H 02/05/18 10:58 Urine Blood Moderate (Negative) H 02/05/18 10:58 Ur Leukocyte Esterase Large (Negative) H 02/05/18 10:58 Urine Microscopic RBC 15-30 per hpf (0-3) H 02/05/18 10:58 Urine Microscopic WBC TNTC per hpf (0-3) H 02/05/18 10:58 Ur Squamous Epith Cells Many per lpf (None-Few) H 02/05/18 10:58 Urine Bacteria Many per hpf (None-Few) H 02/05/18 10:58 Ur Culture Indicated? NO. (NO) A 02/05/18 10:58 Vancomycin Trough 19 mcg/mL (5-10) H 02/07/18 09:35 Staphylococcus sp PCR DETECTED (Not Detect) A 02/05/18 11:20 Staph aureus (PCR) DETECTED (Not Detect) A 02/05/18 11:20 mecA-Methicil Res Gene DETECTED (Not Detect) A 02/05/18 11:20 - Microbiology Findings Microbiology Findings: Microbiology, Last 48 Hours 02/05/18 11:20 Blood Culture - Final Peripheral Venipuncture Methicillin Resistant S.aureus 02/05/18 14:10 Body Fluid Culture - Preliminary Peritoneal Fluid 02/05/18 13:50 Urine Culture - Final Urine,Catheterized Escherichia coli 02/05/18 13:30 Wound Culture - Final Right Great Toe Klebsiella oxytoca Staphylococcus aureus 02/06/18 14:39 Blood Culture - Preliminary Central Venous Catheter Gram Positive Cocci 02/06/18 14:39 Blood Culture - Preliminary Central Venous Catheter Gram Positive Cocci 02/06/18 03:22 Blood Culture - Preliminary Peripheral Venipuncture Staphylococcus aureus 02/06/18 03:22 Blood Culture - Preliminary Peripheral Venipuncture Staphylococcus aureus 02/05/18 11:20 Blood Culture - Preliminary Peripheral Venipuncture Staphylococcus aureus - Clinical Findings Intake & Output: Intake & Output 02/07/18 02/07/18 02/08/18 15:59 23:59 07:59 Intake Total 100 / 100 110 / 110 100 / 100 Output Total 5 / 5 0 / 0 0 / 0 Balance 95 / 95 110 / 110 100 / 100 Weight 90.4 kg Consult Discharge Plan - Plan Referrals: Guero Clement DO [Primary Care Provider] - <Wes Vyas - Last Filed: 02/08/18 20:25> Date of Encounter: 02/08/18 Objective PUL Vital signs: Last Vital Signs Temp 98.6 F 02/08/18 04:00 Pulse 90 02/08/18 06:00 Resp 14 02/08/18 06:00 BP 140/62 02/08/18 06:00 Pulse Ox 94 02/08/18 06:00 Results - Laboratory Findings CBC and BMP: 02/08/18 03:35 02/08/18 03:35 ABG ABG pH 7.47 pH Units (7.32-7.45) H 02/05/18 11:49 ABG pCO2 35 mmHg (35-45) 02/05/18 11:49 ABG pO2 43 mmHg (85-104) L* 02/05/18 11:49 ABG O2 Saturation 82 % (95-98) L 02/05/18 11:49 PT/INR, D-dimer PT 16.0 Seconds (9.4-12.1) H 02/05/18 11:20 Abnormal lab findings: Abnormal lab results WBC 11.7 K/mcL (4.3-11.1) H 02/08/18 03:35 RBC 3.27 M/mcL (3.82-4.97) L 02/08/18 03:35 Hgb 10.6 g/dL (11.5-15.4) L 02/08/18 03:35 Hct 31.8 % (35.3-44.9) L 02/08/18 03:35 RDW 19.0 % (11.5-14.5) H 02/08/18 03:35 MPV 9.1 fL (9.4-12.4) L 02/08/18 03:35 Immature Gran % 4.9 % (0-4) H 02/08/18 03:35 Neutrophils # 9.2 K/mcL (1.6-8.9) H 02/08/18 03:35 Nucleated RBCs/100 WBC 0.3 /100 WBC (0) H 02/08/18 03:35 Hypochromasia Present (Not Present) A 02/06/18 04:15 PT 16.0 Seconds (9.4-12.1) H 02/05/18 11:20 ABG pH 7.47 pH Units (7.32-7.45) H 02/05/18 11:49 ABG pO2 43 mmHg (85-104) L* 02/05/18 11:49 ABG O2 Saturation 82 % (95-98) L 02/05/18 11:49 Potassium 3.3 mEq/L (3.5-5.1) L 02/08/18 03:35 BUN 31 mg/dL (6-20) H 02/08/18 03:35 Creatinine 4.83 mg/dL (0.60-1.20) H 02/08/18 03:35 Est GFR ( Amer) 11 (> 60) L 02/08/18 03:35 Est GFR (Non-Af Amer) 9 (> 60) L 02/08/18 03:35 Glucose 121 mg/dL (70-105) H 02/08/18 03:35 POC Glucose 112 mg/dL (70-99) H 02/08/18 05:15 Calcium 7.6 mg/dL (8.6-10.3) L 02/08/18 03:35 Iron < 10 mcg/dL (50-170) L 02/05/18 13:50 Transferrin 105 mg/dL (203-362) L 02/05/18 13:50 Ferritin > 1500 ng/mL (10-120) H 02/05/18 13:50 Direct Bilirubin 0.3 mg/dL (0.0-0.2) H 02/05/18 11:20 Troponin I 0.06 ng/mL (< 0.04) H* 02/05/18 23:00 B-Natriuretic Peptide 580 pg/mL (Less than 100) H 02/05/18 11:20 Serum Total Protein 5.3 g/dL (6.4-8.9) L 02/06/18 04:15 Albumin 2.4 g/dL (3.5-5.7) L 02/06/18 04:15 Albumin/Globulin Ratio 0.8 (1.1-2.2) L 02/06/18 04:15 Ur Specimen Adequacy See below A 02/05/18 10:58 Urine Clarity Turbid (Clear) A 02/05/18 10:58 Urine Protein >=300 mg/dL (Neg-Trace) H 02/05/18 10:58 Urine Glucose (UA) 250 mg/dL (Normal) H 02/05/18 10:58 Urine Blood Moderate (Negative) H 02/05/18 10:58 Ur Leukocyte Esterase Large (Negative) H 02/05/18 10:58 Urine Microscopic RBC 15-30 per hpf (0-3) H 02/05/18 10:58 Urine Microscopic WBC TNTC per hpf (0-3) H 02/05/18 10:58 Ur Squamous Epith Cells Many per lpf (None-Few) H 02/05/18 10:58 Urine Bacteria Many per hpf (None-Few) H 02/05/18 10:58 Ur Culture Indicated? NO. (NO) A 02/05/18 10:58 Vancomycin Trough 19 mcg/mL (5-10) H 02/07/18 09:35 Staphylococcus sp PCR DETECTED (Not Detect) A 02/05/18 11:20 Staph aureus (PCR) DETECTED (Not Detect) A 02/05/18 11:20 mecA-Methicil Res Gene DETECTED (Not Detect) A 02/05/18 11:20 - Microbiology Findings Microbiology Findings: Microbiology, Last 48 Hours 02/05/18 11:20 Blood Culture - Final Peripheral Venipuncture Methicillin Resistant S.aureus 02/05/18 14:10 Body Fluid Culture - Preliminary Peritoneal Fluid 02/05/18 13:50 Urine Culture - Final Urine,Catheterized Escherichia coli 02/05/18 13:30 Wound Culture - Final Right Great Toe Klebsiella oxytoca Staphylococcus aureus 02/06/18 14:39 Blood Culture - Preliminary Central Venous Catheter Gram Positive Cocci 02/06/18 14:39 Blood Culture - Preliminary Central Venous Catheter Gram Positive Cocci 02/06/18 03:22 Blood Culture - Preliminary Peripheral Venipuncture Staphylococcus aureus 02/06/18 03:22 Blood Culture - Preliminary Peripheral Venipuncture Staphylococcus aureus 02/05/18 11:20 Blood Culture - Preliminary Peripheral Venipuncture Staphylococcus aureus - Clinical Findings Intake & Output: Intake & Output 02/07/18 02/08/18 02/08/18 23:59 07:59 15:59 Intake Total 110 / 110 100 / 100 Output Total 0 / 0 0 / 0 Balance 110 / 110 100 / 100 Weight 90.4 kg - Attending Attestation I examined this patient and my medical decision-making was reviewed with the Resident Physician. I agree with the documented findings, disposition and treatment plan as described except to the extent set forth below. Patient seen and examined. Labs, radiology, chart personally reviewed. 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 Cardiology has seen patient regarding FREDIS. GI: Nutrition per dietary and GI prophylaxis per routine. GI has seen patient. Remove NG tube because she is feeling better. Heme: DVT prophylaxis per routine ID: Continue antibiotics and plan to de-escalation. ID follow up. Renal: Dialysis catheter removed and nephrology is following up patient. Endorcine: blood glucose is monitored Lines: all lines checked and no evidence of infections Skin: skin care to prevent pressure ulcers per nursing routine care Discussed with Dr. Cody and patient was transferred to [facility]
[2018-02-08] MEDS: MetroNIDAZOLE 500 MG/100 ML 500 MG/100 ML BAG IVPB SCH ×3 (08:05→23:43)
[2018-02-08] MEDS: Tiotropium 18 MCG inhalation IH SCH (08:35)
[2018-02-08] MEDS ORDERED: Vancomycin 500 MG in 0.9 % Sodium Chloride Mini Bag 100 ML IVPB ONE (11:00)
[2018-02-08] MEDS ORDERED: *HR* Promethazine 25 MG/ML VIAL IVP PRN (11:56)
[2018-02-08] MEDS ORDERED: *HR* Metoprolol 5 MG/5 ML VIAL IVP PRN (11:56)
[2018-02-08] MEDS ORDERED: Dextrose Gel 15 GM/37.5 ML TUBE PO PRN ×2 (11:56)
[2018-02-08] MEDS ORDERED: Ondansetron 4 MG/2 ML VIAL IVP PRN (11:56)
[2018-02-08] MEDS ORDERED: 0.9 % Sodium Chloride 250 ML IVC PRN (11:56)
[2018-02-08] MEDS ORDERED: 0.9 % Sodium Chloride 1,000 ML PRIME SCH (11:56)
[2018-02-08] MEDS ORDERED: D5% in Water 1,000 ML IVC PRN (11:56)
[2018-02-08] MEDS ORDERED: *HR* Heparin 10,000 UNIT/10 ML VIAL IV PRN (11:56)
[2018-02-08] MEDS ORDERED: Naloxone 0.4 MG/ML INJ IVP PRN (11:56)
[2018-02-08] MEDS ORDERED: Vancomycin 1 EACH in EMPTY BAG 1 EACH IVPB SCH (11:56)
--- NOTE | 2018-02-08 16:48 | Nephrology Progress Note ---
Date of Encounter: 02/08/18 Time of Encounter: 16:00 - Assessment and Plan (1) ESRD (end stage renal disease) on dialysis Current Visit: Yes Status: Chronic s/p Hd friday, next HD planned friday s/p permcath removal by IR for persistent bacteremia with MRSA Will also need PD catheter removed by surgery next week ( Dr Slick Abbott stable (2) Gangrene of toe of right foot Current Visit: Yes Status: Acute per podiatry (3) Anemia Current Visit: Yes Status: Chronic Hgb noted at 10.6 after transfusion with 2 units pRBCs. GI workup pending Qualifiers: Anemia type: due to chronic kidney disease Chronic kidney disease stage: on chronic dialysis Qualified Code(s): N18.6 - End stage renal disease; D63.1 - Anemia in chronic kidney disease; Z99.2 - Dependence on renal dialysis (4) Sepsis Current Visit: Yes Status: Resolved Qualifiers: Sepsis type: methicillin susceptible Staphylococcus aureus Qualified Code(s ): A41.01 - Sepsis due to Methicillin susceptible Staphylococcus aureus (5) Diabetes Current Visit: Yes Status: Acute Qualifiers: Diabetes mellitus type: type 2 Diabetes mellitus long term acute care registered nurse insulin use: with alf use Diabetes mellitus complication status: with kidney complications Diabetes mellitus complication detail: with chronic kidney disease Chronic kidney disease stage: on chronic dialysis Qualified Code(s) : E11.22 - Type 2 diabetes mellitus with diabetic chronic kidney disease; N18.6 - End stage renal disease; 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; Z99.2 - Dependence on renal dialysis (6) COPD (chronic obstructive pulmonary disease) Current Visit: No Status: Chronic Qualifiers: COPD type: unspecified COPD Qualified Code(s): J44.9 - Chronic obstructive pulmonary disease, unspecified Subjective Principal diagnosis: Sepsis Interval history: Interim noted, pt seen and examined Objective - Vital Signs Vital signs: Vital Signs Temp Pulse Resp BP Pulse Ox 02/08/18 16:38 20 100 02/08/18 14:00 94 21 155/81 98 02/08/18 12:00 98.1 F 104 13 127/63 98 02/08/18 10:00 96 17 184/79 99 02/08/18 09:09 97.9 F 02/08/18 09:00 93 14 167/68 96 02/08/18 08:00 93 16 165/71 96 02/08/18 07:59 16 184/79 96 02/08/18 07:00 89 13 155/70 95 02/08/18 06:00 90 14 140/62 94 02/08/18 05:00 92 16 157/70 93 02/08/18 04:12 15 96 02/08/18 04:00 98.6 F 02/08/18 03:00 90 14 154/59 96 02/08/18 02:00 91 18 143/60 95 02/08/18 01:00 96 16 163/68 94 02/08/18 00:10 15 94 02/08/18 00:00 93 22 136/83 94 02/07/18 23:55 98.6 F 02/07/18 23:00 90 14 147/62 95 02/07/18 22:00 93 16 140/62 97 02/07/18 21:00 95 14 152/64 95 02/07/18 20:00 95 22 151/64 98 02/07/18 19:53 20 97 02/07/18 19:37 98.3 F 02/07/18 19:00 95 20 150/59 98 02/07/18 18:00 98 18 144/67 95 02/07/18 17:00 94 16 179/71 98 Intake and Output 02/08/18 02/08/18 02/08/18 07:59 15:59 23:59 Intake Total 100 / 100 200 / 200 Output Total 0 / 0 400 / 400 Balance 100 / 100 -200 / -200 Intake: IV Fluids 100 / 100 200 / 200 Flagyl Premix 500 MG/100 ML 500 100 / 100 100 / 100 mg In 100 ml @ 100 mls/hr IVPB Q8HR [facility] Rx#:[id number] Vancocin 500 MG In 0.9 % Sodium 100 / 100 Chloride (Mini-Bag +) 100 ML @ 100 mls/hr IVPB ONCE ONE Rx#: [id number] Output: Urine 0 / 0 Urine/Stool Mix 400 / 400 Other: Stool Size Small Stool Consistency formed Stool Color Brown Weight 90.4 kg Blood Glucose* 112 166 Patient Weight 02/08/18 23:59 Weight 90.4 kg - Lab 02/08/18 03:35 02/08/18 03:35 Most recent lab results ABG pH 7.47 pH Units (7.32-7.45) H 02/05/18 11:49 ABG pCO2 35 mmHg (35-45) 02/05/18 11:49 ABG pO2 43 mmHg (85-104) L* 02/05/18 11:49 ABG HCO3 25 mEq/L (21-27) 02/05/18 11:49 ABG O2 Saturation 82 % (95-98) L 02/05/18 11:49 Calcium 7.6 mg/dL (8.6-10.3) L 02/08/18 03:35 Phosphorus 4.2 mg/dL (2.7-4.5) 02/06/18 04:15 Magnesium 1.8 mg/dL (1.6-2.6) 02/06/18 04:15 Consult Discharge Plan - Plan Referrals: Guero Clement DO [Primary Care Provider] -
[2018-02-08] MEDS: Insulin DETEMIR 100 UNIT/ML X5UNITS SQ SCH (17:45)
[2018-02-08] MEDS ORDERED: Cefepime HCl 1,000 MG in Water for inj. (sterile) 20 ML 10 ML IVP SCH (18:00)
[2018-02-08] MEDS: Melatonin 3 MG TABLET PO PRN (23:37)
[2018-02-09 04:17] LABS: Basophils # 0.1 K/mcL (0.0-0.2); Basophils % 0.6 %; Eosinophils # 0.2 K/mcL (0.0-0.6); Eosinophils % 2.2 %; Hematocrit 29.9 % (35.3-44.9); Hemoglobin 9.9 g/dL (11.5-15.4); Lymphocytes # 0.7 K/mcL (0.6-4.6); Lymphocytes % 6.1 %; Mean Corpuscular HGB Conc 33.1 g/dL (31.6-35.5); Mean Corpuscular Hemoglobin 32.4 pg (28.0-33.3); Mean Corpuscular Volume 97.7 fL (83.0-100.0); Mean Platelet Volume 9.2 fL (9.4-12.4); Monocytes # 1.2 K/mcL (0.0-1.3); Monocytes % 10.6 %; Neutrophils # 8.3 K/mcL (1.6-8.9); Nucleated Red Blood Cells 0.2 /100 WBC (0); Platelet Count 261 K/mcL (140-400); Red Blood Count 3.06 M/mcL (3.82-4.97); Red Cell Distribution Width 18.6 % (11.5-14.5); Segmented Neutrophils % 74.5 %
[2018-02-09 04:38] LABS: Calcium 7.3 mg/dL (8.6-10.3); Potassium 3.1 mEq/L (3.5-5.1)
[2018-02-09 05:46] LABS: Platelet Estimate Normal (Normal)
[2018-02-09] MEDS: Insulin LISPRO 300 UNITS/3 ML VIAL SQ SCH ×3 (05:58→18:35)
[2018-02-09] MEDS: Pantoprazole 40 MG VIAL IVP SCH ×2 (06:02→18:30)
[2018-02-09] MEDS: Metoclopramide 10 MG/2 ML VIAL IVP SCH ×4 (06:02→23:38)
[2018-02-09] MEDS: Tiotropium 18 MCG inhalation IH SCH (07:35)
[2018-02-09] MEDS ORDERED: 0.9 % Sodium Chloride 1,000 ML ONE (07:54)
[2018-02-09] MEDS: Sucralfate 1 GM TABLET PO SCH ×3 (08:00→18:30)
[2018-02-09] MEDS ORDERED: Lidocaine Viscous Oral Soln 15 ML SOLUTION MM PRN (08:32)
[2018-02-09] MEDS ORDERED: Tetracaine/Benzocaine/Butamben 1 SPRAY AEROSOL MM ONE (08:33)
[2018-02-09] MEDS ORDERED: 0.9 % Sodium Chloride 500 ML IVC ONE (08:33)
[2018-02-09] MEDS: *HR* Midazolam HCl 5 MG/5 ML VIAL IVP PRN ×2 (09:05→09:10)
[2018-02-09] MEDS: *HR* FentaNYL (PF) 100 MCG/2 ML VIAL IVP PRN ×2 (09:05→09:10)
[2018-02-09] MEDS: MetroNIDAZOLE 500 MG/100 ML 500 MG/100 ML BAG IVPB SCH ×3 (11:13→23:39)
--- NOTE | 2018-02-09 13:00 | Event Note ---
Date of Encounter: 02/09/18 Time of Encounter: 12:58 - Cardiology Event Note FREDIS completed. No vegetations seen. Preserved EF. Troponin likely secondary to sepsis. Out-pt f/u with cardiology. Call with questions.
--- NOTE | 2018-02-09 13:05 | IR Consult Note ---
Date of Encounter: 02/09/18 Time of Encounter: 12:45 Assessment and Plan (1) ESRD (end stage renal disease) Current Visit: No Status: Chronic S/P removal TDC for MRSA bacteremia and now presents for temporary dialysis catheter. Unfortunately, she had FREDIS today with sedation and is not able to sign her consent for temp dialysis catheter. Will attempt to contact family for consent. If unsuccessful, plan on placing temp dialysis catheter tomorrow morning. Discussed with Dr Lewis. Physicians: Chloe Marcos MD Consult Comment: Thank you for the consult. Call [facility] with questions or concerns. Past Med Surg Social Fam HX - Past Medical History Medical history: CHF, COPD, coronary artery disease, diabetes, dialysis, hypertension, renal disease Additional medical history: vascular stents Psychiatric history: anxiety, depression - Past Surgical History Surgical History: other Additional surgical history: ankle sx, hip sx, 3 hand sx, partial hysterectomy, tubal, left arm fistula, peritoneal port - Social History Smoking Status: Former smoker Smokeless Tobacco Status: No Alcohol use: none Drug use: none - Family History Mother Living Status: Hx Family Cardiac Disorders: Yes (CHF, [place]) Father Living Status: Hx Family Respiratory Disorders: Yes (Asthma) Hx Family Endocrine Disorder: Yes (Kidney disease) Medications and Allergies Albuterol Sulfate [Proair Hfa] 1 - 2 puff IH Q4-6H PRN 07/10/17 [History] Atorvastatin [Lipitor] 40 mg PO HS 07/10/17 [History] Esomeprazole Magnesium [Nexium] 40 mg PO DAILY 07/10/17 [History] Fenofibrate Nanocrystallized [Triglide] 160 mg PO DAILY 07/10/17 [History] Furosemide [Lasix] 40 mg PO 1400 07/10/17 [History] Furosemide [Lasix] 80 mg PO QAM 07/10/17 [History] Insulin Glargine,Hum.rec.anlog [Lantus Solostar] 60 unit SQ QPM 07/10/17 [ History] Isosorbide MONOnitrate (24 HR) [Imdur] 30 mg PO DAILY 07/10/17 [History] Lisinopril [Zestril] 10 mg PO BID 07/10/17 [History] Metoprolol [Lopressor] 50 mg PO QPM 07/10/17 [History] Metoprolol [Lopressor] 100 mg PO QAM 07/10/17 [History] Oxybutynin [Ditropan] 5 mg PO TID 07/10/17 [History] Renal Vitamin [Renal Caps Softgel] 1 mg PO DAILY 07/10/17 [History] Sertraline [Zoloft] 25 mg PO DAILY 07/10/17 [History] Sevelamer [Renvela] 800 mg PO TIDWM 07/10/17 [History] Tiotropium [Spiriva] 18 mcg IH DAILY 07/10/17 [History] Insulin LISPRO [HumaLOG] 15 - 20 units SQ TID 12/30/17 [History] Gabapentin [Neurontin] 100 mg PO TID 02/05/18 [History] 3 Allergy/AdvReac Type Severity Reaction Status Date / Time Penicillins Allergy Hives Verified 12/30/17 12:35 Sulfa (Sulfonamide Allergy Hives Verified 12/30/17 12:35 Antibiotics) hydrocodone AdvReac Nausea Verified 12/30/17 12:35 metformin [From Glucophage] AdvReac Nausea Verified 12/30/17 12:35 niacin AdvReac Redness of Verified 12/30/17 12:35 Skin Oxycodone [From Percocet] AdvReac Nausea Verified 12/30/17 12:35 tramadol [From Ultram] AdvReac Nausea Verified 12/30/17 12:35 Exam Vital Signs, Last 4 Hours Temp Pulse Resp BP Pulse Ox 02/09/18 11:48 98.2 F 02/09/18 11:19 88 16 178/73 97 02/09/18 11:14 18 97 02/09/18 10:30 88 18 189/70 97 02/09/18 10:06 85 18 178/78 99 Results Reviewed 02/09/18 04:00 02/09/18 04:00 Lab Results 02/09/18 02/09/18 02/08/18 04:00 04:00 03:35 WBC 11.1 RBC 3.06 L Hgb 9.9 L Hct 29.9 L MCV 97.7 MCH 32.4 MCHC 33.1 RDW 18.6 H Plt Count 261 MPV 9.2 L Neutrophils # 8.3 Lymphocytes # 0.7 Monocytes # 1.2 Eosinophils # 0.2 Basophils # 0.1 Sodium 137 138 Potassium 3.1 L 3.3 L Chloride 103 100 Carbon Dioxide 23 28 BUN 38 H 31 H Creatinine 5.48 H 4.83 H Est GFR ( Amer) 10 L 11 L Est GFR (Non-Af Amer) 8 L 9 L BUN/Creatinine Ratio 7 6 Glucose 109 H 121 H Calcium 7.3 L 7.6 L 02/08/18 02/07/18 02/07/18 03:35 04:15 03:33 WBC 11.7 H 12.4 H RBC 3.27 L 3.13 L Hgb 10.6 L 10.0 L Hct 31.8 L 30.6 L MCV 97.2 97.8 D MCH 32.4 31.9 MCHC 33.3 32.7 RDW 19.0 H 19.6 H Plt Count 311 315 MPV 9.1 L 9.1 L Neutrophils # 9.2 H 10.6 H Lymphocytes # 0.6 0.5 L Monocytes # 1.0 1.0 Eosinophils # 0.2 0.0 Basophils # 0.1 0.0 Sodium 137 Potassium 4.0 Chloride 98 Carbon Dioxide 26 BUN 19 Creatinine 3.51 H Est GFR ( Amer) 16 L Est GFR (Non-Af Amer) 13 L BUN/Creatinine Ratio 5 L Glucose 202 H Calcium 7.6 L 02/07/18 02/06/18 00:10 17:49 WBC RBC Hgb 9.7 L D 11.4 L D Hct 29.3 L 33.2 L MCV MCH MCHC RDW Plt Count MPV Neutrophils # Lymphocytes # Monocytes # Eosinophils # Basophils # Sodium Potassium Chloride Carbon Dioxide BUN Creatinine Est GFR ( Amer) Est GFR (Non-Af Amer) BUN/Creatinine Ratio Glucose Calcium Consult Discharge Plan - Plan Referrals: Guero Clement DO [Primary Care Provider] - (sent web request on 02-09 @ 3448)
[2018-02-09] MEDS ORDERED: Potassium Chloride 20 MEQ, Lidocaine 1% 2 ML in D5% in Water 250 ML IVPB ONE (13:15)
--- NOTE | 2018-02-09 13:17 | Podiatry Progress Note ---
Date of Encounter: 02/09/18 Time of Encounter: 12:00 - Assessment and Plan (1) Gangrene of toe of right foot Current Visit: Yes Status: Acute Assessment: Dry gangrene to toe #1 right s/p traumatic injury. Plan: #1 agree with present broad-spectrum antibiotic therapy #2 patient will need likely amputation of the great toe and possible first ray to control infection and gangrenous changes. Wound is stable at this time. Will plan to take to the OR friday or . Verbalized understanding. #3 local wound care- daily betadine and application of dry dressing VARINDER;s are within normal limits and safe to proceed with surgical intervention Per Vascular Note: Patients VARINDER appears to be within normal limits on left lower extremity with 1.3 and right lower extremity appears to have mild disease with .9. Subjective Principal diagnosis: Sepsis Interval history: Ms. Orozco is a 57 year old female presently resting comfortably. Has been discharged from ICU and is currently in step down. We have been following for a ischemic right toe. Patient with history of end-stage renal disease diabetes hypertension CHF GERD COPD and PVD. Patient states she is suppose to be going to IR today. Denies any recent fevers, chills, n/v or fls. Objective - Vital Signs Vital Signs: Vital Signs Temp Pulse Resp BP Pulse Ox 02/09/18 11:48 98.2 F 02/09/18 11:19 88 16 178/73 97 02/09/18 11:14 18 97 02/09/18 10:30 88 18 189/70 97 02/09/18 10:06 85 18 178/78 99 02/09/18 08:37 97.8 F 93 20 189/91 96 02/09/18 07:40 18 99 02/09/18 07:37 98.2 F 91 18 171/79 99 02/09/18 04:15 99.1 F 86 17 160/51 98 02/09/18 03:55 17 95 02/08/18 23:49 16 96 02/08/18 23:19 98.0 F 93 16 162/57 96 02/08/18 20:12 136/65 02/08/18 19:45 16 97 02/08/18 19:16 98.8 F 86 15 165/61 95 02/08/18 16:47 100 02/08/18 16:38 20 100 02/08/18 14:00 94 21 155/81 98 Intake and Output 02/08/18 02/09/18 02/09/18 23:59 07:59 15:59 Intake Total 110 / 110 100 / 100 70 / 70 Output Total 50 / 50 Balance 110 / 110 50 / 50 70 / 70 Intake: IV Fluids 110 / 110 100 / 100 70 / 70 0.9 % Sodium Chloride 500 ML @ 70 / 70 150 mls/hr IVC .Q3H20M [facility] Rx#: [id number] Maxipime 1,000 MG In Water for inj. (sterile) 10 ML @ 300 mls/ hr IVP Q24H [facility] Rx#:[id number] Flagyl Premix 500 MG/100 ML 500 100 / 100 100 / 100 mg In 100 ml @ 100 mls/hr IVPB Q8HR [facility] Rx#:[id number] Output: Urine 50 / 50 Other: Stool Size Small Stool Consistency soft Stool Characteristics Mucoid Weight 90.265 kg Blood Glucose* 185 113 182 Patient Weight 02/09/18 23:59 Weight 90.265 kg - Exam Exam: awake alert and oriented Pulses palpable DP/PT Cap refill < 3 seconds Minimal sensation to light or moderate touch Ischemic dry gangrene right great toe. No progression of necrosis. No drainage. Foul odor. necrosis encompasses plantar aspect of toe extending to IP joint and medial and lateral aspect of toe and dorsal aspect of toe extending just past the proximal base of the nail. Mild surrounding erythema and edema. No warmth noted. All other aspect of foot including toes #2 through #5 are warm to touch. - Lab Result Diagrams: 02/09/18 04:00 02/09/18 04:00 Labs: Abnormal lab results RBC 3.06 M/mcL (3.82-4.97) L 02/09/18 04:00 Hgb 9.9 g/dL (11.5-15.4) L 02/09/18 04:00 Hct 29.9 % (35.3-44.9) L 02/09/18 04:00 RDW 18.6 % (11.5-14.5) H 02/09/18 04:00 MPV 9.2 fL (9.4-12.4) L 02/09/18 04:00 Immature Gran % 6.0 % (0-4) H 02/09/18 04:00 Nucleated RBCs/100 WBC 0.2 /100 WBC (0) H 02/09/18 04:00 Hypochromasia Present (Not Present) A 02/06/18 04:15 PT 16.0 Seconds (9.4-12.1) H 02/05/18 11:20 ABG pH 7.47 pH Units (7.32-7.45) H 02/05/18 11:49 ABG pO2 43 mmHg (85-104) L* 02/05/18 11:49 ABG O2 Saturation 82 % (95-98) L 02/05/18 11:49 Potassium 3.1 mEq/L (3.5-5.1) L 02/09/18 04:00 BUN 38 mg/dL (6-20) H 02/09/18 04:00 Creatinine 5.48 mg/dL (0.60-1.20) H 02/09/18 04:00 Est GFR ( Amer) 10 (> 60) L 02/09/18 04:00 Est GFR (Non-Af Amer) 8 (> 60) L 02/09/18 04:00 Glucose 109 mg/dL (70-105) H 02/09/18 04:00 POC Glucose 185 mg/dL (70-99) H 02/08/18 23:28 Calcium 7.3 mg/dL (8.6-10.3) L 02/09/18 04:00 Iron < 10 mcg/dL (50-170) L 02/05/18 13:50 Transferrin 105 mg/dL (203-362) L 02/05/18 13:50 Ferritin > 1500 ng/mL (10-120) H 02/05/18 13:50 Direct Bilirubin 0.3 mg/dL (0.0-0.2) H 02/05/18 11:20 Troponin I 0.06 ng/mL (< 0.04) H* 02/05/18 23:00 B-Natriuretic Peptide 580 pg/mL (Less than 100) H 02/05/18 11:20 Serum Total Protein 5.3 g/dL (6.4-8.9) L 02/06/18 04:15 Albumin 2.4 g/dL (3.5-5.7) L 02/06/18 04:15 Albumin/Globulin Ratio 0.8 (1.1-2.2) L 02/06/18 04:15 Ur Specimen Adequacy See below A 02/05/18 10:58 Urine Clarity Turbid (Clear) A 02/05/18 10:58 Urine Protein >=300 mg/dL (Neg-Trace) H 02/05/18 10:58 Urine Glucose (UA) 250 mg/dL (Normal) H 02/05/18 10:58 Urine Blood Moderate (Negative) H 02/05/18 10:58 Ur Leukocyte Esterase Large (Negative) H 02/05/18 10:58 Urine Microscopic RBC 15-30 per hpf (0-3) H 02/05/18 10:58 Urine Microscopic WBC TNTC per hpf (0-3) H 02/05/18 10:58 Ur Squamous Epith Cells Many per lpf (None-Few) H 02/05/18 10:58 Urine Bacteria Many per hpf (None-Few) H 02/05/18 10:58 Ur Culture Indicated? NO. (NO) A 02/05/18 10:58 Vancomycin Trough 19 mcg/mL (5-10) H 02/07/18 09:35 Staphylococcus sp PCR DETECTED (Not Detect) A 02/05/18 11:20 Staph aureus (PCR) DETECTED (Not Detect) A 02/05/18 11:20 mecA-Methicil Res Gene DETECTED (Not Detect) A 02/05/18 11:20 Microbiology, Last 48 Hours 02/09/18 11:35 Blood Culture - Preliminary Peripheral Venipuncture Culture is incubating and being continuously monitored for growth. Final report to follow. 02/09/18 08:08 Blood Culture - Preliminary Peripheral Venipuncture Culture is incubating and being continuously monitored for growth. Final report to follow. 02/07/18 15:24 Catheter Tip Culture - Preliminary Intravenous or Arterial Cath 02/05/18 14:10 Body Fluid Culture - Final Peritoneal Fluid 02/05/18 11:20 Blood Culture - Final Peripheral Venipuncture Methicillin Resistant S.aureus 02/05/18 11:20 Blood Culture - Final Peripheral Venipuncture Methicillin Resistant S.aureus 02/06/18 03:22 Blood Culture - Final Peripheral Venipuncture Methicillin Resistant S.aureus 02/06/18 14:39 Blood Culture - Final Central Venous Catheter Methicillin Resistant S.aureus 02/06/18 03:22 Blood Culture - Final Peripheral Venipuncture Methicillin Resistant S.aureus 02/06/18 14:39 Blood Culture - Final Central Venous Catheter Methicillin Resistant S.aureus 02/05/18 13:50 Urine Culture - Final Urine,Catheterized Escherichia coli 02/05/18 13:30 Wound Culture - Final Right Great Toe Klebsiella oxytoca Staphylococcus aureus Consult Discharge Plan - Plan Referrals: Guero Clement DO [Primary Care Provider] - (sent web request on 02-09 @ [phone])
--- NOTE | 2018-02-09 13:51 | Nephrology Progress Note ---
Date of Encounter: 02/09/18 Time of Encounter: 13:49 - Assessment and Plan (1) Anemia Current Visit: Yes Status: Chronic Goal Hgb is -10-11. Hgb today is 9.9. Qualifiers: Anemia type: due to chronic kidney disease Chronic kidney disease stage: on chronic dialysis Qualified Code(s): N18.6 - End stage renal disease; D63.1 - Anemia in chronic kidney disease; Z99.2 - Dependence on renal dialysis (2) Sepsis Current Visit: Yes Status: Acute Per ID. FREDIS completed. Qualifiers: Sepsis type: methicillin susceptible Staphylococcus aureus Qualified Code(s ): A41.01 - Sepsis due to Methicillin susceptible Staphylococcus aureus (3) ESRD (end stage renal disease) on dialysis Current Visit: Yes Status: Chronic s/p Hd friday, HD planned for today if IR can place temp line. s/p permcath removal by IR for persistent bacteremia with MRSA Will also need PD catheter removed by surgery next week ( Dr Slick gee (4) Diabetes Current Visit: Yes Status: Acute Per primary. Qualifiers: Diabetes mellitus type: type 2 Diabetes mellitus custodial insulin use: with analytics director use Diabetes mellitus complication status: with kidney complications Diabetes mellitus complication detail: with chronic kidney disease Chronic kidney disease stage: on chronic dialysis Qualified Code(s) : E11.22 - Type 2 diabetes mellitus with diabetic chronic kidney disease; N18.6 - End stage renal disease; Z79.4 - halfway (current) use of insulin; Z99.2 - Dependence on renal dialysis (5) COPD (chronic obstructive pulmonary disease) Current Visit: No Status: Chronic Continue breathing tx's. Qualifiers: COPD type: unspecified COPD Qualified Code(s): J44.9 - Chronic obstructive pulmonary disease, unspecified (6) Gangrene of toe of right foot Current Visit: Yes Status: Acute per podiatry Subjective Principal diagnosis: Sepsis Interval history: Pt seen and examined, doing well. Is a little drowsy after FREDIS but alert and oriented x 3. Objective - Vital Signs Vital signs: Vital Signs Temp Pulse Resp BP Pulse Ox 02/09/18 11:48 98.2 F 02/09/18 11:19 88 16 178/73 97 02/09/18 11:14 18 97 02/09/18 10:30 88 18 189/70 97 02/09/18 10:06 85 18 178/78 99 02/09/18 08:37 97.8 F 93 20 189/91 96 02/09/18 07:40 18 99 02/09/18 07:37 98.2 F 91 18 171/79 99 02/09/18 04:15 99.1 F 86 17 160/51 98 02/09/18 03:55 17 95 02/08/18 23:49 16 96 02/08/18 23:19 98.0 F 93 16 162/57 96 02/08/18 20:12 136/65 02/08/18 19:45 16 97 02/08/18 19:16 98.8 F 86 15 165/61 95 02/08/18 16:47 100 02/08/18 16:38 20 100 02/08/18 14:00 94 21 155/81 98 Intake and Output 02/08/18 02/09/18 02/09/18 23:59 07:59 15:59 Intake Total 110 / 110 100 / 100 70 / 70 Output Total 50 / 50 Balance 110 / 110 50 / 50 70 / 70 Intake: IV Fluids 110 / 110 100 / 100 70 / 70 0.9 % Sodium Chloride 500 ML @ 70 / 70 150 mls/hr IVC .Q3H20M [facility] Rx#: [id number] Maxipime 1,000 MG In Water for inj. (sterile) 10 ML @ 300 mls/ hr IVP Q24H [facility] Rx#:[id number] Flagyl Premix 500 MG/100 ML 500 100 / 100 100 / 100 mg In 100 ml @ 100 mls/hr IVPB Q8HR [facility] Rx#:[id number] Output: Urine 50 / 50 Other: Stool Size Small Stool Consistency soft Stool Characteristics Mucoid Weight 90.265 kg Blood Glucose* 185 113 182 Patient Weight 02/09/18 23:59 Weight 90.265 kg - General Appearance General appearance: Present: well-developed, well-nourished EENT: Present: ATNC, hearing intact, vision intact Neck: Present: supple Respiratory: Present: clear Cardiology: Present: no edema, normal S1, normal S2 Gastrointestinal: Present: normoactive bowel sounds, no tenderness, no guarding Integumentary: Present: no rash, warm and dry Additional Comments: Right great toe wrapped in Kerlix, C/D/I. Neurologic: Present: alert and oriented x3 Psychiatric: Present: mood/affect appropriate, cooperative - Lab 02/09/18 04:00 02/09/18 04:00 Most recent lab results ABG pH 7.47 pH Units (7.32-7.45) H 02/05/18 11:49 ABG pCO2 35 mmHg (35-45) 02/05/18 11:49 ABG pO2 43 mmHg (85-104) L* 02/05/18 11:49 ABG HCO3 25 mEq/L (21-27) 02/05/18 11:49 ABG O2 Saturation 82 % (95-98) L 02/05/18 11:49 Calcium 7.3 mg/dL (8.6-10.3) L 02/09/18 04:00 Phosphorus 4.2 mg/dL (2.7-4.5) 02/06/18 04:15 Magnesium 1.8 mg/dL (1.6-2.6) 02/06/18 04:15 Consult Discharge Plan - Plan Referrals: Guero Clement DO [Primary Care Provider] - (sent web request on 02-09 @ 0692)
--- NOTE | 2018-02-09 13:53 | Anesthesia Evaluation PreOp ---
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 PIERCER History: Denies Any Significant HX Other Medical History: Renal (ESRD on HD last dialysis yesterday) Anesthesia History: No Prior Anesthetic Complications, Past Anesthesia (scopes, shunt) Alcohol Use: none Drug use: none), CHF, HTN, Cardiac Stent (x2 2004) Pulmonary History: Former smoker, COPD BODY PIERCER History: Denies Any Significant HX Other Medical History: Renal (ESRD) Anesthesia History: Past Anesthesia (EGD, Colonoscopy) : No Alcohol Use: none Drug use: none Medications and Allergies Albuterol Sulfate [Proair Hfa] 1 - 2 puff IH Q4-6H PRN 07/10/17 [History] Atorvastatin [Lipitor] 40 mg PO HS 07/10/17 [History] Esomeprazole Magnesium [Nexium] 40 mg PO DAILY 07/10/17 [History] Fenofibrate Nanocrystallized [Triglide] 160 mg PO DAILY 07/10/17 [History] Furosemide [Lasix] 40 mg PO 1400 07/10/17 [History] Furosemide [Lasix] 80 mg PO QAM 07/10/17 [History] Insulin Glargine,Hum.rec.anlog [Lantus Solostar] 60 unit SQ QPM 07/10/17 [ History] Isosorbide MONOnitrate (24 HR) [Imdur] 30 mg PO DAILY 07/10/17 [History] Lisinopril [Zestril] 10 mg PO BID 07/10/17 [History] Metoprolol [Lopressor] 50 mg PO QPM 07/10/17 [History] Metoprolol [Lopressor] 100 mg PO QAM 07/10/17 [History] Oxybutynin [Ditropan] 5 mg PO TID 07/10/17 [History] Renal Vitamin [Renal Caps Softgel] 1 mg PO DAILY 07/10/17 [History] Sertraline [Zoloft] 25 mg PO DAILY 07/10/17 [History] Sevelamer [Renvela] 800 mg PO TIDWM 07/10/17 [History] Tiotropium [Spiriva] 18 mcg IH DAILY 07/10/17 [History] Insulin LISPRO [HumaLOG] 15 - 20 units SQ TID 12/30/17 [History] Gabapentin [Neurontin] 100 mg PO TID 02/05/18 [History] 3 Allergy/AdvReac Type Severity Reaction Status Date / Time Penicillins Allergy Hives Verified 12/30/17 12:35 Sulfa (Sulfonamide Allergy Hives Verified 12/30/17 12:35 Antibiotics) hydrocodone AdvReac Nausea Verified 12/30/17 12:35 metformin [From Glucophage] AdvReac Nausea Verified 12/30/17 12:35 niacin AdvReac Redness of Verified 12/30/17 12:35 Skin Oxycodone [From Percocet] AdvReac Nausea Verified 12/30/17 12:35 tramadol [From Ultram] AdvReac Nausea Verified 12/30/17 12:35 - Meds/Allergy Pre-op Review Medications Reviewed: Yes Allergies Reviewed: Yes Beta Blockers on Current Med List: Yes Anesthesia Results - Labs 02/09/18 04:00 02/09/18 04:00 Date of Study: 02/09/2018 Impressions: LVEF 60-65%. Normal LV size and function. Right ventricle was normal in size and systolic function. Mild mitral regurgitation. Unable to assess RVSP due to lack of adequate TR jet. Normal appearing pericardium. Previously described pericardial effusion not visualized. No vegetations visualized. No evidence of endocarditis.
--- NOTE | 2018-02-09 14:02 | Internal Med Progress Note ---
<Seng Mckeon - Last Filed: 02/09/18 15:08> Hospitalist Progress Note - Encounter Date of Encounter: 02/09/18 Time of Encounter: 15:08 - Subjective Interval History: Patient was examined at bedside while lying down. She was transferred from ICU to the med/surg floor this morning. She also had a FREDIS this morning that did not show vegetations. Patient complained of back pain due to lying down for an extended period of time. Patient denies chest pain, shortness of breath, palpitations, night sweats, nausea, vomiting, abdominal pain, diarrhea. Patient has no concerns at this time and is not in acute distress. - Exam Vitals: Temp Pulse Resp BP Pulse Ox 98.2 F 88 16 178/73 97 02/09/18 11:48 02/09/18 11:19 02/09/18 11:19 02/09/18 11:19 02/09/18 11:19 Exam: Gen.: female lying in bed. Pleasant and answers questions appropriately. Not in acute distress HEENT: No conjunctival pallor Cardiac: RRR, no murmur, +S1/S2 Pulmonary: CTA bilaterally, no wheezes, rales or rhonchi, equal chest expansion Abdomen: soft, nontender, BS noted, no guarding, no rebound. PD catheter in left side. Looks dry and clean Extremities: Necrotic right first toe. Dry. Not weeping Neuro: A&Ox3, loss of sensation in bilateral lower extremity Psych: Appropriate mood and behavior - Assessment and Plan (1) Sepsis Current Visit: Yes Status: Resolved Assessment and Plan: -Patient was septic on admission with temperature of 103.2, WBC 16, and lactate level of 3.9 -Patient no longer meets sepsis criteria. She is afebrile, HR of 88, RR of 16, WBC 11.1 -Blood cultures 02/05 and 02/06 grew MRSA -Possible etiologies include right first toe, tunneled catheter, UTI -Tunneled catheter removed 02/07. Catheter tip sent for culture -FREDIS negative for vegetations Plan: -Continue IV Cefepime day 5, IV flagyl day 5, IV vancomycin day 5 -ID following. Appreciate recommendations (2) ESRD (end stage renal disease) on dialysis Current Visit: Yes Status: Chronic Assessment and Plan: -Patient had her permacath removed on 02/07 -BUN/creatinine at 38 and 5.48 respectively -K+ 3.1 today. Will get replaced during dialysis Plan: -IR to place temporary cath today -Dialysis today. Has dialysis MWF -Nephrology following. Appreciate recommendations (3) Bacteremia Current Visit: Yes Status: Acute Assessment and Plan: -Same as above (4) Gangrene of toe of right foot Current Visit: Yes Status: Acute Assessment and Plan: -Patient's right first toe is necrotic -2 view foot x-ray did not show osteomyelitis Plan: -Podiatry following. Appreciate recommendations -Plan to amputate right first toe either Friday or -Continue with IV cefepime, IV vancomycin, IV flagyl (5) Anemia Current Visit: Yes Status: Chronic Assessment and Plan: -ESRD patient with base Hgb of 9-10 -Came in with Hgb of 7.4, and had brown emesis of 02/06 that was suspicious for hematemasis. Hgb dropped to 6.9, and patient was given 3 units of blood. Her Hgb went up to 11.4, and is now stable around 10 -GI suspected upper GI bleed, and started pantoprazole and carafate for possible ulcer Plan: -Patient NPO. Endoscopy scheduled for today -Continue with pantoprazole and sucralfate -Continue to monitor vitals and labs -GI consulted. Appreciate recommendations (6) Diabetes Current Visit: Yes Status: Chronic Assessment and Plan: -Patient admits to poor blood sugar control at home -Fasting glucose this morning 109 -Patient is bed bound and unable to walk 2/2 peripheral neuropathy likely due to chronic hyperglycemia Plan: -Continue with medium dose SSI -Frequent bed turns Q4 hours DVT Prophylaxis: -Heparin 5000 units SQ - Time Spent with Patient Total time spent is greater than 50% in coordination of care (as documented) at patient's floor/unit and/or counseling patient: Internal Medicine: Result - Labs CBC & Chem 7: 02/09/18 04:00 02/09/18 04:00 Labs: Short CBC 02/09/18 Range/Units 04:00 WBC 11.1 (4.3-11.1) K/mcL Hgb 9.9 L (11.5-15.4) g/dL Hct 29.9 L (35.3-44.9) % Plt Count 261 (140-400) K/mcL Neutrophils # 8.3 (1.6-8.9) K/mcL BMP 02/09/18 04:00 Sodium 137 Potassium 3.1 L Chloride 103 Carbon Dioxide 23 BUN 38 H Creatinine 5.48 H Glucose 109 H Calcium 7.3 L - ABG Interpretation ABG results: ABG ABG pH 7.47 pH Units (7.32-7.45) H 02/05/18 11:49 ABG pCO2 35 mmHg (35-45) 02/05/18 11:49 ABG pO2 43 mmHg (85-104) L* 02/05/18 11:49 ABG O2 Saturation 82 % (95-98) L 02/05/18 11:49 PT/INR, D-dimer PT 16.0 Seconds (9.4-12.1) H 02/05/18 11:20 - Impressions Impressions Chest X-Ray 02/05/18 10:56 IMPRESSION: 1. No acute cardiopulmonary disease. D/ / 02/05/2018 12:01:39 Dolores Morgan MD / vicky Interpreting Provider: Dolores Morgan MD Foot X-Ray 02/05/18 10:56 IMPRESSION: 1. No radiographic evidence of osteomyelitis. 2. Overlying bandage of the great toe limits evaluation for subcutaneous gas. No obvious gas identified. D/ / 02/05/2018 12:02:09 Dolores Morgan MD / Hannah Davison Interpreting Provider: Dolores Morgan MD Tunnelled Catheter Removal 02/07/18 00:00 IMPRESSION: Successful tunnel dialysis catheter removal. The catheter tip was sent for culture. D/ / John Paul Villarreal / John Paul Villarreal Interpreting Provider: John Paul Villarreal Consult Discharge Plan - Plan Referrals: Guero Clement DO [Primary Care Provider] - (sent web request on 02-09 @ [phone]) <Chloe Marcos - Last Filed: 02/09/18 15:46> Hospitalist Progress Note - Encounter Date of Encounter: 02/09/18 - Exam Vitals: Temp Pulse Resp BP Pulse Ox 98.2 F 88 16 178/73 97 02/09/18 11:48 02/09/18 11:19 02/09/18 11:19 02/09/18 11:19 02/09/18 11:19 - Assessment and Plan (1) Sepsis Current Visit: Yes Status: Resolved (2) Necrosis of toe Current Visit: Yes Status: Acute (3) Chest pain Current Visit: Yes Status: Resolved (4) ESRD (end stage renal disease) on dialysis Current Visit: Yes Status: Chronic (5) Diabetes Current Visit: Yes Status: Chronic (6) HTN (hypertension) Current Visit: Yes Status: Acute (7) COPD (chronic obstructive pulmonary disease) Current Visit: No Status: Chronic (8) Pulmonary HTN Current Visit: No Status: Chronic (9) CAD (coronary artery disease) Current Visit: No Status: Chronic (10) KEMAR (obstructive sleep apnea) Current Visit: Yes Status: Chronic (11) CHF (congestive heart failure) Current Visit: Yes Status: Chronic (12) DVT prophylaxis Current Visit: Yes Status: Acute (13) Encephalopathy Current Visit: Yes Status: Acute - Time Spent with Patient Total time spent is greater than 50% in coordination of care (as documented) at patient's floor/unit and/or counseling patient: Internal Medicine: Result - Labs CBC & Chem 7: 02/09/18 04:00 02/09/18 04:00 Labs: Short CBC 02/09/18 Range/Units 04:00 WBC 11.1 (4.3-11.1) K/mcL Hgb 9.9 L (11.5-15.4) g/dL Hct 29.9 L (35.3-44.9) % Plt Count 261 (140-400) K/mcL Neutrophils # 8.3 (1.6-8.9) K/mcL BMP 02/09/18 04:00 Sodium 137 Potassium 3.1 L Chloride 103 Carbon Dioxide 23 BUN 38 H Creatinine 5.48 H Glucose 109 H Calcium 7.3 L - ABG Interpretation ABG results: ABG ABG pH 7.47 pH Units (7.32-7.45) H 02/05/18 11:49 ABG pCO2 35 mmHg (35-45) 02/05/18 11:49 ABG pO2 43 mmHg (85-104) L* 02/05/18 11:49 ABG O2 Saturation 82 % (95-98) L 02/05/18 11:49 PT/INR, D-dimer PT 16.0 Seconds (9.4-12.1) H 02/05/18 11:20 - Impressions Impressions Chest X-Ray 02/05/18 10:56 IMPRESSION: 1. No acute cardiopulmonary disease. D/ / 02/05/2018 12:01:39 Dolores Morgan MD / vicky Interpreting Provider: Dolores Morgan MD Foot X-Ray 02/05/18 10:56 IMPRESSION: 1. No radiographic evidence of osteomyelitis. 2. Overlying bandage of the great toe limits evaluation for subcutaneous gas. No obvious gas identified. D/ / 02/05/2018 12:02:09 Dolores Morgan MD / Hannah Davison Interpreting Provider: Dolores Morgan MD Tunnelled Catheter Removal 02/07/18 00:00 IMPRESSION: Successful tunnel dialysis catheter removal. The catheter tip was sent for culture. D/ / John Paul Villarreal / John Paul Villarreal Interpreting Provider: John Paul Villarreal - Attending Attestation I have seen and examined this pt independently. I have discussed with resident physician Dr Choi regarding the management plan. Agree with the documentation. <Mario Mckeonangelito Greene - Last Filed: 02/09/18 15:08> (1) Sepsis Qualifiers: Sepsis type: methicillin susceptible Staphylococcus aureus Qualified Code(s) : A41.01 - Sepsis due to Methicillin susceptible Staphylococcus aureus (5) Anemia Qualifiers: Anemia type: due to chronic kidney disease Chronic kidney disease stage: on chronic dialysis Qualified Code(s): N18.6 - End stage renal disease; D63.1 - Anemia in chronic kidney disease; Z99.2 - Dependence on renal dialysis (6) Diabetes Qualifiers: Diabetes mellitus type: type 2 Diabetes mellitus terminal superintendent insulin use: with group home use Diabetes mellitus complication status: with kidney complications Diabetes mellitus complication detail: with chronic kidney disease Chronic kidney disease stage: on chronic dialysis Qualified Code(s): E11.22 - Type 2 diabetes mellitus with diabetic chronic kidney disease; N18.6 - End stage renal disease; Z79.4 - terminal block assembler (current) use of insulin; Z99.2 - Dependence on renal dialysis <Chloe Marcos - Last Filed: 02/09/18 15:46> (1) Sepsis Qualifiers: Sepsis type: methicillin susceptible Staphylococcus aureus Qualified Code(s) : A41.01 - Sepsis due to Methicillin susceptible Staphylococcus aureus (3) Chest pain Qualifiers: Chest pain type: unspecified Qualified Code(s): R07.9 - Chest pain, unspecified (5) Diabetes Qualifiers: Diabetes mellitus type: type 2 Diabetes mellitus group home insulin use: with group home use Diabetes mellitus complication status: with kidney complications Diabetes mellitus complication detail: with chronic kidney disease Chronic kidney disease stage: on chronic dialysis Qualified Code(s): E11.22 - Type 2 diabetes mellitus with diabetic chronic kidney disease; N18.6 - End stage renal disease; Z79.4 - half-way (current) use of insulin; Z99.2 - Dependence on renal dialysis (6) HTN (hypertension) Qualifiers: Hypertension type: essential hypertension Qualified Code(s): I10 - Essential (primary) hypertension (7) COPD (chronic obstructive pulmonary disease) Qualifiers: COPD type: unspecified COPD Qualified Code(s): J44.9 - Chronic obstructive pulmonary disease, unspecified (9) CAD (coronary artery disease) Qualifiers: Coronary Disease-Associated Artery/Lesion type: unspecified vessel or lesion type [place] vs. transplanted heart: [place] heart Associated angina: without angina Qualified Code(s): I25.10 - Atherosclerotic heart disease of [place] coronary artery without angina pectoris (11) CHF (congestive heart failure) Qualifiers: Heart failure type: unspecified Heart failure chronicity: chronic Qualified Code(s): I50.9 - Heart failure, unspecified
--- NOTE | 2018-02-09 16:29 | Infectious Disease Progress No ---
Date of Encounter: 02/09/18 Time of Encounter: 10:40 - Assessment and Plan (1) Sepsis Current Visit: Yes Status: Resolved The patient had 3 sepsis criteria plus hypotension. Likely secondary to bacteremia, right great toe infection, and UTI. WBC improved. Tachycardia resolved. Afebrile. Peripheral blood cultures obtained 02/05/18 are positive for MRSA 2 sets. Additional blood cultures drawn 02/06/18 x 2 sets from a peripheral stick are positive 2/2 sets as well as 2/2 sets from the Perma-cath. Repeat peripheral blood cultures drawn 02/09/18 are pending x 2 sets. Qualifiers: Sepsis type: methicillin susceptible Staphylococcus aureus Qualified Code(s ): A41.01 - Sepsis due to Methicillin susceptible Staphylococcus aureus (2) Bacteremia Current Visit: Yes Status: Acute Causative organism: MRSA. Source: right great toe vs. Perma-cath. Peripheral blood cultures drawn 02/05/18 are positive 2/2 sets for MRSA. Repeat peripheral blood cultures drawn 02/06/18 are positive 2/2 sets as well. Cultures drawn from the Perma-cath 02/06/18 are positive 2/2 sets as well. Status post Perm-cath removal 02/07/18 by IR. Repeat peripheral blood cultures drawn 02/09/18 are pending x 2 sets. No endocarditis stigmata noted on exam. The patient is having some thoracic back pain which she attributes to the hospital bed, but will have a low threshold for imaging if back pain worsens/ persists. The patient has one major and one minor Modified Self's Criteria. TTE negative for vegetation. FREDIS completed this morning and is pending results. Continue Vancomycin IV. Pharmacy to dose. Goal trough ~15. Duration of treatment depends on the clinical picture. Monitor renal function and for drug toxicity and dose-adjust antibiotics. (3) Necrosis of toe Current Visit: Yes Status: Acute Location: Right great toe. Etiology: Unclear. The patient does have a known history of PVD. There is also concern that there may be an element of infection as well. X-ray of the right foot was negative for osteomyelitis. Lathe Setup Operator been consulted. Will defer additional imaging recommendations and wound care to them. Wound culture positive for MRSA and K. oxytoca. Check ESR and CRP. The patient has a documented allergy to penicillin. She states she gets hives. She is unable to tell me when the last time she took penicillin was. We will avoid penicillins at this point. She may benefit from penicillin allergy testing at some point later. Discontinue Cefepime. Start Rocephin 2 grams IV daily. Continue vancomycin IV. Pharmacy to dose. Goal trough approximately 15. Duration of treatment depends on the clinical picture. Monitor renal function for drug toxicity and dose adjust antibiotics. (4) Dysuria Current Visit: Yes Status: Resolved The patient reports a one-week history of urinary frequency and dysuria. Culture positive for E. coli. Continue antibiotics as above for now. (5) Encephalopathy Current Visit: Yes Status: Resolved Likely multifactorial: sepsis + hyperammonemia. No focal neuro deficits noted on exam. Improved. Continue to monitor closely. (6) Hyperammonemia Current Visit: Yes Status: Resolved Ammonia level elevated at 76. Etiology unclear. LFTs are normal. Abdominal exam reveals mild tenderness with palpation over the entire abdomen, but nothing focal. CT of the abdomen and pelvis was negative for acute abnormality. Resolved. Further workup and management per the primary team. (7) Anemia Current Visit: Yes Status: Chronic Hemoglobin down to 7.4 on admission. Improved to 9.9 today. No acute bleeding noted on exam. Further workup and management per the primary nephrology teams. Qualifiers: Anemia type: due to chronic kidney disease Chronic kidney disease stage: on chronic dialysis Qualified Code(s): N18.6 - End stage renal disease; D63.1 - Anemia in chronic kidney disease; Z99.2 - Dependence on renal dialysis (8) Nausea Current Visit: No Status: Acute The patient reports persistent nausea for the past couple of weeks. Etiology unclear. GI consulted. Management per the primary team. (9) Chest pain Current Visit: Yes Status: Resolved Etiology unclear. Pain is reproducible on exam. EKGs have been unchanged. CT of the chest was negative. Resolved. Further workup and management per the primary team. Qualifiers: Chest pain type: unspecified Qualified Code(s): R07.9 - Chest pain, unspecified (10) Pulmonary HTN Current Visit: No Status: Chronic (11) CAD (coronary artery disease) Current Visit: No Status: Chronic Qualifiers: Coronary Disease-Associated Artery/Lesion type: unspecified vessel or lesion type [place] vs. transplanted heart: [place] heart Associated angina: without angina Qualified Code(s): I25.10 - Atherosclerotic heart disease of [place] coronary artery without angina pectoris (12) KEMAR (obstructive sleep apnea) Current Visit: Yes Status: Chronic (13) CHF (congestive heart failure) Current Visit: Yes Status: Chronic Qualifiers: Heart failure type: unspecified Heart failure chronicity: chronic Qualified Code(s): I50.9 - Heart failure, unspecified (14) ESRD (end stage renal disease) Current Visit: No Status: Chronic Nephrology has been consulted to assist with HD management. We will dose adjust antibiotics based on HD status. (15) COPD (chronic obstructive pulmonary disease) Current Visit: No Status: Chronic Qualifiers: COPD type: COPD with acute exacerbation Qualified Code(s): J44.1 - Chronic obstructive pulmonary disease with (acute) exacerbation - Subjective Interval history: Patient seen and examined. We can note reviewed. No acute events noted. Patient states overall she feels better. Denies any fevers or chills or rigors. Denies chest pain, shortness of breath, or cough. Denies any nausea or vomiting and states she is hungry and thirsty, but she is nothing by mouth for procedures later today. She denies any abdominal pain, urinary complaints, and states her appetite is better. She denies any oral thrush or any skin lesions. She reports some pain in the right foot great toe. Status post FREDIS this morning. Results are pending. Infect Dis PN-Objective Data - Labs CBC & Chem 7: 02/10/18 06:00 02/10/18 12:21 Labs: Laboratory Results - last 24 hr 02/08/18 02/08/18 02/09/18 17:45 23:28 04:00 WBC 11.1 RBC 3.06 L Hgb 9.9 L Hct 29.9 L MCV 97.7 MCH 32.4 MCHC 33.1 RDW 18.6 H Plt Count 261 MPV 9.2 L Immature Gran % 6.0 H Seg Neutrophils % 74.5 Lymphocytes % 6.1 Monocytes % 10.6 Eosinophils % 2.2 Basophils % 0.6 Neutrophils # 8.3 Lymphocytes # 0.7 Monocytes # 1.2 Eosinophils # 0.2 Basophils # 0.1 Nucleated RBCs/100 WBC 0.2 H Platelet Estimate Normal Sodium Potassium Chloride Carbon Dioxide BUN Creatinine Est GFR ( Amer) Est GFR (Non-Af Amer) BUN/Creatinine Ratio Glucose POC Glucose 132 H 185 H Calculated Osmolality Calcium 02/09/18 04:00 WBC RBC Hgb Hct MCV MCH MCHC RDW Plt Count MPV Immature Gran % Seg Neutrophils % Lymphocytes % Monocytes % Eosinophils % Basophils % Neutrophils # Lymphocytes # Monocytes # Eosinophils # Basophils # Nucleated RBCs/100 WBC Platelet Estimate Sodium 137 Potassium 3.1 L Chloride 103 Carbon Dioxide 23 BUN 38 H Creatinine 5.48 H Est GFR ( Amer) 10 L Est GFR (Non-Af Amer) 8 L BUN/Creatinine Ratio 7 Glucose 109 H POC Glucose Calculated Osmolality 294 Calcium 7.3 L Cultures: Cultures 02/09/18 11:35 Blood Culture - Preliminary Peripheral Venipuncture Culture is incubating and being continuously monitored for growth. Final report to follow. 02/09/18 08:08 Blood Culture - Preliminary Peripheral Venipuncture Culture is incubating and being continuously monitored for growth. Final report to follow. 02/07/18 15:24 Catheter Tip Culture - Preliminary Intravenous or Arterial Cath 02/05/18 14:10 Body Fluid Culture - Final Peritoneal Fluid 02/05/18 11:20 Blood Culture - Final Peripheral Venipuncture Methicillin Resistant S.aureus 02/05/18 11:20 Blood Culture - Final Peripheral Venipuncture Methicillin Resistant S.aureus 02/06/18 03:22 Blood Culture - Final Peripheral Venipuncture Methicillin Resistant S.aureus 02/06/18 14:39 Blood Culture - Final Central Venous Catheter Methicillin Resistant S.aureus 02/06/18 03:22 Blood Culture - Final Peripheral Venipuncture Methicillin Resistant S.aureus 02/06/18 14:39 Blood Culture - Final Central Venous Catheter Methicillin Resistant S.aureus 02/05/18 13:50 Urine Culture - Final Urine,Catheterized Escherichia coli 02/05/18 13:30 Wound Culture - Final Right Great Toe Klebsiella oxytoca Staphylococcus aureus Serology 02/05/18 02/05/18 02/05/18 Range/Units 16:57 11:20 10:58 Ur Specimen Adequacy See below A Urine Color Yellow (Yellow) Urine Clarity Turbid A (Clear) Urine pH 6.0 (5.0-8.0) pH Units Ur Specific [place] 1.017 (1.010-1.025) Urine Protein >=300 H (Neg-Trace) mg/dL Urine Glucose (UA) 250 H (Normal) mg/dL Urine Ketones Negative (Negative) mg/dL Urine Blood Moderate H (Negative) Urine Nitrite Negative (Negative) Urine Bilirubin Negative (Negative) Urine Urobilinogen Normal (Normal) mg/dL Ur Leukocyte Esterase Large H (Negative) Urine Microscopic RBC 15-30 H (0-3) per hpf Urine Microscopic WBC TNTC H (0-3) per hpf Ur Squamous Epith Cells Many H (None-Few) per lpf Urine Bacteria Many H (None-Few) per hpf Hyaline Casts None Seen (None-Few) per lpf Ur Culture Indicated? NO. A (NO) A. baumannii (PCR) Not Detected (Not Detect) Lynne albicans (PCR) Not Detected (Not Detect) C. glabrata (PCR) Not Detected (Not Detect) C. krusei (PCR) Not Detected (Not Detect) C. parapsilosis (PCR) Not Detected (Not Detect) C. tropicalis (PCR) Not Detected (Not Detect) Enterobacteriac sp PCR Not Detected (Not Detect) E. cloacae complex PCR Not Detected (Not Detect) Enterococcus sp PCR Not Detected (Not Detect) E. coli (PCR) Not Detected (Not Detect) H. influenzae (PCR) Not Detected (Not Detect) Hep Bs Antigen Nonreactive (Nonreactive) Hep Bs Antibody 0.00 mIU/mL Klebsiella oxytoca PCR Not Detected (Not Detect) Klebsiella pneumoniae Not Detected (Not Detect) List. monocytogenes PCR Not Detected (Not Detect) N. meningitidis (PCR) Not Detected (Not Detect) Proteus species (PCR) Not Detected (Not Detect) Serratia marcescens PCR Not Detected (Not Detect) Staphylococcus sp PCR DETECTED A (Not Detect) Staph aureus (PCR) DETECTED A (Not Detect) mecA-Methicil Res Gene DETECTED A (Not Detect) Streptococcus sp PCR Not Detected (Not Detect) Group A Strep DNA Not Detected (Not Detect) Group B Strep (PCR) Not Detected (Not Detect) Strep pneumoniae (PCR) Not Detected (Not Detect) P. aeruginosa (PCR) Not Detected (Not Detect) Aki/B-Vanco Res Genes Not Detected (Not Detect) KPC (blaKPC) Detect PCR Not Detected (Not Detect) - Impressions Impressions Chest X-Ray 02/05/18 10:56 IMPRESSION: 1. No acute cardiopulmonary disease. D/ / 02/05/2018 12:01:39 Dolores Morgan MD / vicky Interpreting Provider: Dolores Morgan MD Foot X-Ray 02/05/18 10:56 IMPRESSION: 1. No radiographic evidence of osteomyelitis. 2. Overlying bandage of the great toe limits evaluation for subcutaneous gas. No obvious gas identified. D/ / 02/05/2018 12:02:09 Dolores Morgan MD / Hannah Davison Interpreting Provider: Dolores Morgan MD Tunnelled Catheter Removal 02/07/18 00:00 IMPRESSION: Successful tunnel dialysis catheter removal. The catheter tip was sent for culture. D/ / John Paul Villarreal / John Paul Villarreal Interpreting Provider: John Paul Villarreal Exam - Constitutional Vitals: Temp Pulse Resp BP Pulse Ox 98.4 F 86 18 177/81 99 02/09/18 16:03 02/09/18 16:03 02/09/18 16:03 02/09/18 16:03 02/09/18 16:03 General appearance: cooperative, no acute distress, obese - Head Head exam: Present: atraumatic, normal inspection, normocephalic - Eye Eye exam: Present: EOMI, normal appearance, PERRL Pupils: Present: normal accommodation Additional comments: No subconjunctival hemorrhage noted. - ENT ENT exam: Present: mucous membranes moist - Neck Neck exam: Present: normal inspection - Respiratory Respiratory exam: Present: CTAB. Absent: rales, respiratory distress, rhonchi, wheezes - Cardiovascular Cardiovascular exam: Present: RRR, +S1, +S2 - GI/Abdominal GI/Abdominal exam: Present: distended, normal bowel sounds, soft. Absent: tenderness - Extremities Exam Extremities exam: Absent: normal inspection (Necrotic great toe noted to the right foot with erythema and foul odor noted.) - Neurological Exam Neurological exam: Present: alert, oriented X3, no focal deficits - Psychiatric Psychiatric exam: Present: normal affect, normal mood - Skin Skin exam: Present: dry, intact, normal color, warm Additional comments: No endocarditis stigmata noted. - Additional findings Additional findings: Perma-cath noted to the right upper chest with transparent dressing C/D/I. Consult Discharge Plan - Plan Referrals: Guero Clement DO [Primary Care Provider] - (sent web request on 02-09 @ [id number]) - Attending Attestation I examined this patient and my medical decision-making was reviewed with the Resident Physician. I agree with the documented findings, disposition and treatment plan as described except to the extent set forth below.
[2018-02-09 17:38] LABS: Appearance of Peritoneal Fl HAZY (Clear)
[2018-02-09] MEDS: Gabapentin 100 MG CAPSULE PO SCH ×2 (18:30→23:37)
[2018-02-09] MEDS: Insulin DETEMIR 100 UNIT/ML X5UNITS SQ SCH (18:35)
[2018-02-09] MEDS: Melatonin 3 MG TABLET PO PRN (23:47)
[2018-02-10] MEDS: Insulin LISPRO 300 UNITS/3 ML VIAL SQ SCH ×4 (00:10→19:02)
[2018-02-10] MEDS: *HR* Dextrose 50 % in Water (Syg) 50 ML SYRINGE IVP PRN ×2 (02:52→07:55)
[2018-02-10] MEDS: Metoclopramide 10 MG/2 ML VIAL IVP SCH ×3 (05:59→17:15)
[2018-02-10] MEDS: Pantoprazole 40 MG VIAL IVP SCH ×2 (06:00→20:41)
[2018-02-10 06:27] LABS: Basophils # 0.1 K/mcL (0.0-0.2); Basophils % 0.5 %; Eosinophils # 0.4 K/mcL (0.0-0.6); Eosinophils % 3.3 %; Hematocrit 31.5 % (35.3-44.9); Hemoglobin 10.2 g/dL (11.5-15.4); Immature Granulocytes % 6.6 % (0-4); Lymphocytes # 0.8 K/mcL (0.6-4.6); Lymphocytes % 6.2 %; Mean Corpuscular HGB Conc 32.4 g/dL (31.6-35.5); Mean Corpuscular Hemoglobin 31.9 pg (28.0-33.3); Mean Corpuscular Volume 98.4 fL (83.0-100.0); Mean Platelet Volume 9.6 fL (9.4-12.4); Monocytes # 1.2 K/mcL (0.0-1.3); Monocytes % 9.4 %; Neutrophils # 9.1 K/mcL (1.6-8.9); Platelet Count 256 K/mcL (140-400); Red Cell Distribution Width 18.3 % (11.5-14.5)
[2018-02-10 06:39] LABS: Calcium 7.2 mg/dL (8.6-10.3)
[2018-02-10 06:50] LABS: Platelet Estimate Normal (Normal)
[2018-02-10] MEDS: Sucralfate 1 GM TABLET PO SCH ×3 (07:41→14:34)
[2018-02-10] MEDS: cefTRIAXone 2,000 MG in Water for inj. (sterile) 20 ML 20 ML IVP SCH (07:55)
[2018-02-10] MEDS: MetroNIDAZOLE 500 MG/100 ML 500 MG/100 ML BAG IVPB SCH (07:56)
[2018-02-10] MEDS ORDERED: 0.9 % Sodium Chloride 250 ML IVC PRN (08:23)
[2018-02-10] MEDS ORDERED: *HR* Heparin 10,000 UNIT/10 ML VIAL IV PRN (08:23)
[2018-02-10] MEDS: Tiotropium 18 MCG inhalation IH SCH (08:24)
[2018-02-10] MEDS ORDERED: 0.9 % Sodium Chloride 1,000 ML PRIME SCH (08:30)
--- NOTE | 2018-02-10 09:07 | Internal Med Progress Note ---
<Mik Choi - Last Filed: 02/10/18 13:43> Hospitalist Progress Note - Encounter Date of Encounter: 02/10/18 Time of Encounter: 09:04 - Subjective Interval History: Patient reports doing well overnight, better than yesterday. Patient reports some mild back pain, but much improved with tylenol. Patient did not get EGD, IR to place catheter for dialysis, or dialysis yesterday. Patient denies fevers , chills, sweats, nausea, vomiting, chest pain, shortness of breath, cough, abdominal pain, changes in bowels or bladder, diarrhea, weakness, new loss of sensation, or new rash or lesions. - Exam Vitals: Temp Pulse Resp BP Pulse Ox 98.2 F 87 18 147/54 98 02/10/18 07:25 02/10/18 07:25 02/10/18 07:25 02/10/18 07:25 02/10/18 07:25 Exam: General: No acute distress, answers questions appropriate, alert and oriented x 4 HEENT: moist mucus membranes, no adenopathy CV: RRR, no murmurs Lungs: CTAB, no wheezes, rhochi, or rales Abd: soft, nontender, normal bowel sounds, PD catheter still in place over left lower abdomen, clean dry intact. R upper chest dressing clean dry intact, no dialysis cath upon patient other than PD Extremities: necrotic R hallux, all other extremities normal, no edema, or cyanosis Msk: moves all extremities, 5/5 strength bilaterally - Assessment and Plan (1) Sepsis Current Visit: Yes Status: Resolved Assessment and Plan: Septic on admission with Temp of 103.2F, elevated WBC 16, tachycardic, and Lactic acid 3.9 Currently resolved Blood cultures 02/05 and 02/06 grew MRSA. Blood cultures 02/09-no growth to date Urine cultures with E.coli, sensitivities in report Wound culture of R Hallucs: Klebsiella and Staph aureus, sesnsitivites in report Infection site likely R necrotic toe vs tunneled catheter Tunneled dialysis catheter removed 02/07/18 and tip sent for culture, pending Trans esophageal echo 02/09/18 revealed EF 60-65%, normal LV, RV normal, mild mitral regurg, normal pericardium, no vegetations Afebrile, nontachycardic, wbc 12..3 this morning -Continue with Flagyl, and Vancomycin d6, Rocephin d1. Completed Cefepime d5. Consider discontinuing Flagyl as cultures are finalized and sensitive to cefepime/rocephin and vancomycin. -Continue following ID recomendations (2) Encephalopathy acute Current Visit: Yes Status: Resolved Assessment and Plan: Presented with AMS, suspected likely due to sepsis, possible hyperammonemia, and hypoxia noted on ABG not pulse ox Resolved (3) Bacteremia Current Visit: Yes Status: Acute Assessment and Plan: per plan in assessment above (4) Necrosis of toe Current Visit: Yes Status: Acute Assessment and Plan: Found to have R hallux necrosis on arrival Likely source of MRSA bacteremia XR foot revealed no evidence of osteomyelitis, no obvious gas identified. Wound culture grew Klebsiella and MRSA, sensitivities in report -Podiatry plan for amputation tomorrow or 02/12. -Antibiotics per assessments above. (5) Nausea & vomiting Current Visit: Yes Status: Resolved Assessment and Plan: Resolved. Patient developed some nausea and vomiting night of admission Vomitus was visualized as brown, questionable if feculent. No abdominal pain, did have bowel movement overnight. -GI on board. (6) Chest pain Current Visit: Yes Status: Resolved Assessment and Plan: Patient presented with chest pain. Symptoms resolved overnight, no active chest pain Uncertain etiology EKG with no acute findings/changes from prior, has some T-wave inversion in lateral leads. Troponin adynamic 0.04, 0.05, 0.06 -Echo completed, as noted in assessments above. Troponin elevation likely secondary to sepsis. (7) Anemia Current Visit: Yes Status: Chronic Assessment and Plan: Acute on chronic mixed anemia from esrd, iron deficiency, and megaloblastic anemia of unknown etiology. Also concern for upper gi bleed due to brown vomitus and Hb down to 6.9 and improvement with 3 Units pRBC Hb 10.2 this morning, has been stable since transfusion Goal Hb in ESRD 10-11 B12 normal, folate high -GI on board, plan for EGD today? -Continue protonix IV bid, and sucralfate -NPO plan for endoscopy, may resume following endoscopy (8) Elevated troponin Current Visit: Yes Status: Acute Assessment and Plan: as noted above. Cardio signed off. (9) Hyperammonemia Current Visit: Yes Status: Resolved Assessment and Plan: AMS upon arrival now resolved. Ammonia level on arrival elevated at 76, currently 40. Uncertain etiology. Not necessary to follow as mental status improved and liver enzymes have been normal. (10) ESRD (end stage renal disease) on dialysis Current Visit: Yes Status: Chronic Assessment and Plan: Known ESRD on dialysis MWF Missed dialysis yesterday as IR could not complete consent Access on arrival: Right upper chest perma cath and Left abdominal peritoneal cath Permacath removed 02/07/18 per IR Potassium 3.0 today -Continue monitoring labs -Nephro on board -IR to placed temporary cath today (11) Diabetes Current Visit: No Status: Chronic Assessment and Plan: Known history of diabetes with neuropathy and ESRD on dialysis. No DKA or HHS based on labwork Glucose 88 this morning. -Continue insulin sliding scale and basal insulin Levemir 20 Units qhs -Continue monitoring levels -ADA diet, CV diet once complete EGD. Currently npo. (12) CAD (coronary artery disease) Current Visit: No Status: Chronic Assessment and Plan: Known history of CAD with cath and stents in past. Presented with chest pain which is now resolved. EKG on this visit unchanged, troponins adynamic. -Cardiology consulted -Echo ordered (13) COPD (chronic obstructive pulmonary disease) Current Visit: No Status: Chronic Assessment and Plan: Known history of COPD, no acute exacerbation. -Continue home meds for chronic disease management. (14) PAD (peripheral artery disease) Current Visit: Yes Status: Chronic Assessment and Plan: Known history of PAD with leg stents bilaterally -Continue with asa and plavix. (15) Pulmonary HTN Current Visit: No Status: Chronic Assessment and Plan: History mentioned pulmonary hypertension. -Echo ordered. (16) HTN (hypertension) Current Visit: No Status: Chronic Assessment and Plan: Known history of chronic htn Continue monitoring bp -Continue home meds for chronic disease management. (17) KEMAR (obstructive sleep apnea) Current Visit: Yes Status: Chronic Assessment and Plan: Known history of KEMAR, CPAP ordered. (18) UTI (urinary tract infection) Current Visit: Yes Status: Resolved Assessment and Plan: Reported dysuria on arrival UA unimpressive Improved symptoms once started on antibiotics, currently Resolved symptoms Urine culture-E.coli, sensitivities per report. (19) DVT prophylaxis Current Visit: Yes Status: Acute Assessment and Plan: EPCDs, held heparin sq due to concern for gi bleed. DVT Prophylaxis: EPCDs, held heparin sq due to concern for gi bleed. - Time Spent with Patient Total time spent is greater than 50% in coordination of care (as documented) at patient's floor/unit and/or counseling patient: Internal Medicine: Result - Labs CBC & Chem 7: 02/10/18 06:00 02/10/18 12:21 Labs: Short CBC 02/10/18 Range/Units 06:00 WBC 12.3 H (4.3-11.1) K/mcL Hgb 10.2 L (11.5-15.4) g/dL Hct 31.5 L (35.3-44.9) % Plt Count 256 (140-400) K/mcL Neutrophils # 9.1 H (1.6-8.9) K/mcL BMP 02/10/18 06:00 Sodium 136 Potassium 3.0 L Chloride 103 Carbon Dioxide 24 BUN 42 H Creatinine 6.06 H Glucose 88 Calcium 7.2 L - ABG Interpretation ABG results: ABG ABG pH 7.47 pH Units (7.32-7.45) H 02/05/18 11:49 ABG pCO2 35 mmHg (35-45) 02/05/18 11:49 ABG pO2 43 mmHg (85-104) L* 02/05/18 11:49 ABG O2 Saturation 82 % (95-98) L 02/05/18 11:49 PT/INR, D-dimer PT 16.0 Seconds (9.4-12.1) H 02/05/18 11:20 Consult Discharge Plan - Plan Referrals: Guero Clement DO [Primary Care Provider] - 02/18/18 1:00 pm () <Denia Carranza - Last Filed: 02/10/18 17:12> Hospitalist Progress Note - Encounter Date of Encounter: 02/10/18 - Exam Vitals: Temp Pulse Resp BP Pulse Ox 97.9 F 91 16 166/70 96 02/10/18 12:42 02/10/18 12:42 02/10/18 12:42 02/10/18 12:42 02/10/18 12:42 - Assessment and Plan (1) Sepsis Current Visit: Yes Status: Resolved (2) Necrosis of toe Current Visit: Yes Status: Acute (3) Chest pain Current Visit: Yes Status: Resolved (4) ESRD (end stage renal disease) on dialysis Current Visit: Yes Status: Chronic (5) Diabetes Current Visit: Yes Status: Chronic (6) HTN (hypertension) Current Visit: Yes Status: Acute (7) COPD (chronic obstructive pulmonary disease) Current Visit: No Status: Chronic (8) Pulmonary HTN Current Visit: No Status: Chronic (9) CAD (coronary artery disease) Current Visit: No Status: Chronic (10) KEMAR (obstructive sleep apnea) Current Visit: Yes Status: Chronic (11) CHF (congestive heart failure) Current Visit: Yes Status: Chronic (12) DVT prophylaxis Current Visit: Yes Status: Acute (13) Encephalopathy Current Visit: Yes Status: Resolved - Time Spent with Patient Total time spent is greater than 50% in coordination of care (as documented) at patient's floor/unit and/or counseling patient: Internal Medicine: Result - Labs CBC & Chem 7: 02/10/18 06:00 02/10/18 12:21 Labs: Short CBC 02/10/18 Range/Units 06:00 WBC 12.3 H (4.3-11.1) K/mcL Hgb 10.2 L (11.5-15.4) g/dL Hct 31.5 L (35.3-44.9) % Plt Count 256 (140-400) K/mcL Neutrophils # 9.1 H (1.6-8.9) K/mcL BMP 02/10/18 06:00 Sodium 136 Potassium 3.0 L Chloride 103 Carbon Dioxide 24 BUN 42 H Creatinine 6.06 H Glucose 88 Calcium 7.2 L - ABG Interpretation ABG results: ABG ABG pH 7.47 pH Units (7.32-7.45) H 02/05/18 11:49 ABG pCO2 35 mmHg (35-45) 02/05/18 11:49 ABG pO2 43 mmHg (85-104) L* 02/05/18 11:49 ABG O2 Saturation 82 % (95-98) L 02/05/18 11:49 PT/INR, D-dimer PT 16.0 Seconds (9.4-12.1) H 02/05/18 11:20 - Attending Attestation I examined this patient and my medical decision-making was reviewed with the Resident Physician Dr Choi. I agree with the documented findings, disposition and treatment plan as described except to the extent set forth below. Ms Jain was admitted with sepsis 2/2 bacteremia, right toe infection/ necrosis and found to have altered mental status, now resolved, anemia with hgb drop and GI consultation, chest pain. Patient independently seen and examined. Awake, resting in bed. Denies fevers, chills, nausea, emesis. No further chest pain, no palpitations, chest pressure, sob. gen- alert, awake,appears stated age eyes- pupils equal round cv- reg rate and rhythm, normal s1,s2, no murmurs appreciated lungs- ctabl, no wheezing, rhonchi or crackles abd- soft, non tender, non distended, + bs neuro- AAOx3 Sepsis, resolved with MRSA bacteremia and R hallus klebsiella and Staph aureus infection- ID following, cont IV vanc,rocephin, flagyl, cont to follow cultures , catheter tip 02/07 now + staph aureus on prelim, 02/09 bl cxs currently ngtd, HD cath removed, IR to place new one, ideally when bl cxs grow negative, however defer to Nephro, Peritoneal dialysis cath to be removed by surgery, will confirm when, FREDIS neg for vegetation Necrosis of toe, right- wound cx as above, podiatry following, will need amputation, abx as above ESRD on HD MWF- nephro following Hypokalemia- cont to replete prn, HD with K baths as per nephro Chest Pain, resolved, mild trop elevation and stable likely 2/2 sepsis on admit - seen by cards, she will fu outpt, FREDIS neg Acute on Chronic Anemia, multifactorial -did have episode of brown emesis with hgb drop and concern if this could be ugib, vs feculent on admit gi following, egd planned for 02/10, ppi + carafate and fu gi recs DM, fluctuating bs levels this admission, currently at goal, npo wth SSI and 20 units long acting at night, cont to monitor, prn hypoglycemics <Mik Choi - Last Filed: 02/10/18 13:43> (1) Sepsis Qualifiers: Sepsis type: methicillin susceptible Staphylococcus aureus Qualified Code(s) : A41.01 - Sepsis due to Methicillin susceptible Staphylococcus aureus (5) Nausea & vomiting Qualifiers: Vomiting type: unspecified Vomiting Intractability: unspecified Qualified Code(s): R11.2 - Nausea with vomiting, unspecified (6) Chest pain Qualifiers: Chest pain type: unspecified Qualified Code(s): R07.9 - Chest pain, unspecified (7) Anemia Qualifiers: Anemia type: due to chronic kidney disease Chronic kidney disease stage: on chronic dialysis Qualified Code(s): N18.6 - End stage renal disease; D63.1 - Anemia in chronic kidney disease; Z99.2 - Dependence on renal dialysis (11) Diabetes Qualifiers: Diabetes mellitus type: type 2 Diabetes mellitus senior living insulin use: with senior living use Diabetes mellitus complication status: without complication Qualified Code(s): E11.9 - Type 2 diabetes mellitus without complications; 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 transplanted heart: [place] heart Associated angina: without angina Qualified Code(s): I25.10 - Atherosclerotic heart disease of [place] coronary artery without angina pectoris (13) COPD (chronic obstructive pulmonary disease) Qualifiers: COPD type: unspecified COPD Qualified Code(s): J44.9 - Chronic obstructive pulmonary disease, unspecified (16) HTN (hypertension) Qualifiers: Hypertension type: essential hypertension Qualified Code(s): I10 - Essential (primary) hypertension (18) UTI (urinary tract infection) Qualifiers: Urinary tract infection type: site unspecified Hematuria presence: without hematuria Qualified Code(s): N39.0 - Urinary tract infection, site not specified <Denia Carranza - Last Filed: 02/10/18 17:12> (1) Sepsis Qualifiers: Sepsis type: methicillin susceptible Staphylococcus aureus Qualified Code(s) : A41.01 - Sepsis due to Methicillin susceptible Staphylococcus aureus (3) Chest pain Qualifiers: Chest pain type: unspecified Qualified Code(s): R07.9 - Chest pain, unspecified (5) Diabetes Qualifiers: Diabetes mellitus type: type 2 Diabetes mellitus senior living insulin use: with senior living use Diabetes mellitus complication status: with kidney complications Diabetes mellitus complication detail: with chronic kidney disease Chronic kidney disease stage: on chronic dialysis Qualified Code(s): E11.22 - Type 2 diabetes mellitus with diabetic chronic kidney disease; N18.6 - End stage renal disease; Z79.4 - [facility] (current) use of insulin; Z99.2 - Dependence on renal dialysis (6) HTN (hypertension) Qualifiers: Hypertension type: essential hypertension Qualified Code(s): I10 - Essential (primary) hypertension (7) COPD (chronic obstructive pulmonary disease) Qualifiers: COPD type: unspecified COPD Qualified Code(s): J44.9 - Chronic obstructive pulmonary disease, unspecified (9) CAD (coronary artery disease) Qualifiers: Coronary Disease-Associated Artery/Lesion type: unspecified vessel or lesion type [place] vs. transplanted heart: [place] heart Associated angina: without angina Qualified Code(s): I25.10 - Atherosclerotic heart disease of [place] coronary artery without angina pectoris (11) CHF (congestive heart failure) Qualifiers: Heart failure type: unspecified Heart failure chronicity: chronic Qualified Code(s): I50.9 - Heart failure, unspecified
--- NOTE | 2018-02-10 10:19 | Infectious Disease Progress No ---
Date of Encounter: 02/10/18 Time of Encounter: 10:17 - Assessment and Plan (1) Sepsis Current Visit: Yes Status: Resolved The patient had 3 sepsis criteria plus hypotension. Likely secondary to bacteremia, right great toe infection, and UTI. WBC back up today, likely reactive from procedure yesterday. Tachycardia resolved. Afebrile. Peripheral blood cultures obtained 02/05/18 are positive for MRSA 2 sets. Additional blood cultures drawn 02/06/18 x 2 sets from a peripheral stick are positive 2/2 sets as well as 2/2 sets from the Perma-cath. Repeat peripheral blood cultures drawn 02/09/18 are pending x 2 sets. Qualifiers: Sepsis type: methicillin susceptible Staphylococcus aureus Qualified Code(s ): A41.01 - Sepsis due to Methicillin susceptible Staphylococcus aureus (2) Bacteremia Current Visit: Yes Status: Acute Causative organism: MRSA. Source: right great toe vs. Perma-cath. Peripheral blood cultures drawn 02/05/18 are positive 2/2 sets for MRSA. Repeat peripheral blood cultures drawn 02/06/18 are positive 2/2 sets as well. Cultures drawn from the Perma-cath 02/06/18 are positive 2/2 sets as well. Status post Perm-cath removal 02/07/18 by IR. Repeat peripheral blood cultures drawn 02/09/18 are pending x 2 sets. No endocarditis stigmata noted on exam. The patient is having some thoracic back pain which she attributes to the hospital bed, but will have a low threshold for imaging if back pain worsens/ persists. There is no tenderness and the patient actually reports improvement in the pain with massage/palpation. The patient has one major and one minor Modified Self's Criteria. TTE negative for vegetation. FREDIS negative. Continue Vancomycin IV. Pharmacy to dose. Goal trough ~15. Duration of treatment depends on the clinical picture. Monitor renal function and for drug toxicity and dose-adjust antibiotics. Would prefer to have preliminary negative blood cultures before new HD catheter is placed, but will defer that decision to the nephrology team. (3) Necrosis of toe Current Visit: Yes Status: Acute Location: Right great toe. Etiology: Unclear. The patient does have a known history of PVD. There is also concern that there may be an element of infection as well. X-ray of the right foot was negative for osteomyelitis. Right Of Way Man been consulted. Planning for surgery once the patient is more stable , possibly Wednesday or this week. Wound culture positive for MRSA and K. oxytoca. Check ESR and CRP.--> pending. The patient has a documented allergy to penicillin. She states she gets hives. She is unable to tell me when the last time she took penicillin was. We will avoid penicillins at this point. She may benefit from penicillin allergy testing at some point later. Continue Rocephin 2 grams IV daily. Continue vancomycin IV. Pharmacy to dose. Goal trough approximately 15. Discontinue Flagyl. Duration of treatment depends on the clinical picture. Monitor renal function for drug toxicity and dose adjust antibiotics. (4) Dysuria Current Visit: Yes Status: Resolved The patient reports a one-week history of urinary frequency and dysuria. Culture positive for E. coli. Continue antibiotics as above for now. (5) Encephalopathy Current Visit: Yes Status: Resolved Likely multifactorial: sepsis + hyperammonemia. No focal neuro deficits noted on exam. Resolved. Continue to monitor closely. (6) Hyperammonemia Current Visit: Yes Status: Resolved Ammonia level elevated at 76. Etiology unclear. LFTs are normal. Abdominal exam reveals mild tenderness with palpation over the entire abdomen, but nothing focal. CT of the abdomen and pelvis was negative for acute abnormality. Resolved. Further workup and management per the primary team. (7) Anemia Current Visit: Yes Status: Chronic Hemoglobin down to 7.4 on admission. Improved to 10 today. No acute bleeding noted on exam. Further workup and management per the primary nephrology teams. Qualifiers: Anemia type: due to chronic kidney disease Chronic kidney disease stage: on chronic dialysis Qualified Code(s): N18.6 - End stage renal disease; D63.1 - Anemia in chronic kidney disease; Z99.2 - Dependence on renal dialysis (8) Nausea Current Visit: No Status: Resolved The patient reports persistent nausea for the past couple of weeks. Etiology unclear. Improved. GI consulted. Planning for EGD later today. Management per the primary team. (9) Chest pain Current Visit: Yes Status: Resolved Etiology unclear. Pain is reproducible on exam. EKGs have been unchanged. CT of the chest was negative. Resolved. Further workup and management per the primary team. Qualifiers: Chest pain type: unspecified Qualified Code(s): R07.9 - Chest pain, unspecified (10) Pulmonary HTN Current Visit: No Status: Chronic (11) CAD (coronary artery disease) Current Visit: No Status: Chronic Qualifiers: Coronary Disease-Associated Artery/Lesion type: unspecified vessel or lesion type [place] vs. transplanted heart: [place] heart Associated angina: without angina Qualified Code(s): I25.10 - Atherosclerotic heart disease of [place] coronary artery without angina pectoris (12) KEMAR (obstructive sleep apnea) Current Visit: Yes Status: Chronic (13) CHF (congestive heart failure) Current Visit: Yes Status: Deleted Qualifiers: Heart failure type: unspecified Heart failure chronicity: chronic Qualified Code(s): I50.9 - Heart failure, unspecified (14) ESRD (end stage renal disease) Current Visit: No Status: Chronic Nephrology has been consulted to assist with HD management. We will dose adjust antibiotics based on HD status. (15) COPD (chronic obstructive pulmonary disease) Current Visit: No Status: Chronic Qualifiers: COPD type: COPD with acute exacerbation Qualified Code(s): J44.1 - Chronic obstructive pulmonary disease with (acute) exacerbation - Subjective Interval history: Patient seen and examined. No acute events noted overnight. Patient states overall she feels better. Denies any fevers or chills or rigors. Denies chest pain, shortness of breath, or cough. Denies any nausea or vomiting and states she is hungry and thirsty, but she is nothing by mouth for procedures later today. She denies any abdominal pain, urinary complaints, and states her appetite is better. She denies any oral thrush or any skin lesions. She reports some pain in the right foot great toe and in the middle of her back. Status post FREDIS that was negative. Pending EGD and possible temporary HD catheter placement later today. Infect Dis PN-Objective Data - Labs CBC & Chem 7: 02/12/18 04:30 02/12/18 04:30 Labs: Laboratory Results - last 24 hr 02/05/18 02/09/18 02/09/18 14:10 05:55 11:47 WBC RBC Hgb Hct MCV MCH MCHC RDW Plt Count MPV Immature Gran % Seg Neutrophils % Lymphocytes % Monocytes % Eosinophils % Basophils % Neutrophils # Lymphocytes # Monocytes # Eosinophils # Basophils # Platelet Estimate Sodium Potassium Chloride Carbon Dioxide BUN Creatinine Est GFR ( Amer) Est GFR (Non-Af Amer) BUN/Creatinine Ratio Glucose POC Glucose 113 H 182 H Calculated Osmolality Calcium Peritoneal Appearance HAZY Peritoneal Volume TNP Peritoneal RBC TNP Periton Tot Nuc Cells TNP Periton Neutrophils 62.0 Periton Band Neuts 2.0 Periton Lymphocytes % 24.0 Periton Monocytes % 12.0 02/09/18 02/10/18 02/10/18 18:16 06:00 06:00 WBC 12.3 H RBC 3.20 L Hgb 10.2 L Hct 31.5 L MCV 98.4 MCH 31.9 MCHC 32.4 RDW 18.3 H Plt Count 256 MPV 9.6 Immature Gran % 6.6 H Seg Neutrophils % 74.0 Lymphocytes % 6.2 Monocytes % 9.4 Eosinophils % 3.3 Basophils % 0.5 Neutrophils # 9.1 H Lymphocytes # 0.8 Monocytes # 1.2 Eosinophils # 0.4 Basophils # 0.1 Platelet Estimate Normal Sodium 136 Potassium 3.0 L Chloride 103 Carbon Dioxide 24 BUN 42 H Creatinine 6.06 H Est GFR ( Amer) 9 L Est GFR (Non-Af Amer) 7 L BUN/Creatinine Ratio 7 Glucose 88 POC Glucose 153 H Calculated Osmolality 292 Calcium 7.2 L Peritoneal Appearance Peritoneal Volume Peritoneal RBC Periton Tot Nuc Cells Periton Neutrophils Periton Band Neuts Periton Lymphocytes % Periton Monocytes % Cultures: Cultures 02/09/18 11:35 Blood Culture - Preliminary Peripheral Venipuncture Culture is incubating and being continuously monitored for growth. Final report to follow. 02/09/18 08:08 Blood Culture - Preliminary Peripheral Venipuncture Culture is incubating and being continuously monitored for growth. Final report to follow. 02/07/18 15:24 Catheter Tip Culture - Preliminary Intravenous or Arterial Cath 02/05/18 14:10 Body Fluid Culture - Final Peritoneal Fluid 02/05/18 11:20 Blood Culture - Final Peripheral Venipuncture Methicillin Resistant S.aureus 02/05/18 11:20 Blood Culture - Final Peripheral Venipuncture Methicillin Resistant S.aureus 02/06/18 03:22 Blood Culture - Final Peripheral Venipuncture Methicillin Resistant S.aureus 02/06/18 14:39 Blood Culture - Final Central Venous Catheter Methicillin Resistant S.aureus 02/06/18 03:22 Blood Culture - Final Peripheral Venipuncture Methicillin Resistant S.aureus 02/06/18 14:39 Blood Culture - Final Central Venous Catheter Methicillin Resistant S.aureus 02/05/18 13:50 Urine Culture - Final Urine,Catheterized Escherichia coli 02/05/18 13:30 Wound Culture - Final Right Great Toe Klebsiella oxytoca Staphylococcus aureus Serology 02/05/18 02/05/18 02/05/18 Range/Units 16:57 14:10 11:20 Ur Specimen Adequacy Urine Color (Yellow) Urine Clarity (Clear) Urine pH (5.0-8.0) pH Units Ur Specific [place] (1.010-1.025) Urine Protein (Neg-Trace) mg/dL Urine Glucose (UA) (Normal) mg/dL Urine Ketones (Negative) mg/dL Urine Blood (Negative) Urine Nitrite (Negative) Urine Bilirubin (Negative) Urine Urobilinogen (Normal) mg/dL Ur Leukocyte Esterase (Negative) Urine Microscopic RBC (0-3) per hpf Urine Microscopic WBC (0-3) per hpf Ur Squamous Epith Cells (None-Few) per lpf Urine Bacteria (None-Few) per hpf Hyaline Casts (None-Few) per lpf Ur Culture Indicated? (NO) Peritoneal Appearance HAZY (Clear) Peritoneal Volume TNP Peritoneal RBC TNP Periton Tot Nuc Cells TNP Periton Neutrophils 62.0 % Periton Band Neuts 2.0 % Periton Lymphocytes % 24.0 % Periton Monocytes % 12.0 % A. baumannii (PCR) Not Detected (Not Detect) Lynne albicans (PCR) Not Detected (Not Detect) C. glabrata (PCR) Not Detected (Not Detect) C. krusei (PCR) Not Detected (Not Detect) C. parapsilosis (PCR) Not Detected (Not Detect) C. tropicalis (PCR) Not Detected (Not Detect) Enterobacteriac sp PCR Not Detected (Not Detect) E. cloacae complex PCR Not Detected (Not Detect) Enterococcus sp PCR Not Detected (Not Detect) E. coli (PCR) Not Detected (Not Detect) H. influenzae (PCR) Not Detected (Not Detect) Hep Bs Antigen Nonreactive (Nonreactive) Hep Bs Antibody 0.00 mIU/mL Klebsiella oxytoca PCR Not Detected (Not Detect) Klebsiella pneumoniae Not Detected (Not Detect) List. monocytogenes PCR Not Detected (Not Detect) N. meningitidis (PCR) Not Detected (Not Detect) Proteus species (PCR) Not Detected (Not Detect) Serratia marcescens PCR Not Detected (Not Detect) Staphylococcus sp PCR DETECTED A (Not Detect) Staph aureus (PCR) DETECTED A (Not Detect) mecA-Methicil Res Gene DETECTED A (Not Detect) Streptococcus sp PCR Not Detected (Not Detect) Group A Strep DNA Not Detected (Not Detect) Group B Strep (PCR) Not Detected (Not Detect) Strep pneumoniae (PCR) Not Detected (Not Detect) P. aeruginosa (PCR) Not Detected (Not Detect) Aki/B-Vanco Res Genes Not Detected (Not Detect) KPC (blaKPC) Detect PCR Not Detected (Not Detect) 02/05/18 Range/Units 10:58 Ur Specimen Adequacy See below A Urine Color Yellow (Yellow) Urine Clarity Turbid A (Clear) Urine pH 6.0 (5.0-8.0) pH Units Ur Specific [place] 1.017 (1.010-1.025) Urine Protein >=300 H (Neg-Trace) mg/dL Urine Glucose (UA) 250 H (Normal) mg/dL Urine Ketones Negative (Negative) mg/dL Urine Blood Moderate H (Negative) Urine Nitrite Negative (Negative) Urine Bilirubin Negative (Negative) Urine Urobilinogen Normal (Normal) mg/dL Ur Leukocyte Esterase Large H (Negative) Urine Microscopic RBC 15-30 H (0-3) per hpf Urine Microscopic WBC TNTC H (0-3) per hpf Ur Squamous Epith Cells Many H (None-Few) per lpf Urine Bacteria Many H (None-Few) per hpf Hyaline Casts None Seen (None-Few) per lpf Ur Culture Indicated? NO. A (NO) Peritoneal Appearance (Clear) Peritoneal Volume Peritoneal RBC Periton Tot Nuc Cells Periton Neutrophils % Periton Band Neuts % Periton Lymphocytes % % Periton Monocytes % % A. baumannii (PCR) (Not Detect) Lynne albicans (PCR) (Not Detect) C. glabrata (PCR) (Not Detect) C. krusei (PCR) (Not Detect) C. parapsilosis (PCR) (Not Detect) C. tropicalis (PCR) (Not Detect) Enterobacteriac sp PCR (Not Detect) E. cloacae complex PCR (Not Detect) Enterococcus sp PCR (Not Detect) E. coli (PCR) (Not Detect) H. influenzae (PCR) (Not Detect) Hep Bs Antigen (Nonreactive) Hep Bs Antibody mIU/mL Klebsiella oxytoca PCR (Not Detect) Klebsiella pneumoniae (Not Detect) List. monocytogenes PCR (Not Detect) N. meningitidis (PCR) (Not Detect) Proteus species (PCR) (Not Detect) Serratia marcescens PCR (Not Detect) Staphylococcus sp PCR (Not Detect) Staph aureus (PCR) (Not Detect) mecA-Methicil Res Gene (Not Detect) Streptococcus sp PCR (Not Detect) Group A Strep DNA (Not Detect) Group B Strep (PCR) (Not Detect) Strep pneumoniae (PCR) (Not Detect) P. aeruginosa (PCR) (Not Detect) Aki/B-Vanco Res Genes (Not Detect) KPC (blaKPC) Detect PCR (Not Detect) Exam - Constitutional Vitals: Temp Pulse Resp BP Pulse Ox 98.2 F 87 18 147/54 98 02/10/18 07:25 02/10/18 07:25 02/10/18 07:25 02/10/18 07:25 02/10/18 07:25 General appearance: average body habitus, cooperative, no acute distress - Head Head exam: Present: atraumatic, normal inspection, normocephalic - Eye Eye exam: Present: EOMI, normal appearance, PERRL Pupils: Present: normal accommodation - ENT ENT exam: Present: mucous membranes moist - Neck Neck exam: Present: normal inspection - Respiratory Respiratory exam: Present: CTAB. Absent: rales, respiratory distress, rhonchi, wheezes - Cardiovascular Cardiovascular exam: Present: RRR, +S1, +S2 - GI/Abdominal GI/Abdominal exam: Present: normal bowel sounds, soft. Absent: distended, tenderness - Extremities Exam Extremities exam: Present: normal inspection. Absent: joint swelling, pedal edema Additional comments: Right great toe dressing C/D/I. - Back Exam Back exam: Present: normal inspection. Absent: paraspinal tenderness, vertebral tenderness - Neurological Exam Neurological exam: Present: alert, oriented X3, no focal deficits - Psychiatric Psychiatric exam: Present: normal affect, normal mood - Skin Skin exam: Present: dry, intact, normal color, warm Consult Discharge Plan - Plan Referrals: Guero Clement DO [Primary Care Provider] - 02/18/18 1:00 pm () - Attending Attestation I examined this patient and my medical decision-making was reviewed with the Resident Physician. I agree with the documented findings, disposition and treatment plan as described except to the extent set forth below.
[2018-02-10] MEDS: Gabapentin 100 MG CAPSULE PO SCH ×3 (10:28→20:42)
[2018-02-10] MEDS: Furosemide 40 MG TABLET PO SCH ×2 (10:28→14:34)
[2018-02-10] MEDS ORDERED: Lidocaine -MPF 2% 2 ML VIAL ONE (11:24)
[2018-02-10] MEDS ORDERED: *HR* Propofol 200 MG/20 ML VIAL IVP ONE (11:24)
--- NOTE | 2018-02-10 12:09 | Nephrology Progress Note ---
Date of Encounter: 02/10/18 Time of Encounter: 12:07 - Assessment and Plan (1) Anemia Current Visit: Yes Status: Chronic Goal Hgb is -10-11. Hgb today is 10.2 today. Qualifiers: Qualified Code(s): N18.6 - End stage renal disease; D63.1 - Anemia in chronic kidney disease; Z99.2 - Dependence on renal dialysis (2) Sepsis Current Visit: Yes Status: Resolved Per ID. FREDIS completed and was negative. Qualifiers: Qualified Code(s): A41.01 - Sepsis due to Methicillin susceptible Staphylococcus aureus (3) ESRD (end stage renal disease) on dialysis Current Visit: Yes Status: Chronic IR to place temp line today. Spoke with IR, no new consult needed, however I did inform them that she is going for an EGD later so she will have sedation again to make sure to get consent before. Will also need PD catheter removed by surgery next week ( Dr Slick gee (4) Diabetes Current Visit: Yes Status: Chronic Per primary. 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 Qualifiers: Qualified Code(s): J44.9 - Chronic obstructive pulmonary disease, unspecified (6) Gangrene of toe of right foot Current Visit: Yes Status: Acute per podiatry Subjective Principal diagnosis: Sepsis Interval history: Pt seen and examined, doing well. Pt states she is feeling better. Denies SOB. Objective - Vital Signs Vital signs: Vital Signs Temp Pulse Resp BP Pulse Ox 02/10/18 11:37 98.1 F 85 16 146/61 98 02/10/18 07:25 98.2 F 87 18 147/54 98 02/10/18 03:35 98.4 F 86 18 127/46 97 02/09/18 23:50 17 97 02/09/18 23:16 97.7 F 82 18 157/64 100 02/09/18 21:30 81 143/64 02/09/18 20:48 18 189/70 97 02/09/18 19:53 97.8 F 87 18 182/70 98 02/09/18 16:03 98.4 F 86 18 177/81 99 Intake and Output 02/09/18 02/10/18 02/10/18 23:59 07:59 15:59 Intake Total 300 / 300 100 / 100 Output Total 350 / 350 0 / 0 0 / 0 Balance -50 / -50 100 / 100 0 / 0 Intake: IV Fluids 100 / 100 100 / 100 Flagyl Premix 500 MG/100 ML 500 100 / 100 100 / 100 mg In 100 ml @ 100 mls/hr IVPB Q8HR [facility] Rx#:[id number] Oral 200 / 200 Output: Urine 350 / 350 Wound Drainage 0 / 0 0 / 0 0 / 0 LLQ PD cath\ 0 / 0 0 / 0 0 / 0 Other: Meal NPO Percent of Meal Consumed 0% Weight 91.3 kg Blood Glucose* 77 121 Patient Weight 02/10/18 23:59 Weight 91.3 kg - General Appearance General appearance: Present: well-developed, well-nourished EENT: Present: ATNC, hearing intact, vision intact Neck: Present: supple Respiratory: Present: clear Cardiology: Present: no edema, normal S1, normal S2 Gastrointestinal: Present: normoactive bowel sounds, no tenderness, no guarding Integumentary: Present: no rash, warm and dry Neurologic: Present: alert and oriented x3 Psychiatric: Present: mood/affect appropriate, cooperative - Lab 02/10/18 06:00 02/10/18 12:21 Most recent lab results ABG pH 7.47 pH Units (7.32-7.45) H 02/05/18 11:49 ABG pCO2 35 mmHg (35-45) 02/05/18 11:49 ABG pO2 43 mmHg (85-104) L* 02/05/18 11:49 ABG HCO3 25 mEq/L (21-27) 02/05/18 11:49 ABG O2 Saturation 82 % (95-98) L 02/05/18 11:49 Calcium 7.2 mg/dL (8.6-10.3) L 02/10/18 06:00 Phosphorus 4.2 mg/dL (2.7-4.5) 02/06/18 04:15 Magnesium 1.8 mg/dL (1.6-2.6) 02/06/18 04:15 Consult Discharge Plan - Plan Referrals: Guero Clement DO [Primary Care Provider] - (sent web request on 02-09 @ [phone])
--- NOTE | 2018-02-10 12:58 | Anesthesia Evaluation PreOp ---
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: Denies Any Significant HX Other Medical History: Renal (ESRD last dialyzed Friday) Anesthesia History: No Prior Anesthetic Complications Alcohol Use: none Drug use: none Medications and Allergies Albuterol Sulfate [Proair Hfa] 1 - 2 puff IH Q4-6H PRN 07/10/17 [History] Atorvastatin [Lipitor] 40 mg PO HS 07/10/17 [History] Esomeprazole Magnesium [Nexium] 40 mg PO DAILY 07/10/17 [History] Fenofibrate Nanocrystallized [Triglide] 160 mg PO DAILY 07/10/17 [History] Furosemide [Lasix] 40 mg PO 1400 07/10/17 [History] Furosemide [Lasix] 80 mg PO QAM 07/10/17 [History] Insulin Glargine,Hum.rec.anlog [Lantus Solostar] 60 unit SQ QPM 07/10/17 [ History] Isosorbide MONOnitrate (24 HR) [Imdur] 30 mg PO DAILY 07/10/17 [History] Lisinopril [Zestril] 10 mg PO BID 07/10/17 [History] Metoprolol [Lopressor] 50 mg PO QPM 07/10/17 [History] Metoprolol [Lopressor] 100 mg PO QAM 07/10/17 [History] Oxybutynin [Ditropan] 5 mg PO TID 07/10/17 [History] Renal Vitamin [Renal Caps Softgel] 1 mg PO DAILY 07/10/17 [History] Sertraline [Zoloft] 25 mg PO DAILY 07/10/17 [History] Sevelamer [Renvela] 800 mg PO TIDWM 07/10/17 [History] Tiotropium [Spiriva] 18 mcg IH DAILY 07/10/17 [History] Insulin LISPRO [HumaLOG] 15 - 20 units SQ TID 12/30/17 [History] Gabapentin [Neurontin] 100 mg PO TID 02/05/18 [History] 3 Allergy/AdvReac Type Severity Reaction Status Date / Time Penicillins Allergy Hives Verified 12/30/17 12:35 Sulfa (Sulfonamide Allergy Hives Verified 12/30/17 12:35 Antibiotics) hydrocodone AdvReac Nausea Verified 12/30/17 12:35 metformin [From Glucophage] AdvReac Nausea Verified 12/30/17 12:35 niacin AdvReac Redness of Verified 12/30/17 12:35 Skin Oxycodone [From Percocet] AdvReac Nausea Verified 12/30/17 12:35 tramadol [From Ultram] AdvReac Nausea Verified 12/30/17 12:35 - Meds/Allergy Pre-op Review Medications Reviewed: Yes Allergies Reviewed: Yes Beta Blockers on Current Med List: Yes (on metoprolol) Anesthesia Results - Labs 02/10/18 06:00 02/10/18 06:00 - Imaging EKG: report reviewed (SR) Additional studies: ECHO EF 60% Anesthesia Exam Vital Signs/O2 Sat/Glucose, Most Current Temp Pulse Resp BP Pulse Ox 02/10/18 12:42 97.9 F 91 16 166/70 96 02/10/18 11:37 98.1 F 85 16 146/61 98 Height: 5'8 Weight: 201 lbs NPO (# of Hours): MN Pain Scale: 0 - HEENT Pupil (Motor): Pupils equal, EOMI Mallampati: III Teeth: Edentulous Oral Opening: Less than or equal to 3 - CATTLE SORTER LOC: Oriented CATTLE SORTER Motor: Normal RUE, Normal LUE, Normal RLE, Normal LLE, Normal Face CATTLE SORTER Sensory: Normal: RUE, LUE, RLE, LLE, Face - Cardiac Rhythm: Regular Murmur: None JVD: No Carotid Bruit: No - Pulmonary Breath Sounds: bilateral Clear Respiratory Effort: Symmetrical Anesthesia Assess/Plan ASA Score: 4 Modified [place] Scale for Level of Consciousness: Cooperative, oriented, and tranquil Anesthetic Plan: MAC Monitoring Plan: Standard Monitors Recovery Plan: Other (Discussed MAC, agrees to proceed)
[2018-02-10] MEDS ORDERED: Tetracaine/Benzocaine/Butamben 1 SPRAY AEROSOL MM ONE (13:15)
[2018-02-10] MEDS ORDERED: Simethicone 40 MG/0.6 ML MLS IR ONE (13:15)
--- NOTE | 2018-02-10 13:51 | Anesthesia Evaluation Post Op ---
Date of Encounter: 02/10/18 Time of Encounter: 13:35 - Vital Signs Vital Signs: Vital Signs/O2 Sat/Glucose, Most Current Temp Pulse Resp BP Pulse Ox 02/10/18 12:42 97.9 F 91 16 166/70 96 02/10/18 11:37 98.1 F 85 16 146/61 98 - Lungs Lungs: Clear Ascult./Percussion - Airway Airway: Non-obstructed - Cardiovascular Regular Rate - Mental Status Mental Status: Alert & Oriented, Answers Appropriately - Pain Pain Scale: 0 - Nausea Vomiting Nausea Vomiting: Not Present - Hydration Hydration: NPO - Discharge PostOp Status: Transfer Patient to floor
[2018-02-10 14:10] LABS: VBG Ionized Calcium 0.98 mmol/L (1.15-1.35)
[2018-02-10] MEDS ORDERED: *HR* Heparin 5,000 UNIT/ML VIAL ONE (17:04)
--- NOTE | 2018-02-10 17:18 | IR Procedure Note ---
Date of procedure: 02/10/18 Consent Obtained: Verbal consent, Written consent Timeout: Correct patient and procedure verified, Correct site verified, Time out performed, Skin prep completed Local anesthetic: Lidocaine 1% Indications: dialysis, recent bacteremia Procedure Performed: right IJ temp cath Was there an executive assistant to general counsel present: No Site/Technique: right IJ Results/Findings: as above Estimated blood loss (cc): 0 Complications: None; Tolerated procedure well Post Procedure Treatment Plan: ok to use catheter Specimen: NA
[2018-02-10] MEDS: Insulin DETEMIR 100 UNIT/ML X5UNITS SQ SCH (20:41)
[2018-02-10] MEDS: Melatonin 3 MG TABLET PO PRN (20:54)
[2018-02-11] MEDS: Insulin LISPRO 300 UNITS/3 ML VIAL SQ SCH ×4 (00:12→18:38)
[2018-02-11] MEDS: Metoclopramide 10 MG/2 ML VIAL IVP SCH ×4 (00:12→16:52)
[2018-02-11 03:51] LABS: Hematocrit 28.7 % (35.3-44.9); Hemoglobin 9.3 g/dL (11.5-15.4); Mean Corpuscular HGB Conc 32.4 g/dL (31.6-35.5); Mean Corpuscular Hemoglobin 31.6 pg (28.0-33.3); Mean Corpuscular Volume 97.6 fL (83.0-100.0); Mean Platelet Volume 9.6 fL (9.4-12.4); Platelet Count 223 K/mcL (140-400); Red Blood Count 2.94 M/mcL (3.82-4.97); Red Cell Distribution Width 18.7 % (11.5-14.5)
[2018-02-11 04:10] LABS: Potassium 3.1 mEq/L (3.5-5.1)
[2018-02-11 04:11] LABS: Calcium 6.9 mg/dL (8.6-10.3)
[2018-02-11] MEDS: Pantoprazole 40 MG VIAL IVP SCH ×2 (05:54→16:52)
[2018-02-11] MEDS: Tiotropium 18 MCG inhalation IH SCH (07:45)
[2018-02-11] MEDS: Gabapentin 100 MG CAPSULE PO SCH ×3 (08:23→20:38)
[2018-02-11] MEDS: Sucralfate 1 GM TABLET PO SCH ×3 (08:23→16:51)
[2018-02-11] MEDS: Isosorbide MONOnitrate (24 HR) 30 MG TAB.ER.24H PO SCH (08:24)
[2018-02-11] MEDS: Furosemide 40 MG TABLET PO SCH ×2 (08:24→13:45)
[2018-02-11] MEDS: Metoprolol 100 MG TABLET PO SCH (08:24)
[2018-02-11] MEDS: Fenofibrate 54 MG TABLET PO SCH (08:25)
[2018-02-11] MEDS: cefTRIAXone 2,000 MG in Water for inj. (sterile) 20 ML 20 ML IVP SCH (08:25)
[2018-02-11] MEDS ORDERED: *HR* Heparin 10,000 UNIT/10 ML VIAL IV PRN (09:50)
[2018-02-11] MEDS ORDERED: 0.9 % Sodium Chloride 250 ML IVC PRN (09:50)
[2018-02-11] MEDS ORDERED: 0.9 % Sodium Chloride 1,000 ML PRIME SCH (10:00)
--- NOTE | 2018-02-11 11:24 | Infectious Disease Progress No ---
Date of Encounter: 02/11/18 Time of Encounter: 11:22 - Assessment and Plan (1) Sepsis Current Visit: Yes Status: Resolved The patient had 3 sepsis criteria plus hypotension. Likely secondary to bacteremia, right great toe infection, and UTI. WBC normalized. Tachycardia resolved. Afebrile. Peripheral blood cultures obtained 02/05/18 are positive for MRSA 2 sets. Additional blood cultures drawn 02/06/18 x 2 sets from a peripheral stick are positive 2/2 sets as well as 2/2 sets from the Perma-cath. Repeat peripheral blood cultures drawn 02/09/18 are NGTD x 2 sets. Qualifiers: Sepsis type: methicillin susceptible Staphylococcus aureus Qualified Code(s ): A41.01 - Sepsis due to Methicillin susceptible Staphylococcus aureus (2) Bacteremia Current Visit: Yes Status: Acute Causative organism: MRSA. Source: right great toe vs. Perma-cath. Peripheral blood cultures drawn 02/05/18 are positive 2/2 sets for MRSA. Repeat peripheral blood cultures drawn 02/06/18 are positive 2/2 sets as well. Cultures drawn from the Perma-cath 02/06/18 are positive 2/2 sets as well. Status post Perm-cath removal 02/07/18 by IR. Repeat peripheral blood cultures drawn 02/09/18 are NGTD x 2 sets. No endocarditis stigmata noted on exam. The patient is having some thoracic back pain which she attributes to the hospital bed, but will have a low threshold for imaging if back pain worsens/ persists. The patient has one major and one minor Modified Self's Criteria. TTE negative for vegetation. FREDIS negative. Continue Vancomycin IV. Pharmacy to dose. Goal trough ~15. Duration of treatment depends on the clinical picture. Monitor renal function and for drug toxicity and dose-adjust antibiotics. (3) Necrosis of toe Current Visit: Yes Status: Acute Location: Right great toe. Etiology: Unclear. The patient does have a known history of PVD. There is also concern that there may be an element of infection as well. X-ray of the right foot was negative for osteomyelitis. [employer] Attorney been consulted. Will defer additional imaging recommendations and wound care to them. Wound culture positive for MRSA and K. oxytoca. Check ESR and CRP.--> The patient has a documented allergy to penicillin. She states she gets hives. She is unable to tell me when the last time she took penicillin was. We will avoid penicillins at this point. She may benefit from penicillin allergy testing at some point later. Continue Rocephin 2 grams IV daily. Continue vancomycin IV. Pharmacy to dose. Goal trough approximately 15. Duration of treatment depends on the clinical picture. Monitor renal function for drug toxicity and dose adjust antibiotics. (4) Dysuria Current Visit: Yes Status: Resolved The patient reports a one-week history of urinary frequency and dysuria. Culture positive for E. coli. Continue antibiotics as above for now. (5) Encephalopathy Current Visit: Yes Status: Resolved Likely multifactorial: sepsis + hyperammonemia. No focal neuro deficits noted on exam. Improved. Continue to monitor closely. (6) Hyperammonemia Current Visit: Yes Status: Resolved Ammonia level elevated at 76. Etiology unclear. LFTs are normal. Abdominal exam reveals mild tenderness with palpation over the entire abdomen, but nothing focal. CT of the abdomen and pelvis was negative for acute abnormality. Resolved. Further workup and management per the primary team. (7) Anemia Current Visit: Yes Status: Chronic Hemoglobin down to 7.4 on admission. Improved to 9.3 today. No acute bleeding noted on exam. Further workup and management per the primary nephrology teams. Qualifiers: Anemia type: due to chronic kidney disease Chronic kidney disease stage: on chronic dialysis Qualified Code(s): N18.6 - End stage renal disease; D63.1 - Anemia in chronic kidney disease; Z99.2 - Dependence on renal dialysis (8) Nausea Current Visit: No Status: Resolved The patient reports persistent nausea for the past couple of weeks. Etiology unclear. GI consulted. Status post EGD that showed non-bleeding gastric ulcers. Resolved. (9) Chest pain Current Visit: Yes Status: Resolved Etiology unclear. Pain is reproducible on exam. EKGs have been unchanged. CT of the chest was negative. Resolved. Further workup and management per the primary team. Qualifiers: Chest pain type: unspecified Qualified Code(s): R07.9 - Chest pain, unspecified (10) Pulmonary HTN Current Visit: No Status: Chronic (11) CAD (coronary artery disease) Current Visit: No Status: Chronic Qualifiers: Coronary Disease-Associated Artery/Lesion type: unspecified vessel or lesion type Elim [place] vs. transplanted heart: [place] heart Associated angina: without angina Qualified Code(s): I25.10 - Atherosclerotic heart disease of [place] coronary artery without angina pectoris (12) KEMAR (obstructive sleep apnea) Current Visit: Yes Status: Chronic (13) CHF (congestive heart failure) Current Visit: Yes Status: Deleted Qualifiers: Heart failure type: unspecified Heart failure chronicity: chronic Qualified Code(s): I50.9 - Heart failure, unspecified (14) ESRD (end stage renal disease) Current Visit: No Status: Chronic Nephrology has been consulted to assist with HD management. We will dose adjust antibiotics based on HD status. (15) COPD (chronic obstructive pulmonary disease) Current Visit: No Status: Chronic Qualifiers: COPD type: COPD with acute exacerbation Qualified Code(s): J44.1 - Chronic obstructive pulmonary disease with (acute) exacerbation - Subjective Interval history: Patient seen and examined. No acute events noted overnight. Patient states overall she is tired today. Denies any fevers or chills or rigors. Denies chest pain, shortness of breath, or cough. Denies any nausea or vomiting. Reports appetite is good. She denies any abdominal pain, urinary complaints. She denies any oral thrush or any skin lesions. She reports some pain in the right foot great toe and in the middle of her back. Status post FREDIS 91 that was negative. Status post EGD and temp HD catheter placement 02/10/18. Possible OR tomorrow for right great toe amputation. Infect Dis PN-Objective Data - Labs CBC & Chem 7: 02/12/18 04:30 02/12/18 04:30 Labs: Laboratory Results - last 24 hr 02/10/18 02/10/18 02/10/18 00:01 00:48 02:48 WBC RBC Hgb Hct MCV MCH MCHC RDW Plt Count MPV Sodium Potassium Chloride Carbon Dioxide BUN Creatinine Est GFR ( Amer) Est GFR (Non-Af Amer) BUN/Creatinine Ratio Glucose POC Glucose 69 L 94 49 L* Calculated Osmolality Calcium Venous Ioniz Calcium C-Reactive Protein 25-OH Vitamin D Total PTH Intact Vancomycin Trough 02/10/18 02/10/18 02/10/18 02:52 03:33 05:54 WBC RBC Hgb Hct MCV MCH MCHC RDW Plt Count MPV Sodium Potassium Chloride Carbon Dioxide BUN Creatinine Est GFR ( Amer) Est GFR (Non-Af Amer) BUN/Creatinine Ratio Glucose POC Glucose 49 L* 147 H 89 Calculated Osmolality Calcium Venous Ioniz Calcium C-Reactive Protein 25-OH Vitamin D Total PTH Intact Vancomycin Trough 02/10/18 02/10/18 02/10/18 07:23 08:59 11:38 WBC RBC Hgb Hct MCV MCH MCHC RDW Plt Count MPV Sodium Potassium Chloride Carbon Dioxide BUN Creatinine Est GFR ( Amer) Est GFR (Non-Af Amer) BUN/Creatinine Ratio Glucose POC Glucose 77 116 H 121 H Calculated Osmolality Calcium Venous Ioniz Calcium C-Reactive Protein 25-OH Vitamin D Total PTH Intact Vancomycin Trough 02/10/18 02/10/18 02/10/18 12:21 12:21 12:21 WBC RBC Hgb Hct MCV MCH MCHC RDW Plt Count MPV Sodium Potassium 3.2 L Chloride Carbon Dioxide BUN Creatinine Est GFR ( Amer) Est GFR (Non-Af Amer) BUN/Creatinine Ratio Glucose POC Glucose Calculated Osmolality Calcium Venous Ioniz Calcium C-Reactive Protein 25-OH Vitamin D Total 18 L PTH Intact 67.6 H Vancomycin Trough 02/10/18 02/10/18 02/11/18 14:07 23:14 03:30 WBC 9.3 RBC 2.94 L Hgb 9.3 L Hct 28.7 L MCV 97.6 MCH 31.6 MCHC 32.4 RDW 18.7 H Plt Count 223 MPV 9.6 Sodium Potassium Chloride Carbon Dioxide BUN Creatinine Est GFR ( Amer) Est GFR (Non-Af Amer) BUN/Creatinine Ratio Glucose POC Glucose 294 H Calculated Osmolality Calcium Venous Ioniz Calcium 0.98 L C-Reactive Protein 25-OH Vitamin D Total PTH Intact Vancomycin Trough 02/11/18 02/11/18 03:30 09:28 WBC RBC Hgb Hct MCV MCH MCHC RDW Plt Count MPV Sodium 137 Potassium 3.1 L Chloride 100 Carbon Dioxide 26 BUN 34 H Creatinine 5.27 H Est GFR ( Amer) 10 L Est GFR (Non-Af Amer) 8 L BUN/Creatinine Ratio 6 Glucose 118 H POC Glucose 96 Calculated Osmolality 293 Calcium 6.9 L Venous Ioniz Calcium C-Reactive Protein 70 H 25-OH Vitamin D Total PTH Intact Vancomycin Trough 14 H Cultures: Cultures 02/07/18 15:24 Catheter Tip Culture - Final Intravenous or Arterial Cath Methicillin Resistant S.aureus 02/09/18 11:35 Blood Culture - Preliminary Peripheral Venipuncture Culture is incubating and being continuously monitored for growth. Final report to follow. 02/09/18 08:08 Blood Culture - Preliminary Peripheral Venipuncture Culture is incubating and being continuously monitored for growth. Final report to follow. 02/05/18 14:10 Body Fluid Culture - Final Peritoneal Fluid 02/05/18 11:20 Blood Culture - Final Peripheral Venipuncture Methicillin Resistant S.aureus 02/05/18 11:20 Blood Culture - Final Peripheral Venipuncture Methicillin Resistant S.aureus 02/06/18 03:22 Blood Culture - Final Peripheral Venipuncture Methicillin Resistant S.aureus 02/06/18 14:39 Blood Culture - Final Central Venous Catheter Methicillin Resistant S.aureus 02/06/18 03:22 Blood Culture - Final Peripheral Venipuncture Methicillin Resistant S.aureus 02/06/18 14:39 Blood Culture - Final Central Venous Catheter Methicillin Resistant S.aureus 02/05/18 13:50 Urine Culture - Final Urine,Catheterized Escherichia coli 02/05/18 13:30 Wound Culture - Final Right Great Toe Klebsiella oxytoca Staphylococcus aureus Serology 02/05/18 02/05/18 02/05/18 Range/Units 16:57 14:10 11:20 Ur Specimen Adequacy Urine Color (Yellow) Urine Clarity (Clear) Urine pH (5.0-8.0) pH Units Ur Specific [place] (1.010-1.025) Urine Protein (Neg-Trace) mg/dL Urine Glucose (UA) (Normal) mg/dL Urine Ketones (Negative) mg/dL Urine Blood (Negative) Urine Nitrite (Negative) Urine Bilirubin (Negative) Urine Urobilinogen (Normal) mg/dL Ur Leukocyte Esterase (Negative) Urine Microscopic RBC (0-3) per hpf Urine Microscopic WBC (0-3) per hpf Ur Squamous Epith Cells (None-Few) per lpf Urine Bacteria (None-Few) per hpf Hyaline Casts (None-Few) per lpf Ur Culture Indicated? (NO) Peritoneal Appearance HAZY (Clear) Peritoneal Volume TNP Peritoneal RBC TNP Periton Tot Nuc Cells TNP Periton Neutrophils 62.0 % Periton Band Neuts 2.0 % Periton Lymphocytes % 24.0 % Periton Monocytes % 12.0 % A. baumannii (PCR) Not Detected (Not Detect) Lynne albicans (PCR) Not Detected (Not Detect) C. glabrata (PCR) Not Detected (Not Detect) C. krusei (PCR) Not Detected (Not Detect) C. parapsilosis (PCR) Not Detected (Not Detect) C. tropicalis (PCR) Not Detected (Not Detect) Enterobacteriac sp PCR Not Detected (Not Detect) E. cloacae complex PCR Not Detected (Not Detect) Enterococcus sp PCR Not Detected (Not Detect) E. coli (PCR) Not Detected (Not Detect) H. influenzae (PCR) Not Detected (Not Detect) Hep Bs Antigen Nonreactive (Nonreactive) Hep Bs Antibody 0.00 mIU/mL Klebsiella oxytoca PCR Not Detected (Not Detect) Klebsiella pneumoniae Not Detected (Not Detect) List. monocytogenes PCR Not Detected (Not Detect) N. meningitidis (PCR) Not Detected (Not Detect) Proteus species (PCR) Not Detected (Not Detect) Serratia marcescens PCR Not Detected (Not Detect) Staphylococcus sp PCR DETECTED A (Not Detect) Staph aureus (PCR) DETECTED A (Not Detect) mecA-Methicil Res Gene DETECTED A (Not Detect) Streptococcus sp PCR Not Detected (Not Detect) Group A Strep DNA Not Detected (Not Detect) Group B Strep (PCR) Not Detected (Not Detect) Strep pneumoniae (PCR) Not Detected (Not Detect) P. aeruginosa (PCR) Not Detected (Not Detect) Aki/B-Vanco Res Genes Not Detected (Not Detect) KPC (blaKPC) Detect PCR Not Detected (Not Detect) 02/05/18 Range/Units 10:58 Ur Specimen Adequacy See below A Urine Color Yellow (Yellow) Urine Clarity Turbid A (Clear) Urine pH 6.0 (5.0-8.0) pH Units Ur Specific [place] 1.017 (1.010-1.025) Urine Protein >=300 H (Neg-Trace) mg/dL Urine Glucose (UA) 250 H (Normal) mg/dL Urine Ketones Negative (Negative) mg/dL Urine Blood Moderate H (Negative) Urine Nitrite Negative (Negative) Urine Bilirubin Negative (Negative) Urine Urobilinogen Normal (Normal) mg/dL Ur Leukocyte Esterase Large H (Negative) Urine Microscopic RBC 15-30 H (0-3) per hpf Urine Microscopic WBC TNTC H (0-3) per hpf Ur Squamous Epith Cells Many H (None-Few) per lpf Urine Bacteria Many H (None-Few) per hpf Hyaline Casts None Seen (None-Few) per lpf Ur Culture Indicated? NO. A (NO) Peritoneal Appearance (Clear) Peritoneal Volume Peritoneal RBC Periton Tot Nuc Cells Periton Neutrophils % Periton Band Neuts % Periton Lymphocytes % % Periton Monocytes % % A. baumannii (PCR) (Not Detect) Lynne albicans (PCR) (Not Detect) C. glabrata (PCR) (Not Detect) C. krusei (PCR) (Not Detect) C. parapsilosis (PCR) (Not Detect) C. tropicalis (PCR) (Not Detect) Enterobacteriac sp PCR (Not Detect) E. cloacae complex PCR (Not Detect) Enterococcus sp PCR (Not Detect) E. coli (PCR) (Not Detect) H. influenzae (PCR) (Not Detect) Hep Bs Antigen (Nonreactive) Hep Bs Antibody mIU/mL Klebsiella oxytoca PCR (Not Detect) Klebsiella pneumoniae (Not Detect) List. monocytogenes PCR (Not Detect) N. meningitidis (PCR) (Not Detect) Proteus species (PCR) (Not Detect) Serratia marcescens PCR (Not Detect) Staphylococcus sp PCR (Not Detect) Staph aureus (PCR) (Not Detect) mecA-Methicil Res Gene (Not Detect) Streptococcus sp PCR (Not Detect) Group A Strep DNA (Not Detect) Group B Strep (PCR) (Not Detect) Strep pneumoniae (PCR) (Not Detect) P. aeruginosa (PCR) (Not Detect) Aki/B-Vanco Res Genes (Not Detect) KPC (blaKPC) Detect PCR (Not Detect) - Impressions Impressions Chest X-Ray 02/10/18 17:16 IMPRESSION: No pneumothorax status post right-sided hemodialysis catheter insertion. D/ / Hadley Tena / Hadley Tena Interpreting Provider: Hadley Tena Exam - Constitutional Vitals: Temp Pulse Resp BP Pulse Ox 99.1 F 94 16 157/75 96 02/11/18 07:43 02/11/18 07:43 02/11/18 07:45 02/11/18 09:33 02/11/18 07:45 General appearance: cooperative, no acute distress, obese - Head Head exam: Present: atraumatic, normal inspection, normocephalic - Eye Eye exam: Present: EOMI, normal appearance, PERRL Pupils: Present: normal accommodation Additional comments: No subconjunctival hemorrhage noted. - ENT ENT exam: Present: mucous membranes moist - Neck Neck exam: Present: normal inspection Additional comments: Temporary HD catheter noted to the right neck with transparent dressing. - Respiratory Respiratory exam: Present: CTAB. Absent: rales, respiratory distress, rhonchi, wheezes - Cardiovascular Cardiovascular exam: Present: RRR, +S1, +S2 - GI/Abdominal GI/Abdominal exam: Present: distended (obese), normal bowel sounds, soft. Absent: tenderness - Extremities Exam Extremities exam: Present: normal inspection. Absent: joint swelling, pedal edema, tenderness Additional comments: Right foot dressing C/D/I. - Neurological Exam Neurological exam: Present: alert, oriented X3, no focal deficits - Psychiatric Psychiatric exam: Present: normal affect, normal mood - Skin Skin exam: Present: dry, intact, normal color, warm Additional comments: No endocarditis stigmata noted. - Additional findings Additional findings: Guaze dressing overlying the previous Perma-cath site is C/D/I without redness, warmth, or drainage noted. Consult Discharge Plan - Plan Referrals: Guero Clement DO [Primary Care Provider] - 02/18/18 1:00 pm () - Attending Attestation I examined this patient and my medical decision-making was reviewed with the Resident Physician. I agree with the documented findings, disposition and treatment plan as described except to the extent set forth below.
--- NOTE | 2018-02-11 11:39 | Nephrology Progress Note ---
Date of Encounter: 02/11/18 Time of Encounter: 11:39 - Assessment and Plan (1) ESRD (end stage renal disease) on dialysis Current Visit: Yes Status: Chronic Short 2 hour HD session for today. Is going to OR for right great toe removal tomorrow. Temp line placed yesterday. Will also need PD catheter removed by surgery next week ( Dr Slick gee. (2) Anemia Current Visit: Yes Status: Chronic Goal Hgb is 10-11. Hgb today is 9.3 today. Qualifiers: Anemia type: due to chronic kidney disease Chronic kidney disease stage: on chronic dialysis Qualified Code(s): N18.6 - End stage renal disease; D63.1 - Anemia in chronic kidney disease; Z99.2 - Dependence on renal dialysis (3) Sepsis Current Visit: Yes Status: Resolved Per ID. FREDIS completed and was negative. Qualifiers: Sepsis type: methicillin susceptible Staphylococcus aureus Qualified Code(s ): A41.01 - Sepsis due to Methicillin susceptible Staphylococcus aureus (4) Diabetes Current Visit: Yes Status: Chronic Per primary. 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 Qualifiers: COPD type: unspecified COPD Qualified Code(s): J44.9 - Chronic obstructive pulmonary disease, unspecified (6) Gangrene of toe of right foot Current Visit: Yes Status: Acute per podiatry Subjective Principal diagnosis: Sepsis Interval history: Pt seen and examined, doing well. Pt states she is feeling better. Denies SOB. Objective - Vital Signs Vital signs: Vital Signs Temp Pulse Resp BP Pulse Ox 02/11/18 09:33 157/75 02/11/18 07:45 16 96 02/11/18 07:43 99.1 F 94 16 148/62 96 02/11/18 07:00 94 02/11/18 05:40 98.4 F 104 19 120/40 99 02/11/18 04:05 16 97 02/11/18 00:22 88 02/10/18 23:34 16 99 02/10/18 23:15 98.6 F 89 18 151/61 99 02/10/18 21:24 91 02/10/18 21:15 98.9 F 91 19 151/63 97 02/10/18 20:00 98.4 F 15 149/77 02/10/18 19:50 128/91 02/10/18 19:35 143/64 02/10/18 19:20 167/77 02/10/18 19:05 168/78 02/10/18 18:50 98.0 F 15 183/75 02/10/18 15:30 95 155/63 98 02/10/18 12:42 97.9 F 91 16 166/70 96 02/10/18 11:56 16 97 Intake and Output 02/10/18 02/11/18 02/11/18 23:59 07:59 15:59 Intake Total 840 / 840 240 / 240 Output Total 879 / 879 Balance -39 / -39 240 / 240 Intake: Oral 240 / 240 240 / 240 Intake, Rinseback and Flushes 600 / 600 Output: Urine 0 / 0 Total Dialysis (HD) Output 879 / 879 Other: Meal Dinner Breakfast Percent of Meal Consumed 100% 10% Stool Size Moderate Stool Consistency loose Stool Color Brown Weight 92.1 kg Blood Glucose* 294 78 96 Hemodialysis Net Fluid Removed 279 (mL) Patient Weight 02/11/18 23:59 Weight 92.1 kg - General Appearance General appearance: Present: well-developed, well-nourished EENT: Present: ATNC, hearing intact, vision intact Neck: Present: supple Respiratory: Present: clear Cardiology: Present: no edema, normal S1, normal S2 Dialysis Vascular Access: Venous Catheter (Temp line, DRSG C/D/I) Gastrointestinal: Present: normoactive bowel sounds, no tenderness, no guarding Integumentary: Present: no rash, warm and dry Neurologic: Present: alert and oriented x3 Psychiatric: Present: mood/affect appropriate, cooperative - Lab 02/11/18 03:30 02/11/18 03:30 Most recent lab results ABG pH 7.47 pH Units (7.32-7.45) H 02/05/18 11:49 ABG pCO2 35 mmHg (35-45) 02/05/18 11:49 ABG pO2 43 mmHg (85-104) L* 02/05/18 11:49 ABG HCO3 25 mEq/L (21-27) 02/05/18 11:49 ABG O2 Saturation 82 % (95-98) L 02/05/18 11:49 Calcium 6.9 mg/dL (8.6-10.3) L 02/11/18 03:30 Phosphorus 4.2 mg/dL (2.7-4.5) 02/06/18 04:15 Magnesium 1.8 mg/dL (1.6-2.6) 02/06/18 04:15 Consult Discharge Plan - Plan Referrals: Guero Clement DO [Primary Care Provider] - 02/18/18 1:00 pm ()
--- NOTE | 2018-02-11 13:07 | Internal Med Progress Note ---
<Denia Carranza - Last Filed: 02/11/18 15:53> Hospitalist Progress Note - Encounter Date of Encounter: 02/11/18 - Exam Vitals: Temp Pulse Resp BP Pulse Ox 98.1 F 78 16 129/64 98 02/11/18 15:39 02/11/18 12:16 02/11/18 15:39 02/11/18 15:39 02/11/18 12:16 - Assessment and Plan (1) Sepsis Current Visit: Yes Status: Resolved (2) Necrosis of toe Current Visit: Yes Status: Acute (3) Chest pain Current Visit: Yes Status: Resolved (4) ESRD (end stage renal disease) on dialysis Current Visit: Yes Status: Chronic (5) Diabetes Current Visit: Yes Status: Chronic (6) HTN (hypertension) Current Visit: Yes Status: Acute (7) COPD (chronic obstructive pulmonary disease) Current Visit: No Status: Chronic (8) Pulmonary HTN Current Visit: No Status: Chronic (9) CAD (coronary artery disease) Current Visit: No Status: Chronic (10) KEMAR (obstructive sleep apnea) Current Visit: Yes Status: Chronic (11) CHF (congestive heart failure) Current Visit: Yes Status: Chronic (12) DVT prophylaxis Current Visit: Yes Status: Acute (13) Encephalopathy Current Visit: Yes Status: Resolved - Time Spent with Patient Total time spent is greater than 50% in coordination of care (as documented) at patient's floor/unit and/or counseling patient: Internal Medicine: Result - Labs CBC & Chem 7: 02/11/18 03:30 02/11/18 03:30 Labs: Short CBC 02/11/18 Range/Units 03:30 WBC 9.3 (4.3-11.1) K/mcL Hgb 9.3 L (11.5-15.4) g/dL Hct 28.7 L (35.3-44.9) % Plt Count 223 (140-400) K/mcL BMP 02/11/18 03:30 Sodium 137 Potassium 3.1 L Chloride 100 Carbon Dioxide 26 BUN 34 H Creatinine 5.27 H Glucose 118 H Calcium 6.9 L - ABG Interpretation ABG results: ABG ABG pH 7.47 pH Units (7.32-7.45) H 02/05/18 11:49 ABG pCO2 35 mmHg (35-45) 02/05/18 11:49 ABG pO2 43 mmHg (85-104) L* 02/05/18 11:49 ABG O2 Saturation 82 % (95-98) L 02/05/18 11:49 PT/INR, D-dimer PT 16.0 Seconds (9.4-12.1) H 02/05/18 11:20 - Impressions Impressions Guidance Ultrasound 02/10/18 00:00 IMPRESSION: Successful ultrasound-guided placement of an non tunneled temporary dialysis catheter. Postprocedure chest radiograph to follow. D/ / John Paul Villarreal / John Paul Villarreal Interpreting Provider: John Paul Villarreal Insertion Non-Tunneled Catheter 02/10/18 00:00 IMPRESSION: Successful ultrasound-guided placement of an non tunneled temporary dialysis catheter. Postprocedure chest radiograph to follow. D/ / John Paul Villarreal / John Paul Villarreal Interpreting Provider: John Paul Villarreal Chest X-Ray 02/10/18 17:16 IMPRESSION: No pneumothorax status post right-sided hemodialysis catheter insertion. D/ / Hadley Tena / Hadley Tena Interpreting Provider: Hadley Tena Consult Discharge Plan - Plan Referrals: Guero Clement DO [Primary Care Provider] - 02/18/18 1:00 pm () - Attending Attestation I examined this patient and my medical decision-making was reviewed with the Resident Physician Dr Jones. I agree with the documented findings, disposition and treatment plan as described except to the extent set forth below/addl details as below. Ms Jain was admitted with sepsis 2/2 bacteremia, right toe infection/ necrosis and found to have altered mental status, now resolved, anemia with hgb drop and GI consultation, chest pain. Awake, resting in bed. Denies fevers, chills, nausea, emesis. No further hypotensive episodes or feeling of presyncope. no cp ,palpitations, sob. gen- alert, awake,appears stated age cv- reg rate and rhythm, normal s1,s2, no murmurs appreciated lungs- ctabl, no wheezing, rhonchi or crackles, normal resp effort abd- soft, non tender, non distended, + bs neuro- AAOx3 Sepsis, resolved with MRSA bacteremia and R hallus klebsiella and Staph aureus infection- ID following, cont IV vanc Peripheral blood cultures drawn 02/05 are positive 2/2 sets for MRSA. peripheral blood cultures drawn 02/06/18 are positive 2/2 sets for MRSA cultures drawn from the Perma-cath 02/06/18 are positive 2/2 sets for MRSA Status post Perm-cath removal 02/07/18 by IR. catheter tip 02/07 positive for MRSA 02/09 bl cxs gpc + 1/2 sets 02/11 repeat cutlutres ordered IR placement of temp HD cath 02/10, ideally when bl cxs grow negative, however defer to Nephro, Peritoneal dialysis cath to be removed by surgery- trying to coordinate for removal with toe amputation scheduled for 02/12 FREDIS neg for vegetation Necrosis of toe, right- wound cx as above, podiatry following, will need amputation, cont iv vanc + rocephin, plan for OR 02/12 ESRD on HD MWF- nephro following Hypokalemia- cont to replete prn, HD with K baths as per nephro Chest Pain, resolved, mild trop elevation and stable likely 2/2 sepsis on admit - seen by cards, she will fu outpt, FREDIS neg Acute on Chronic Anemia, multifactorial, stable -did have episode of brown emesis with hgb drop and concern if this could be ugib, vs feculent on admit gi following, egd 02/10 3 gastric ulcers with adherent clot, bx taken, , ppi + carafate vte ppx scds only DM, fluctuating bs levels this admission, currently at goal, SSI and 20 units long acting at night, CHANGED TO 10 UNITS FOR TONIGHT IN PREP FOR NPO PMN FOR OR , cont to monitor, prn hypoglycemics <Robert,Isabel - Last Filed: 02/11/18 18:40> Hospitalist Progress Note - Encounter Date of Encounter: 02/11/18 Time of Encounter: 09:50 - Subjective Interval History: Ms. Orozco was well overnight. Her vitals were stable overnight. Her labs were reviewed prior to seeing her. Her BMP showed elevated creatinine of 5.27 and yesterday was 6.06. She noted that she was unable to complete her dialysis yesterday because she felt uncomfortable in the small room with closed space. She complained of ongoing back pain. She is awaiting her surgical intervention by podiatry for toe amputation. Patient denies fevers, chills, nausea, emesis, chest pain, shortness of breath, abdominal pain, changes in bowels. - Exam Vitals: Temp Pulse Resp BP Pulse Ox 98.7 F 78 18 164/80 98 02/11/18 12:16 02/11/18 12:16 02/11/18 12:16 02/11/18 12:16 02/11/18 12:16 Exam: Gen:awake, alert and oriented, comfortable in bed HEENT: Atraumatic, normocephalic, moist mucus membranes Cardiac: RRR, no murmur, +S1/S2, no edema Pulmonary: Clear to ausculation, no wheezes, rhonchi or rales Abdomen: soft, nontender, no guarding, PD catheter in the abdomen; dialysis catheter at the [facility] upper chest area Extremities: no LE edema, necrotic R hallux, all other extremities normal, no edema, or cyanosis Neuro: Equal strength bilaterally in the upper extremities. Sensation and strength were noted to be intact in bilateral lower extremities. No facial droop or slurring of speech. Psych: Anxious. Answers questions appropriately. - Assessment and Plan (1) Sepsis Current Visit: Yes Status: Resolved Assessment and Plan: Resolved. Septic on admission of 02/05 with Temp of 103.2F, elevated WBC 16, tachycardic, and Lactic acid 3.9 Blood cultures 02/05 and 02/06 grew MRSA. Blood cultures 02/09-no growth to date Urine cultures with E.coli, sensitivities reported Wound culture of R Hallucs: Klebsiella and Staph aureus with sensitivities reported Bacteremia secondary to necrotic toe vs UTI Tunneled dialysis catheter removed 02/07/18 and tip sent for culture and MRSA positive Trans esophageal echo 02/09/18 revealed EF 60-65%, normal LV, RV normal, mild mitral regurg, normal pericardium, no vegetations Plan: Infectious disease consulted, following recommendations Afebrile, nontachycardic, wbc 12..3 this morning Continue Vancomycin day 7, Rocephin day 2. Completed Cefepime 5 days. Continue to monitor labs (2) Bacteremia Current Visit: Yes Status: Acute Assessment and Plan: Bacteremia, source-- MRSA secondary to necrotic toe vs UTI Tunneled dialysis catheter removed 02/07/18 and tip sent for culture and MRSA positive Trans esophageal echo 02/09/18 revealed EF 60-65%, normal LV, RV normal, mild mitral regurg, normal pericardium, no vegetations Same plan as above (sepsis plan) (3) Necrosis of toe Current Visit: Yes Status: Acute Assessment and Plan: Location: Right great toe. Wound culture positive for MRSA and Klebsiella. oxytoca. Etiology: Unclear. The patient does have a known history of PVD. X-ray of the right foot was negative for osteomyelitis. Inner Tube Tuber Machine Operator been consulted. Plan: Planned for surgical debasement of the toe tomorrow by podiatry. Continue Rocephin 2 grams IV daily, day 2. Continue vancomycin IV, startd 02/05 with pharmacy to dose due to ESRD. Goal trough approximately 15. Duration of treatment depends on the clinical picture Monitor renal function for drug toxicity and dose adjust antibiotics. (4) Anemia Current Visit: Yes Status: Chronic Assessment and Plan: Acute on chronic anemia likely due to ESRD, iron deficiency, and megaloblastic anemia Initial concern for upper gi bleed due to brown vomitus and Hb down to 6.9 and improvement with 3 Units pRBC Hb 9.9 this morning and 10.6 yesterday, has been stable since transfusion Goal Hb in ESRD 10-11 B12 normal, folate high Plan: Underwent EGD yesterday and noted to have three nonbleeding gastric ulcers with adherent clot at prepyloric region Continue protonix IV bid, and sucralfate Stopped SubQ heparin Continue to monitor, cbc in the morning (5) ESRD (end stage renal disease) on dialysis Current Visit: Yes Status: Chronic Assessment and Plan: Known ESRD on dialysis MWF Had dialysis yesterday but was unable to completed it due to anxiety in the small dialysis room Potassium 3.1 today Plan: Continue monitoring labs Nephrology following Has a dialysis catheter in place Continue dialysis Continue to dose antibiotics per pharmacy Avoid nephrotoxins (6) Diabetes Current Visit: Yes Status: Chronic Assessment and Plan: Known history of diabetes with neuropathy and ESRD on dialysis. No DKA or HHS at presentation Glucose 109 this morning. Plan: Continue insulin sliding scale and basal insulin Levemir 10 Units qhs Continue monitoring levels Continue diabetic diet BMP in the morning (7) Chest pain Current Visit: Yes Status: Resolved Assessment and Plan: Resolved. Patient presented with chest pain on 02/05 Symptoms resolved overnight, no active chest pain Uncertain etiology EKG with no acute findings/changes from prior, has some T-wave inversion in lateral leads. Troponin adynamic 0.04, 0.05, 0.06 and likely elevated due to sepsis Echo completed, no vegetations noted with EF fo 60 to 65% Plan: Continue to monitor on telemetry (8) HTN (hypertension) Current Visit: Yes Status: Acute Assessment and Plan: Known history of chronic hypertension Plan: Currently on home Imdur, furosemide and lopressor Continue monitoring bp (9) COPD (chronic obstructive pulmonary disease) Current Visit: No Status: Chronic Assessment and Plan: Known history of COPD, no acute exacerbation. Plan: Continue home meds for chronic disease management. (10) Pulmonary HTN Current Visit: No Status: Chronic Assessment and Plan: History of pulmonary hypertension. Echo noted 60 to 65% EF. Right ventricle was normal in size and systolic function. The echo was unable to assess RVSP due to lack of adequate TR jet. (11) CAD (coronary artery disease) Current Visit: No Status: Chronic Assessment and Plan: Known history of COPD, no acute exacerbation. -Continue home meds for chronic disease management. (12) KEMAR (obstructive sleep apnea) Current Visit: Yes Status: Chronic Assessment and Plan: History of KEMAR Plan: Use CPA at night (13) Encephalopathy Current Visit: Yes Status: Resolved Assessment and Plan: Resolved. Presented with AMS, suspected likely due to sepsis as well as hyperammonia as her ammonia at presentation was 76 vs. hypoxia noted on ABG (14) DVT prophylaxis Current Visit: Yes Status: Acute Assessment and Plan: hep sq - Time Spent with Patient Total time spent is greater than 50% in coordination of care (as documented) at patient's floor/unit and/or counseling patient: 25 - 35 minutes Plan of Care Discussed with: patient Internal Medicine: Result - Labs CBC & Chem 7: 02/11/18 03:30 02/11/18 03:30 Labs: Short CBC 02/11/18 Range/Units 03:30 WBC 9.3 (4.3-11.1) K/mcL Hgb 9.3 L (11.5-15.4) g/dL Hct 28.7 L (35.3-44.9) % Plt Count 223 (140-400) K/mcL BMP 02/11/18 03:30 Sodium 137 Potassium 3.1 L Chloride 100 Carbon Dioxide 26 BUN 34 H Creatinine 5.27 H Glucose 118 H Calcium 6.9 L - ABG Interpretation ABG results: ABG ABG pH 7.47 pH Units (7.32-7.45) H 02/05/18 11:49 ABG pCO2 35 mmHg (35-45) 02/05/18 11:49 ABG pO2 43 mmHg (85-104) L* 02/05/18 11:49 ABG O2 Saturation 82 % (95-98) L 02/05/18 11:49 PT/INR, D-dimer PT 16.0 Seconds (9.4-12.1) H 02/05/18 11:20 - Impressions Impressions Chest X-Ray 02/10/18 17:16 IMPRESSION: No pneumothorax status post right-sided hemodialysis catheter insertion. D/ / Hadley Tena / Hadley Tena Interpreting Provider: Hadley Tena <Isabel Jones - Last Filed: 02/11/18 18:40> (1) Sepsis Qualifiers: Sepsis type: methicillin susceptible Staphylococcus aureus Qualified Code(s) : A41.01 - Sepsis due to Methicillin susceptible Staphylococcus aureus (4) Anemia Qualifiers: Anemia type: due to chronic kidney disease Chronic kidney disease stage: on chronic dialysis Qualified Code(s): N18.6 - End stage renal disease; D63.1 - Anemia in chronic kidney disease; Z99.2 - Dependence on renal dialysis (6) Diabetes Qualifiers: Diabetes mellitus type: type 2 Diabetes mellitus janitor supervisor insulin use: with janitor supervisor use Diabetes mellitus complication status: with kidney complications Diabetes mellitus complication detail: with chronic kidney disease Chronic kidney disease stage: on chronic dialysis Qualified Code(s): E11.22 - Type 2 diabetes mellitus with diabetic chronic kidney disease; N18.6 - End stage renal disease; Z79.4 - [facility] (current) use of insulin; Z99.2 - Dependence on renal dialysis (7) Chest pain Qualifiers: Chest pain type: unspecified Qualified Code(s): R07.9 - Chest pain, unspecified (8) HTN (hypertension) Qualifiers: Hypertension type: essential hypertension Qualified Code(s): I10 - Essential (primary) hypertension (9) COPD (chronic obstructive pulmonary disease) Qualifiers: COPD type: unspecified COPD Qualified Code(s): J44.9 - Chronic obstructive pulmonary disease, unspecified (11) CAD (coronary artery disease) Qualifiers: Coronary Disease-Associated Artery/Lesion type: unspecified vessel or lesion type [place] vs. transplanted heart: [place] heart Associated angina: without angina Qualified Code(s): I25.10 - Atherosclerotic heart disease of [place] coronary artery without angina pectoris
--- NOTE | 2018-02-11 15:37 | General Surgery Consult Note ---
Date of Encounter: 02/11/18 Time of Encounter: 15:30 Assessment and Plan (1) Peritoneal dialysis catheter dysfunction Current Visit: Yes Status: Acute Will likely plan for removal of PD catheter in the next 24-48 hours (will discuss with Dr. Reyes and attempt to coordinate with amputation of right great toe on 02/12/[address] Denny) NPO after midinght Qualifiers: Encounter type: initial encounter Qualified Code(s): T85.611A - Breakdown ( mechanical) of intraperitoneal dialysis catheter, initial encounter (2) ESRD (end stage renal disease) on dialysis Current Visit: Yes Status: Chronic Hemodialysis management per nephrology History of Present Illness Consult date: 02/11/18 Reason for consult: other (Dysfunctional PD catheter) Requesting physician: Ramya Wise History of present illness: Ms. Orozco is a 57 year old female with multiple comorbidities. She was transferred from [facility] with chest pains. She was admitted to the hospitalist service and has been treated for sepsis (likely related to infected dialysis catheter), bactermia (MRSA), encephalopathy, necrosis of right first toe, nausea/vomiting, ESRD. The patient does have a PD catheter which she states was placed at [facility]. She reports that she has not used the catheter in approximately 3 months because peritoneal dialysis was no longer effective. She denies any abdominal pain. Denies any current nausea/vomiting. Denies any unexplained weight loss. Denies any changes in bowel habits. We have been asked to see and evaluate the patient for removal of her PD catheter. PD catheter fluid was negative for growth of bacteria. Past Med Surg Social Fam HX - Past Medical History Medical history: CHF, COPD, coronary artery disease, diabetes, dialysis, hypertension, renal disease Additional medical history: vascular stents Psychiatric history: anxiety, depression - Past Surgical History Surgical History: other Additional surgical history: ankle sx, hip sx, 3 hand sx, partial hysterectomy, tubal, left arm fistula, peritoneal port - Social History Smoking Status: Former smoker Smokeless Tobacco Status: No Alcohol use: none Drug use: none - Family History Mother Living Status: Hx Family Cardiac Disorders: Yes (CHF, VA) Father Living Status: Hx Family Respiratory Disorders: Yes (Asthma) Hx Family Endocrine Disorder: Yes (Kidney disease) Medications and Allergies Albuterol Sulfate [Proair Hfa] 1 - 2 puff IH Q4-6H PRN 07/10/17 [History] Atorvastatin [Lipitor] 40 mg PO HS 07/10/17 [History] Esomeprazole Magnesium [Nexium] 40 mg PO DAILY 07/10/17 [History] Fenofibrate Nanocrystallized [Triglide] 160 mg PO DAILY 07/10/17 [History] Furosemide [Lasix] 40 mg PO 1400 07/10/17 [History] Furosemide [Lasix] 80 mg PO QAM 07/10/17 [History] Insulin Glargine,Hum.rec.anlog [Lantus Solostar] 60 unit SQ QPM 07/10/17 [ History] Isosorbide MONOnitrate (24 HR) [Imdur] 30 mg PO DAILY 07/10/17 [History] Lisinopril [Zestril] 10 mg PO BID 07/10/17 [History] Metoprolol [Lopressor] 50 mg PO QPM 07/10/17 [History] Metoprolol [Lopressor] 100 mg PO QAM 07/10/17 [History] Oxybutynin [Ditropan] 5 mg PO TID 07/10/17 [History] Renal Vitamin [Renal Caps Softgel] 1 mg PO DAILY 07/10/17 [History] Sertraline [Zoloft] 25 mg PO DAILY 07/10/17 [History] Sevelamer [Renvela] 800 mg PO TIDWM 07/10/17 [History] Tiotropium [Spiriva] 18 mcg IH DAILY 07/10/17 [History] Insulin LISPRO [HumaLOG] 15 - 20 units SQ TID 12/30/17 [History] Gabapentin [Neurontin] 100 mg PO TID 02/05/18 [History] 3 Allergy/AdvReac Type Severity Reaction Status Date / Time Penicillins Allergy Hives Verified 12/30/17 12:35 Sulfa (Sulfonamide Allergy Hives Verified 12/30/17 12:35 Antibiotics) hydrocodone AdvReac Nausea Verified 12/30/17 12:35 metformin [From Glucophage] AdvReac Nausea Verified 12/30/17 12:35 niacin AdvReac Redness of Verified 12/30/17 12:35 Skin Oxycodone [From Percocet] AdvReac Nausea Verified 12/30/17 12:35 tramadol [From Ultram] AdvReac Nausea Verified 12/30/17 12:35 Review of Systems All systems PM: reviewed and no additional remarkable complaints except as stated (in the HPI) All systems PM: The remainder of the systems were reviewed and are negative General Surgery Exam Initial Vital Signs Pulse 100 02/05/18 10:19 - General physical appearance well nourished, no distress, chronically ill - Eyes normal ocular movement - ENT normal mucosa, atraumatic, normocephalic - Neck trachea midline - Respiratory normal respiratory effort, clear to auscultation - Cardiovascular Cardiovascular exam: Present: RRR, 15, 16 - Abdomen Abdomen general surgery: Present: bowel sounds present, soft, non tender, wound (PD catheter secure without surrounding erythema or induration) - Integumentary Integumentary general surgery: Present: warm and dry, other (necrotic right great toe) - Psychiatric Psychiatric general surgery: Present: A&Ox3 Exam Initial Vital Signs Pulse 100 02/05/18 10:19 Results - Labs 02/11/18 03:30 02/11/18 03:30 Abnormal lab results RBC 2.94 M/mcL (3.82-4.97) L 02/11/18 03:30 Hgb 9.3 g/dL (11.5-15.4) L 02/11/18 03:30 Hct 28.7 % (35.3-44.9) L 02/11/18 03:30 RDW 18.7 % (11.5-14.5) H 02/11/18 03:30 Immature Gran % 6.6 % (0-4) H 02/10/18 06:00 Neutrophils # 9.1 K/mcL (1.6-8.9) H 02/10/18 06:00 Nucleated RBCs/100 WBC 0.2 /100 WBC (0) H 02/09/18 04:00 Hypochromasia Present (Not Present) A 02/06/18 04:15 PT 16.0 Seconds (9.4-12.1) H 02/05/18 11:20 ABG pH 7.47 pH Units (7.32-7.45) H 02/05/18 11:49 ABG pO2 43 mmHg (85-104) L* 02/05/18 11:49 ABG O2 Saturation 82 % (95-98) L 02/05/18 11:49 Potassium 3.1 mEq/L (3.5-5.1) L 02/11/18 03:30 BUN 34 mg/dL (6-20) H 02/11/18 03:30 Creatinine 5.27 mg/dL (0.60-1.20) H 02/11/18 03:30 Est GFR ( Amer) 10 (> 60) L 02/11/18 03:30 Est GFR (Non-Af Amer) 8 (> 60) L 02/11/18 03:30 Glucose 118 mg/dL (70-105) H 02/11/18 03:30 Calcium 6.9 mg/dL (8.6-10.3) L 02/11/18 03:30 Venous Ioniz Calcium 0.98 mmol/L (1.15-1.35) L 02/10/18 14:07 Iron < 10 mcg/dL (50-170) L 02/05/18 13:50 Transferrin 105 mg/dL (203-362) L 02/05/18 13:50 Ferritin > 1500 ng/mL (10-120) H 02/05/18 13:50 Direct Bilirubin 0.3 mg/dL (0.0-0.2) H 02/05/18 11:20 Troponin I 0.06 ng/mL (< 0.04) H* 02/05/18 23:00 C-Reactive Protein 70 mg/L (Less than 10) H 02/11/18 03:30 B-Natriuretic Peptide 580 pg/mL (Less than 100) H 02/05/18 11:20 Serum Total Protein 5.3 g/dL (6.4-8.9) L 02/06/18 04:15 Albumin 2.4 g/dL (3.5-5.7) L 02/06/18 04:15 Albumin/Globulin Ratio 0.8 (1.1-2.2) L 02/06/18 04:15 25-OH Vitamin D Total 18 ng/mL (30-80) L 02/10/18 12:21 PTH Intact 67.6 pg/ml (10.0-65.0) H 02/10/18 12:21 Ur Specimen Adequacy See below A 02/05/18 10:58 Urine Clarity Turbid (Clear) A 02/05/18 10:58 Urine Protein >=300 mg/dL (Neg-Trace) H 02/05/18 10:58 Urine Glucose (UA) 250 mg/dL (Normal) H 02/05/18 10:58 Urine Blood Moderate (Negative) H 02/05/18 10:58 Ur Leukocyte Esterase Large (Negative) H 02/05/18 10:58 Urine Microscopic RBC 15-30 per hpf (0-3) H 02/05/18 10:58 Urine Microscopic WBC TNTC per hpf (0-3) H 02/05/18 10:58 Ur Squamous Epith Cells Many per lpf (None-Few) H 02/05/18 10:58 Urine Bacteria Many per hpf (None-Few) H 02/05/18 10:58 Ur Culture Indicated? NO. (NO) A 02/05/18 10:58 Vancomycin Trough 14 mcg/mL (5-10) H 02/11/18 03:30 Staphylococcus sp PCR DETECTED (Not Detect) A 02/05/18 11:20 Staph aureus (PCR) DETECTED (Not Detect) A 02/05/18 11:20 mecA-Methicil Res Gene DETECTED (Not Detect) A 02/05/18 11:20 Diabetes panel 02/11/18 Range/Units 03:30 Sodium 137 (136-145) mEq/L Potassium 3.1 L (3.5-5.1) mEq/L Chloride 100 (98-107) mEq/L Carbon Dioxide 26 (23-29) mEq/L BUN 34 H (6-20) mg/dL Creatinine 5.27 H (0.60-1.20) mg/dL Glucose 118 H (70-105) mg/dL Calcium 6.9 L (8.6-10.3) mg/dL Calcium panel 02/11/18 Range/Units 03:30 Calcium 6.9 L (8.6-10.3) mg/dL Pituitary panel 02/11/18 Range/Units 03:30 Sodium 137 (136-145) mEq/L Potassium 3.1 L (3.5-5.1) mEq/L Chloride 100 (98-107) mEq/L Carbon Dioxide 26 (23-29) mEq/L BUN 34 H (6-20) mg/dL Creatinine 5.27 H (0.60-1.20) mg/dL Glucose 118 H (70-105) mg/dL Calcium 6.9 L (8.6-10.3) mg/dL Adrenal panel 02/11/18 Range/Units 03:30 Sodium 137 (136-145) mEq/L Potassium 3.1 L (3.5-5.1) mEq/L Chloride 100 (98-107) mEq/L Carbon Dioxide 26 (23-29) mEq/L BUN 34 H (6-20) mg/dL Creatinine 5.27 H (0.60-1.20) mg/dL Glucose 118 H (70-105) mg/dL Calcium 6.9 L (8.6-10.3) mg/dL All other labs normal. - Imaging Additional studies: Foot X-Ray 02/05/18 10:56 IMPRESSION: 1. No radiographic evidence of osteomyelitis. 2. Overlying bandage of the great toe limits evaluation for subcutaneous gas. No obvious gas identified. D/ / 02/05/2018 12:02:09 Dolores Morgan MD / Hannah Davison Interpreting Provider: Dolores Morgan MD Echocardiogram 02/05/18 11:36 Impressions: LVEF 60%. Mildly dilated left ventricle. Normal LV wall thickness and function. Moderate left ventricular diastolic dysfunction. Normal right ventricular structure and function. No evidence of a PFO with agitated saline contrast. Mild mitral regurgitation. No evidence of pulmonary hypertension. There is a small inferior and inferoalteral pericardial effusion present. Left Ventricular Wall Motion: Rest Echo Findings All wall segments showed normal motion. Findings: Study Quality * Technically sub-optimal due to poor echocardiographic windows. ECG Findings * Normal sinus rhythm. Left Ventricle * LVEF 60%. * Mildly dilated left ventricle. * Normal LV wall thickness and function. * Moderate left ventricular diastolic dysfunction. Right Ventricle * Normal right ventricular structure and function. Left Atrium * Moderately dilated left atrium. Right Atrium * Normal right atrial size. Interatrial Septum * No evidence of a PFO with agitated saline contrast. Aortic Valve * No aortic stenosis. * Trileaflet aortic valve. * Trace aortic regurgitation. Mitral Valve * Normal mitral valve structure. * Mild mitral regurgitation. * No mitral stenosis. Tricuspid Valve * Normal tricuspid valve structure and function. * Trace tricuspid regurgitation. * No evidence of pulmonary hypertension. Pulmonic Valve * Pulmonic valve is not well visualized. * No pulmonic regurgitation. Aorta * Normally sized aortic root. Pericardium * There is a small inferior and inferoalteral pericardial effusion present. IVC * Normal IVC dimensions and inspiratory collapse. Pulmonary Artery * Normal visualized portions of the main pulmonary artery. KUB X-Ray 02/06/18 04:52 IMPRESSION: Moderate gaseous distention of the stomach. Nonobstructive bowel gas pattern. D/ / Benny Baumann / Benny Baumann Interpreting Provider: Benny Baumann Tunnelled Catheter Removal 02/07/18 00:00 IMPRESSION: Successful tunnel dialysis catheter removal. The catheter tip was sent for culture. D/ / John Paul Villarreal / John Paul Villarreal Interpreting Provider: John Paul Villarreal Guidance Ultrasound 02/10/18 00:00 IMPRESSION: Successful ultrasound-guided placement of an non tunneled temporary dialysis catheter. Postprocedure chest radiograph to follow. D/ / John Paul Villarreal / John Paul Villarreal Interpreting Provider: John Paul Villarreal Insertion Non-Tunneled Catheter 02/10/18 00:00 IMPRESSION: Successful ultrasound-guided placement of an non tunneled temporary dialysis catheter. Postprocedure chest radiograph to follow. D/ / John Paul Villarreal / John Paul Villarreal Interpreting Provider: John Paul Villarreal Chest X-Ray 02/10/18 17:16 IMPRESSION: No pneumothorax status post right-sided hemodialysis catheter insertion. D/ / Hadley Tena / Hadley Tena Interpreting Provider: Hadley Tena Consult Discharge Plan - Plan Referrals: Guero Clement DO [Primary Care Provider] - 02/18/18 1:00 pm () - Attending Attestation For this encounter, I have reviewed the [employer] or PA documentation, treatment plan, and medical decision making; and I have had face to face time with this patient.
[2018-02-11] MEDS: Melatonin 3 MG TABLET PO PRN (20:52)
[2018-02-11] MEDS ORDERED: Insulin DETEMIR 100 UNIT/ML X5UNITS SQ SCH (21:00)
--- NOTE | 2018-02-11 22:11 | Anesthesia Evaluation PreOp ---
<Radhika Roque - Last Filed: 02/11/18 22:09> Date of Encounter: 02/11/18 Time of Encounter: 22:09 - Past History Planned Operation: R Great toe amputation Cardiac History: HTN, Cardiac Surgery (x2 2004), Other (CAD, EF 60%) Pulmonary History: Former smoker, COPD [employer] History: Denies Any Significant HX Other Medical History: Renal (ESRD on hemodialysis) Anesthesia History: No Prior Anesthetic Complications, Past Anesthesia (EGD) Alcohol Use: none Drug use: none Medications and Allergies Albuterol Sulfate [Proair Hfa] 1 - 2 puff IH Q4-6H PRN 07/10/17 [History] Atorvastatin [Lipitor] 40 mg PO HS 07/10/17 [History] Esomeprazole Magnesium [Nexium] 40 mg PO DAILY 07/10/17 [History] Fenofibrate Nanocrystallized [Triglide] 160 mg PO DAILY 07/10/17 [History] Furosemide [Lasix] 40 mg PO 1400 07/10/17 [History] Furosemide [Lasix] 80 mg PO QAM 07/10/17 [History] Insulin Glargine,Hum.rec.anlog [Lantus Solostar] 60 unit SQ QPM 07/10/17 [ History] Isosorbide MONOnitrate (24 HR) [Imdur] 30 mg PO DAILY 07/10/17 [History] Lisinopril [Zestril] 10 mg PO BID 07/10/17 [History] Metoprolol [Lopressor] 50 mg PO QPM 07/10/17 [History] Metoprolol [Lopressor] 100 mg PO QAM 07/10/17 [History] Oxybutynin [Ditropan] 5 mg PO TID 07/10/17 [History] Renal Vitamin [Renal Caps Softgel] 1 mg PO DAILY 07/10/17 [History] Sertraline [Zoloft] 25 mg PO DAILY 07/10/17 [History] Sevelamer [Renvela] 800 mg PO TIDWM 07/10/17 [History] Tiotropium [Spiriva] 18 mcg IH DAILY 07/10/17 [History] Insulin LISPRO [HumaLOG] 15 - 20 units SQ TID 12/30/17 [History] Gabapentin [Neurontin] 100 mg PO TID 02/05/18 [History] 3 Allergy/AdvReac Type Severity Reaction Status Date / Time Penicillins Allergy Hives Verified 12/30/17 12:35 Sulfa (Sulfonamide Allergy Hives Verified 12/30/17 12:35 Antibiotics) hydrocodone AdvReac Nausea Verified 12/30/17 12:35 metformin [From Glucophage] AdvReac Nausea Verified 12/30/17 12:35 niacin AdvReac Redness of Verified 12/30/17 12:35 Skin Oxycodone [From Percocet] AdvReac Nausea Verified 12/30/17 12:35 tramadol [From Ultram] AdvReac Nausea Verified 12/30/17 12:35 - Meds/Allergy Pre-op Review Medications Reviewed: Yes Allergies Reviewed: Yes Beta Blockers on Current Med List: Yes If Beta Blockers taken, Date/Time (Last Dose taken): see HANSEL Anesthesia Results - Labs 02/11/18 03:30 02/11/18 03:30 - Imaging EKG: report reviewed (SR) Anesthesia Exam Vital Signs/O2 Sat, Most Current Temp Pulse Resp BP Pulse Ox 98.7 F 81 16 174/67 96 02/11/18 19:25 02/11/18 20:30 02/11/18 20:01 02/11/18 19:25 02/11/18 20:01 Weight: 92kg NPO (# of Hours): MN - HEENT Pupil (Motor): Pupils equal, EOMI Mallampati: III Teeth: Edentulous Oral Opening: Greater than 3 - [employer] Motor: Normal RUE, Normal LUE, Normal RLE, Normal LLE, Normal Face [employer] Sensory: Normal: RUE, LUE, RLE, LLE, Face - Cardiac Rhythm: Regular - Pulmonary Breath Sounds: bilateral Clear Respiratory Effort: Symmetrical Anesthesia Assess/Plan ASA Score: 4 Anesthetic Plan: MAC Monitoring Plan: Standard Monitors <Kurtis Moreland - Last Filed: 02/12/18 08:31> Date of Encounter: 02/12/18 - Meds/Allergy Pre-op Review If Beta Blockers taken, Date/Time (Last Dose taken): 02/11/2018 at 1652 Anesthesia Results - Labs 02/12/18 04:30 02/12/18 04:30 Anesthesia Exam Vital Signs/O2 Sat/Glucose, Most Recent Temp Pulse Resp BP Pulse Ox 98.3 F 86 15 156/59 95 02/12/18 06:50 02/12/18 06:50 02/12/18 07:45 02/12/18 06:50 02/12/18 07:45 Blood Glucose* 78
[2018-02-12] MEDS: Metoclopramide 10 MG/2 ML VIAL IVP SCH ×4 (00:17→16:14)
[2018-02-12] MEDS: Insulin LISPRO 300 UNITS/3 ML VIAL SQ SCH ×4 (00:39→16:15)
[2018-02-12 04:54] LABS: Hematocrit 31.2 % (35.3-44.9); Hemoglobin 9.9 g/dL (11.5-15.4); Mean Corpuscular HGB Conc 31.7 g/dL (31.6-35.5); Mean Corpuscular Hemoglobin 31.7 pg (28.0-33.3); Mean Platelet Volume 9.7 fL (9.4-12.4); Platelet Count 263 K/mcL (140-400); Red Blood Count 3.12 M/mcL (3.82-4.97); Red Cell Distribution Width 18.9 % (11.5-14.5)
[2018-02-12 05:17] LABS: Calcium 7.3 mg/dL (8.6-10.3); Potassium 4.1 mEq/L (3.5-5.1)
[2018-02-12 05:35] LABS: Anisocytosis 1+ (Not Present); Eosinophils # 0.6 K/mcL (0.0-0.6); Macrocytosis Present (Not Present); Monocytes # 0.4 K/mcL (0.0-1.3); Neutrophils # 7.1 K/mcL (1.6-8.9); Platelet Estimate Normal (Normal)
[2018-02-12] MEDS: *HR* Dextrose 50 % in Water (Syg) 50 ML SYRINGE IVP PRN (06:07)
[2018-02-12] MEDS: Pantoprazole 40 MG VIAL IVP SCH ×2 (06:07→16:14)
[2018-02-12] MEDS: Tiotropium 18 MCG inhalation IH SCH (07:44)
--- NOTE | 2018-02-12 08:21 | Internal Med Progress Note ---
<Mik Choi - Last Filed: 02/12/18 14:25> Hospitalist Progress Note - Encounter Date of Encounter: 02/12/18 Time of Encounter: 08:20 - Subjective Interval History: Patient reports doing well overnight except for continued mid to upper back pain that is constantly achy. Patient repors she did get dialysis yesterday. Denies fevers, chills, sweats, nausea, vomiting, chest pain, shortness of breath , abdominal pain, changes in bowels or bladder, weakness, new loss of sensation , or new rashes or lesions. Plan for podiatry surgery 09:00am this morning. - Exam Vitals: Temp Pulse Resp BP Pulse Ox 98.3 F 86 15 156/59 95 02/12/18 06:50 02/12/18 06:50 02/12/18 07:45 02/12/18 06:50 02/12/18 07:45 Exam: Gen:awake, alert and oriented x 4, no acute distress, comfortable in bed HEENT: Atraumatic, normocephalic, moist mucus membranes Cardiac: RRR, no murmur, +S1/S2, no edema Pulmonary: Clear to ausculation, no wheezes, rhonchi or rales Abdomen: soft, nontender, no guarding, PD catheter in the abdomen; dialysis cath R upper chest Extremities: no LE edema, necrotic R hallux, all other extremities normal, no edema, or cyanosis Neuro: Equal strength bilaterally all extremities, sensation decrease lower extremities, normal upper extremities. - Assessment and Plan (1) Sepsis Current Visit: Yes Status: Resolved Assessment and Plan: Resolved. Septic on admission of 02/05 with Temp of 103.2F, elevated WBC 16, tachycardic, and Lactic acid 3.9 Blood cultures 02/05 and 02/06-final for MRSA Blood cultures 02/09-gram positive cocci Dialysis cath tip culture 02/07/18-final for MRSA Blood cultures 02/11/18-pending Urine cultures with E.coli, sensitivities reported Wound culture of R Hallucs: Klebsiella and Staph aureus with sensitivities reported Bacteremia secondary to necrotic toe vs UTI vs infected dialysis cath Tunneled dialysis catheter removed 02/07/18 Trans esophageal echo 02/09/18 revealed EF 60-65%, normal LV, RV normal, mild mitral regurg, normal pericardium, no vegetations Peritoneal dialysis cath still in place Surgery consulted, reviewed note. Plan for removal either today or tomorrow after amputation of necrotic toe. -ID on board, continue following recommendations -Continue with Vancomycin d8, Rocephin d3, complete cefepime d5 Afebrile, nontachycardic, wbc 10.1 this morning -Continue monitoring labs and blood cultures (2) Encephalopathy acute Current Visit: Yes Status: Resolved Assessment and Plan: Presented with AMS, suspected likely due to sepsis, possible hyperammonemia, and hypoxia noted on ABG not pulse ox Resolved (3) Bacteremia Current Visit: Yes Status: Acute Assessment and Plan: Bacteremia, secondary to MRSA from dialysis cath vs necrotic toe vs UTI Tunneled dialysis catheter removed 02/07/18 and tip sent for culture and MRSA positive Trans esophageal echo 02/09/18 revealed EF 60-65%, normal LV, RV normal, mild mitral regurg, normal pericardium, no vegetations per plan in assessment above (4) Necrosis of toe Current Visit: Yes Status: Acute Assessment and Plan: Found to have R hallux necrosis on arrival Likely source of MRSA bacteremia XR foot revealed no evidence of osteomyelitis, no obvious gas identified. Wound culture grew Klebsiella and MRSA, sensitivities in report -Podiatry plan for amputation today -Antibiotics per assessments above. (5) Nausea & vomiting Current Visit: Yes Status: Resolved Assessment and Plan: Resolved. Patient developed some nausea and vomiting night of admission Vomitus was visualized as brown, questionable if feculent. No abdominal pain, did have bowel movement overnight. -GI on board. (6) Chest pain Current Visit: Yes Status: Resolved Assessment and Plan: Patient presented with chest pain. Symptoms resolved overnight, no active chest pain Uncertain etiology EKG with no acute findings/changes from prior, has some T-wave inversion in lateral leads. Troponin adynamic 0.04, 0.05, 0.06 -Echo completed, as noted in assessments above. Troponin elevation likely secondary to sepsis. -Continue telemetry (7) Anemia Current Visit: Yes Status: Chronic Assessment and Plan: Acute on chronic mixed anemia from esrd, iron deficiency, and megaloblastic anemia of unknown etiology. Also concern for upper gi bleed due to brown vomitus and Hb down to 6.9 and improvement with 3 Units pRBC Hb 9.9 this morning Goal Hb in ESRD 10-11 B12 normal, folate high EGD 02/10/18 revealed muliple nonbleeding clotted overf gastric ulcers in prepyloric region -Continue protonix IV bid, and sucralfate (8) Elevated troponin Current Visit: Yes Status: Acute Assessment and Plan: as noted above. Cardio signed off. (9) Hyperammonemia Current Visit: Yes Status: Resolved Assessment and Plan: AMS upon arrival now resolved. Ammonia level on arrival elevated at 76, currently 40. Uncertain etiology. Not necessary to follow as mental status improved and liver enzymes have been normal. (10) ESRD (end stage renal disease) on dialysis Current Visit: Yes Status: Chronic Assessment and Plan: Known ESRD on dialysis MWF Missed dialysis yesterday as IR could not complete consent Access on arrival: Right upper chest perma cath and Left abdominal peritoneal cath Permacath removed 02/07/18 per IR Potassium 3.0 today -Continue monitoring labs -Nephro on board -IR to placed temporary cath today (11) Diabetes Current Visit: No Status: Chronic Assessment and Plan: Known history of diabetes with neuropathy and ESRD on dialysis. No DKA or HHS based on labwork Glucose 99 this morning. -Continue insulin sliding scale and basal insulin Levemir 20 Units qhs -Continue monitoring levels -ADA diet, CV diet once complete surgeries. (12) CAD (coronary artery disease) Current Visit: No Status: Chronic Assessment and Plan: Known history of CAD with cath and stents in past. Presented with chest pain which is now resolved. EKG on this visit unchanged, troponins adynamic. as noted above (13) COPD (chronic obstructive pulmonary disease) Current Visit: No Status: Chronic Assessment and Plan: Known history of COPD, no acute exacerbation. -Continue home meds for chronic disease management. (14) PAD (peripheral artery disease) Current Visit: Yes Status: Chronic Assessment and Plan: Known history of PAD with leg stents bilaterally -Continue with asa and plavix. (15) Pulmonary HTN Current Visit: No Status: Chronic Assessment and Plan: History mentioned pulmonary hypertension. -Echo completed as above (16) HTN (hypertension) Current Visit: No Status: Chronic Assessment and Plan: Known history of chronic htn Continue monitoring bp -Continue home meds for chronic disease management. (17) KEMAR (obstructive sleep apnea) Current Visit: Yes Status: Chronic Assessment and Plan: Known history of KEMAR, CPAP ordered. (18) UTI (urinary tract infection) Current Visit: Yes Status: Resolved Assessment and Plan: Reported dysuria on arrival UA unimpressive Improved symptoms once started on antibiotics, currently Resolved symptoms Urine culture-E.coli, sensitivities per report. (19) Hypokalemia Current Visit: Yes Status: Acute Assessment and Plan: Hypokalemia in ESRD on dialysis Potassium 4.1 this morning. -Neprho on board -Continue following labs. (20) Hypocalcemia Current Visit: Yes Status: Acute Assessment and Plan: Will recheck CMP tomorrow and calculate correction with albumin. (21) DVT prophylaxis Current Visit: Yes Status: Acute Assessment and Plan: EPCDs DVT Prophylaxis: EPCDs - Time Spent with Patient Total time spent is greater than 50% in coordination of care (as documented) at patient's floor/unit and/or counseling patient: Internal Medicine: Result - Labs CBC & Chem 7: 02/12/18 04:30 02/12/18 04:30 Labs: Short CBC 02/12/18 Range/Units 04:30 WBC 10.1 (4.3-11.1) K/mcL Hgb 9.9 L (11.5-15.4) g/dL Hct 31.2 L (35.3-44.9) % Plt Count 263 (140-400) K/mcL Neutrophils # 7.1 (1.6-8.9) K/mcL BMP 02/12/18 04:30 Sodium 135 L Potassium 4.1 Chloride 99 Carbon Dioxide 25 BUN 23 H Creatinine 4.31 H Glucose 81 Calcium 7.3 L - ABG Interpretation ABG results: ABG ABG pH 7.47 pH Units (7.32-7.45) H 02/05/18 11:49 ABG pCO2 35 mmHg (35-45) 02/05/18 11:49 ABG pO2 43 mmHg (85-104) L* 02/05/18 11:49 ABG O2 Saturation 82 % (95-98) L 02/05/18 11:49 PT/INR, D-dimer PT 16.0 Seconds (9.4-12.1) H 02/05/18 11:20 - Impressions Impressions Guidance Ultrasound 02/10/18 00:00 IMPRESSION: Successful ultrasound-guided placement of an non tunneled temporary dialysis catheter. Postprocedure chest radiograph to follow. D/ / John Paul Villarreal / John Paul Villarreal Interpreting Provider: John Paul Villarreal Insertion Non-Tunneled Catheter 02/10/18 00:00 IMPRESSION: Successful ultrasound-guided placement of an non tunneled temporary dialysis catheter. Postprocedure chest radiograph to follow. D/ / John Paul Villarreal / John Paul Villarreal Interpreting Provider: John Paul Villarreal Consult Discharge Plan - Plan Referrals: Guero Clement DO [Primary Care Provider] - 02/18/18 1:00 pm () <Denia Carranza - Last Filed: 02/12/18 15:01> Hospitalist Progress Note - Encounter Date of Encounter: 02/12/18 - Exam Vitals: Temp Pulse Resp BP Pulse Ox 98.3 F 79 17 164/72 96 02/12/18 11:04 02/12/18 11:04 02/12/18 11:04 02/12/18 11:04 02/12/18 11:04 - Assessment and Plan (1) Sepsis Current Visit: Yes Status: Resolved (2) Necrosis of toe Current Visit: Yes Status: Acute (3) Chest pain Current Visit: Yes Status: Resolved (4) ESRD (end stage renal disease) on dialysis Current Visit: Yes Status: Chronic (5) Diabetes Current Visit: Yes Status: Chronic (6) HTN (hypertension) Current Visit: Yes Status: Acute (7) COPD (chronic obstructive pulmonary disease) Current Visit: No Status: Chronic (8) Pulmonary HTN Current Visit: No Status: Chronic (9) CAD (coronary artery disease) Current Visit: No Status: Chronic (10) KEMAR (obstructive sleep apnea) Current Visit: Yes Status: Chronic (11) CHF (congestive heart failure) Current Visit: Yes Status: Deleted (12) DVT prophylaxis Current Visit: Yes Status: Acute (13) Encephalopathy Current Visit: Yes Status: Resolved - Time Spent with Patient Total time spent is greater than 50% in coordination of care (as documented) at patient's floor/unit and/or counseling patient: Internal Medicine: Result - Labs CBC & Chem 7: 02/12/18 04:30 02/12/18 04:30 Labs: Short CBC 02/12/18 Range/Units 04:30 WBC 10.1 (4.3-11.1) K/mcL Hgb 9.9 L (11.5-15.4) g/dL Hct 31.2 L (35.3-44.9) % Plt Count 263 (140-400) K/mcL Neutrophils # 7.1 (1.6-8.9) K/mcL BMP 02/12/18 04:30 Sodium 135 L Potassium 4.1 Chloride 99 Carbon Dioxide 25 BUN 23 H Creatinine 4.31 H Glucose 81 Calcium 7.3 L - ABG Interpretation ABG results: ABG ABG pH 7.47 pH Units (7.32-7.45) H 02/05/18 11:49 ABG pCO2 35 mmHg (35-45) 02/05/18 11:49 ABG pO2 43 mmHg (85-104) L* 02/05/18 11:49 ABG O2 Saturation 82 % (95-98) L 02/05/18 11:49 PT/INR, D-dimer PT 16.0 Seconds (9.4-12.1) H 02/05/18 11:20 - Impressions Impressions Guidance Ultrasound 02/10/18 00:00 IMPRESSION: Successful ultrasound-guided placement of an non tunneled temporary dialysis catheter. Postprocedure chest radiograph to follow. D/ / John Paul Villarreal / John Paul Villarreal Interpreting Provider: John Paul Villarreal Insertion Non-Tunneled Catheter 02/10/18 00:00 IMPRESSION: Successful ultrasound-guided placement of an non tunneled temporary dialysis catheter. Postprocedure chest radiograph to follow. D/ / John Paul Villarreal / John Paul Villarreal Interpreting Provider: John Paul Villarreal - Attending Attestation I examined this patient and my medical decision-making was reviewed with the Resident Physician Dr Choi. I agree with the documented findings, disposition and treatment plan as described except to the extent set forth below /addl details as below. Ms Jain was admitted with sepsis 2/2 bacteremia, right toe infection/ necrosis and found to have altered mental status, now resolved, anemia with hgb drop and GI consultation, chest pain. Awake, resting in bed post op. Denies fevers, chills, nausea, emesis. Denies pain. sob. gen- somnolent post op eyes- pupils equal round cv- reg rate and rhythm, normal s1,s2, no murmurs appreciated, no le edema, dp/ pt pulses intact and equal lungs- ctabl, no wheezing, rhonchi or crackles, normal resp effort abd- soft, non tender, non distended, + bs Sepsis, resolved with MRSA bacteremia and R hallus klebsiella and Staph aureus infection- suspected source is necrotic toe, possibly PD cath ID following, cont IV vanc at this time pending ID recs Peripheral blood cultures drawn 02/05 are positive 2/2 sets for MRSA. peripheral blood cultures drawn 02/06/18 are positive 2/2 sets for MRSA cultures drawn from the Perma-cath 02/06/18 are positive 2/2 sets for MRSA Status post Perm-cath removal 02/07/18 by IR. catheter tip 02/07 positive for MRSA 02/09 bl cxs gpc + 1/2 sets 02/11 repeat cultures pending IR placement of temp HD cath 02/10, ideally when bl cxs grow negative, however deferred to Nephro, will need a perm cath placed prior to dc per nephro however needs neg cxs first Peritoneal dialysis removed by surgery 02/12 Toe amputation 02/12 FREDIS neg for vegetation Necrosis of toe, right- wound cx as above, podiatry following, amputation 02/12, cont iv vanc + rocephin at this time pending ID recs ESRD on HD MWF- nephro following Chest Pain, resolved, mild trop elevation and stable likely 2/2 sepsis on admit - seen by cards, she will fu outpt, FREDIS neg Acute on Chronic Anemia, multifactorial, stable Gastric Ulcers, Anemia of Chronic Disease -did have episode of brown emesis with hgb drop and concern if this could be ugib, vs feculent on admit gi following, egd 02/10 3 gastric ulcers with adherent clot, bx taken, , ppi + carafate vte ppx scds only <Mik Choi - Last Filed: 02/12/18 14:25> (1) Sepsis Qualifiers: Sepsis type: methicillin susceptible Staphylococcus aureus Qualified Code(s) : A41.01 - Sepsis due to Methicillin susceptible Staphylococcus aureus (5) Nausea & vomiting Qualifiers: Vomiting type: unspecified Vomiting Intractability: unspecified Qualified Code(s): R11.2 - Nausea with vomiting, unspecified (6) Chest pain Qualifiers: Chest pain type: unspecified Qualified Code(s): R07.9 - Chest pain, unspecified (7) Anemia Qualifiers: Anemia type: due to chronic kidney disease Chronic kidney disease stage: on chronic dialysis Qualified Code(s): N18.6 - End stage renal disease; D63.1 - Anemia in chronic kidney disease; Z99.2 - Dependence on renal dialysis (11) Diabetes Qualifiers: Diabetes mellitus type: type 2 Diabetes mellitus manager long term care insulin use: with manager long term care use Diabetes mellitus complication status: without complication Qualified Code(s): E11.9 - Type 2 diabetes mellitus without complications; Z79.4 - intermediate (current) use of insulin (12) CAD (coronary artery disease) Qualifiers: Coronary Disease-Associated Artery/Lesion type: unspecified vessel or lesion type [place] vs. transplanted heart: [place] heart Associated angina: without angina Qualified Code(s): I25.10 - Atherosclerotic heart disease of [place] coronary artery without angina pectoris (13) COPD (chronic obstructive pulmonary disease) Qualifiers: COPD type: unspecified COPD Qualified Code(s): J44.9 - Chronic obstructive pulmonary disease, unspecified (16) HTN (hypertension) Qualifiers: Hypertension type: essential hypertension Qualified Code(s): I10 - Essential (primary) hypertension (18) UTI (urinary tract infection) Qualifiers: Urinary tract infection type: site unspecified Hematuria presence: without hematuria Qualified Code(s): N39.0 - Urinary tract infection, site not specified <Denia Carranza - Last Filed: 02/12/18 15:01> (1) Sepsis Qualifiers: Sepsis type: methicillin susceptible Staphylococcus aureus Qualified Code(s) : A41.01 - Sepsis due to Methicillin susceptible Staphylococcus aureus (3) Chest pain Qualifiers: Chest pain type: unspecified Qualified Code(s): R07.9 - Chest pain, unspecified (5) Diabetes Qualifiers: Diabetes mellitus type: type 2 Diabetes mellitus manager long term care insulin use: with prison use Diabetes mellitus complication status: with kidney complications Diabetes mellitus complication detail: with chronic kidney disease Chronic kidney disease stage: on chronic dialysis Qualified Code(s): E11.22 - Type 2 diabetes mellitus with diabetic chronic kidney disease; N18.6 - End stage renal disease; Z79.4 - intermediate (current) use of insulin; Z99.2 - Dependence on renal dialysis (6) HTN (hypertension) Qualifiers: Hypertension type: essential hypertension Qualified Code(s): I10 - Essential (primary) hypertension (7) COPD (chronic obstructive pulmonary disease) Qualifiers: COPD type: unspecified COPD Qualified Code(s): J44.9 - Chronic obstructive pulmonary disease, unspecified (9) CAD (coronary artery disease) Qualifiers: Coronary Disease-Associated Artery/Lesion type: unspecified vessel or lesion type [place] vs. transplanted heart: [place] heart Associated angina: without angina Qualified Code(s): I25.10 - Atherosclerotic heart disease of [place] coronary artery without angina pectoris (11) CHF (congestive heart failure) Qualifiers: Heart failure type: unspecified Heart failure chronicity: chronic Qualified Code(s): I50.9 - Heart failure, unspecified
[2018-02-12] MEDS ORDERED: *HR* FentaNYL (PF) 100 MCG/2 ML VIAL ONE (08:25)
[2018-02-12] MEDS ORDERED: *HR* Midazolam HCl 2 MG/2 ML VIAL ONE (08:25)
[2018-02-12] MEDS ORDERED: Lidocaine -MPF 2% 2 ML VIAL ONE (08:26)
[2018-02-12] MEDS ORDERED: Propofol 500 MG/50 ML INFUS..BTL ONE (08:28)
[2018-02-12] MEDS ORDERED: *HR* Propofol 200 MG/20 ML VIAL IVP ONE (08:34)
[2018-02-12] MEDS ORDERED: Ondansetron 4 MG/2 ML VIAL ONE (08:46)
[2018-02-12] MEDS ORDERED: Bupivacaine/Clonidine Syringe 1 EACH SYRINGE ONE (08:46)
[2018-02-12] MEDS ORDERED: Acetaminophen IV 1,000 MG/100 ML INFUS..BTL ONE (08:50)
[2018-02-12] MEDS ORDERED: KETAMINE HCL 50 MG/ML SYRINGE IV ONE (08:50)
--- NOTE | 2018-02-12 09:50 | Operative Note ---
Date of procedure: 02/12/18 Pre-op diagnosis: Peritoneal dialysis catheter removal Post-op diagnosis: same Procedure: Peritoneal dialysis catheter removal Anesthesia: MAC Surgeon: Chapito Reyes Was there an press assistant and feeder present: No Estimated blood loss (cc): 10 Specimen: Gross only peritoneal dialysis catheter Condition: stable Disposition: PACU Procedure in Detail: After informed consent the patient was taken to the major operating suite placed supine position and given monitored anesthesia care. Dr. Denny was present during the entire procedure. The patient is no longer utilizing peritoneal dialysis catheter. Timeout was taken and the patient was identified. I injected 10 mL 1% lidocaine with epinephrine. I made a periumbilical incision and a small incision at the catheter exit site. I first dissected down to the subcutaneous pledget. This was circumferentially dissected free from surrounding tissue. I then dissected down in the midline to identify the catheter entry site. Once the catheter entry site was identified I circumferentially dissected the pledget at the fascial level. I removed the intra-abdominal catheter completely. The fascia was closed with interrupted 0 Nurolon. The midline periumbilical incision was closed with interrupted Vicryl and skin clips. The peritoneal dialysis exit site was packed with iodoform. The patient tolerated the procedure well and is returned to Dr. Denny for ongoing care and toe amputation
[2018-02-12] MEDS: Sucralfate 1 GM TABLET PO SCH ×3 (11:09→16:14)
[2018-02-12] MEDS: Metoprolol 100 MG TABLET PO SCH (11:10)
[2018-02-12] MEDS: Furosemide 40 MG TABLET PO SCH ×2 (11:10→14:22)
[2018-02-12] MEDS: cefTRIAXone 2,000 MG in Water for inj. (sterile) 20 ML 20 ML IVP SCH ×2 (11:10→11:41)
[2018-02-12] MEDS: Isosorbide MONOnitrate (24 HR) 30 MG TAB.ER.24H PO SCH ×2 (11:10→11:43)
[2018-02-12] MEDS: Gabapentin 100 MG CAPSULE PO SCH ×3 (11:10→23:25)
--- NOTE | 2018-02-12 11:40 | Nephrology Progress Note ---
Date of Encounter: 02/12/18 Time of Encounter: 11:38 - Assessment and Plan (1) ESRD (end stage renal disease) on dialysis Current Visit: Yes Status: Chronic HD completed yesterday without complication. Went to OR for right great toe removal and PD cath remova. Plan for HD tomorrow. Will need permacath before D/C. (2) Anemia Current Visit: Yes Status: Chronic Goal Hgb is 10-11. Hgb today is 9.9 today. Qualifiers: Anemia type: due to chronic kidney disease Chronic kidney disease stage: on chronic dialysis Qualified Code(s): N18.6 - End stage renal disease; D63.1 - Anemia in chronic kidney disease; Z99.2 - Dependence on renal dialysis (3) Sepsis Current Visit: Yes Status: Resolved Per ID. FREDIS completed and was negative. Qualifiers: Sepsis type: methicillin susceptible Staphylococcus aureus Qualified Code(s ): A41.01 - Sepsis due to Methicillin susceptible Staphylococcus aureus (4) Diabetes Current Visit: Yes Status: Chronic Per primary. Qualifiers: Diabetes mellitus type: type 2 Diabetes mellitus skilled nursing insulin use: with local intermodal truck driver use Diabetes mellitus complication status: with kidney complications Diabetes mellitus complication detail: with chronic kidney disease Chronic kidney disease stage: on chronic dialysis Qualified Code(s) : E11.22 - Type 2 diabetes mellitus with diabetic chronic kidney disease; N18.6 - End stage renal disease; Z79.4 - buttermaker continuous churn (current) use of insulin; Z99.2 - Dependence on renal dialysis (5) COPD (chronic obstructive pulmonary disease) Current Visit: No Status: Chronic Continue breathing tx's. Qualifiers: COPD type: unspecified COPD Qualified Code(s): J44.9 - Chronic obstructive pulmonary disease, unspecified (6) Gangrene of toe of right foot Current Visit: Yes Status: Acute per podiatry Subjective Principal diagnosis: Sepsis Interval history: Pt seen and examined is drowsy from OR. Objective - Vital Signs Vital signs: Vital Signs Temp Pulse Resp BP Pulse Ox 02/12/18 11:04 98.3 F 79 17 164/72 96 02/12/18 07:45 15 95 02/12/18 06:50 98.3 F 86 15 156/59 95 02/12/18 05:27 98.3 F 81 20 149/56 96 02/12/18 03:40 16 96 02/12/18 00:05 16 96 02/11/18 23:45 99.0 F 77 18 144/61 96 02/11/18 20:30 81 02/11/18 20:01 16 96 02/11/18 19:25 98.7 F 79 20 174/67 95 02/11/18 17:04 97.9 F 84 19 113/65 97 02/11/18 16:12 16 91 02/11/18 15:39 98.1 F 16 129/64 02/11/18 15:25 110/66 02/11/18 15:10 122/49 02/11/18 14:55 125/50 02/11/18 14:40 122/54 02/11/18 14:25 136/60 02/11/18 14:10 146/62 02/11/18 13:55 149/61 02/11/18 13:40 147/63 02/11/18 13:25 98.2 F 18 153/65 02/11/18 12:16 98.7 F 78 18 164/80 98 Intake and Output 02/11/18 02/12/18 02/12/18 23:59 07:59 15:59 Intake Total 120 / 120 Output Total 100 / 100 100 / 100 7 / 7 Balance 20 -100 / -100 -7 -7 Intake: Oral 120 / 120 Output: Urine 100 / 100 100 / 100 Estimated Blood Loss Other: Meal Dinner Percent of Meal Consumed 25% Stool Size Small Small Stool Consistency soft loose Stool Characteristics Normal for Patient Normal for Patient Stool Color Brown Brown # Bowel Movements 1 Blood Glucose* 99 78 113 - General Appearance General appearance: Present: well-developed, well-nourished EENT: Present: ATNC, hearing intact, vision intact Neck: Present: supple Cardiology: Present: no edema, regular rate, regular rhythm Dialysis Vascular Access: Venous Catheter (Temp line, DRSG c/D/I) Integumentary: Present: no rash, warm and dry Neurologic: Present: alert and oriented x3 Psychiatric: Present: mood/affect appropriate, cooperative - Lab 02/12/18 04:30 02/12/18 04:30 Most recent lab results ABG pH 7.47 pH Units (7.32-7.45) H 02/05/18 11:49 ABG pCO2 35 mmHg (35-45) 02/05/18 11:49 ABG pO2 43 mmHg (85-104) L* 02/05/18 11:49 ABG HCO3 25 mEq/L (21-27) 02/05/18 11:49 ABG O2 Saturation 82 % (95-98) L 02/05/18 11:49 Calcium 7.3 mg/dL (8.6-10.3) L 02/12/18 04:30 Phosphorus 4.2 mg/dL (2.7-4.5) 02/06/18 04:15 Magnesium 2.0 mg/dL (1.6-2.6) 02/12/18 04:30 Consult Discharge Plan - Plan Referrals: Guero Clement DO [Primary Care Provider] - 02/18/18 1:00 pm ()
[2018-02-12] MEDS: Fenofibrate 54 MG TABLET PO SCH (11:42)
--- NOTE | 2018-02-12 15:01 | Infectious Disease Progress No ---
Date of Encounter: 02/12/18 Time of Encounter: 14:59 - Assessment and Plan (1) Sepsis Current Visit: Yes Status: Resolved The patient had 3 sepsis criteria plus hypotension. Likely secondary to bacteremia, right great toe infection, and UTI. WBC normalized. Tachycardia resolved. Afebrile. Peripheral blood cultures obtained 02/05/18 are positive for MRSA 2 sets. Additional blood cultures drawn 02/06/18 x 2 sets from a peripheral stick are positive 2/2 sets as well as 2/2 sets from the Perma-cath. Repeat peripheral blood cultures drawn 02/09/18 are NGTD x 2 sets. Qualifiers: Qualified Code(s): A41.01 - Sepsis due to Methicillin susceptible Staphylococcus aureus (2) Bacteremia Current Visit: Yes Status: Acute Causative organism: MRSA. Source: right great toe vs. Perma-cath. Peripheral blood cultures drawn 02/05/18 are positive 2/2 sets for MRSA. Repeat peripheral blood cultures drawn 02/06/18 are positive 2/2 sets as well. Cultures drawn from the Perma-cath 02/06/18 are positive 2/2 sets as well. Status post Perm-cath removal 02/07/18 by IR. Repeat peripheral blood cultures drawn 02/09/18 are NGTD x 2 sets. No endocarditis stigmata noted on exam. The patient is having some thoracic back pain which she attributes to the hospital bed, but will have a low threshold for imaging if back pain worsens/ persists. The patient has one major and one minor Modified Self's Criteria. TTE negative for vegetation. FREDIS negative. Continue Vancomycin IV. Pharmacy to dose. Goal trough ~15. Duration of treatment depends on the clinical picture. Monitor renal function and for drug toxicity and dose-adjust antibiotics. (3) Necrosis of toe Current Visit: Yes Status: Acute Location: Right great toe. Etiology: Unclear. The patient does have a known history of PVD. There is also concern that there may be an element of infection as well. X-ray of the right foot was negative for osteomyelitis. Rehabilitation Caseworker been consulted. Will defer additional imaging recommendations and wound care to them. Wound culture positive for MRSA and K. oxytoca. Check ESR and CRP.--> The patient has a documented allergy to penicillin. She states she gets hives. She is unable to tell me when the last time she took penicillin was. We will avoid penicillins at this point. She may benefit from penicillin allergy testing at some point later. Continue Rocephin 2 grams IV daily. Continue vancomycin IV. Pharmacy to dose. Goal trough approximately 15. Duration of treatment depends on the clinical picture. Monitor renal function for drug toxicity and dose adjust antibiotics. (4) Dysuria Current Visit: Yes Status: Resolved The patient reports a one-week history of urinary frequency and dysuria. Culture positive for E. coli. Continue antibiotics as above for now. (5) Encephalopathy Current Visit: Yes Status: Resolved Likely multifactorial: sepsis + hyperammonemia. No focal neuro deficits noted on exam. Improved. Continue to monitor closely. (6) Hyperammonemia Current Visit: Yes Status: Resolved Ammonia level elevated at 76. Etiology unclear. LFTs are normal. Abdominal exam reveals mild tenderness with palpation over the entire abdomen, but nothing focal. CT of the abdomen and pelvis was negative for acute abnormality. Resolved. Further workup and management per the primary team. (7) Anemia Current Visit: Yes Status: Chronic Hemoglobin down to 7.4 on admission. Improved to 9.3 today. No acute bleeding noted on exam. Further workup and management per the primary nephrology teams. Qualifiers: Qualified Code(s): N18.6 - End stage renal disease; D63.1 - Anemia in chronic kidney disease; Z99.2 - Dependence on renal dialysis (8) Chest pain Current Visit: Yes Status: Resolved Etiology unclear. Pain is reproducible on exam. EKGs have been unchanged. CT of the chest was negative. Resolved. Further workup and management per the primary team. Qualifiers: Qualified Code(s): R07.9 - Chest pain, unspecified (9) Pulmonary HTN Current Visit: No Status: Chronic (10) CAD (coronary artery disease) Current Visit: No Status: Chronic Qualifiers: Qualified Code(s): I25.10 - Atherosclerotic heart disease of [place] coronary artery without angina pectoris (11) KEMAR (obstructive sleep apnea) Current Visit: Yes Status: Chronic (12) ESRD (end stage renal disease) Current Visit: No Status: Chronic Nephrology has been consulted to assist with HD management. We will dose adjust antibiotics based on HD status. (13) COPD (chronic obstructive pulmonary disease) Current Visit: No Status: Chronic Qualifiers: Qualified Code(s): J44.1 - Chronic obstructive pulmonary disease with (acute ) exacerbation - Subjective Interval history: Patient seen and examined. No acute events noted overnight. Patient will isma started just came back from surgery where she had amputation of the osteomyelitis of the foot and removal of the peritoneal dialysis catheter by Dr. Reyes. Last 24 hours patient is afebrile, no tachycardia and improved WBC 10,000. Cultures from 02/09/2018 1 out of 2 sets positive for gram-positive cocci final ID pending Repeat cultures on 02/11/2018 no growth to date Infect Dis PN-Objective Data - Labs CBC & Chem 7: 02/12/18 04:30 02/12/18 04:30 Labs: Laboratory Results - last 24 hr 02/11/18 02/12/18 02/12/18 18:03 00:37 04:30 WBC RBC Hgb Hct MCV MCH MCHC RDW Plt Count MPV Seg Neutrophils % Lymphocytes % Monocytes % Eosinophils % Neutrophils # Lymphocytes # Monocytes # Eosinophils # Platelet Estimate Anisocytosis Macrocytosis ESR Sodium 135 L Potassium 4.1 Chloride 99 Carbon Dioxide 25 BUN 23 H Creatinine 4.31 H Est GFR ( Amer) 13 L Est GFR (Non-Af Amer) 11 L BUN/Creatinine Ratio 5 L Glucose 81 POC Glucose 193 H 99 Calculated Osmolality 283 Calcium 7.3 L Magnesium Stool Occult Blood 02/12/18 02/12/18 02/12/18 04:30 04:30 04:30 WBC 10.1 RBC 3.12 L Hgb 9.9 L Hct 31.2 L MCV 100.0 MCH 31.7 MCHC 31.7 RDW 18.9 H Plt Count 263 MPV 9.7 Seg Neutrophils % 70.0 Lymphocytes % 20.0 Monocytes % 4.0 Eosinophils % 6.0 Neutrophils # 7.1 Lymphocytes # 2.0 Monocytes # 0.4 Eosinophils # 0.6 Platelet Estimate Normal Anisocytosis 1+ A Macrocytosis Present A ESR 100 H Sodium Potassium Chloride Carbon Dioxide BUN Creatinine Est GFR ( Amer) Est GFR (Non-Af Amer) BUN/Creatinine Ratio Glucose POC Glucose Calculated Osmolality Calcium Magnesium 2.0 Stool Occult Blood 02/12/18 04:40 WBC RBC Hgb Hct MCV MCH MCHC RDW Plt Count MPV Seg Neutrophils % Lymphocytes % Monocytes % Eosinophils % Neutrophils # Lymphocytes # Monocytes # Eosinophils # Platelet Estimate Anisocytosis Macrocytosis ESR Sodium Potassium Chloride Carbon Dioxide BUN Creatinine Est GFR ( Amer) Est GFR (Non-Af Amer) BUN/Creatinine Ratio Glucose POC Glucose Calculated Osmolality Calcium Magnesium Stool Occult Blood Positive A Cultures: Cultures 02/09/18 11:35 Blood Culture - Preliminary Peripheral Venipuncture Gram Positive Cocci 02/11/18 16:11 Blood Culture - Preliminary Peripheral Venipuncture Culture is incubating and being continuously monitored for growth. Final report to follow. 02/11/18 16:11 Blood Culture - Preliminary Peripheral Venipuncture Culture is incubating and being continuously monitored for growth. Final report to follow. 02/07/18 15:24 Catheter Tip Culture - Final Intravenous or Arterial Cath Methicillin Resistant S.aureus 02/09/18 08:08 Blood Culture - Preliminary Peripheral Venipuncture Culture is incubating and being continuously monitored for growth. Final report to follow. 02/05/18 14:10 Body Fluid Culture - Final Peritoneal Fluid 02/05/18 11:20 Blood Culture - Final Peripheral Venipuncture Methicillin Resistant S.aureus 02/05/18 11:20 Blood Culture - Final Peripheral Venipuncture Methicillin Resistant S.aureus 02/06/18 03:22 Blood Culture - Final Peripheral Venipuncture Methicillin Resistant S.aureus 02/06/18 14:39 Blood Culture - Final Central Venous Catheter Methicillin Resistant S.aureus 02/06/18 03:22 Blood Culture - Final Peripheral Venipuncture Methicillin Resistant S.aureus 02/06/18 14:39 Blood Culture - Final Central Venous Catheter Methicillin Resistant S.aureus 02/05/18 13:50 Urine Culture - Final Urine,Catheterized Escherichia coli 02/05/18 13:30 Wound Culture - Final Right Great Toe Klebsiella oxytoca Staphylococcus aureus Serology 02/12/18 02/05/18 02/05/18 Range/Units 04:40 16:57 14:10 Ur Specimen Adequacy Urine Color (Yellow) Urine Clarity (Clear) Urine pH (5.0-8.0) pH Units Ur Specific Clark (1.010-1.025) Urine Protein (Neg-Trace) mg/dL Urine Glucose (UA) (Normal) mg/dL Urine Ketones (Negative) mg/dL Urine Blood (Negative) Urine Nitrite (Negative) Urine Bilirubin (Negative) Urine Urobilinogen (Normal) mg/dL Ur Leukocyte Esterase (Negative) Urine Microscopic RBC (0-3) per hpf Urine Microscopic WBC (0-3) per hpf Ur Squamous Epith Cells (None-Few) per lpf Urine Bacteria (None-Few) per hpf Hyaline Casts (None-Few) per lpf Ur Culture Indicated? (NO) Peritoneal Appearance HAZY (Clear) Peritoneal Volume TNP Peritoneal RBC TNP Periton Tot Nuc Cells TNP Periton Neutrophils 62.0 % Periton Band Neuts 2.0 % Periton Lymphocytes % 24.0 % Periton Monocytes % 12.0 % Stool Occult Blood Positive A (Negative) A. baumannii (PCR) (Not Detect) Lynne albicans (PCR) (Not Detect) C. glabrata (PCR) (Not Detect) C. krusei (PCR) (Not Detect) C. parapsilosis (PCR) (Not Detect) C. tropicalis (PCR) (Not Detect) Enterobacteriac sp PCR (Not Detect) E. cloacae complex PCR (Not Detect) Enterococcus sp PCR (Not Detect) E. coli (PCR) (Not Detect) H. influenzae (PCR) (Not Detect) Hep Bs Antigen Nonreactive (Nonreactive) Hep Bs Antibody 0.00 mIU/mL Klebsiella oxytoca PCR (Not Detect) Klebsiella pneumoniae (Not Detect) List. monocytogenes PCR (Not Detect) N. meningitidis (PCR) (Not Detect) Proteus species (PCR) (Not Detect) Serratia marcescens PCR (Not Detect) Staphylococcus sp PCR (Not Detect) Staph aureus (PCR) (Not Detect) mecA-Methicil Res Gene (Not Detect) Streptococcus sp PCR (Not Detect) Group A Strep DNA (Not Detect) Group B Strep (PCR) (Not Detect) Strep pneumoniae (PCR) (Not Detect) P. aeruginosa (PCR) (Not Detect) Aki/B-Vanco Res Genes (Not Detect) KPC (blaKPC) Detect PCR (Not Detect) 02/05/18 02/05/18 Range/Units 11:20 10:58 Ur Specimen Adequacy See below A Urine Color Yellow (Yellow) Urine Clarity Turbid A (Clear) Urine pH 6.0 (5.0-8.0) pH Units Ur Specific Clark 1.017 (1.010-1.025) Urine Protein >=300 H (Neg-Trace) mg/dL Urine Glucose (UA) 250 H (Normal) mg/dL Urine Ketones Negative (Negative) mg/dL Urine Blood Moderate H (Negative) Urine Nitrite Negative (Negative) Urine Bilirubin Negative (Negative) Urine Urobilinogen Normal (Normal) mg/dL Ur Leukocyte Esterase Large H (Negative) Urine Microscopic RBC 15-30 H (0-3) per hpf Urine Microscopic WBC TNTC H (0-3) per hpf Ur Squamous Epith Cells Many H (None-Few) per lpf Urine Bacteria Many H (None-Few) per hpf Hyaline Casts None Seen (None-Few) per lpf Ur Culture Indicated? NO. A (NO) Peritoneal Appearance (Clear) Peritoneal Volume Peritoneal RBC Periton Tot Nuc Cells Periton Neutrophils % Periton Band Neuts % Periton Lymphocytes % % Periton Monocytes % % Stool Occult Blood (Negative) A. baumannii (PCR) Not Detected (Not Detect) Lynne albicans (PCR) Not Detected (Not Detect) C. glabrata (PCR) Not Detected (Not Detect) C. krusei (PCR) Not Detected (Not Detect) C. parapsilosis (PCR) Not Detected (Not Detect) C. tropicalis (PCR) Not Detected (Not Detect) Enterobacteriac sp PCR Not Detected (Not Detect) E. cloacae complex PCR Not Detected (Not Detect) Enterococcus sp PCR Not Detected (Not Detect) E. coli (PCR) Not Detected (Not Detect) H. influenzae (PCR) Not Detected (Not Detect) Hep Bs Antigen (Nonreactive) Hep Bs Antibody mIU/mL Klebsiella oxytoca PCR Not Detected (Not Detect) Klebsiella pneumoniae Not Detected (Not Detect) List. monocytogenes PCR Not Detected (Not Detect) N. meningitidis (PCR) Not Detected (Not Detect) Proteus species (PCR) Not Detected (Not Detect) Serratia marcescens PCR Not Detected (Not Detect) Staphylococcus sp PCR DETECTED A (Not Detect) Staph aureus (PCR) DETECTED A (Not Detect) mecA-Methicil Res Gene DETECTED A (Not Detect) Streptococcus sp PCR Not Detected (Not Detect) Group A Strep DNA Not Detected (Not Detect) Group B Strep (PCR) Not Detected (Not Detect) Strep pneumoniae (PCR) Not Detected (Not Detect) P. aeruginosa (PCR) Not Detected (Not Detect) Aki/B-Vanco Res Genes Not Detected (Not Detect) KPC (blaKPC) Detect PCR Not Detected (Not Detect) - Impressions Impressions Guidance Ultrasound 02/10/18 00:00 IMPRESSION: Successful ultrasound-guided placement of an non tunneled temporary dialysis catheter. Postprocedure chest radiograph to follow. D/ / John Paul Villarreal / John Paul Villarreal Interpreting Provider: John Paul Villarreal Insertion Non-Tunneled Catheter 02/10/18 00:00 IMPRESSION: Successful ultrasound-guided placement of an non tunneled temporary dialysis catheter. Postprocedure chest radiograph to follow. D/ / John Paul Villarreal / John Paul Villarreal Interpreting Provider: John Paul Villarreal Exam - Constitutional Vitals: Temp Pulse Resp BP Pulse Ox 98.3 F 79 17 164/72 96 02/12/18 11:04 02/12/18 11:04 02/12/18 11:04 02/12/18 11:04 02/12/18 11:04 General appearance: cooperative, no acute distress, no febrile - Respiratory Respiratory exam: Present: CTAB. Absent: wheezes - Cardiovascular Cardiovascular exam: Present: RRR, +S1, +S2 - GI/Abdominal GI/Abdominal exam: Present: normal bowel sounds, soft. Absent: tenderness - Extremities Exam Additional comments: Status post surgically. Foot surgically wrapped. Consult Discharge Plan - Plan Referrals: Guero Clement DO [Primary Care Provider] - 02/18/18 1:00 pm ()
--- NOTE | 2018-02-12 17:13 | Orthopedic Operative Note ---
Date of procedure: 02/12/18 Pre-op diagnosis: #1 necrotic gangrenous toe #1 right foot Post-op diagnosis: same Procedure: 02/12/18 17:06 #1: Amputation right great toe at the level of the MTPJ and primary closure Implants: None Complications: None Anesthesia: MAC, local Local Anesthetics: 0.25% Sensorcaine HCL SubQ (cc) Surgeon: Qamar Denny Was there an web marketing assistant present: No Estimated blood loss (cc): 5 Tourniquet Time (Minutes): 0 Specimen: #1 right great toe Condition: stable Disposition: floor Procedure in Detail: 02/12/18 17:07 Details in summary of procedure: The patient was brought to surgical suite. Sign in procedure was performed. Patient then transferred surgical table and positioned properly safely securely. Right foot was elevated on a foam block. Anesthetic timeout was taken. Right ankle was prepped with alcohol 3 times and ankle block was carried out without difficulty or complication using properly 15 mL of Marcaine with clonidine. No complications. To expedite the patient's care Dr. Reyes then undertook removal of the peritoneal dialysis catheter, without difficulty. Patient was then returned my care. Right foot was then prepped and draped in usual sterile manner. Surgical timeout was taken. Noted ischemic necrosis of the right great toe encompassing the distal one half of the toe. Incision was then begun on the medial aspect of the surgical neck of the first metatarsal brought distally to the level of the proximal phalanx midshaft and then transversely dorsally and transversely plantarly meeting in the webspace. Division of the extensor tendon and flexor tendon were undertaken with the original incision consecutively. At that juncture to avoid extensive dissection the head of the proximal phalanx was then resected dorsal plantar fashion using command power saw the toe was then amputated at that level. Meticulous dissection level of periosteum the remaining proximal phalanx at the level of periosteum from distal to proximal then dividing the dorsal medial lateral collateral ligaments of the metatarsal phalangeal joint. Head of the first metatarsal was noted to be pristine. One active bleeder was noted which was the lateral proper digital artery to the great toe. Judicious use of Bovie afforded hemostasis. Skin edges were viable and noted to bleed freely without necessitating use of ligature Bovie. At that juncture to we do see amount of stress on the closure he distal medial aspect of the head of the first metatarsal was resected dorsal plantar fashion using command power saw. This afforded less tension for closure. At that point the flexor tendon was grasped and sewn to the dorsal periosteum with 3-0 Vicryl 2. Skin was repaired with 3-0 Prolene interrupted.. We are able to close the skin without tension. The wound was sprayed with PRP prior to closure. Wound was then dressed with Adaptic 4 x 4's and Kerlix a mild compressive dressing. Capillary rebound time is less than 3 seconds on the dorsal and plantar flap. Noted there is no evidence of necrosis or infectious process at the level of the amputation site. Patient tolerated procedure well and was sent to holding room in good condition with vital signs stable S May blood loss less than 5 mL.
[2018-02-12] MEDS ORDERED: Naloxone 0.4 MG/ML INJ IVP PRN (19:42)
[2018-02-12] MEDS ORDERED: D5% in Water 1,000 ML IVC PRN (19:42)
[2018-02-12] MEDS ORDERED: 0.9 % Sodium Chloride 250 ML IVC PRN (19:42)
[2018-02-12] MEDS ORDERED: Vancomycin 1 EACH in EMPTY BAG 1 EACH IVPB SCH (19:42)
[2018-02-12] MEDS ORDERED: Dextrose Gel 15 GM/37.5 ML TUBE PO PRN ×2 (19:42)
[2018-02-12] MEDS ORDERED: *HR* Dextrose 50 % in Water (Syg) 50 ML SYRINGE IVP PRN (19:42)
[2018-02-12] MEDS ORDERED: *HR* Heparin 10,000 UNIT/10 ML VIAL IV PRN (19:42)
[2018-02-12] MEDS ORDERED: *HR* Promethazine 25 MG/ML VIAL IVP PRN (19:42)
[2018-02-12] MEDS ORDERED: 0.9 % Sodium Chloride 1,000 ML PRIME SCH (19:42)
[2018-02-12] MEDS: Insulin DETEMIR 100 UNIT/ML X5UNITS SQ SCH (21:03)
[2018-02-12] MEDS: Melatonin 3 MG TABLET PO PRN (21:07)
[2018-02-13] MEDS: Metoclopramide 10 MG/2 ML VIAL IVP SCH ×3 (00:13→12:12)
[2018-02-13] MEDS: traMADol 50 MG TABLET PO PRN ×2 (01:15→08:24)
[2018-02-13] MEDS: Insulin LISPRO 300 UNITS/3 ML VIAL SQ SCH ×4 (01:24→17:44)
[2018-02-13 03:57] LABS: Hematocrit 28.6 % (35.3-44.9); Mean Corpuscular HGB Conc 31.5 g/dL (31.6-35.5); Mean Corpuscular Hemoglobin 31.8 pg (28.0-33.3); Mean Corpuscular Volume 101.1 fL (83.0-100.0); Mean Platelet Volume 9.4 fL (9.4-12.4); Platelet Count 247 K/mcL (140-400); Red Blood Count 2.83 M/mcL (3.82-4.97); Red Cell Distribution Width 18.6 % (11.5-14.5)
[2018-02-13 04:20] LABS: Albumin 2.3 g/dL (3.5-5.7); Albumin/Globulin Ratio 0.9 (1.1-2.2); Bilirubin,Total 0.5 mg/dL (0.3-1.0); Calcium 6.9 mg/dL (8.6-10.3); Globulin 2.6 g/dL (2.4-3.5); Potassium 3.9 mEq/L (3.5-5.1); Total Protein 4.9 g/dL (6.4-8.9)
[2018-02-13] MEDS ORDERED: Pantoprazole 40 MG VIAL IVP SCH (06:00)
[2018-02-13] MEDS ORDERED: *HR* Heparin 10,000 UNIT/10 ML VIAL IV PRN (07:49)
[2018-02-13] MEDS ORDERED: 0.9 % Sodium Chloride 250 ML IVC PRN (07:49)
[2018-02-13] MEDS ORDERED: 0.9 % Sodium Chloride 1,000 ML PRIME SCH (08:00)
[2018-02-13] MEDS: Furosemide 40 MG TABLET PO SCH ×2 (08:13→17:36)
[2018-02-13] MEDS: Isosorbide MONOnitrate (24 HR) 30 MG TAB.ER.24H PO SCH (08:14)
[2018-02-13] MEDS: Gabapentin 100 MG CAPSULE PO SCH ×3 (08:14→20:08)
[2018-02-13] MEDS: Fenofibrate 54 MG TABLET PO SCH (08:14)
[2018-02-13] MEDS: Metoprolol 100 MG TABLET PO SCH (08:14)
[2018-02-13] MEDS: cefTRIAXone 2,000 MG in Water for inj. (sterile) 20 ML 20 ML IVP SCH (08:15)
[2018-02-13] MEDS: Sucralfate 1 GM TABLET PO SCH ×3 (08:15→17:37)
[2018-02-13] MEDS ORDERED: 0.9 % Sodium Chloride 1,000 ML ONE (08:34)
[2018-02-13] MEDS ORDERED: Tiotropium 18 MCG inhalation IH SCH (09:00)
--- NOTE | 2018-02-13 09:09 | Internal Med Progress Note ---
<Mik Choi Francisco Javier - Last Filed: 02/13/18 12:38> Hospitalist Progress Note - Encounter Date of Encounter: 02/13/18 Time of Encounter: 09:07 - Subjective Interval History: Patient reports doing well overnight, back pain has resolved. Has pain of right toe as she is POD 1 amputation. Patient also reports that she has been nibbling on some food, but just not feeling like eating, but also not nauseated. She had her peritoneal dialysis cath removed yesterday as well. Denies fevers, chills, sweats, nausea, vomiting, chest pain, shortness of breath , abdominal pain, changes in bowels or bladder, weakness, new loss of sensation , or new rahses or lesions. - Exam Vitals: Temp Pulse Resp BP Pulse Ox 98.6 F 84 16 136/60 96 02/13/18 07:25 02/13/18 07:25 02/13/18 07:53 02/13/18 07:25 02/13/18 07:53 Exam: General :awake, alert and oriented x 4, no acute distress, comfortable in bed HEENT: Atraumatic, normocephalic, moist mucus membranes Cardiac: RRR, no murmur, +S1/S2, no edema Pulmonary: Clear to ausculation, no wheezes, rhonchi or rales Abdomen: soft, nontender, no guarding, dressings over previous PD cath area, no PD cath, dialysis cath R upper chest Extremities: no LE edema, R hallux amputated, dressing with some blood, dry and intact, all other extremities normal, no edema, or cyanosis Neuro: Equal strength bilaterally all extremities, sensation decrease lower extremities, normal upper extremities. - Assessment and Plan (1) Sepsis Current Visit: Yes Status: Resolved Assessment and Plan: Resolved. Septic on admission of 02/05 with Temp of 103.2F, elevated WBC 16, tachycardic, and Lactic acid 3.9 Blood cultures 02/05 and 02/06-final for MRSA Blood cultures 02/09-gram positive cocci Dialysis cath tip culture 02/07/18-final for MRSA Blood cultures 02/11/18-pending Urine cultures with E.coli, sensitivities reported Wound culture of R Hallucs: Klebsiella and Staph aureus with sensitivities reported Bacteremia secondary to necrotic toe vs UTI vs infected dialysis cath Tunneled dialysis catheter removed 02/07/18 Trans esophageal echo 02/09/18 revealed EF 60-65%, normal LV, RV normal, mild mitral regurg, normal pericardium, no vegetations POD 1 peritoneal dialysis cath removal POD 1 Right hallux amputation -ID on board, continue following recommendations -Continue with Vancomycin d9, Rocephin d4, complete cefepime d5 Afebrile, nontachycardic, wbc 10.4 this morning -Continue monitoring labs and blood cultures -Repeat blood culture as removed suspected source (necrotic toe) and a possible other source (peritoneal dialysis). However, if this blood culture starts to grow, then need to consider a true line holiday as there has been no holiday from all sources. (2) Encephalopathy acute Current Visit: Yes Status: Resolved Assessment and Plan: Presented with AMS, suspected likely due to sepsis, possible hyperammonemia, and hypoxia noted on ABG not pulse ox Resolved (3) Bacteremia Current Visit: Yes Status: Acute Assessment and Plan: Bacteremia, secondary to MRSA from dialysis cath vs necrotic toe vs UTI Tunneled dialysis catheter removed 02/07/18 and tip sent for culture and MRSA positive Trans esophageal echo 02/09/18 revealed EF 60-65%, normal LV, RV normal, mild mitral regurg, normal pericardium, no vegetations Peritoneal dialysis cath removed 02/12/18, tip not sent for culture per plan in assessment above (4) Necrosis of toe Current Visit: Yes Status: Acute Assessment and Plan: Found to have R hallux necrosis on arrival Likely source of MRSA bacteremia XR foot revealed no evidence of osteomyelitis, no obvious gas identified. Wound culture grew Klebsiella and MRSA, sensitivities in report POD 1 02/12/18 R hallux amputation -Antibiotics per assessments above. -Pain medications ordered, difficult to decide as allergies. Continue with tylenol and tramadol prn (5) Nausea & vomiting Current Visit: Yes Status: Resolved Assessment and Plan: Resolved. Patient developed some nausea and vomiting night of admission Vomitus was visualized as brown, questionable if feculent. No abdominal pain, did have bowel movement overnight. EGD revealed multiple healed clotted over ulcers (6) Chest pain Current Visit: Yes Status: Resolved Assessment and Plan: Patient presented with chest pain. Symptoms resolved overnight, no active chest pain Uncertain etiology EKG with no acute findings/changes from prior, has some T-wave inversion in lateral leads. Troponin adynamic 0.04, 0.05, 0.06 -Echo completed, as noted in assessments above. Troponin elevation likely secondary to sepsis. -Continue telemetry (7) Anemia Current Visit: Yes Status: Chronic Assessment and Plan: Acute on chronic mixed anemia from esrd, iron deficiency, and megaloblastic anemia of unknown etiology. Also concern for upper gi bleed due to brown vomitus and Hb down to 6.9 and improvement with 3 Units pRBC Hb 9.0 this morning Goal Hb in ESRD 10-11 B12 normal, folate high EGD 02/10/18 revealed muliple nonbleeding clotted over gastric ulcers in prepyloric region -Continue protonix IV bid, and sucralfate (8) Elevated troponin Current Visit: Yes Status: Acute Assessment and Plan: as noted above. Cardio signed off. (9) Hyperammonemia Current Visit: Yes Status: Resolved Assessment and Plan: AMS upon arrival now resolved. Ammonia level on arrival elevated at 76, currently 40. Uncertain etiology. Not necessary to follow as mental status improved and liver enzymes have been normal. (10) ESRD (end stage renal disease) on dialysis Current Visit: Yes Status: Chronic Assessment and Plan: Known ESRD on dialysis MWF initially, now TRS Access on arrival: Right upper chest perma cath and Left abdominal peritoneal cath Permacath removed 02/07/18 per IR Peritoneal dialysis cath removed 02/12/18 R temporary dialysis cath placed 02/11/18 Potassium 3.9 today Corrected calcium 8.5, low normal, albumin 2.3 -Continue monitoring labs -Nephro on board (11) Diabetes Current Visit: No Status: Chronic Assessment and Plan: Known history of diabetes with neuropathy and ESRD on dialysis. No DKA or HHS based on labwork Glucose 142 this morning. -Continue insulin sliding scale and basal insulin Levemir 20 Units qhs -Continue monitoring levels -ADA diet, CV diet (12) CAD (coronary artery disease) Current Visit: No Status: Chronic Assessment and Plan: Known history of CAD with cath and stents in past. Presented with chest pain which is now resolved. EKG on this visit unchanged, troponins adynamic. as noted above (13) COPD (chronic obstructive pulmonary disease) Current Visit: No Status: Chronic Assessment and Plan: Known history of COPD, no acute exacerbation. -Continue home meds for chronic disease management. (14) PAD (peripheral artery disease) Current Visit: Yes Status: Chronic Assessment and Plan: Known history of PAD with leg stents bilaterally -Continue with asa and plavix. (15) Pulmonary HTN Current Visit: No Status: Chronic Assessment and Plan: History mentioned pulmonary hypertension. -Echo completed as above (16) HTN (hypertension) Current Visit: No Status: Chronic Assessment and Plan: Known history of chronic htn Continue monitoring bp -Continue home meds for chronic disease management. (17) KEMAR (obstructive sleep apnea) Current Visit: Yes Status: Chronic Assessment and Plan: Known history of KEMAR, CPAP ordered. (18) UTI (urinary tract infection) Current Visit: Yes Status: Resolved Assessment and Plan: Reported dysuria on arrival UA unimpressive Improved symptoms once started on antibiotics, currently Resolved symptoms Urine culture-E.coli, sensitivities per report. (19) Hypokalemia Current Visit: Yes Status: Resolved Assessment and Plan: Resolved Hypokalemia in ESRD on dialysis Potassium 3.9 this morning. -Neprho on board -Continue following labs. (20) Hypocalcemia Current Visit: Yes Status: Acute Assessment and Plan: Corrected calcium 8.3-8.5. Will replete, calcium gluconate. (21) DVT prophylaxis Current Visit: Yes Status: Acute Assessment and Plan: EPCDs DVT Prophylaxis: EPCDs - Time Spent with Patient Total time spent is greater than 50% in coordination of care (as documented) at patient's floor/unit and/or counseling patient: Internal Medicine: Result - Labs CBC & Chem 7: 02/13/18 03:54 02/13/18 03:54 Labs: Short CBC 02/13/18 Range/Units 03:54 WBC 10.4 (4.3-11.1) K/mcL Hgb 9.0 L (11.5-15.4) g/dL Hct 28.6 L (35.3-44.9) % Plt Count 247 (140-400) K/mcL BMP 02/13/18 03:54 Sodium 132 L Potassium 3.9 Chloride 97 L Carbon Dioxide 24 BUN 31 H Creatinine 5.28 H Glucose 142 H Calcium 6.9 L Liver Function 02/13/18 Range/Units 03:54 Total Bilirubin 0.5 (0.3-1.0) mg/dL AST 69 H (13-39) Units/L ALT 18 (7-52) Units/L Alkaline Phosphatase 83 (34-104) Units/L Albumin 2.3 L (3.5-5.7) g/dL - ABG Interpretation ABG results: ABG ABG pH 7.47 pH Units (7.32-7.45) H 02/05/18 11:49 ABG pCO2 35 mmHg (35-45) 02/05/18 11:49 ABG pO2 43 mmHg (85-104) L* 02/05/18 11:49 ABG O2 Saturation 82 % (95-98) L 02/05/18 11:49 PT/INR, D-dimer PT 16.0 Seconds (9.4-12.1) H 02/05/18 11:20 - Impressions Impressions Foot X-Ray 02/12/18 19:42 IMPRESSION: Interval resection of the right great toe. D/ / Junie Gaston Cha, MD / Junie Gaston Cha, MD Interpreting Provider: Junie Gaston Cha, MD Consult Discharge Plan - Plan Referrals: Mayela Ayoub CNP [Advanced Practice Nurse] - 02/26/18 9:00 am Guero Clement DO [Primary Care Provider] - 02/18/18 1:00 pm () <Denia Carranza - Last Filed: 02/13/18 14:14> Hospitalist Progress Note - Encounter Date of Encounter: 02/13/18 - Exam Vitals: Temp Pulse Resp BP Pulse Ox 98.4 F 78 18 148/63 99 02/13/18 11:04 02/13/18 11:04 02/13/18 11:04 02/13/18 11:04 02/13/18 11:04 - Assessment and Plan (1) Sepsis Current Visit: Yes Status: Resolved (2) Necrosis of toe Current Visit: Yes Status: Acute (3) Chest pain Current Visit: Yes Status: Resolved (4) ESRD (end stage renal disease) on dialysis Current Visit: Yes Status: Chronic (5) Diabetes Current Visit: Yes Status: Chronic (6) HTN (hypertension) Current Visit: Yes Status: Acute (7) COPD (chronic obstructive pulmonary disease) Current Visit: No Status: Chronic (8) Pulmonary HTN Current Visit: No Status: Chronic (9) CAD (coronary artery disease) Current Visit: No Status: Chronic (10) KEMAR (obstructive sleep apnea) Current Visit: Yes Status: Chronic (11) CHF (congestive heart failure) Current Visit: Yes Status: Deleted (12) DVT prophylaxis Current Visit: Yes Status: Acute (13) Encephalopathy Current Visit: Yes Status: Resolved - Time Spent with Patient Total time spent is greater than 50% in coordination of care (as documented) at patient's floor/unit and/or counseling patient: Internal Medicine: Result - Labs CBC & Chem 7: 02/13/18 03:54 02/13/18 03:54 Labs: Short CBC 02/13/18 Range/Units 03:54 WBC 10.4 (4.3-11.1) K/mcL Hgb 9.0 L (11.5-15.4) g/dL Hct 28.6 L (35.3-44.9) % Plt Count 247 (140-400) K/mcL BMP 02/13/18 03:54 Sodium 132 L Potassium 3.9 Chloride 97 L Carbon Dioxide 24 BUN 31 H Creatinine 5.28 H Glucose 142 H Calcium 6.9 L Liver Function 02/13/18 Range/Units 03:54 Total Bilirubin 0.5 (0.3-1.0) mg/dL AST 69 H (13-39) Units/L ALT 18 (7-52) Units/L Alkaline Phosphatase 83 (34-104) Units/L Albumin 2.3 L (3.5-5.7) g/dL - ABG Interpretation ABG results: ABG ABG pH 7.47 pH Units (7.32-7.45) H 02/05/18 11:49 ABG pCO2 35 mmHg (35-45) 02/05/18 11:49 ABG pO2 43 mmHg (85-104) L* 02/05/18 11:49 ABG O2 Saturation 82 % (95-98) L 02/05/18 11:49 PT/INR, D-dimer PT 16.0 Seconds (9.4-12.1) H 02/05/18 11:20 - Impressions Impressions Foot X-Ray 02/12/18 19:42 IMPRESSION: Interval resection of the right great toe. D/ / Junie Gaston Cha, MD / Junie Gaston Cha, MD Interpreting Provider: Junie Gaston Cha, MD - Attending Attestation I examined this patient and my medical decision-making was reviewed with the Resident Physician Dr Choi. I agree with the documented findings, disposition and treatment plan as described except to the extent set forth below /addl details as below. Ms Jain was admitted with sepsis 2/2 bacteremia, right toe infection/ necrosis and found to have altered mental status, now resolved, anemia with hgb drop and GI consultation, chest pain. She is s/p toe amputation 02/12 and PD cath removal same day. Awake, resting in bed. Denies fevers, chills, nausea, emesis. Denies pain in foot. Some abd soreness at site of pd cath removal. gen- awake, alert, appears stated age eyes- pupils equal round cv- reg rate and rhythm, normal s1,s2, no murmurs appreciated, no le edema, dp/ pt pulses intact and equal lungs- ctabl, no wheezing, rhonchi or crackles, normal resp effort skin- right foot dressing c/d/i abd- soft, non tender, non distended, + bs Sepsis, resolved with MRSA bacteremia and R hallus klebsiella and Staph aureus infection- suspected source is necrotic toe, possibly PD cath ID following, cont IV vanc -likely to need 4-6 weeks iv vanc on dc Peripheral blood cultures drawn 02/05 are positive 2/2 sets for MRSA. peripheral blood cultures drawn 02/06/18 are positive 2/2 sets for MRSA cultures drawn from the Perma-cath 02/06/18 are positive 2/2 sets for MRSA Status post Perm-cath removal 02/07/18 by IR. catheter tip 02/07 positive for MRSA 02/09 bl cxs gpc + 1/2 sets 02/11 repeat cultures ngtd 02/13 bl cxs to be sent to have cxs with toe and pd cath removed IR placement of temp HD cath 02/10, ideally when bl cxs grow negative, however deferred to Nephro, will need a perm cath placed prior to dc per nephro however needs neg cxs first Peritoneal dialysis removed by surgery 02/12 - wound care with iodoform packing changed daily for the next 7 days - surgery signed off Toe amputation 02/12 FREDIS neg for vegetation Low back pain - if worsens (pt says from being in bed) low threshold to image Necrosis of toe, right- wound cx as above, podiatry following, amputation 02/12, cont iv vanc + rocephin nonweightbearing right lower extremity will be dispensed a OrthoWedge shoe by podiatry to help offload the forefoot when ambulatory. Follow-up with Dr. Denny in wound care clinic next week. ESRD on HD MWF- nephro following Chest Pain, resolved, mild trop elevation and stable likely 2/2 sepsis on admit - seen by cards, she will fu outpt, FREDIS neg Acute on Chronic Anemia, multifactorial, stable Gastric Ulcers, Anemia of Chronic Disease -did have episode of brown emesis with hgb drop and concern if this could be ugib, vs feculent on admit gi following, egd 02/10 3 gastric ulcers with adherent clot, bx taken, , ppi + carafate vte ppx scds only beginning dispo plan- Consult VAT for Powerglide placement prior to discharge. Will need weekly CBC, BUN/Cr, ESR, and CRP. Will need weekly IV care per protocol. Follow up with ID 02/26/18 at 0900. pt/ot evals for dispo recs- inpt swing bed <Mik Choi - Last Filed: 02/13/18 12:38> (1) Sepsis Qualifiers: Sepsis type: methicillin susceptible Staphylococcus aureus Qualified Code(s) : A41.01 - Sepsis due to Methicillin susceptible Staphylococcus aureus (5) Nausea & vomiting Qualifiers: Vomiting type: unspecified Vomiting Intractability: unspecified Qualified Code(s): R11.2 - Nausea with vomiting, unspecified (6) Chest pain Qualifiers: Chest pain type: unspecified Qualified Code(s): R07.9 - Chest pain, unspecified (7) Anemia Qualifiers: Anemia type: due to chronic kidney disease Chronic kidney disease stage: on chronic dialysis Qualified Code(s): N18.6 - End stage renal disease; D63.1 - Anemia in chronic kidney disease; Z99.2 - Dependence on renal dialysis (11) Diabetes Qualifiers: Diabetes mellitus type: type 2 Diabetes mellitus mcfp insulin use: with mcfp use Diabetes mellitus complication status: without complication Qualified Code(s): E11.9 - Type 2 diabetes mellitus without complications; 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 transplanted heart: [place] heart Associated angina: without angina Qualified Code(s): I25.10 - Atherosclerotic heart disease of [place] coronary artery without angina pectoris (13) COPD (chronic obstructive pulmonary disease) Qualifiers: COPD type: unspecified COPD Qualified Code(s): J44.9 - Chronic obstructive pulmonary disease, unspecified (16) HTN (hypertension) Qualifiers: Hypertension type: essential hypertension Qualified Code(s): I10 - Essential (primary) hypertension (18) UTI (urinary tract infection) Qualifiers: Urinary tract infection type: site unspecified Hematuria presence: without hematuria Qualified Code(s): N39.0 - Urinary tract infection, site not specified <Denia Carranza - Last Filed: 02/13/18 14:14> (1) Sepsis Qualifiers: Sepsis type: methicillin susceptible Staphylococcus aureus Qualified Code(s) : A41.01 - Sepsis due to Methicillin susceptible Staphylococcus aureus (3) Chest pain Qualifiers: Chest pain type: unspecified Qualified Code(s): R07.9 - Chest pain, unspecified (5) Diabetes Qualifiers: Diabetes mellitus type: type 2 Diabetes mellitus mcfp insulin use: with mcfp use Diabetes mellitus complication status: with kidney complications Diabetes mellitus complication detail: with chronic kidney disease Chronic kidney disease stage: on chronic dialysis Qualified Code(s): E11.22 - Type 2 diabetes mellitus with diabetic chronic kidney disease; N18.6 - End stage renal disease; 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 transplanted heart: [place] heart Associated angina: without angina Qualified Code(s): I25.10 - Atherosclerotic heart disease of [place] coronary artery without angina pectoris (11) CHF (congestive heart failure) Qualifiers: Heart failure type: unspecified Heart failure chronicity: chronic Qualified Code(s): I50.9 - Heart failure, unspecified
--- NOTE | 2018-02-13 09:33 | General Surgery Progress Note ---
<Fidelia Mauro - Last Filed: 02/13/18 09:41> Date of Encounter: 02/13/18 Time of Encounter: 09:31 - Assessment and Plan (1) ESRD on peritoneal dialysis Current Visit: No Status: Acute POD1 from peritoneal dialysis catheter removal; patient tolerated well and pain has improved - wound care with iodoform packing changed daily for the next 7 days Surgery will sign off at this time, thank you for involving us in this patient' s care, please feel free to contact us with any questions Subjective Patient reports: feels better, pain is less, afebrile Objective Vital Signs - Last 8 Hours Temp Pulse Resp BP Pulse Ox 02/13/18 07:53 16 96 02/13/18 07:25 98.6 F 84 16 136/60 97 02/13/18 04:40 16 95 02/13/18 03:55 98.3 F 115 16 136/54 96 Intake and Output 02/12/18 02/13/18 02/13/18 23:59 07:59 15:59 Intake Total 240 / 240 120 / 120 Output Total 100 / 100 Balance 140 / 140 120 / 120 Intake: Oral 240 / 240 120 / 120 Output: Urine 100 / 100 Other: Meal Dinner Breakfast Percent of Meal Consumed 100% 50% Stool Size Moderate Stool Consistency loose Stool Color Brown Weight 92.6 kg Blood Glucose* 112 114 Patient Weight 02/13/18 23:59 Weight 92.6 kg - General physical appearance well developed, obese - ENT normal pinna, normal nares, normal mucosa - Respiratory normal expansion, normal respiratory effort, clear to auscultation - Cardiovascular Cardiovascular exam: Present: RRR, no murmurs/rubs/gallops - Abdomen Abdomen: Present: bowel sounds present, non tender, tympanic, distended Hernia: none - Incision Incision: Absent: draining (bandage covering), inflamed, clean and dry - Integumentary no rash, no growths, no abnormal pigmentation - Neurologic CN 2-12 grossly intact, normal coordination, normal sensation - Musculoskeletal normal gait, normal posture - Psychiatric oriented to time, oriented to person, oriented to place, speech is normal - Labs 02/13/18 03:54 02/13/18 03:54 Diabetes panel 02/13/18 Range/Units 03:54 Sodium 132 L (136-145) mEq/L Potassium 3.9 (3.5-5.1) mEq/L Chloride 97 L (98-107) mEq/L Carbon Dioxide 24 (23-29) mEq/L BUN 31 H (6-20) mg/dL Creatinine 5.28 H (0.60-1.20) mg/dL Glucose 142 H (70-105) mg/dL Calcium 6.9 L (8.6-10.3) mg/dL AST 69 H (13-39) Units/L ALT 18 (7-52) Units/L Alkaline Phosphatase 83 (34-104) Units/L Albumin 2.3 L (3.5-5.7) g/dL Calcium panel 02/13/18 Range/Units 03:54 Calcium 6.9 L (8.6-10.3) mg/dL Albumin 2.3 L (3.5-5.7) g/dL Pituitary panel 02/13/18 Range/Units 03:54 Sodium 132 L (136-145) mEq/L Potassium 3.9 (3.5-5.1) mEq/L Chloride 97 L (98-107) mEq/L Carbon Dioxide 24 (23-29) mEq/L BUN 31 H (6-20) mg/dL Creatinine 5.28 H (0.60-1.20) mg/dL Glucose 142 H (70-105) mg/dL Calcium 6.9 L (8.6-10.3) mg/dL Adrenal panel 02/13/18 Range/Units 03:54 Sodium 132 L (136-145) mEq/L Potassium 3.9 (3.5-5.1) mEq/L Chloride 97 L (98-107) mEq/L Carbon Dioxide 24 (23-29) mEq/L BUN 31 H (6-20) mg/dL Creatinine 5.28 H (0.60-1.20) mg/dL Glucose 142 H (70-105) mg/dL Calcium 6.9 L (8.6-10.3) mg/dL Total Bilirubin 0.5 (0.3-1.0) mg/dL AST 69 H (13-39) Units/L ALT 18 (7-52) Units/L Alkaline Phosphatase 83 (34-104) Units/L Albumin 2.3 L (3.5-5.7) g/dL Consult Discharge Plan - Plan Additional Instructions: PWB right lower extremity. Orthowedge shoe for heel transfers. Follow up with Dr. Denny in wound care clinic next week. Referrals: Mayela Ayoub, MARIELLA [Advanced Practice Nurse] - 02/26/18 8:40 am Guero Clement DO [Primary Care Provider] - 02/18/18 1:00 pm () <Chapito Reyes - Last Filed: 02/17/18 14:22> Date of Encounter: 02/13/18 Objective Vital Signs - Last 8 Hours Temp Pulse Resp BP Pulse Ox 02/17/18 12:03 97.7 F 79 18 170/83 98 02/17/18 09:00 73 02/17/18 08:08 98.5 F 82 18 177/76 99 02/17/18 07:37 16 100 Intake and Output 02/16/18 02/17/18 02/17/18 23:59 07:59 15:59 Intake Total 350 / 350 350 / 350 480 / 480 Output Total 300 / 300 200 / 200 Balance 50 / 50 350 / 350 280 / 280 Intake: Oral 480 / 480 Blood Product 350 / 350 350 / 350 Rbcs Leuko Poor As-1 Unit 350 / 350 [id number] Rbcs Leuko Poor As-1 Unit 0 / 0 350 / 350 [id number] Output: Urine 300 / 300 200 / 200 Other: Meal Dinner Lunch Percent of Meal Consumed 95% 95% Stool Size Moderate Moderate Moderate Stool Consistency liquid loose loose liquid Stool Color Brown Brown Brown # Bowel Movements 1 1 Weight 95.3 kg Blood Glucose* 190 210 Patient Weight 02/17/18 23:59 Weight 95.3 kg - Labs 02/17/18 03:48 02/17/18 03:48 Diabetes panel 02/17/18 Range/Units 03:48 Sodium 132 L (136-145) mEq/L Potassium 4.3 (3.5-5.1) mEq/L Chloride 98 (98-107) mEq/L Carbon Dioxide 26 (23-29) mEq/L BUN 21 H (6-20) mg/dL Creatinine 4.31 H (0.60-1.20) mg/dL Glucose 116 H (70-105) mg/dL Calcium 7.6 L (8.6-10.3) mg/dL Calcium panel 02/17/18 Range/Units 03:48 Calcium 7.6 L (8.6-10.3) mg/dL Pituitary panel 02/17/18 Range/Units 03:48 Sodium 132 L (136-145) mEq/L Potassium 4.3 (3.5-5.1) mEq/L Chloride 98 (98-107) mEq/L Carbon Dioxide 26 (23-29) mEq/L BUN 21 H (6-20) mg/dL Creatinine 4.31 H (0.60-1.20) mg/dL Glucose 116 H (70-105) mg/dL Calcium 7.6 L (8.6-10.3) mg/dL Adrenal panel 02/17/18 Range/Units 03:48 Sodium 132 L (136-145) mEq/L Potassium 4.3 (3.5-5.1) mEq/L Chloride 98 (98-107) mEq/L Carbon Dioxide 26 (23-29) mEq/L BUN 21 H (6-20) mg/dL Creatinine 4.31 H (0.60-1.20) mg/dL Glucose 116 H (70-105) mg/dL Calcium 7.6 L (8.6-10.3) mg/dL - Attending Attestation I examined this patient and my medical decision-making was reviewed with the Resident Physician. I agree with the documented findings, disposition and treatment plan as described except to the extent set forth below. The patient is seen and evaluated on morning rounds with the resident and the medical student in the findings discussed with the clinical nurse practitioner incisions are clean and dry with no drainage. No problems after peritoneal dialysis catheter removal. We will sign off Chapito Reyes MD FACS
--- NOTE | 2018-02-13 11:41 | Infectious Disease Progress No ---
Date of Encounter: 02/13/18 Time of Encounter: 10:05 - Assessment and Plan (1) Sepsis Current Visit: Yes Status: Resolved The patient had 3 sepsis criteria plus hypotension. Likely secondary to bacteremia, right great toe infection, and UTI. WBC normalized. Tachycardia resolved. Afebrile. Peripheral blood cultures obtained 02/05/18 are positive for MRSA 2 sets. Additional blood cultures drawn 02/06/18 x 2 sets from a peripheral stick are positive 2/2 sets as well as 2/2 sets from the Perma-cath. Repeat peripheral blood cultures drawn 02/09/18 are positive 1/2 sets. Repeat peripheral blood cultures drawn 02/11/18 are NGTD x 2 sets. Qualifiers: Sepsis type: methicillin susceptible Staphylococcus aureus Qualified Code(s ): A41.01 - Sepsis due to Methicillin susceptible Staphylococcus aureus (2) Bacteremia Current Visit: Yes Status: Acute Causative organism: MRSA. Source: right great toe vs. Perma-cath. Peripheral blood cultures drawn 02/05/18 are positive 2/2 sets for MRSA. Repeat peripheral blood cultures drawn 02/06/18 are positive 2/2 sets as well. Cultures drawn from the Perma-cath 02/06/18 are positive 2/2 sets as well. Status post Perm-cath removal 02/07/18 by IR. Repeat peripheral blood cultures drawn 02/09/18 are positive 1/2 sets. Additional peripheral blood cultures drawn are NGTD x 2 sets. No endocarditis stigmata noted on exam. The patient is having some thoracic back pain which she attributes to the hospital bed, but will have a low threshold for imaging if back pain worsens/ persists. The patient has one major and one minor Modified Self's Criteria. TTE negative for vegetation. FREDIS negative. Continue Vancomycin IV. Pharmacy to dose. Goal trough ~15. Duration of treatment depends on the clinical picture, but likely a total of 4- 6 weeks due to the right great toe infection. Monitor renal function and for drug toxicity and dose-adjust antibiotics. Will discuss with Nephrology, nut hopefully we can give the Vancomycin with HD. (3) Necrosis of toe Current Visit: Yes Status: Acute Location: Right great toe. Etiology: Unclear. The patient does have a known history of PVD. There is also concern that there may be an element of infection as well. X-ray of the right foot was negative for osteomyelitis. Medical Office Specialist been consulted. STatus post amputation of right great toe 02/12/[address] Denny. Intra-op note reviewed. Pathology pending. No cultures were sent. Wound culture positive for MRSA and K. oxytoca. Continue Rocephin 2 grams IV daily. Continue vancomycin IV. Pharmacy to dose. Goal trough approximately 15. Duration of treatment depends on the clinical picture, but likely 4-6 weeks. Monitor renal function for drug toxicity and dose adjust antibiotics. Consult VAT for Powerglide placement prior to discharge. Will need weekly CBC, BUN/Cr, ESR, and CRP. Will need weekly IV care per protocol. Follow up with ID 02/26/18 at 0900. (4) Dysuria Current Visit: Yes Status: Resolved The patient reports a one-week history of urinary frequency and dysuria. Culture positive for E. coli. Continue antibiotics as above for now. (5) Encephalopathy Current Visit: Yes Status: Resolved Likely multifactorial: sepsis + hyperammonemia. No focal neuro deficits noted on exam. Improved. Continue to monitor closely. (6) Hyperammonemia Current Visit: Yes Status: Resolved Ammonia level elevated at 76. Etiology unclear. LFTs are normal. CT of the abdomen and pelvis was negative for acute abnormality. Resolved. Further workup and management per the primary team. (7) Anemia Current Visit: Yes Status: Chronic Hemoglobin down to 7.4 on admission. Improved to 9 today. No acute bleeding noted on exam. Further workup and management per the primary nephrology teams. Qualifiers: Anemia type: due to chronic kidney disease Chronic kidney disease stage: on chronic dialysis Qualified Code(s): N18.6 - End stage renal disease; D63.1 - Anemia in chronic kidney disease; Z99.2 - Dependence on renal dialysis (8) Nausea Current Visit: No Status: Resolved The patient reports persistent nausea for the past couple of weeks. Etiology unclear. GI consulted. Status post EGD that showed non-bleeding gastric ulcers. Resolved. (9) Chest pain Current Visit: Yes Status: Resolved Etiology unclear. Pain is reproducible on exam. EKGs have been unchanged. CT of the chest was negative. Resolved. Further workup and management per the primary team. Qualifiers: Chest pain type: unspecified Qualified Code(s): R07.9 - Chest pain, unspecified (10) Pulmonary HTN Current Visit: No Status: Chronic (11) CAD (coronary artery disease) Current Visit: No Status: Chronic Qualifiers: Coronary Disease-Associated Artery/Lesion type: unspecified vessel or lesion type [place] vs. transplanted heart: [place] heart Associated angina: without angina Qualified Code(s): I25.10 - Atherosclerotic heart disease of [place] coronary artery without angina pectoris (12) KEMAR (obstructive sleep apnea) Current Visit: Yes Status: Chronic (13) CHF (congestive heart failure) Current Visit: Yes Status: Deleted Qualifiers: Heart failure type: unspecified Heart failure chronicity: chronic Qualified Code(s): I50.9 - Heart failure, unspecified (14) ESRD (end stage renal disease) Current Visit: No Status: Chronic Nephrology has been consulted to assist with HD management. We will dose adjust antibiotics based on HD status. (15) COPD (chronic obstructive pulmonary disease) Current Visit: No Status: Chronic Qualifiers: COPD type: COPD with acute exacerbation Qualified Code(s): J44.1 - Chronic obstructive pulmonary disease with (acute) exacerbation - Subjective Interval history: Patient seen and examined. No acute events noted overnight. Patient states overall she is tired today. Status post amputation of right great toe 02/12/[address] Denny. Denies any fevers or chills or rigors. Denies chest pain, shortness of breath, or cough. Denies any nausea or vomiting. Reports appetite is okay. She denies any abdominal pain, urinary complaints. She denies any oral thrush or any skin lesions. She reports some pain in the right foot surgical site. BAck pain is improved. Status post FREDIS 91 that was negative. Status post EGD and temp HD catheter placement 02/10/18. Infect Dis PN-Objective Data - Labs CBC & Chem 7: 02/13/18 03:54 02/13/18 03:54 Labs: Laboratory Results - last 24 hr 02/12/18 02/12/18 02/12/18 05:10 11:15 17:38 WBC RBC Hgb Hct MCV MCH MCHC RDW Plt Count MPV Sodium Potassium Chloride Carbon Dioxide BUN Creatinine Est GFR ( Amer) Est GFR (Non-Af Amer) BUN/Creatinine Ratio Glucose POC Glucose 78 113 H 86 Calculated Osmolality Calcium Total Bilirubin AST ALT Alkaline Phosphatase Serum Total Protein Albumin Globulin Albumin/Globulin Ratio Random Vancomycin 02/12/18 02/13/18 02/13/18 20:25 01:22 03:54 WBC 10.4 RBC 2.83 L Hgb 9.0 L Hct 28.6 L MCV 101.1 H MCH 31.8 MCHC 31.5 L RDW 18.6 H Plt Count 247 MPV 9.4 Sodium Potassium Chloride Carbon Dioxide BUN Creatinine Est GFR ( Amer) Est GFR (Non-Af Amer) BUN/Creatinine Ratio Glucose POC Glucose 112 H 117 H Calculated Osmolality Calcium Total Bilirubin AST ALT Alkaline Phosphatase Serum Total Protein Albumin Globulin Albumin/Globulin Ratio Random Vancomycin 02/13/18 02/13/18 02/13/18 03:54 03:54 05:30 WBC RBC Hgb Hct MCV MCH MCHC RDW Plt Count MPV Sodium 132 L Potassium 3.9 Chloride 97 L Carbon Dioxide 24 BUN 31 H Creatinine 5.28 H Est GFR ( Amer) 10 L Est GFR (Non-Af Amer) 8 L BUN/Creatinine Ratio 6 Glucose 142 H POC Glucose 114 H Calculated Osmolality 283 Calcium 6.9 L Total Bilirubin 0.5 AST 69 H ALT 18 Alkaline Phosphatase 83 Serum Total Protein 4.9 L Albumin 2.3 L Globulin 2.6 Albumin/Globulin Ratio 0.9 L Random Vancomycin 19 Cultures: Cultures 02/09/18 11:35 Blood Culture - Preliminary Peripheral Venipuncture Gram Positive Cocci 02/11/18 16:11 Blood Culture - Preliminary Peripheral Venipuncture Culture is incubating and being continuously monitored for growth. Final report to follow. 02/11/18 16:11 Blood Culture - Preliminary Peripheral Venipuncture Culture is incubating and being continuously monitored for growth. Final report to follow. 02/07/18 15:24 Catheter Tip Culture - Final Intravenous or Arterial Cath Methicillin Resistant S.aureus 02/09/18 08:08 Blood Culture - Preliminary Peripheral Venipuncture Culture is incubating and being continuously monitored for growth. Final report to follow. 02/05/18 14:10 Body Fluid Culture - Final Peritoneal Fluid 02/05/18 11:20 Blood Culture - Final Peripheral Venipuncture Methicillin Resistant S.aureus 02/05/18 11:20 Blood Culture - Final Peripheral Venipuncture Methicillin Resistant S.aureus 02/06/18 03:22 Blood Culture - Final Peripheral Venipuncture Methicillin Resistant S.aureus 02/06/18 14:39 Blood Culture - Final Central Venous Catheter Methicillin Resistant S.aureus 02/06/18 03:22 Blood Culture - Final Peripheral Venipuncture Methicillin Resistant S.aureus 02/06/18 14:39 Blood Culture - Final Central Venous Catheter Methicillin Resistant S.aureus 02/05/18 13:50 Urine Culture - Final Urine,Catheterized Escherichia coli 02/05/18 13:30 Wound Culture - Final Right Great Toe Klebsiella oxytoca Staphylococcus aureus Serology 02/12/18 02/05/18 02/05/18 Range/Units 04:40 16:57 14:10 Ur Specimen Adequacy Urine Color (Yellow) Urine Clarity (Clear) Urine pH (5.0-8.0) pH Units Ur Specific [place] (1.010-1.025) Urine Protein (Neg-Trace) mg/dL Urine Glucose (UA) (Normal) mg/dL Urine Ketones (Negative) mg/dL Urine Blood (Negative) Urine Nitrite (Negative) Urine Bilirubin (Negative) Urine Urobilinogen (Normal) mg/dL Ur Leukocyte Esterase (Negative) Urine Microscopic RBC (0-3) per hpf Urine Microscopic WBC (0-3) per hpf Ur Squamous Epith Cells (None-Few) per lpf Urine Bacteria (None-Few) per hpf Hyaline Casts (None-Few) per lpf Ur Culture Indicated? (NO) Peritoneal Appearance HAZY (Clear) Peritoneal Volume TNP Peritoneal RBC TNP Periton Tot Nuc Cells TNP Periton Neutrophils 62.0 % Periton Band Neuts 2.0 % Periton Lymphocytes % 24.0 % Periton Monocytes % 12.0 % Stool Occult Blood Positive A (Negative) A. baumannii (PCR) (Not Detect) Lynne albicans (PCR) (Not Detect) C. glabrata (PCR) (Not Detect) C. krusei (PCR) (Not Detect) C. parapsilosis (PCR) (Not Detect) C. tropicalis (PCR) (Not Detect) Enterobacteriac sp PCR (Not Detect) E. cloacae complex PCR (Not Detect) Enterococcus sp PCR (Not Detect) E. coli (PCR) (Not Detect) H. influenzae (PCR) (Not Detect) Hep Bs Antigen Nonreactive (Nonreactive) Hep Bs Antibody 0.00 mIU/mL Klebsiella oxytoca PCR (Not Detect) Klebsiella pneumoniae (Not Detect) List. monocytogenes PCR (Not Detect) N. meningitidis (PCR) (Not Detect) Proteus species (PCR) (Not Detect) Serratia marcescens PCR (Not Detect) Staphylococcus sp PCR (Not Detect) Staph aureus (PCR) (Not Detect) mecA-Methicil Res Gene (Not Detect) Streptococcus sp PCR (Not Detect) Group A Strep DNA (Not Detect) Group B Strep (PCR) (Not Detect) Strep pneumoniae (PCR) (Not Detect) P. aeruginosa (PCR) (Not Detect) Aki/B-Vanco Res Genes (Not Detect) KPC (blaKPC) Detect PCR (Not Detect) 02/05/18 02/05/18 Range/Units 11:20 10:58 Ur Specimen Adequacy See below A Urine Color Yellow (Yellow) Urine Clarity Turbid A (Clear) Urine pH 6.0 (5.0-8.0) pH Units Ur Specific [place] 1.017 (1.010-1.025) Urine Protein >=300 H (Neg-Trace) mg/dL Urine Glucose (UA) 250 H (Normal) mg/dL Urine Ketones Negative (Negative) mg/dL Urine Blood Moderate H (Negative) Urine Nitrite Negative (Negative) Urine Bilirubin Negative (Negative) Urine Urobilinogen Normal (Normal) mg/dL Ur Leukocyte Esterase Large H (Negative) Urine Microscopic RBC 15-30 H (0-3) per hpf Urine Microscopic WBC TNTC H (0-3) per hpf Ur Squamous Epith Cells Many H (None-Few) per lpf Urine Bacteria Many H (None-Few) per hpf Hyaline Casts None Seen (None-Few) per lpf Ur Culture Indicated? NO. A (NO) Peritoneal Appearance (Clear) Peritoneal Volume Peritoneal RBC Periton Tot Nuc Cells Periton Neutrophils % Periton Band Neuts % Periton Lymphocytes % % Periton Monocytes % % Stool Occult Blood (Negative) A. baumannii (PCR) Not Detected (Not Detect) Lynne albicans (PCR) Not Detected (Not Detect) C. glabrata (PCR) Not Detected (Not Detect) C. krusei (PCR) Not Detected (Not Detect) C. parapsilosis (PCR) Not Detected (Not Detect) C. tropicalis (PCR) Not Detected (Not Detect) Enterobacteriac sp PCR Not Detected (Not Detect) E. cloacae complex PCR Not Detected (Not Detect) Enterococcus sp PCR Not Detected (Not Detect) E. coli (PCR) Not Detected (Not Detect) H. influenzae (PCR) Not Detected (Not Detect) Hep Bs Antigen (Nonreactive) Hep Bs Antibody mIU/mL Klebsiella oxytoca PCR Not Detected (Not Detect) Klebsiella pneumoniae Not Detected (Not Detect) List. monocytogenes PCR Not Detected (Not Detect) N. meningitidis (PCR) Not Detected (Not Detect) Proteus species (PCR) Not Detected (Not Detect) Serratia marcescens PCR Not Detected (Not Detect) Staphylococcus sp PCR DETECTED A (Not Detect) Staph aureus (PCR) DETECTED A (Not Detect) mecA-Methicil Res Gene DETECTED A (Not Detect) Streptococcus sp PCR Not Detected (Not Detect) Group A Strep DNA Not Detected (Not Detect) Group B Strep (PCR) Not Detected (Not Detect) Strep pneumoniae (PCR) Not Detected (Not Detect) P. aeruginosa (PCR) Not Detected (Not Detect) Aki/B-Vanco Res Genes Not Detected (Not Detect) KPC (blaKPC) Detect PCR Not Detected (Not Detect) - Impressions Impressions Foot X-Ray 02/12/18 19:42 IMPRESSION: Interval resection of the right great toe. D/ / Junie Gaston Cha, MD / Junie Gaston Cha, MD Interpreting Provider: Junie Gaston Cha, MD Exam - Constitutional Vitals: Temp Pulse Resp BP Pulse Ox 98.4 F 78 18 148/63 99 02/13/18 11:04 02/13/18 11:04 02/13/18 11:04 02/13/18 11:04 02/13/18 11:04 General appearance: cooperative, no acute distress, obese - Head Head exam: Present: atraumatic, normal inspection, normocephalic - Eye Eye exam: Present: EOMI, normal appearance, PERRL Pupils: Present: normal accommodation - ENT ENT exam: Present: mucous membranes moist - Neck Neck exam: Present: normal inspection Additional comments: Temporary HD catheter noted to the right neck with transparent dressing C/D/I. - Respiratory Respiratory exam: Present: CTAB. Absent: rales, respiratory distress, rhonchi, wheezes - Cardiovascular Cardiovascular exam: Present: RRR, +S1, +S2 - GI/Abdominal GI/Abdominal exam: Present: distended (obese), normal bowel sounds, soft. Absent: tenderness - Extremities Exam Extremities exam: Present: normal inspection. Absent: joint swelling, pedal edema, tenderness Additional comments: RIght foot dressing with small amount of old bloody drainage noted. - Neurological Exam Neurological exam: Present: alert, oriented X3, no focal deficits - Psychiatric Psychiatric exam: Present: normal affect, normal mood - Skin Skin exam: Present: dry, intact, normal color, warm Consult Discharge Plan - Plan Referrals: Guero Clement DO [Primary Care Provider] - 02/18/18 1:00 pm () Mayela Ayoub CNP [Advanced Practice Nurse] - 02/26/18 8:40 am - Attending Attestation I examined this patient and my medical decision-making was reviewed with the Resident Physician. I agree with the documented findings, disposition and treatment plan as described except to the extent set forth below.
--- NOTE | 2018-02-13 11:45 | Podiatry Progress Note ---
Date of Encounter: 02/13/18 Time of Encounter: 11:43 - Assessment and Plan (1) S/P amputation Current Visit: Yes Status: Acute Patient is progressing well on postoperative day 1 status post right first toe amputation. Dressing reinforced today. Dressing will be changed tomorrow morning. Patient is able to discharge when medically stable. Continue nonweightbearing right lower extremity as tolerated. Patient will be dispensed a OrthoWedge shoe to help offload the forefoot when ambulatory. Follow-up with Dr. Denny in wound care clinic next week. Subjective Principal diagnosis: s/p toe amputation Interval history: Patient progressing well on postoperative day 1 s/p right 1st toe amputation. She reports mild pain at the right first toe amputation site. Dressing is intact with mild strikethrough. No active bleeding noted. She denies nausea, vomiting, fever, chills. She denies calf pain or shortness of breath. She has been nonweightbearing on the right lower extremity since the procedure. Objective - Vital Signs Vital Signs: Vital Signs Temp Pulse Resp BP Pulse Ox 02/13/18 11:04 98.4 F 78 18 148/63 99 02/13/18 07:53 16 96 02/13/18 07:25 98.6 F 84 16 136/60 97 02/13/18 04:40 16 95 02/13/18 03:55 98.3 F 115 16 136/54 96 02/12/18 23:40 16 95 02/12/18 23:21 98.1 F 70 16 158/78 92 02/12/18 21:00 81 02/12/18 20:06 20 97 02/12/18 19:12 98.4 F 72 18 134/61 97 02/12/18 16:59 84 02/12/18 15:07 20 97 02/12/18 15:02 98.5 F 83 16 155/57 96 Intake and Output 02/12/18 02/13/18 02/13/18 23:59 07:59 15:59 Intake Total 240 / 240 120 / 120 Output Total 100 / 100 Balance 140 / 140 120 / 120 Intake: Oral 240 / 240 120 / 120 Output: Urine 100 / 100 Other: Meal Dinner Breakfast Percent of Meal Consumed 100% 50% Stool Size Moderate Stool Consistency loose Stool Color Brown Weight 92.6 kg Blood Glucose* 112 114 124 Patient Weight 02/13/18 23:59 Weight 92.6 kg - Lab Result Diagrams: 02/13/18 03:54 02/13/18 03:54 Labs: Abnormal lab results RBC 2.83 M/mcL (3.82-4.97) L 02/13/18 03:54 Hgb 9.0 g/dL (11.5-15.4) L 02/13/18 03:54 Hct 28.6 % (35.3-44.9) L 02/13/18 03:54 MCV 101.1 fL (83.0-100.0) H 02/13/18 03:54 MCHC 31.5 g/dL (31.6-35.5) L 02/13/18 03:54 RDW 18.6 % (11.5-14.5) H 02/13/18 03:54 Immature Gran % 6.6 % (0-4) H 02/10/18 06:00 Nucleated RBCs/100 WBC 0.2 /100 WBC (0) H 02/09/18 04:00 Hypochromasia Present (Not Present) A 02/06/18 04:15 Anisocytosis 1+ (Not Present) A 02/12/18 04:30 Macrocytosis Present (Not Present) A 02/12/18 04:30 ESR 100 mm/hr (0-15) H 02/12/18 04:30 PT 16.0 Seconds (9.4-12.1) H 02/05/18 11:20 ABG pH 7.47 pH Units (7.32-7.45) H 02/05/18 11:49 ABG pO2 43 mmHg (85-104) L* 02/05/18 11:49 ABG O2 Saturation 82 % (95-98) L 02/05/18 11:49 Sodium 132 mEq/L (136-145) L 02/13/18 03:54 Chloride 97 mEq/L (98-107) L 02/13/18 03:54 BUN 31 mg/dL (6-20) H 02/13/18 03:54 Creatinine 5.28 mg/dL (0.60-1.20) H 02/13/18 03:54 Est GFR ( Amer) 10 (> 60) L 02/13/18 03:54 Est GFR (Non-Af Amer) 8 (> 60) L 02/13/18 03:54 Glucose 142 mg/dL (70-105) H 02/13/18 03:54 POC Glucose 114 mg/dL (70-99) H 02/13/18 05:30 Calcium 6.9 mg/dL (8.6-10.3) L 02/13/18 03:54 Venous Ioniz Calcium 0.98 mmol/L (1.15-1.35) L 02/10/18 14:07 Iron < 10 mcg/dL (50-170) L 02/05/18 13:50 Transferrin 105 mg/dL (203-362) L 02/05/18 13:50 Ferritin > 1500 ng/mL (10-120) H 02/05/18 13:50 Direct Bilirubin 0.3 mg/dL (0.0-0.2) H 02/05/18 11:20 AST 69 Units/L (13-39) H 02/13/18 03:54 Troponin I 0.06 ng/mL (< 0.04) H* 02/05/18 23:00 C-Reactive Protein 70 mg/L (Less than 10) H 02/11/18 03:30 B-Natriuretic Peptide 580 pg/mL (Less than 100) H 02/05/18 11:20 Serum Total Protein 4.9 g/dL (6.4-8.9) L 02/13/18 03:54 Albumin 2.3 g/dL (3.5-5.7) L 02/13/18 03:54 Albumin/Globulin Ratio 0.9 (1.1-2.2) L 02/13/18 03:54 25-OH Vitamin D Total 18 ng/mL (30-80) L 02/10/18 12:21 PTH Intact 67.6 pg/ml (10.0-65.0) H 02/10/18 12:21 Ur Specimen Adequacy See below A 02/05/18 10:58 Urine Clarity Turbid (Clear) A 02/05/18 10:58 Urine Protein >=300 mg/dL (Neg-Trace) H 02/05/18 10:58 Urine Glucose (UA) 250 mg/dL (Normal) H 02/05/18 10:58 Urine Blood Moderate (Negative) H 02/05/18 10:58 Ur Leukocyte Esterase Large (Negative) H 02/05/18 10:58 Urine Microscopic RBC 15-30 per hpf (0-3) H 02/05/18 10:58 Urine Microscopic WBC TNTC per hpf (0-3) H 02/05/18 10:58 Ur Squamous Epith Cells Many per lpf (None-Few) H 02/05/18 10:58 Urine Bacteria Many per hpf (None-Few) H 02/05/18 10:58 Ur Culture Indicated? NO. (NO) A 02/05/18 10:58 Stool Occult Blood Positive (Negative) A 02/12/18 04:40 Vancomycin Trough 14 mcg/mL (5-10) H 02/11/18 03:30 Staphylococcus sp PCR DETECTED (Not Detect) A 02/05/18 11:20 Staph aureus (PCR) DETECTED (Not Detect) A 02/05/18 11:20 mecA-Methicil Res Gene DETECTED (Not Detect) A 02/05/18 11:20 Microbiology, Last 48 Hours 02/09/18 11:35 Blood Culture - Preliminary Peripheral Venipuncture Gram Positive Cocci 02/11/18 16:11 Blood Culture - Preliminary Peripheral Venipuncture Culture is incubating and being continuously monitored for growth. Final report to follow. 02/11/18 16:11 Blood Culture - Preliminary Peripheral Venipuncture Culture is incubating and being continuously monitored for growth. Final report to follow. 02/07/18 15:24 Catheter Tip Culture - Final Intravenous or Arterial Cath Methicillin Resistant S.aureus Consult Discharge Plan - Plan Referrals: Guero Clement DO [Primary Care Provider] - 02/18/18 1:00 pm ()
[2018-02-13] MEDS: *HR* HYDROcodone/Acet 5/325 mg TABLET PO PRN ×2 (13:40→20:09)
[2018-02-13] MEDS ORDERED: Vancomycin 500 MG in 0.9 % Sodium Chloride Mini Bag 100 ML IVPB ONE (20:00)
[2018-02-13] MEDS: Insulin DETEMIR 100 UNIT/ML X5UNITS SQ SCH (20:09)
[2018-02-13] MEDS: Melatonin 3 MG TABLET PO PRN (20:09)
--- NOTE | 2018-02-13 22:31 | Nephrology Progress Note ---
Date of Encounter: 02/13/18 Time of Encounter: 13:00 - Assessment and Plan (1) ESRD (end stage renal disease) on dialysis Current Visit: Yes Status: Chronic Continue HD with UF as tolerated Lytes stable (2) Anemia Current Visit: Yes Status: Chronic Goal Hgb is 10-11. Hgb today is 9.0, dropping. Stool guaiac positive. Will monitor Transfusion parameters per primary team Qualifiers: Anemia type: due to chronic kidney disease Chronic kidney disease stage: on chronic dialysis Qualified Code(s): N18.6 - End stage renal disease; D63.1 - Anemia in chronic kidney disease; Z99.2 - Dependence on renal dialysis (3) Sepsis Current Visit: Yes Status: Resolved Abx per ID Qualifiers: Sepsis type: methicillin susceptible Staphylococcus aureus Qualified Code(s ): A41.01 - Sepsis due to Methicillin susceptible Staphylococcus aureus (4) Gangrene of toe of right foot Current Visit: Yes Status: Acute per podiatry POD#1 Right toe amputation (5) Diabetes Current Visit: Yes Status: Chronic Qualifiers: Diabetes mellitus type: type 2 Diabetes mellitus detention insulin use: with detention use Diabetes mellitus complication status: with kidney complications Diabetes mellitus complication detail: with chronic kidney disease Chronic kidney disease stage: on chronic dialysis Qualified Code(s) : E11.22 - Type 2 diabetes mellitus with diabetic chronic kidney disease; N18.6 - End stage renal disease; Z79.4 - MCC (current) use of insulin; Z99.2 - Dependence on renal dialysis (6) COPD (chronic obstructive pulmonary disease) Current Visit: No Status: Chronic Qualifiers: COPD type: unspecified COPD Qualified Code(s): J44.9 - Chronic obstructive pulmonary disease, unspecified Subjective Principal diagnosis: s/p toe amputation Interval history: Interim noted, pt seen and examined on HD doing well. POD #1 Right toe amputation Objective - Vital Signs Vital signs: Vital Signs Temp Pulse Resp BP Pulse Ox 02/13/18 19:37 16 93 02/13/18 19:28 97.7 F 86 17 152/61 92 02/13/18 17:11 98.0 F 77 18 158/74 97 02/13/18 16:55 97.2 F L 157/69 02/13/18 16:40 132/56 02/13/18 16:25 138/69 02/13/18 16:10 140/64 02/13/18 15:55 148/71 02/13/18 15:40 156/70 02/13/18 15:25 153/69 02/13/18 15:10 138/57 02/13/18 14:55 131/52 02/13/18 14:40 143/65 02/13/18 14:25 135/71 02/13/18 14:10 152/70 02/13/18 13:55 146/64 02/13/18 13:40 121/64 02/13/18 13:25 174/88 02/13/18 13:10 98.1 F 18 180/85 02/13/18 11:04 98.4 F 78 18 148/63 99 02/13/18 07:53 16 96 02/13/18 07:25 98.6 F 84 16 136/60 97 02/13/18 04:40 16 95 02/13/18 03:55 98.3 F 115 16 136/54 96 02/12/18 23:40 16 95 02/12/18 23:21 98.1 F 70 16 158/78 92 Intake and Output 02/13/18 02/13/18 02/13/18 07:59 15:59 23:59 Intake Total 960 / 960 240 / 240 Output Total 3600 / 3600 Balance 960 / 960 -3360 / -3360 Intake: Oral 360 / 360 240 / 240 Intake, Rinseback and Flushes 600 / 600 Output: Total Dialysis (HD) Output 3600 / 3600 Other: Meal Lunch Dinner Percent of Meal Consumed 100% 90% Weight 92.6 kg Blood Glucose* 114 124 144 Hemodialysis Net Fluid Removed 2825 3000 (mL) Patient Weight 02/13/18 23:59 Weight 92.6 kg - Lab 02/14/18 04:15 02/14/18 04:15 Most recent lab results ABG pH 7.47 pH Units (7.32-7.45) H 02/05/18 11:49 ABG pCO2 35 mmHg (35-45) 02/05/18 11:49 ABG pO2 43 mmHg (85-104) L* 02/05/18 11:49 ABG HCO3 25 mEq/L (21-27) 02/05/18 11:49 ABG O2 Saturation 82 % (95-98) L 02/05/18 11:49 Calcium 6.9 mg/dL (8.6-10.3) L 02/13/18 03:54 Phosphorus 4.2 mg/dL (2.7-4.5) 02/06/18 04:15 Magnesium 2.0 mg/dL (1.6-2.6) 02/12/18 04:30 Consult Discharge Plan - Plan Additional Instructions: PWB right lower extremity. Orthowedge shoe for heel transfers. Follow up with Dr. Denny in wound care clinic next week. Referrals: Mayela Ayoub CNP [Advanced Practice Nurse] - 02/26/18 8:40 am Guero Clement DO [Primary Care Provider] - 02/18/18 1:00 pm ()
[2018-02-14] MEDS: Insulin LISPRO 300 UNITS/3 ML VIAL SQ SCH ×5 (03:25→21:04)
[2018-02-14 04:46] LABS: Hematocrit 25.5 % (35.3-44.9); Hemoglobin 8.1 g/dL (11.5-15.4); Mean Corpuscular HGB Conc 31.8 g/dL (31.6-35.5); Mean Corpuscular Hemoglobin 32.3 pg (28.0-33.3); Mean Corpuscular Volume 101.6 fL (83.0-100.0); Mean Platelet Volume 9.6 fL (9.4-12.4); Platelet Count 205 K/mcL (140-400); Red Blood Count 2.51 M/mcL (3.82-4.97); Red Cell Distribution Width 18.3 % (11.5-14.5)
[2018-02-14 05:01] LABS: Calcium 7.4 mg/dL (8.6-10.3); Potassium 3.8 mEq/L (3.5-5.1)
[2018-02-14] MEDS: Sucralfate 1 GM TABLET PO SCH ×3 (07:37→15:00)
[2018-02-14] MEDS: Tiotropium 18 MCG inhalation IH SCH (08:22)
[2018-02-14] MEDS: Metoprolol 100 MG TABLET PO SCH (08:45)
[2018-02-14] MEDS: cefTRIAXone 2,000 MG in Water for inj. (sterile) 20 ML 20 ML IVP SCH (08:45)
[2018-02-14] MEDS: Isosorbide MONOnitrate (24 HR) 30 MG TAB.ER.24H PO SCH (08:45)
[2018-02-14] MEDS: Furosemide 40 MG TABLET PO SCH ×2 (08:45→15:00)
[2018-02-14] MEDS: Gabapentin 100 MG CAPSULE PO SCH ×3 (08:45→21:04)
[2018-02-14] MEDS: Fenofibrate 54 MG TABLET PO SCH (08:45)
--- NOTE | 2018-02-14 10:57 | Podiatry Progress Note ---
Date of Encounter: 02/14/18 Time of Encounter: 10:54 - Assessment and Plan (1) S/P amputation Current Visit: Yes Status: Acute Patient is progressing well on postoperative day 2 status post right first toe amputation. Dressing changed today with adaptic, kerlix fluff and kerlix roll. Patient is able to discharge when medically stable. Will follow up on blood cultures. Continue partial weightbearing right lower extremity as tolerated. Follow-up with Dr. Denny in wound care clinic next week. Subjective Principal diagnosis: s/p toe amputation Interval history: Patient progressing well on postoperative day 2 s/p right 1st toe amputation. She reports mild pain at the right first toe amputation site. Dressing is intact with mild strikethrough. No active bleeding noted. She denies nausea, vomiting, fever, chills. She denies calf pain or shortness of breath. She has been nonweightbearing on the right lower extremity since the procedure. Orthowedge shoe in place. Blood cultures pending. Objective - Vital Signs Vital Signs: Vital Signs Temp Pulse Resp BP Pulse Ox 02/14/18 08:17 16 96 02/14/18 07:54 98.5 F 78 18 154/54 97 02/14/18 04:27 18 100 02/14/18 03:39 98.6 F 73 18 145/60 100 02/13/18 23:46 16 98 02/13/18 23:10 99.2 F 76 18 129/51 96 02/13/18 20:15 87 02/13/18 19:37 16 93 02/13/18 19:28 97.7 F 86 17 152/61 92 02/13/18 17:11 98.0 F 77 18 158/74 97 02/13/18 16:55 97.2 F L 157/69 02/13/18 16:40 132/56 02/13/18 16:25 138/69 02/13/18 16:10 140/64 02/13/18 15:55 148/71 02/13/18 15:40 156/70 02/13/18 15:25 153/69 02/13/18 15:10 138/57 02/13/18 14:55 131/52 02/13/18 14:40 143/65 02/13/18 14:25 135/71 02/13/18 14:10 152/70 02/13/18 13:55 146/64 02/13/18 13:40 121/64 02/13/18 13:25 174/88 02/13/18 13:10 98.1 F 18 180/85 02/13/18 11:04 98.4 F 78 18 148/63 99 Intake and Output 02/13/18 02/14/18 02/14/18 23:59 07:59 15:59 Intake Total 340 / 340 240 / 240 Output Total 3600 / 3600 Balance -3260 / -3260 240 / 240 Intake: IV Fluids 100 / 100 Vancocin 500 MG In 0.9 % Sodium 100 / 100 Chloride (Mini-Bag +) 100 ML @ 100 mls/hr IVPB ONCE ONE Rx#: [id number] Oral 240 / 240 240 / 240 Output: Total Dialysis (HD) Output 3600 / 3600 Other: Meal Dinner Breakfast Percent of Meal Consumed 90% 100% Stool Size Moderate Stool Consistency liquid Stool Characteristics Normal for Patient Stool Color Green # Bowel Movements 1 Weight 93.2 kg Blood Glucose* 145 101 Hemodialysis Net Fluid Removed 3000 (mL) Patient Weight 02/14/18 23:59 Weight 93.2 kg - Exam Exam: Right hallux amputation site well-coapted with sutures intact. No active drainage. Capillary refill time brisk. No erythema. Able to remove remaining digits. - Lab Result Diagrams: 02/14/18 04:15 02/14/18 04:15 Labs: Abnormal lab results RBC 2.51 M/mcL (3.82-4.97) L 02/14/18 04:15 Hgb 8.1 g/dL (11.5-15.4) L 02/14/18 04:15 Hct 25.5 % (35.3-44.9) L 02/14/18 04:15 MCV 101.6 fL (83.0-100.0) H 02/14/18 04:15 RDW 18.3 % (11.5-14.5) H 02/14/18 04:15 Immature Gran % 6.6 % (0-4) H 02/10/18 06:00 Nucleated RBCs/100 WBC 0.2 /100 WBC (0) H 02/09/18 04:00 Hypochromasia Present (Not Present) A 02/06/18 04:15 Anisocytosis 1+ (Not Present) A 02/12/18 04:30 Macrocytosis Present (Not Present) A 02/12/18 04:30 ESR 100 mm/hr (0-15) H 02/12/18 04:30 PT 16.0 Seconds (9.4-12.1) H 02/05/18 11:20 ABG pH 7.47 pH Units (7.32-7.45) H 02/05/18 11:49 ABG pO2 43 mmHg (85-104) L* 02/05/18 11:49 ABG O2 Saturation 82 % (95-98) L 02/05/18 11:49 Sodium 133 mEq/L (136-145) L 02/14/18 04:15 Creatinine 4.08 mg/dL (0.60-1.20) H 02/14/18 04:15 Est GFR ( Amer) 14 (> 60) L 02/14/18 04:15 Est GFR (Non-Af Amer) 11 (> 60) L 02/14/18 04:15 BUN/Creatinine Ratio 5 (6-26) L 02/14/18 04:15 POC Glucose 101 mg/dL (70-99) H 02/14/18 05:42 Calculated Osmolality 278 (280-300) L 02/14/18 04:15 Calcium 7.4 mg/dL (8.6-10.3) L 02/14/18 04:15 Venous Ioniz Calcium 0.98 mmol/L (1.15-1.35) L 02/10/18 14:07 Iron < 10 mcg/dL (50-170) L 02/05/18 13:50 Transferrin 105 mg/dL (203-362) L 02/05/18 13:50 Ferritin > 1500 ng/mL (10-120) H 02/05/18 13:50 Direct Bilirubin 0.3 mg/dL (0.0-0.2) H 02/05/18 11:20 AST 69 Units/L (13-39) H 02/13/18 03:54 Troponin I 0.06 ng/mL (< 0.04) H* 02/05/18 23:00 C-Reactive Protein 70 mg/L (Less than 10) H 02/11/18 03:30 B-Natriuretic Peptide 580 pg/mL (Less than 100) H 02/05/18 11:20 Serum Total Protein 4.9 g/dL (6.4-8.9) L 02/13/18 03:54 Albumin 2.3 g/dL (3.5-5.7) L 02/13/18 03:54 Albumin/Globulin Ratio 0.9 (1.1-2.2) L 02/13/18 03:54 25-OH Vitamin D Total 18 ng/mL (30-80) L 02/10/18 12:21 PTH Intact 67.6 pg/ml (10.0-65.0) H 02/10/18 12:21 Ur Specimen Adequacy See below A 02/05/18 10:58 Urine Clarity Turbid (Clear) A 02/05/18 10:58 Urine Protein >=300 mg/dL (Neg-Trace) H 02/05/18 10:58 Urine Glucose (UA) 250 mg/dL (Normal) H 02/05/18 10:58 Urine Blood Moderate (Negative) H 02/05/18 10:58 Ur Leukocyte Esterase Large (Negative) H 02/05/18 10:58 Urine Microscopic RBC 15-30 per hpf (0-3) H 02/05/18 10:58 Urine Microscopic WBC TNTC per hpf (0-3) H 02/05/18 10:58 Ur Squamous Epith Cells Many per lpf (None-Few) H 02/05/18 10:58 Urine Bacteria Many per hpf (None-Few) H 02/05/18 10:58 Ur Culture Indicated? NO. (NO) A 02/05/18 10:58 Stool Occult Blood Positive (Negative) A 02/12/18 04:40 Vancomycin Trough 14 mcg/mL (5-10) H 02/11/18 03:30 Staphylococcus sp PCR DETECTED (Not Detect) A 02/05/18 11:20 Staph aureus (PCR) DETECTED (Not Detect) A 02/05/18 11:20 mecA-Methicil Res Gene DETECTED (Not Detect) A 02/05/18 11:20 Microbiology, Last 48 Hours 02/11/18 16:11 Blood Culture - Preliminary Peripheral Venipuncture Gram Positive Cocci 02/09/18 08:08 Blood Culture - Final Peripheral Venipuncture No growth. Final report. 02/13/18 12:18 Blood Culture - Preliminary Peripheral Venipuncture Culture is incubating and being continuously monitored for growth. Final report to follow. 02/13/18 12:23 Blood Culture - Preliminary Peripheral Venipuncture Culture is incubating and being continuously monitored for growth. Final report to follow. 02/09/18 11:35 Blood Culture - Preliminary Peripheral Venipuncture Gram Positive Cocci Consult Discharge Plan - Plan Additional Instructions: PWB right lower extremity. Orthowedge shoe for heel transfers. Follow up with Dr. Denny in wound care clinic next week. Referrals: Mayela Ayoub CNP [Advanced Practice Nurse] - 02/26/18 8:40 am Guero Clement DO [Primary Care Provider] - 02/18/18 1:00 pm ()
--- NOTE | 2018-02-14 11:33 | Internal Med Progress Note ---
Hospitalist Progress Note - Encounter Date of Encounter: 02/14/18 Time of Encounter: 09:15 - Subjective Interval History: awake. no pain in right foot or at site of PD cath removal. No fevers, chills, nausea or emesis. No low back pain. - Exam Vitals: Temp Pulse Resp BP Pulse Ox 98.5 F 78 16 154/54 96 02/14/18 07:54 02/14/18 07:54 02/14/18 08:17 02/14/18 07:54 02/14/18 08:17 Exam: General: awake, alert, appears stated age Neck: supple, trachea midline, right temp hd cath in pace Cardiovascular:regular rate and rhythm, normal S1 & S2, no murmurs, no lower extremity edema, bl dp/pt pulses intact Lungs:Normal breath sounds, no wheezes, or crackles. Normal respiratory effort on ra Abdomen:Soft, non-tender, non-distended, no rigidity, + bowel sounds Extremities:right foot dress intact, dried blood, rom right toes intact Neurological: AAOx3 Skin:Normal color, no rash, no pallor - Assessment and Plan (1) Sepsis Current Visit: Yes Status: Resolved Assessment and Plan: Sepsis, resolved with MRSA bacteremia and R hallus klebsiella and Staph aureus infection- suspected source is necrotic toe, possibly PD cath ID following, cont IV vanc -likely to need 4-6 weeks iv vanc on dc, fu id recs Peripheral blood cultures drawn 02/05 are positive 2/2 sets for MRSA. peripheral blood cultures drawn 02/06/18 are positive 2/2 sets for MRSA cultures drawn from the Perma-cath 02/06/18 are positive 2/2 sets for MRSA Status post Perm-cath removal 02/07/18 by IR. catheter tip 02/07 positive for MRSA 02/09 bl cxs gpc + 1/2 sets 02/11 repeat cultures + gpc 02/13 bl cxs sent to have cxs with toe and pd cath removed IR placement of temp HD cath 02/10, ideally when bl cxs grow negative, however deferred to Nephro, will need a perm cath placed prior to dc per nephro however needs neg cxs first Peritoneal dialysis removed by surgery 02/12 - wound care with iodoform packing changed daily for the next 7 days - surgery signed off Toe amputation 02/12 FREDIS neg for vegetation (2) Necrosis of toe Current Visit: Yes Status: Acute Assessment and Plan: Necrosis of toe, right- wound cx as above, podiatry following, amputation 02/12, cont iv vanc + rocephin nonweightbearing right lower extremity will be dispensed a OrthoWedge shoe by podiatry to help offload the forefoot when ambulatory. Follow-up with Dr. Denny in wound care clinic next week. (3) Chest pain Current Visit: Yes Status: Resolved Assessment and Plan: Chest Pain, resolved, mild trop elevation and stable likely 2/2 sepsis on admit - seen by cards, she will fu outpt, FREDIS neg (4) ESRD (end stage renal disease) on dialysis Current Visit: Yes Status: Chronic Assessment and Plan: Nephro following for HD currently with temp hd cath that was placed prior to neg bl cxs as noted above due to need for routine HD (5) Diabetes Current Visit: Yes Status: Chronic Assessment and Plan: Known history of diabetes with neuropathy and ESRD on dialysis. No DKA or HHS -Continue insulin sliding scale and basal insulin Levemir -accu checks -ADA diet, CV diet (6) HTN (hypertension) Current Visit: Yes Status: Acute Assessment and Plan: Continue monitoring bp -Continue home meds (7) CAD (coronary artery disease) Current Visit: No Status: Chronic (8) KEMAR (obstructive sleep apnea) Current Visit: Yes Status: Chronic Assessment and Plan: cpap (9) DVT prophylaxis Current Visit: Yes Status: Acute (10) Acute on chronic anemia Current Visit: Yes Status: Acute Assessment and Plan: Acute on Chronic Anemia, multifactorial, cont slow down trend Gastric Ulcers, Anemia of Chronic Disease -did have episode of brown emesis with hgb drop and concern if this could be ugib, vs feculent on admit gi following, egd 02/10 3 gastric ulcers with adherent clot, bx taken, , ppi + carafate vte ppx scds only -will cont to trend, no s/s of active bleeding at this time DVT Prophylaxis: scds - Time Spent with Patient Total time spent is greater than 50% in coordination of care (as documented) at patient's floor/unit and/or counseling patient: 25 - 35 minutes Plan of Care Discussed with: patient Internal Medicine: Result - Labs CBC & Chem 7: 02/14/18 04:15 02/14/18 04:15 Labs: Short CBC 02/14/18 Range/Units 04:15 WBC 8.6 (4.3-11.1) K/mcL Hgb 8.1 L (11.5-15.4) g/dL Hct 25.5 L (35.3-44.9) % Plt Count 205 (140-400) K/mcL BMP 02/14/18 04:15 Sodium 133 L Potassium 3.8 Chloride 98 Carbon Dioxide 28 BUN 20 Creatinine 4.08 H Glucose 96 Calcium 7.4 L - ABG Interpretation ABG results: ABG ABG pH 7.47 pH Units (7.32-7.45) H 02/05/18 11:49 ABG pCO2 35 mmHg (35-45) 02/05/18 11:49 ABG pO2 43 mmHg (85-104) L* 02/05/18 11:49 ABG O2 Saturation 82 % (95-98) L 02/05/18 11:49 PT/INR, D-dimer PT 16.0 Seconds (9.4-12.1) H 02/05/18 11:20 Consult Discharge Plan - Plan Additional Instructions: PWB right lower extremity. Orthowedge shoe for heel transfers. Follow up with Dr. Denny in wound care clinic next week. Referrals: Mayela Ayoub, MARIELLA [Advanced Practice Nurse] - 02/26/18 8:40 am Guero Clement DO [Primary Care Provider] - 02/18/18 1:00 pm () (1) Sepsis Qualifiers: Sepsis type: methicillin susceptible Staphylococcus aureus Qualified Code(s) : A41.01 - Sepsis due to Methicillin susceptible Staphylococcus aureus (3) Chest pain Qualifiers: Chest pain type: unspecified Qualified Code(s): R07.9 - Chest pain, unspecified (5) Diabetes Qualifiers: Diabetes mellitus type: type 2 Diabetes mellitus ad terminal makeup operator insulin use: with ad terminal makeup operator use Diabetes mellitus complication status: with kidney complications Diabetes mellitus complication detail: with chronic kidney disease Chronic kidney disease stage: on chronic dialysis Qualified Code(s): E11.22 - Type 2 diabetes mellitus with diabetic chronic kidney disease; N18.6 - End stage renal disease; Z79.4 - terminal operations supervisor (current) use of insulin; Z99.2 - Dependence on renal dialysis (6) HTN (hypertension) Qualifiers: Hypertension type: essential hypertension Qualified Code(s): I10 - Essential (primary) hypertension (7) CAD (coronary artery disease) Qualifiers: Coronary Disease-Associated Artery/Lesion type: unspecified vessel or lesion type [place] vs. transplanted heart: [place] heart Associated angina: without angina Qualified Code(s): I25.10 - Atherosclerotic heart disease of [place] coronary artery without angina pectoris
--- NOTE | 2018-02-14 12:34 | Nephrology Progress Note ---
Date of Encounter: 02/14/18 Time of Encounter: 12:00 - Assessment and Plan (1) ESRD (end stage renal disease) on dialysis Current Visit: Yes Status: Chronic Next Hd planned for friday Lytes stable (2) Anemia Current Visit: Yes Status: Chronic Goal Hgb is 10-11. Hgb today is 8.1, dropping. Stool guaiac positive. Will monitor Transfusion parameters per primary team Qualifiers: Anemia type: due to chronic kidney disease Chronic kidney disease stage: on chronic dialysis Qualified Code(s): N18.6 - End stage renal disease; D63.1 - Anemia in chronic kidney disease; Z99.2 - Dependence on renal dialysis (3) Sepsis Current Visit: Yes Status: Resolved Abx per ID Qualifiers: Sepsis type: methicillin susceptible Staphylococcus aureus Qualified Code(s ): A41.01 - Sepsis due to Methicillin susceptible Staphylococcus aureus (4) Gangrene of toe of right foot Current Visit: Yes Status: Acute per podiatry POD#2 Right toe amputation (5) Diabetes Current Visit: Yes Status: Chronic Per primary. Qualifiers: Diabetes mellitus type: type 2 Diabetes mellitus group home insulin use: with group home use Diabetes mellitus complication status: with kidney complications Diabetes mellitus complication detail: with chronic kidney disease Chronic kidney disease stage: on chronic dialysis Qualified Code(s) : E11.22 - Type 2 diabetes mellitus with diabetic chronic kidney disease; N18.6 - End stage renal disease; Z79.4 - detention (current) use of insulin; Z99.2 - Dependence on renal dialysis (6) COPD (chronic obstructive pulmonary disease) Current Visit: No Status: Chronic Qualifiers: COPD type: unspecified COPD Qualified Code(s): J44.9 - Chronic obstructive pulmonary disease, unspecified Subjective Principal diagnosis: s/p toe amputation Interval history: Interim noted, pt seen and examined on HD doing well. POD #2 Right toe amputation Objective - Vital Signs Vital signs: Vital Signs Temp Pulse Resp BP Pulse Ox 02/14/18 12:17 98.2 F 85 18 170/79 97 02/14/18 11:47 16 100 02/14/18 08:17 16 96 02/14/18 07:54 98.5 F 78 18 154/54 97 02/14/18 04:27 18 100 02/14/18 03:39 98.6 F 73 18 145/60 100 02/13/18 23:46 16 98 02/13/18 23:10 99.2 F 76 18 129/51 96 02/13/18 20:15 87 02/13/18 19:37 16 93 02/13/18 19:28 97.7 F 86 17 152/61 92 02/13/18 17:11 98.0 F 77 18 158/74 97 02/13/18 16:55 97.2 F L 157/69 02/13/18 16:40 132/56 02/13/18 16:25 138/69 02/13/18 16:10 140/64 02/13/18 15:55 148/71 02/13/18 15:40 156/70 02/13/18 15:25 153/69 02/13/18 15:10 138/57 02/13/18 14:55 131/52 02/13/18 14:40 143/65 02/13/18 14:25 135/71 02/13/18 14:10 152/70 02/13/18 13:55 146/64 02/13/18 13:40 121/64 02/13/18 13:25 174/88 02/13/18 13:10 98.1 F 18 180/85 Intake and Output 02/13/18 02/14/18 02/14/18 23:59 07:59 15:59 Intake Total 340 / 340 240 / 240 Output Total 3600 / 3600 Balance -3260 / -3260 240 / 240 Intake: IV Fluids 100 / 100 Vancocin 500 MG In 0.9 % Sodium 100 / 100 Chloride (Mini-Bag +) 100 ML @ 100 mls/hr IVPB ONCE ONE Rx#: [id number] Oral 240 / 240 240 / 240 Output: Total Dialysis (HD) Output 3600 / 3600 Other: Meal Dinner Breakfast Percent of Meal Consumed 90% 100% Stool Size Moderate Stool Consistency liquid Stool Characteristics Normal for Patient Stool Color Green # Bowel Movements 1 Weight 93.2 kg Blood Glucose* 145 101 174 Hemodialysis Net Fluid Removed 3000 (mL) Patient Weight 02/14/18 23:59 Weight 93.2 kg - General Appearance General appearance: Present: chronically ill EENT: Present: ATNC, mucous membranes moist Neck: Present: no JVD, supple Respiratory: Present: clear Cardiology: Present: edema (trace RLE, foot w/dressing), normal S1, normal S2 Dialysis Vascular Access: Venous Catheter (permcath) Gastrointestinal: Present: no tenderness, no guarding Integumentary: Present: warm and dry Neurologic: Present: no focal deficit Musculoskeletal: Present: no deformities Psychiatric: Present: mood/affect appropriate, cooperative - Lab 02/15/18 16:15 02/15/18 02:55 Most recent lab results ABG pH 7.47 pH Units (7.32-7.45) H 02/05/18 11:49 ABG pCO2 35 mmHg (35-45) 02/05/18 11:49 ABG pO2 43 mmHg (85-104) L* 02/05/18 11:49 ABG HCO3 25 mEq/L (21-27) 02/05/18 11:49 ABG O2 Saturation 82 % (95-98) L 02/05/18 11:49 Calcium 7.4 mg/dL (8.6-10.3) L 02/14/18 04:15 Phosphorus 4.2 mg/dL (2.7-4.5) 02/06/18 04:15 Magnesium 2.0 mg/dL (1.6-2.6) 02/12/18 04:30 Consult Discharge Plan - Plan Additional Instructions: PWB right lower extremity. Orthowedge shoe for heel transfers. Follow up with Dr. Denny in wound care clinic next week. Referrals: Mayela Ayoub CNP [Advanced Practice Nurse] - 02/26/18 8:40 am Guero Clement DO [Primary Care Provider] - 02/18/18 1:00 pm ()
[2018-02-14] MEDS: *HR* HYDROcodone/Acet 5/325 mg TABLET PO PRN (21:03)
[2018-02-14] MEDS: Insulin DETEMIR 100 UNIT/ML X5UNITS SQ SCH (21:04)
[2018-02-15 03:54] LABS: Hematocrit 25.4 % (35.3-44.9); Hemoglobin 7.9 g/dL (11.5-15.4); Mean Corpuscular HGB Conc 31.1 g/dL (31.6-35.5); Mean Corpuscular Hemoglobin 31.7 pg (28.0-33.3); Mean Platelet Volume 9.7 fL (9.4-12.4); Monocytes # 0.9 K/mcL (0.0-1.3); Platelet Count 236 K/mcL (140-400); Red Blood Count 2.49 M/mcL (3.82-4.97)
[2018-02-15 04:30] LABS: Calcium 7.1 mg/dL (8.6-10.3); Potassium 3.7 mEq/L (3.5-5.1)
[2018-02-15 04:37] LABS: Eosinophils # 0.4 K/mcL (0.0-0.6); Neutrophils # 5.1 K/mcL (1.6-8.9); Platelet Estimate Normal (Normal); Reactive Lymphocytes Present (Not Present)
[2018-02-15 04:38] LABS: Anisocytosis 1+ (Not Present)
[2018-02-15] MEDS: Sucralfate 1 GM TABLET PO SCH ×3 (06:39→17:02)
--- NOTE | 2018-02-15 07:20 | Internal Med Progress Note ---
Hospitalist Progress Note - Encounter Date of Encounter: 02/15/18 Time of Encounter: 09:10 - Subjective Interval History: asleep, awakes to name, denies fevers, chills, nausea or emesis. no toe pain. no abd pain. no chest pain. - Exam Vitals: Temp Pulse Resp BP Pulse Ox 98.3 F 76 18 144/67 98 02/15/18 03:57 02/15/18 03:57 02/15/18 03:57 02/15/18 03:57 02/15/18 03:57 Exam: General: awake, alert, appears stated age Neck: supple, trachea midline, right temp hd cath in pace Cardiovascular:regular rate and rhythm, normal S1 & S2, no murmurs, no lower extremity edema, bl dp/pt pulses intact Lungs:Normal breath sounds, no wheezes, or crackles. Normal respiratory effort on ra Abdomen:Soft, non-tender, non-distended, + bowel sounds Extremities:right foot dress intact, clean/dry ,rom right toes intact Neurological: AAOx3 - Assessment and Plan (1) Sepsis Current Visit: Yes Status: Resolved Assessment and Plan: Sepsis, resolved with MRSA bacteremia and R hallus klebsiella and Staph aureus infection- suspected source is necrotic toe, possibly PD cath ID following, cont IV vanc -likely to need 4-6 weeks iv vanc on dc, fu id recs Peripheral blood cultures drawn 02/05 are positive 2/2 sets for MRSA. peripheral blood cultures drawn 02/06/18 are positive 2/2 sets for MRSA cultures drawn from the Perma-cath 02/06/18 are positive 2/2 sets for MRSA Status post Perm-cath removal 02/07/18 by IR. catheter tip 02/07 positive for MRSA 02/09 bl cxs gpc + 1/2 sets 02/11 repeat cultures + gpc, pending speciation and sensitivities 02/13 bl cxs sent to have cxs with toe and pd cath removed, ngtd IR placement of temp HD cath 02/10, ideally would have been when bl cxs grow negative, however deferred to Nephro, will need a perm cath placed prior to dc per nephro however needs neg cxs first Peritoneal dialysis removed by surgery 02/12 - wound care with iodoform packing changed daily for the next 7 days - surgery signed off Toe amputation 10/4 FREDIS neg for vegetation (2) Necrosis of toe Current Visit: Yes Status: Acute Assessment and Plan: Necrosis of toe, right- wound cx as above, podiatry following, amputation 02/12, cont iv vanc + rocephin nonweightbearing right lower extremity will be dispensed a OrthoWedge shoe by podiatry to help offload the forefoot when ambulatory. Follow-up with Dr. Denny in wound care clinic next week. (3) Chest pain Current Visit: Yes Status: Resolved Assessment and Plan: Chest Pain, resolved, mild trop elevation and stable likely 2/2 sepsis on admit - seen by cards, she will fu outpt, FREDIS neg (4) ESRD (end stage renal disease) on dialysis Current Visit: Yes Status: Chronic Assessment and Plan: Nephro following for HD currently with temp hd cath that was placed prior to neg bl cxs as noted above due to need for routine HD next HD friday (5) Diabetes Current Visit: Yes Status: Chronic Assessment and Plan: Known history of diabetes with neuropathy and ESRD on dialysis. bs at goal -Continue insulin sliding scale and basal insulin Levemir 10 units qhs -accu checks -ADA diet, CV diet (6) HTN (hypertension) Current Visit: Yes Status: Chronic Assessment and Plan: Continue monitoring bp, at times elevated above goal -Continue home meds: lisinopril, imdur, metoprolol -npero following -she will require outpt fu at dc (7) CAD (coronary artery disease) Current Visit: No Status: Chronic Assessment and Plan: CAD, stable -Continue home meds for chronic disease management as above, fu outpt as above (8) KEMAR (obstructive sleep apnea) Current Visit: Yes Status: Chronic Assessment and Plan: cpap (9) DVT prophylaxis Current Visit: Yes Status: Acute Assessment and Plan: heparin with HD, no pharm vte ppx heparin due to cont worsening anemia, scds (10) Acute on chronic anemia Current Visit: Yes Status: Acute Assessment and Plan: Acute on Chronic Anemia, multifactorial, cont slow down trend , 02/14 now 7.9 Gastric Ulcers, Anemia of Chronic Disease -did have episode of brown emesis with hgb drop and concern if this could be ugib, vs feculent on admit gi following, egd 02/10 3 gastric ulcers with adherent clot, bx taken, , ppi + carafate vte ppx scds only -will cont to trend, transfuse hgb <7, serial h/hs implemented, no s/s of active bleeding at this time - Time Spent with Patient Total time spent is greater than 50% in coordination of care (as documented) at patient's floor/unit and/or counseling patient: 25 - 35 minutes Plan of Care Discussed with: patient Internal Medicine: Result - Labs CBC & Chem 7: 02/15/18 02:55 02/15/18 02:55 Labs: Short CBC 02/15/18 Range/Units 02:55 WBC 9.4 (4.3-11.1) K/mcL Hgb 7.9 L (11.5-15.4) g/dL Hct 25.4 L (35.3-44.9) % Plt Count 236 (140-400) K/mcL Neutrophils # 5.1 (1.6-8.9) K/mcL BMP 02/15/18 02:55 Sodium 130 L Potassium 3.7 Chloride 96 L Carbon Dioxide 23 BUN 27 H Creatinine 5.41 H Glucose 100 Calcium 7.1 L - ABG Interpretation ABG results: ABG ABG pH 7.47 pH Units (7.32-7.45) H 02/05/18 11:49 ABG pCO2 35 mmHg (35-45) 02/05/18 11:49 ABG pO2 43 mmHg (85-104) L* 02/05/18 11:49 ABG O2 Saturation 82 % (95-98) L 02/05/18 11:49 PT/INR, D-dimer PT 16.0 Seconds (9.4-12.1) H 02/05/18 11:20 Consult Discharge Plan - Plan Additional Instructions: PWB right lower extremity. Orthowedge shoe for heel transfers. Follow up with Dr. Denny in wound care clinic next week. Referrals: Mayela Ayoub CNP [Advanced Practice Nurse] - 02/26/18 8:40 am Guero Clement DO [Primary Care Provider] - 02/18/18 1:00 pm () (1) Sepsis Qualifiers: Sepsis type: methicillin susceptible Staphylococcus aureus Qualified Code(s) : A41.01 - Sepsis due to Methicillin susceptible Staphylococcus aureus (3) Chest pain Qualifiers: Chest pain type: unspecified Qualified Code(s): R07.9 - Chest pain, unspecified (5) Diabetes Qualifiers: Diabetes mellitus type: type 2 Diabetes mellitus shelter insulin use: with manager long term care use Diabetes mellitus complication status: with kidney complications Diabetes mellitus complication detail: with chronic kidney disease Chronic kidney disease stage: on chronic dialysis Qualified Code(s): E11.22 - Type 2 diabetes mellitus with diabetic chronic kidney disease; N18.6 - End stage renal disease; Z79.4 - snf (current) use of insulin; Z99.2 - Dependence on renal dialysis (6) HTN (hypertension) Qualifiers: Hypertension type: essential hypertension Qualified Code(s): I10 - Essential (primary) hypertension (7) CAD (coronary artery disease) Qualifiers: Coronary Disease-Associated Artery/Lesion type: unspecified vessel or lesion type [place] vs. transplanted heart: [place] heart Associated angina: without angina Qualified Code(s): I25.10 - Atherosclerotic heart disease of [place] coronary artery without angina pectoris
[2018-02-15] MEDS: Insulin LISPRO 300 UNITS/3 ML VIAL SQ SCH ×4 (07:48→21:00)
[2018-02-15] MEDS: Tiotropium 18 MCG inhalation IH SCH (07:48)
[2018-02-15] MEDS: Fenofibrate 54 MG TABLET PO SCH (08:26)
[2018-02-15] MEDS: Metoprolol 100 MG TABLET PO SCH (08:26)
[2018-02-15] MEDS: Furosemide 40 MG TABLET PO SCH ×2 (08:26→14:28)
[2018-02-15] MEDS: Isosorbide MONOnitrate (24 HR) 30 MG TAB.ER.24H PO SCH (08:26)
[2018-02-15] MEDS: Gabapentin 100 MG CAPSULE PO SCH ×3 (08:27→21:01)
[2018-02-15] MEDS: cefTRIAXone 2,000 MG in Water for inj. (sterile) 20 ML 20 ML IVP SCH (08:27)
--- NOTE | 2018-02-15 13:49 | Nephrology Progress Note ---
Date of Encounter: 02/15/18 Time of Encounter: 12:00 - Assessment and Plan (1) ESRD (end stage renal disease) on dialysis Current Visit: Yes Status: Chronic Next Hd planned for friday Ly stable permcath when blood cultures negative and ID agrees. culture from 02/13 so far negative (2) Anemia Current Visit: Yes Status: Chronic Goal Hgb is 10-11. Hgb today is 8.4, slightly better. Stool guaiac positive. Will monitor Transfusion parameters per primary team Qualifiers: Anemia type: due to chronic kidney disease Chronic kidney disease stage: on chronic dialysis Qualified Code(s): N18.6 - End stage renal disease; D63.1 - Anemia in chronic kidney disease; Z99.2 - Dependence on renal dialysis (3) Sepsis Current Visit: Yes Status: Resolved Abx per ID. s/p permcath, PD catheter removals Qualifiers: Sepsis type: methicillin susceptible Staphylococcus aureus Qualified Code(s ): A41.01 - Sepsis due to Methicillin susceptible Staphylococcus aureus (4) Gangrene of toe of right foot Current Visit: Yes Status: Acute per podiatry POD#3 Right toe amputation (5) Diabetes Current Visit: Yes Status: Chronic Qualifiers: Diabetes mellitus type: type 2 Diabetes mellitus senior care insulin use: with senior care use Diabetes mellitus complication status: with kidney complications Diabetes mellitus complication detail: with chronic kidney disease Chronic kidney disease stage: on chronic dialysis Qualified Code(s) : E11.22 - Type 2 diabetes mellitus with diabetic chronic kidney disease; N18.6 - End stage renal disease; Z79.4 - intermediate (current) use of insulin; Z99.2 - Dependence on renal dialysis (6) COPD (chronic obstructive pulmonary disease) Current Visit: No Status: Chronic Qualifiers: COPD type: unspecified COPD Qualified Code(s): J44.9 - Chronic obstructive pulmonary disease, unspecified Subjective Principal diagnosis: s/p toe amputation Interval history: Interim noted, pt seen and examined doing well. POD #3 Right toe amputation Objective - Vital Signs Vital signs: Vital Signs Temp Pulse Resp BP Pulse Ox 02/15/18 12:21 158/74 02/15/18 12:00 98.2 F 82 18 189/81 98 02/15/18 07:27 98.3 F 76 18 156/68 100 02/15/18 03:57 98.3 F 76 18 144/67 98 02/15/18 00:07 14 98 02/15/18 00:05 98.9 F 85 18 145/57 98 02/14/18 20:47 82 02/14/18 20:33 99.5 F 82 17 161/68 98 02/14/18 20:22 14 96 02/14/18 16:31 16 98 02/14/18 16:11 98.0 F 74 16 141/63 96 Intake and Output 02/14/18 02/15/18 02/15/18 23:59 07:59 15:59 Intake Total 300 / 300 30 / 30 740 / 740 Balance 300 / 300 30 / 30 740 / 740 Intake: IV Fluids Rocephin 2,000 MG In Water for inj. (sterile) 20 ML @ 600 mls/ hr IVP DAILY [facility] Rx#:[id number] Oral 300 / 300 30 / 30 720 / 720 Other: Meal Dinner Lunch Percent of Meal Consumed 100% 100% Stool Size Small Stool Consistency loose Stool Color Brown # Bowel Movements 1 Weight 94.9 kg Blood Glucose* 169 104 235 Patient Weight 02/15/18 23:59 Weight 94.9 kg - General Appearance General appearance: Present: chronically ill EENT: Present: ATNC, mucous membranes moist Neck: Present: no JVD, supple Respiratory: Present: clear Cardiology: Present: no edema, normal S1, normal S2 Dialysis Vascular Access: Venous Catheter (temp line) Gastrointestinal: Present: no tenderness, no guarding Integumentary: Present: warm and dry Neurologic: Present: no focal deficit Musculoskeletal: Present: no deformities Psychiatric: Present: mood/affect appropriate, cooperative - Lab 02/15/18 16:15 02/15/18 02:55 Most recent lab results ABG pH 7.47 pH Units (7.32-7.45) H 02/05/18 11:49 ABG pCO2 35 mmHg (35-45) 02/05/18 11:49 ABG pO2 43 mmHg (85-104) L* 02/05/18 11:49 ABG HCO3 25 mEq/L (21-27) 02/05/18 11:49 ABG O2 Saturation 82 % (95-98) L 02/05/18 11:49 Calcium 7.1 mg/dL (8.6-10.3) L 02/15/18 02:55 Phosphorus 4.2 mg/dL (2.7-4.5) 02/06/18 04:15 Magnesium 1.9 mg/dL (1.6-2.6) 02/15/18 02:55 Consult Discharge Plan - Plan Additional Instructions: PWB right lower extremity. Orthowedge shoe for heel transfers. Follow up with Dr. Denny in wound care clinic next week. Referrals: Mayela Ayoub CNP [Advanced Practice Nurse] - 02/26/18 8:40 am Guero Clement DO [Primary Care Provider] - 02/18/18 1:00 pm ()
[2018-02-15] MEDS ORDERED: Artificial Tears SOLN 15 ML BOTTLE BOTH EYES PRN (14:34)
[2018-02-15 16:24] LABS: Hematocrit 26.3 % (35.3-44.9); Hemoglobin 8.4 g/dL (11.5-15.4)
[2018-02-15] MEDS: Insulin DETEMIR 100 UNIT/ML X5UNITS SQ SCH (21:01)
[2018-02-15] MEDS: Melatonin 3 MG TABLET PO PRN (21:01)
[2018-02-15] MEDS: *HR* HYDROcodone/Acet 5/325 mg TABLET PO PRN (21:01)
[2018-02-16 05:57] LABS: Basophils % 0.4 %; Eosinophils # 0.2 K/mcL (0.0-0.6); Eosinophils % 2.1 %; Hematocrit 23.8 % (35.3-44.9); Hemoglobin 7.6 g/dL (11.5-15.4); Lymphocytes # 0.9 K/mcL (0.6-4.6); Lymphocytes % 10.5 %; Mean Corpuscular HGB Conc 31.9 g/dL (31.6-35.5); Mean Corpuscular Hemoglobin 31.7 pg (28.0-33.3); Mean Corpuscular Volume 99.2 fL (83.0-100.0); Mean Platelet Volume 9.5 fL (9.4-12.4); Monocytes # 0.8 K/mcL (0.0-1.3); Monocytes % 8.8 %; Platelet Count 228 K/mcL (140-400); Segmented Neutrophils % 72.2 %
[2018-02-16 06:02] LABS: Neutrophils # 6.1 K/mcL (1.6-8.9)
[2018-02-16 06:09] LABS: Calcium 7.1 mg/dL (8.6-10.3); Potassium 3.8 mEq/L (3.5-5.1)
[2018-02-16 06:33] LABS: Anisocytosis 1+ (Not Present); Platelet Estimate Normal (Normal); Reactive Lymphocytes Present (Not Present); Toxic Granulation Present (Not Present)
[2018-02-16] MEDS: Insulin LISPRO 300 UNITS/3 ML VIAL SQ SCH ×4 (07:45→20:12)
[2018-02-16] MEDS: Tiotropium 18 MCG inhalation IH SCH (07:51)
[2018-02-16] MEDS ORDERED: 0.9 % Sodium Chloride 250 ML IVC PRN (08:39)
[2018-02-16] MEDS ORDERED: *HR* Heparin 10,000 UNIT/10 ML VIAL IV PRN (08:39)
[2018-02-16] MEDS ORDERED: 0.9 % Sodium Chloride 1,000 ML PRIME SCH (08:45)
[2018-02-16] MEDS: Gabapentin 100 MG CAPSULE PO SCH ×3 (08:48→20:13)
[2018-02-16] MEDS: Fenofibrate 54 MG TABLET PO SCH (08:48)
[2018-02-16] MEDS: Sucralfate 1 GM TABLET PO SCH ×3 (08:49→17:02)
[2018-02-16] MEDS: cefTRIAXone 2,000 MG in Water for inj. (sterile) 20 ML 20 ML IVP SCH (08:49)
--- NOTE | 2018-02-16 08:50 | Internal Med Progress Note ---
<Denia Carranza - Last Filed: 02/16/18 12:08> Hospitalist Progress Note - Encounter Date of Encounter: 02/16/18 - Exam Vitals: Temp Pulse Resp BP Pulse Ox 98.0 F 80 17 150/69 98 02/16/18 11:35 02/16/18 11:45 02/16/18 11:43 02/16/18 11:35 02/16/18 11:43 - Assessment and Plan (1) Sepsis Current Visit: Yes Status: Resolved (2) Necrosis of toe Current Visit: Yes Status: Acute (3) Chest pain Current Visit: Yes Status: Resolved (4) ESRD (end stage renal disease) on dialysis Current Visit: Yes Status: Chronic (5) Diabetes Current Visit: Yes Status: Chronic (6) HTN (hypertension) Current Visit: Yes Status: Chronic (7) CAD (coronary artery disease) Current Visit: No Status: Chronic (8) KEMAR (obstructive sleep apnea) Current Visit: Yes Status: Chronic (9) DVT prophylaxis Current Visit: Yes Status: Acute (10) Acute on chronic anemia Current Visit: Yes Status: Acute - Time Spent with Patient Total time spent is greater than 50% in coordination of care (as documented) at patient's floor/unit and/or counseling patient: Internal Medicine: Result - Labs CBC & Chem 7: 02/16/18 05:30 02/16/18 05:30 Labs: Short CBC 02/15/18 02/16/18 Range/Units 16:15 05:30 WBC 8.5 (4.3-11.1) K/mcL Hgb 8.4 L 7.6 L (11.5-15.4) g/dL Hct 26.3 L 23.8 L (35.3-44.9) % Plt Count 228 (140-400) K/mcL Neutrophils # 6.1 (1.6-8.9) K/mcL BMP 02/16/18 05:30 Sodium 129 L Potassium 3.8 Chloride 95 L Carbon Dioxide 25 BUN 37 H Creatinine 6.27 H Glucose 85 Calcium 7.1 L - ABG Interpretation ABG results: ABG ABG pH 7.47 pH Units (7.32-7.45) H 02/05/18 11:49 ABG pCO2 35 mmHg (35-45) 02/05/18 11:49 ABG pO2 43 mmHg (85-104) L* 02/05/18 11:49 ABG O2 Saturation 82 % (95-98) L 02/05/18 11:49 PT/INR, D-dimer PT 16.0 Seconds (9.4-12.1) H 02/05/18 11:20 Consult Discharge Plan - Plan Additional Instructions: PWB right lower extremity. Orthowedge shoe for heel transfers. Follow up with Dr. Denny in wound care clinic next week. Referrals: Mayela Ayoub [employer] [Advanced Practice Nurse] - 02/26/18 8:40 am Guero Clement DO [Primary Care Provider] - 02/18/18 1:00 pm () - Attending Attestation I examined this patient and my medical decision-making was reviewed with the Resident Physician. I agree with the documented findings, disposition and treatment plan as described except to the extent set forth below. awake, resting in bed, no pain, fevers or chills. eating and drinkign without difficulty. gen- alert, awake,appears stated age cv- reg rate and rhythm, normal s1,s2, no murmurs appreciated, no le edema lungs- ctabl, no wheezing, rhonchi or crackles, normal resp effort on ra abd- soft, non tender, non distended, + bs skin- adb dressing c/d/i, right foot dressing c/d/i neuro- AAOx3, sepsis, resolved MRSA bacteremia and R hallus klebsiella and Staph aureus infection- suspected source is necrotic toe, possibly PD cath ID following, cont IV vanc -likely to need 4-6 weeks iv vanc on dc, fu id recs Peripheral blood cultures drawn 02/05 are positive 2/2 sets for MRSA. peripheral blood cultures drawn 02/06/18 are positive 2/2 sets for MRSA cultures drawn from the Perma-cath 02/06/18 are positive 2/2 sets for MRSA Status post Perm-cath removal 02/07/18 by IR. catheter tip 02/07 positive for MRSA 02/09 bl cxs gpc + 1/2 sets 02/11 repeat cultures + gpc, pending speciation and sensitivities 02/13 bl cxs sent to have cxs with toe and pd cath removed, ngtd IR placement of temp HD cath 02/10, ideally would have been when bl cxs grow negative, however deferred to Nephro, will need a perm cath placed prior to dc per nephro however needs neg cxs first Peritoneal dialysis removed by surgery 02/12 - wound care with iodoform packing changed daily for the next 7 days - surgery signed off Toe amputation 02/12 FREDIS neg for vegetation Necrosis of toe, right- wound cx as above, podiatry following, amputation 02/12, cont iv vanc + rocephin nonweightbearing right lower extremity will be dispensed a OrthoWedge shoe by podiatry to help offload the forefoot when ambulatory. Follow-up with Dr. Denny in wound care clinic on discharge Acute on chronic anemia multifactorial, cont slow down trend , 02/14 now 7.6 Gastric Ulcers, Anemia of Chronic Disease -did have episode of brown emesis with hgb drop and concern if this could be ugib, vs feculent on admit gi following, egd 02/10 3 gastric ulcers with adherent clot, bx taken, , ppi + carafate vte ppx scds only -will cont to trend, transfuse hgb <7 though nephro would like hgb of 10 or more --need to discuss with nephro plan for iron vs epo vs transfusion--pt denying melena at this time, no s/s of active bleeding at this time, given ucers--check fobt and update gi team ESRD on hd with nephro following- will need permanent HD cath when bl cxs confirmed neg DM- ssi + levemir CAD hx/ chest pain this admission-mild trop elevation and stable likely 2/2 sepsis on admit- seen by cards, she will fu outpt, FREDIS neg , Continue home meds for chronic disease management <Franc Andrade - Last Filed: 02/16/18 18:29> Hospitalist Progress Note - Encounter Date of Encounter: 02/16/18 Time of Encounter: 09:00 - Subjective Interval History: Patient was seen and examined at bedside this morning. She states she is doing well this morning with no complaints of fevers, chills, nausea, vomiting, pain. Her diarrhea has much improved. Questions were answered and she has no concerns today. - Exam Vitals: Temp Pulse Resp BP Pulse Ox 97.9 F 73 18 143/58 99 02/16/18 07:36 02/16/18 07:36 02/16/18 07:52 02/16/18 07:36 02/16/18 07:52 Exam: Gen.: Vitals noted. No acute distress. AAOx3 HEENT: PERRL/EOMI, oropharynx clear, Normocephalic, atraumatic, MMM Cardiac: RRR, no murmur, +S1/S2 Pulmonary: CTA bilaterally, no wheezes, rales or rhonchi, equal chest expansion Abdomen: soft, nontender, BS noted, no guarding MSK: ROM intact, no joint swelling noted Extremities: no BLE edema, nontender calf, no cyanosis or clubbing. Right foot bandaged without evidence of infection. Neuro: A&Ox3, moves all extremities, no focal deficits Psych: Appropriate mood and behavior - Assessment and Plan (1) Sepsis Current Visit: Yes Status: Resolved Assessment and Plan: Sepsis, resolved with MRSA bacteremia and R hallus klebsiella and Staph aureus infection- suspected source is necrotic toe, possibly PD cath ID following, cont IV vanc -likely to need 4-6 weeks iv vanc on dc, fu id recs PD removed on 02/12, right hallux toe amputation on 02/12. Peripheral blood cultures drawn 02/05 are positive 2/2 sets for MRSA. peripheral blood cultures drawn 02/06/18 are positive 2/2 sets for MRSA cultures drawn from the Perma-cath 02/06/18 are positive 2/2 sets for MRSA Status post Perm-cath removal 02/07/18 by IR. catheter tip 02/07 positive for MRSA 02/09 bl cxs gpc + 1/2 sets 02/11 repeat staph aureus, pending speciation and sensitivities 02/13 bl cxs sent to have cxs with toe and pd cath removed, ngtd IR placement of temp HD cath 02/10, ideally would have been when bl cxs grow negative, however deferred to Nephro, will need a perm cath placed prior to dc per nephro however needs neg cxs first Peritoneal dialysis removed by surgery 02/12 - wound care with iodoform packing changed daily for the next 7 days - surgery signed off Toe amputation 02/12 FREDIS neg for vegetation Abx as per ID recommendations. Currently receiving vancomycin which previous blood cultures have been sensitive to and rocephin - Likely course of 4-6 weeks per ID note. (2) Necrosis of toe Current Visit: Yes Status: Acute Assessment and Plan: Necrosis of toe, right- wound cx as above, podiatry following, amputation 02/12, cont iv vanc + rocephin nonweightbearing right lower extremity will be dispensed a OrthoWedge shoe by podiatry to help offload the forefoot when ambulatory. Follow-up with Dr. Denny in wound care clinic next week. (3) Chest pain Current Visit: Yes Status: Resolved Assessment and Plan: Chest Pain, resolved, mild trop elevation and stable likely 2/2 sepsis on admit - seen by cards, she will fu outpt, FREDIS neg (4) ESRD (end stage renal disease) on dialysis Current Visit: Yes Status: Chronic Assessment and Plan: Nephro following for HD currently with temp hd cath that was placed prior to neg bl cxs as noted above due to need for routine HD next HD today, friday HD temp cath placed by IR on 02/11. (5) Diabetes Current Visit: Yes Status: Chronic Assessment and Plan: Known history of diabetes with neuropathy and ESRD on dialysis. bs at goal, today 85 A1c 7.0% in november 2017 -Continue insulin sliding scale and basal insulin Levemir 10 units qhs -accu checks -ADA diet, CV diet (6) HTN (hypertension) Current Visit: Yes Status: Chronic Assessment and Plan: Continue monitoring bp, at times elevated above goal Continues to be elevated today in 150-60s systolic -Continue home meds: lisinopril, imdur, metoprolol -nephro following -she will require outpt fu at dc (7) CAD (coronary artery disease) Current Visit: No Status: Chronic Assessment and Plan: CAD, stable -Continue home meds for chronic disease management as above, fu outpt as above - Chest pain assessment as above (8) KEMAR (obstructive sleep apnea) Current Visit: Yes Status: Chronic Assessment and Plan: cpap at night (9) DVT prophylaxis Current Visit: Yes Status: Acute Assessment and Plan: heparin with HD, no pharm vte ppx heparin due to cont worsening anemia, scds (10) Acute on chronic anemia Current Visit: Yes Status: Acute Assessment and Plan: Acute on Chronic Anemia, multifactorial, cont slow down trend - Today hgb of 7.6, decreased from previous 8.4/7.9/8.1/9.0 - Baseline hgb appears to be around 8-10 - Hx of Gastric Ulcers, vs Anemia of Chronic Disease -did have episode of brown emesis with hgb drop and concern if this could be ugib, vs feculent on admit - gi following, egd 02/10 demonstrated 3 gastric ulcers with adherent clot, bx taken, , started on ppi + carafate - vte ppx scds only - Nephrology note mentions goal Hgb of 10 - Patient denies melena, hematochezia Plan - Continue to monitor and transfuse if <7 - Will obtain afternoon H/H to monitor for slow drop - Repeat FOBT - Will discuss with Nephro goal and any further recommendations. - Time Spent with Patient Total time spent is greater than 50% in coordination of care (as documented) at patient's floor/unit and/or counseling patient: Internal Medicine: Result - Labs CBC & Chem 7: 02/16/18 05:30 02/16/18 05:30 Labs: Short CBC 02/15/18 02/16/18 Range/Units 16:15 05:30 WBC 8.5 (4.3-11.1) K/mcL Hgb 8.4 L 7.6 L (11.5-15.4) g/dL Hct 26.3 L 23.8 L (35.3-44.9) % Plt Count 228 (140-400) K/mcL Neutrophils # 6.1 (1.6-8.9) K/mcL BMP 02/16/18 05:30 Sodium 129 L Potassium 3.8 Chloride 95 L Carbon Dioxide 25 BUN 37 H Creatinine 6.27 H Glucose 85 Calcium 7.1 L - ABG Interpretation ABG results: ABG ABG pH 7.47 pH Units (7.32-7.45) H 02/05/18 11:49 ABG pCO2 35 mmHg (35-45) 02/05/18 11:49 ABG pO2 43 mmHg (85-104) L* 02/05/18 11:49 ABG O2 Saturation 82 % (95-98) L 02/05/18 11:49 PT/INR, D-dimer PT 16.0 Seconds (9.4-12.1) H 02/05/18 11:20 <Denia Carranza - Last Filed: 02/16/18 12:08> (1) Sepsis Qualifiers: Sepsis type: methicillin susceptible Staphylococcus aureus Qualified Code(s) : A41.01 - Sepsis due to Methicillin susceptible Staphylococcus aureus (3) Chest pain Qualifiers: Chest pain type: unspecified Qualified Code(s): R07.9 - Chest pain, unspecified (5) Diabetes Qualifiers: Diabetes mellitus type: type 2 Diabetes mellitus box cutter insulin use: with senior living use Diabetes mellitus complication status: with kidney complications Diabetes mellitus complication detail: with chronic kidney disease Chronic kidney disease stage: on chronic dialysis Qualified Code(s): E11.22 - Type 2 diabetes mellitus with diabetic chronic kidney disease; N18.6 - End stage renal disease; Z79.4 - shelter (current) use of insulin; Z99.2 - Dependence on renal dialysis (6) HTN (hypertension) Qualifiers: Hypertension type: essential hypertension Qualified Code(s): I10 - Essential (primary) hypertension (7) CAD (coronary artery disease) Qualifiers: Coronary Disease-Associated Artery/Lesion type: unspecified vessel or lesion type [place] vs. transplanted heart: [place] heart Associated angina: without angina Qualified Code(s): I25.10 - Atherosclerotic heart disease of [place] coronary artery without angina pectoris <Franc Andrade - Last Filed: 02/16/18 18:29> (1) Sepsis Qualifiers: Sepsis type: methicillin susceptible Staphylococcus aureus Qualified Code(s) : A41.01 - Sepsis due to Methicillin susceptible Staphylococcus aureus (3) Chest pain Qualifiers: Chest pain type: unspecified Qualified Code(s): R07.9 - Chest pain, unspecified (5) Diabetes Qualifiers: Diabetes mellitus type: type 2 Diabetes mellitus box cutter insulin use: with senior living use Diabetes mellitus complication status: with kidney complications Diabetes mellitus complication detail: with chronic kidney disease Chronic kidney disease stage: on chronic dialysis Qualified Code(s): E11.22 - Type 2 diabetes mellitus with diabetic chronic kidney disease; N18.6 - End stage renal disease; Z79.4 - shelter (current) use of insulin; Z99.2 - Dependence on renal dialysis (6) HTN (hypertension) Qualifiers: Hypertension type: essential hypertension Qualified Code(s): I10 - Essential (primary) hypertension (7) CAD (coronary artery disease) Qualifiers: Coronary Disease-Associated Artery/Lesion type: unspecified vessel or lesion type [place] vs. transplanted heart: [place] heart Associated angina: without angina Qualified Code(s): I25.10 - Atherosclerotic heart disease of [place] coronary artery without angina pectoris
--- NOTE | 2018-02-16 11:05 | Infectious Disease Progress No ---
Date of Encounter: 02/16/18 Time of Encounter: 11:03 - Assessment and Plan (1) Sepsis Current Visit: Yes Status: Resolved The patient had 3 sepsis criteria plus hypotension. Likely secondary to bacteremia, right great toe infection, and UTI. WBC normalized. Tachycardia resolved. Afebrile. Peripheral blood cultures obtained 02/05/18 are positive for MRSA 2 sets. Additional blood cultures drawn 02/06/18 x 2 sets from a peripheral stick are positive 2/2 sets as well as 2/2 sets from the Perma-cath. Repeat peripheral blood cultures drawn 02/09/18 are positive 1/2 sets. Repeat peripheral blood cultures drawn 02/11/18 are positive 1/2 sets. repeat blood cultures drawn 02/13/18 are NGTD x 2 sets. Qualifiers: Qualified Code(s): A41.01 - Sepsis due to Methicillin susceptible Staphylococcus aureus (2) Bacteremia Current Visit: Yes Status: Acute Causative organism: MRSA. Source: right great toe vs. Perma-cath. Peripheral blood cultures drawn 02/05/18 are positive 2/2 sets for MRSA. Repeat peripheral blood cultures drawn 02/06/18 are positive 2/2 sets as well. Cultures drawn from the Perma-cath 02/06/18 are positive 2/2 sets as well. Status post Perm-cath removal 02/07/18 by IR. Repeat peripheral blood cultures drawn 02/09/18 are positive 1/2 sets. Additional peripheral blood cultures drawn 02/11/18 are positive 1/2 sets. Repeat blood cultures drawn 02/13/18 are NGTD x 2 sets. No endocarditis stigmata noted on exam. The patient is having some thoracic back pain which she attributes to the hospital bed, but will have a low threshold for imaging if back pain worsens/ persists. The patient has one major and one minor Modified Self's Criteria. TTE negative for vegetation. FREDIS negative. Continue Vancomycin IV. Pharmacy to dose. Goal trough ~15. Duration of treatment depends on the clinical picture, but likely a total of 4- 6 weeks due to the right great toe infection. Monitor renal function and for drug toxicity and dose-adjust antibiotics. Will discuss with Nephrology, nut hopefully we can give the Vancomycin with HD. (3) Necrosis of toe Current Visit: Yes Status: Acute Location: Right great toe. Etiology: Unclear. The patient does have a known history of PVD. There is also concern that there may be an element of infection as well. X-ray of the right foot was negative for osteomyelitis. [employer] Operator been consulted. STatus post amputation of right great toe 02/12/[address] Denny. Intra-op note reviewed. Pathology negative for osteomyelitis. No cultures were sent. Wound culture positive for MRSA and K. oxytoca. Continue Rocephin 2 grams IV daily. Continue vancomycin IV. Pharmacy to dose. Goal trough approximately 15. Duration of treatment depends on the clinical picture, but likely 4-6 weeks. Monitor renal function for drug toxicity and dose adjust antibiotics. Consult VAT for Powerglide placement prior to discharge. Will need weekly CBC, BUN/Cr, ESR, and CRP. Will need weekly IV care per protocol. Follow up with ID 02/26/18 at 0900. (4) Dysuria Current Visit: Yes Status: Resolved The patient reports a one-week history of urinary frequency and dysuria. Culture positive for E. coli. Continue antibiotics as above for now. (5) Encephalopathy Current Visit: Yes Status: Resolved Likely multifactorial: sepsis + hyperammonemia. No focal neuro deficits noted on exam. Resolved. Continue to monitor closely. (6) Hyperammonemia Current Visit: Yes Status: Resolved Ammonia level elevated at 76. Etiology unclear. LFTs are normal. CT of the abdomen and pelvis was negative for acute abnormality. Resolved. Further workup and management per the primary team. (7) Anemia Current Visit: Yes Status: Chronic Hemoglobin down to 7.4 on admission. Hgb down to 7.6 today. No acute bleeding noted on exam. Further workup and management per the primary nephrology teams. Qualifiers: Qualified Code(s): N18.6 - End stage renal disease; D63.1 - Anemia in chronic kidney disease; Z99.2 - Dependence on renal dialysis (8) Nausea Current Visit: No Status: Resolved The patient reports persistent nausea for the past couple of weeks. Etiology unclear. GI consulted. Status post EGD that showed non-bleeding gastric ulcers. Resolved. (9) Chest pain Current Visit: Yes Status: Resolved Etiology unclear. Pain is reproducible on exam. EKGs have been unchanged. CT of the chest was negative. Resolved. Further workup and management per the primary team. Qualifiers: Qualified Code(s): R07.9 - Chest pain, unspecified (10) Pulmonary HTN Current Visit: No Status: Chronic (11) CAD (coronary artery disease) Current Visit: No Status: Chronic Qualifiers: Qualified Code(s): I25.10 - Atherosclerotic heart disease of [place] coronary artery without angina pectoris (12) KEMAR (obstructive sleep apnea) Current Visit: Yes Status: Chronic (13) CHF (congestive heart failure) Current Visit: Yes Status: Deleted Qualifiers: Qualified Code(s): I50.9 - Heart failure, unspecified (14) ESRD (end stage renal disease) Current Visit: No Status: Chronic Nephrology has been consulted to assist with HD management. We will dose adjust antibiotics based on HD status. (15) COPD (chronic obstructive pulmonary disease) Current Visit: No Status: Chronic Qualifiers: Qualified Code(s): J44.1 - Chronic obstructive pulmonary disease with (acute ) exacerbation - Subjective Interval history: Patient seen and examined. No acute events noted overnight. Patient states overall she is okay today. Status post amputation of right great toe 02/12/[address] Denny. Denies any fevers or chills or rigors. Denies chest pain, shortness of breath, or cough. Denies any nausea or vomiting. Reports appetite is okay. She denies any abdominal pain, urinary complaints. She denies any oral thrush or any skin lesions. Denies foot or back pain. Status post FREDIS 9105/29 that was negative. Status post EGD and temp HD catheter placement 02/10/18. Infect Dis PN-Objective Data - Labs CBC & Chem 7: 02/16/18 05:30 02/16/18 05:30 Labs: Laboratory Results - last 24 hr 02/15/18 02/15/18 02/15/18 07:24 12:00 16:15 WBC RBC Hgb 8.4 L Hct 26.3 L MCV MCH MCHC RDW Plt Count MPV Immature Gran % Seg Neutrophils % Lymphocytes % Monocytes % Eosinophils % Basophils % Neutrophils # Lymphocytes # Monocytes # Eosinophils # Basophils # Reactive Lymphocytes Toxic Granulation Platelet Estimate Anisocytosis Sodium Potassium Chloride Carbon Dioxide BUN Creatinine Est GFR ( Amer) Est GFR (Non-Af Amer) BUN/Creatinine Ratio Glucose POC Glucose 104 H 235 H Calculated Osmolality Calcium Random Vancomycin 02/15/18 02/15/18 02/16/18 16:46 20:42 05:30 WBC RBC Hgb Hct MCV MCH MCHC RDW Plt Count MPV Immature Gran % Seg Neutrophils % Lymphocytes % Monocytes % Eosinophils % Basophils % Neutrophils # Lymphocytes # Monocytes # Eosinophils # Basophils # Reactive Lymphocytes Toxic Granulation Platelet Estimate Anisocytosis Sodium 129 L Potassium 3.8 Chloride 95 L Carbon Dioxide 25 BUN 37 H Creatinine 6.27 H Est GFR ( Amer) 8 L Est GFR (Non-Af Amer) 7 L BUN/Creatinine Ratio 6 Glucose 85 POC Glucose 123 H 247 H Calculated Osmolality 276 L Calcium 7.1 L Random Vancomycin 02/16/18 02/16/18 05:30 05:30 WBC 8.5 RBC 2.40 L Hgb 7.6 L Hct 23.8 L MCV 99.2 MCH 31.7 MCHC 31.9 RDW 18.0 H Plt Count 228 MPV 9.5 Immature Gran % 6.0 H Seg Neutrophils % 72.2 Lymphocytes % 10.5 Monocytes % 8.8 Eosinophils % 2.1 Basophils % 0.4 Neutrophils # 6.1 Lymphocytes # 0.9 Monocytes # 0.8 Eosinophils # 0.2 Basophils # 0.0 Reactive Lymphocytes Present A Toxic Granulation Present A Platelet Estimate Normal Anisocytosis 1+ A Sodium Potassium Chloride Carbon Dioxide BUN Creatinine Est GFR ( Amer) Est GFR (Non-Af Amer) BUN/Creatinine Ratio Glucose POC Glucose Calculated Osmolality Calcium Random Vancomycin 15 Cultures: Cultures 02/11/18 16:11 Blood Culture - Final Peripheral Venipuncture Methicillin Resistant S.aureus 02/09/18 08:08 Blood Culture - Final Peripheral Venipuncture No growth. Final report. 02/13/18 12:18 Blood Culture - Preliminary Peripheral Venipuncture Culture is incubating and being continuously monitored for growth. Final report to follow. 02/13/18 12:23 Blood Culture - Preliminary Peripheral Venipuncture Culture is incubating and being continuously monitored for growth. Final report to follow. 02/09/18 11:35 Blood Culture - Preliminary Peripheral Venipuncture Gram Positive Cocci 02/11/18 16:11 Blood Culture - Preliminary Peripheral Venipuncture Culture is incubating and being continuously monitored for growth. Final report to follow. 02/07/18 15:24 Catheter Tip Culture - Final Intravenous or Arterial Cath Methicillin Resistant S.aureus 02/05/18 14:10 Body Fluid Culture - Final Peritoneal Fluid 02/05/18 11:20 Blood Culture - Final Peripheral Venipuncture Methicillin Resistant S.aureus 02/05/18 11:20 Blood Culture - Final Peripheral Venipuncture Methicillin Resistant S.aureus 02/06/18 03:22 Blood Culture - Final Peripheral Venipuncture Methicillin Resistant S.aureus 02/06/18 14:39 Blood Culture - Final Central Venous Catheter Methicillin Resistant S.aureus 02/06/18 03:22 Blood Culture - Final Peripheral Venipuncture Methicillin Resistant S.aureus 02/06/18 14:39 Blood Culture - Final Central Venous Catheter Methicillin Resistant S.aureus 02/05/18 13:50 Urine Culture - Final Urine,Catheterized Escherichia coli 02/05/18 13:30 Wound Culture - Final Right Great Toe Klebsiella oxytoca Staphylococcus aureus Serology 02/12/18 02/05/18 02/05/18 Range/Units 04:40 16:57 14:10 Ur Specimen Adequacy Urine Color (Yellow) Urine Clarity (Clear) Urine pH (5.0-8.0) pH Units Ur Specific [place] (1.010-1.025) Urine Protein (Neg-Trace) mg/dL Urine Glucose (UA) (Normal) mg/dL Urine Ketones (Negative) mg/dL Urine Blood (Negative) Urine Nitrite (Negative) Urine Bilirubin (Negative) Urine Urobilinogen (Normal) mg/dL Ur Leukocyte Esterase (Negative) Urine Microscopic RBC (0-3) per hpf Urine Microscopic WBC (0-3) per hpf Ur Squamous Epith Cells (None-Few) per lpf Urine Bacteria (None-Few) per hpf Hyaline Casts (None-Few) per lpf Ur Culture Indicated? (NO) Peritoneal Appearance HAZY (Clear) Peritoneal Volume TNP Peritoneal RBC TNP Periton Tot Nuc Cells TNP Periton Neutrophils 62.0 % Periton Band Neuts 2.0 % Periton Lymphocytes % 24.0 % Periton Monocytes % 12.0 % Stool Occult Blood Positive A (Negative) A. baumannii (PCR) (Not Detect) Lynne albicans (PCR) (Not Detect) C. glabrata (PCR) (Not Detect) C. krusei (PCR) (Not Detect) C. parapsilosis (PCR) (Not Detect) C. tropicalis (PCR) (Not Detect) Enterobacteriac sp PCR (Not Detect) E. cloacae complex PCR (Not Detect) Enterococcus sp PCR (Not Detect) E. coli (PCR) (Not Detect) H. influenzae (PCR) (Not Detect) Hep Bs Antigen Nonreactive (Nonreactive) Hep Bs Antibody 0.00 mIU/mL Klebsiella oxytoca PCR (Not Detect) Klebsiella pneumoniae (Not Detect) List. monocytogenes PCR (Not Detect) N. meningitidis (PCR) (Not Detect) Proteus species (PCR) (Not Detect) Serratia marcescens PCR (Not Detect) Staphylococcus sp PCR (Not Detect) Staph aureus (PCR) (Not Detect) mecA-Methicil Res Gene (Not Detect) Streptococcus sp PCR (Not Detect) Group A Strep DNA (Not Detect) Group B Strep (PCR) (Not Detect) Strep pneumoniae (PCR) (Not Detect) P. aeruginosa (PCR) (Not Detect) Aki/B-Vanco Res Genes (Not Detect) KPC (blaKPC) Detect PCR (Not Detect) 02/05/18 02/05/18 Range/Units 11:20 10:58 Ur Specimen Adequacy See below A Urine Color Yellow (Yellow) Urine Clarity Turbid A (Clear) Urine pH 6.0 (5.0-8.0) pH Units Ur Specific [place] 1.017 (1.010-1.025) Urine Protein >=300 H (Neg-Trace) mg/dL Urine Glucose (UA) 250 H (Normal) mg/dL Urine Ketones Negative (Negative) mg/dL Urine Blood Moderate H (Negative) Urine Nitrite Negative (Negative) Urine Bilirubin Negative (Negative) Urine Urobilinogen Normal (Normal) mg/dL Ur Leukocyte Esterase Large H (Negative) Urine Microscopic RBC 15-30 H (0-3) per hpf Urine Microscopic WBC TNTC H (0-3) per hpf Ur Squamous Epith Cells Many H (None-Few) per lpf Urine Bacteria Many H (None-Few) per hpf Hyaline Casts None Seen (None-Few) per lpf Ur Culture Indicated? NO. A (NO) Peritoneal Appearance (Clear) Peritoneal Volume Peritoneal RBC Periton Tot Nuc Cells Periton Neutrophils % Periton Band Neuts % Periton Lymphocytes % % Periton Monocytes % % Stool Occult Blood (Negative) A. baumannii (PCR) Not Detected (Not Detect) Lynne albicans (PCR) Not Detected (Not Detect) C. glabrata (PCR) Not Detected (Not Detect) C. krusei (PCR) Not Detected (Not Detect) C. parapsilosis (PCR) Not Detected (Not Detect) C. tropicalis (PCR) Not Detected (Not Detect) Enterobacteriac sp PCR Not Detected (Not Detect) E. cloacae complex PCR Not Detected (Not Detect) Enterococcus sp PCR Not Detected (Not Detect) E. coli (PCR) Not Detected (Not Detect) H. influenzae (PCR) Not Detected (Not Detect) Hep Bs Antigen (Nonreactive) Hep Bs Antibody mIU/mL Klebsiella oxytoca PCR Not Detected (Not Detect) Klebsiella pneumoniae Not Detected (Not Detect) List. monocytogenes PCR Not Detected (Not Detect) N. meningitidis (PCR) Not Detected (Not Detect) Proteus species (PCR) Not Detected (Not Detect) Serratia marcescens PCR Not Detected (Not Detect) Staphylococcus sp PCR DETECTED A (Not Detect) Staph aureus (PCR) DETECTED A (Not Detect) mecA-Methicil Res Gene DETECTED A (Not Detect) Streptococcus sp PCR Not Detected (Not Detect) Group A Strep DNA Not Detected (Not Detect) Group B Strep (PCR) Not Detected (Not Detect) Strep pneumoniae (PCR) Not Detected (Not Detect) P. aeruginosa (PCR) Not Detected (Not Detect) Aki/B-Vanco Res Genes Not Detected (Not Detect) KPC (blaKPC) Detect PCR Not Detected (Not Detect) Exam - Constitutional Vitals: Temp Pulse Resp BP Pulse Ox 97.9 F 74 18 143/58 99 02/16/18 07:36 02/16/18 09:25 02/16/18 07:52 02/16/18 07:36 02/16/18 07:52 General appearance: cooperative, no acute distress, obese - Head Head exam: Present: atraumatic, normal inspection, normocephalic - Eye Eye exam: Present: EOMI, normal appearance, PERRL Pupils: Present: normal accommodation - ENT ENT exam: Present: mucous membranes moist - Neck Neck exam: Present: normal inspection Additional comments: Temporary dialysis catheter noted to the right neck with transparent dressing C/ D/I. - Respiratory Respiratory exam: Present: CTAB. Absent: rales, respiratory distress, rhonchi, wheezes - Cardiovascular Cardiovascular exam: Present: RRR, +S1, +S2 - GI/Abdominal GI/Abdominal exam: Present: distended (obese), normal bowel sounds, soft. Absent: tenderness - Extremities Exam Extremities exam: Present: normal inspection. Absent: joint swelling, pedal edema, tenderness Additional comments: Right foot dressing C/D/I. - Neurological Exam Neurological exam: Present: alert, oriented X3, no focal deficits - Psychiatric Psychiatric exam: Present: normal affect, normal mood - Skin Skin exam: Present: dry, intact, normal color, warm Consult Discharge Plan - Plan Additional Instructions: PWB right lower extremity. Orthowedge shoe for heel transfers. Follow up with Dr. Denny in wound care clinic next week. Referrals: Mayela Ayoub CNP [Advanced Practice Nurse] - 02/26/18 8:40 am Guero Clement DO [Primary Care Provider] - 02/18/18 1:00 pm () - Attending Attestation I examined this patient and my medical decision-making was reviewed with the Resident Physician. I agree with the documented findings, disposition and treatment plan as described except to the extent set forth below.
[2018-02-16] MEDS ORDERED: 0.9 % Sodium Chloride 2,000 ML ONE (11:21)
[2018-02-16] MEDS: Furosemide 40 MG TABLET PO SCH ×2 (11:39→17:01)
[2018-02-16] MEDS ORDERED: 0.9 % Sodium Chloride 250 ML ONE (16:36)
[2018-02-16] MEDS: Metoprolol 100 MG TABLET PO SCH (16:36)
[2018-02-16] MEDS: Isosorbide MONOnitrate (24 HR) 30 MG TAB.ER.24H PO SCH (17:01)
[2018-02-16] MEDS ORDERED: Vancomycin 500 MG in 0.9 % Sodium Chloride Mini Bag 100 ML IVPB ONE (20:00)
[2018-02-16] MEDS: Insulin DETEMIR 100 UNIT/ML X5UNITS SQ SCH (20:13)
--- NOTE | 2018-02-16 20:23 | Nephrology Progress Note ---
Date of Encounter: 02/16/18 Time of Encounter: 10:15 - Assessment and Plan (1) ESRD (end stage renal disease) Current Visit: No Status: Chronic ESRD on chronic HD MWF and due for HD today (Friday). I reviewed the hand-off from my colleague, her vitals, imaging, progress notes, meds, and labs. (2) Hyponatremia Current Visit: Yes Status: Acute Acute on chronic, but she appeared euvolemic on exam. Should improve with dialysis as ordered for today, but will need to follow. Slow goal of correction recommended. (3) Anemia Current Visit: Yes Status: Chronic Goal Hgb is 10-11. Transfusion parameters per primary team Qualifiers: Anemia type: due to chronic kidney disease Chronic kidney disease stage: on chronic dialysis Qualified Code(s): N18.6 - End stage renal disease; D63.1 - Anemia in chronic kidney disease; Z99.2 - Dependence on renal dialysis (4) Diabetes Current Visit: Yes Status: Chronic Per primary. 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 She did not affirm N/V/D or F/C. 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 Objective - Vital Signs Vital signs: Vital Signs Temp Pulse Resp BP Pulse Ox 02/16/18 20:17 14 99 02/16/18 19:45 99 F 82 16 170/61 02/16/18 19:10 98.9 F 16 163/59 97 02/16/18 17:13 98.5 F 94 16 163/76 98 02/16/18 17:07 89 02/16/18 16:58 99.1 F 88 16 166/66 98 02/16/18 16:26 98.0 F 89 18 154/61 96 02/16/18 15:58 97.9 F 20 158/68 02/16/18 15:40 119/57 02/16/18 15:25 131/52 02/16/18 15:10 138/56 02/16/18 14:55 139/61 02/16/18 14:40 144/54 02/16/18 14:25 151/57 02/16/18 14:10 154/57 02/16/18 13:55 144/62 02/16/18 13:40 159/69 02/16/18 13:25 144/67 02/16/18 13:10 141/77 02/16/18 12:55 132/71 02/16/18 12:40 139/75 02/16/18 12:25 150/68 02/16/18 12:10 97.6 F 18 144/53 02/16/18 11:45 80 02/16/18 11:43 17 98 02/16/18 11:35 98.0 F 81 18 150/69 99 02/16/18 09:25 74 02/16/18 07:52 18 99 02/16/18 07:36 97.9 F 73 18 143/58 100 02/16/18 04:10 98.1 F 73 18 126/57 100 02/16/18 00:42 98.2 F 78 18 140/54 100 02/15/18 23:24 18 97 02/15/18 20:43 98.6 F 80 18 174/74 98 Intake and Output 02/16/18 02/16/18 02/16/18 07:59 15:59 23:59 Intake Total 980 / 980 350 / 350 Output Total 3350 / 3350 300 / 300 Balance -2370 / -2370 50 / 50 Intake: IV Fluids 20 / 20 Rocephin 2,000 MG In Water for 20 / 20 inj. (sterile) 20 ML @ 600 mls/ hr IVP DAILY [facility] Rx#:[id number] Oral 360 / 360 Blood Product 350 / 350 Rbcs Leuko Poor As-1 Unit 350 / 350 [id number] Intake, Rinseback and Flushes 600 / 600 Output: Urine 50 / 50 300 / 300 Total Dialysis (HD) Output 3300 / 3300 Other: Meal Dinner Percent of Meal Consumed 80% 95% Stool Size Moderate Moderate Stool Consistency soft liquid Stool Color Brown # Bowel Movements 1 Weight 94.5 kg 94.5 kg Blood Glucose* 85 115 190 Hemodialysis Net Fluid Removed 2700 (mL) Patient Weight 02/16/18 23:59 Weight 94.5 kg - General Appearance General appearance: Present: well-developed, well-nourished, appears started age , obese EENT: Present: ATNC Neck: Present: supple Respiratory: Present: clear Cardiology: Present: no edema, normal S1, normal S2 Dialysis Vascular Access: Venous Catheter (Rt IJ temporary HD catheter with dressing C/D/I) Gastrointestinal: Present: no guarding, obese Additional Comments: foot dressing C/D/I Neurologic: Present: no asterixis, alert and oriented x3 Musculoskeletal: Present: deformities Psychiatric: Present: cooperative - Lab 02/16/18 05:30 02/16/18 05:30 Most recent lab results ABG pH 7.47 pH Units (7.32-7.45) H 02/05/18 11:49 ABG pCO2 35 mmHg (35-45) 02/05/18 11:49 ABG pO2 43 mmHg (85-104) L* 02/05/18 11:49 ABG HCO3 25 mEq/L (21-27) 02/05/18 11:49 ABG O2 Saturation 82 % (95-98) L 02/05/18 11:49 Calcium 7.1 mg/dL (8.6-10.3) L 02/16/18 05:30 Phosphorus 4.2 mg/dL (2.7-4.5) 02/06/18 04:15 Magnesium 1.9 mg/dL (1.6-2.6) 02/15/18 02:55 Consult Discharge Plan - Plan Additional Instructions: PWB right lower extremity. Orthowedge shoe for heel transfers. Follow up with Dr. Denny in wound care clinic next week. Referrals: Mayela Ayoub [employer] [Advanced Practice Nurse] - 02/26/18 8:40 am CarterGuero Restrpeo DO [Primary Care Provider] - 02/18/18 1:00 pm ()
[2018-02-16] MEDS: Melatonin 3 MG TABLET PO PRN (20:25)
[2018-02-16] MEDS: *HR* HYDROcodone/Acet 5/325 mg TABLET PO PRN (20:25)
[2018-02-17 04:08] LABS: Basophils % 0.5 %; Eosinophils # 0.1 K/mcL (0.0-0.6); Eosinophils % 1.3 %; Hematocrit 30.8 % (35.3-44.9); Immature Granulocytes % 4.2 % (0-4); Lymphocytes # 0.6 K/mcL (0.6-4.6); Lymphocytes % 7.8 %; Mean Corpuscular HGB Conc 32.5 g/dL (31.6-35.5); Mean Corpuscular Hemoglobin 31.5 pg (28.0-33.3); Mean Corpuscular Volume 97.2 fL (83.0-100.0); Mean Platelet Volume 9.4 fL (9.4-12.4); Monocytes # 0.7 K/mcL (0.0-1.3); Monocytes % 9.4 %; Neutrophils # 5.9 K/mcL (1.6-8.9); Platelet Count 231 K/mcL (140-400); Red Blood Count 3.17 M/mcL (3.82-4.97); Red Cell Distribution Width 18.8 % (11.5-14.5); Segmented Neutrophils % 76.8 %
[2018-02-17 04:22] LABS: Potassium 4.3 mEq/L (3.5-5.1)
[2018-02-17 04:23] LABS: Calcium 7.6 mg/dL (8.6-10.3)
[2018-02-17] MEDS: Tiotropium 18 MCG inhalation IH SCH (07:38)
[2018-02-17] MEDS: Fenofibrate 54 MG TABLET PO SCH (08:33)
[2018-02-17] MEDS: Sucralfate 1 GM TABLET PO SCH ×3 (08:33→16:26)
[2018-02-17] MEDS: Gabapentin 100 MG CAPSULE PO SCH ×3 (08:33→21:29)
[2018-02-17] MEDS: Isosorbide MONOnitrate (24 HR) 30 MG TAB.ER.24H PO SCH (08:33)
[2018-02-17] MEDS: Metoprolol 100 MG TABLET PO SCH (08:34)
[2018-02-17] MEDS: Furosemide 40 MG TABLET PO SCH ×2 (08:34→12:33)
[2018-02-17] MEDS: cefTRIAXone 2,000 MG in Water for inj. (sterile) 20 ML 20 ML IVP SCH (08:34)
--- NOTE | 2018-02-17 10:25 | Nephrology Progress Note ---
Date of Encounter: 02/17/18 Time of Encounter: 09:55 - Assessment and Plan (1) ESRD (end stage renal disease) Current Visit: No Status: Chronic ESRD on chronic HD MWF, with the next HD planned for Friday. She has a Rt IJ temporary HD catheter currently and will await the finalization of her BCx before a Permacath could be replaced, which would be needed to be accomplished before she can be discharged. Avoid antiplatelet Rx if needed for 5 days before Permacath placement and goal INR for the [facility] is generally <1.4. (2) Hyponatremia Current Visit: Yes Status: Acute Acute on chronic, but she appeared euvolemic on exam again today. Periodic dialysis will be needed. (3) Anemia Current Visit: Yes Status: Chronic Goal Hgb is 10-11. Transfusion parameters per primary team Qualifiers: Anemia type: due to chronic kidney disease Chronic kidney disease stage: on chronic dialysis Qualified Code(s): N18.6 - End stage renal disease; D63.1 - Anemia in chronic kidney disease; Z99.2 - Dependence on renal dialysis (4) Diabetes Current Visit: Yes Status: Chronic Per primary. 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 Diabetes mellitus complication status: with kidney complications Diabetes mellitus complication detail: with chronic kidney disease Chronic kidney disease stage: on chronic dialysis Qualified Code(s) : E11.22 - Type 2 diabetes mellitus with diabetic chronic kidney disease; N18.6 - End stage renal disease; Z79.4 - custodial (current) use of insulin; Z99.2 - Dependence on renal dialysis (5) COPD (chronic obstructive pulmonary disease) Current Visit: No Status: Chronic As per primary Qualifiers: COPD type: unspecified COPD Qualified Code(s): J44.9 - Chronic obstructive pulmonary disease, unspecified (6) Gangrene of toe of right foot Current Visit: Yes Status: Acute S/p Right toe amputation Subjective Principal diagnosis: s/p toe amputation Interval history: Pt was s/e earlier today. She reported having a good dialysis treatment yesterday. We talked about the process of awaiting BCx and ideally having a [facility]. She reaffirmed that her primary nephrology group is with the former [facility] group. Objective - Vital Signs Vital signs: Vital Signs Temp Pulse Resp BP Pulse Ox 02/17/18 08:08 98.5 F 82 18 177/76 99 02/17/18 07:37 16 100 02/17/18 05:01 77 02/17/18 00:52 98.5 F 83 16 142/53 99 02/17/18 00:51 98.5 F 79 16 142/53 99 02/17/18 00:04 16 99 02/16/18 23:54 98.5 F 79 18 142/53 98 02/16/18 22:04 98.3 F 82 16 139/45 98 02/16/18 21:49 98.7 F 84 16 126/49 96 02/16/18 21:10 98.3 F 83 16 139/45 98 02/16/18 20:17 14 99 02/16/18 19:45 99 F 82 16 170/61 02/16/18 19:10 98.9 F 16 163/59 97 02/16/18 17:13 98.5 F 94 16 163/76 98 02/16/18 17:07 89 02/16/18 16:58 99.1 F 88 16 166/66 98 02/16/18 16:26 98.0 F 89 18 154/61 96 02/16/18 15:58 97.9 F 20 158/68 02/16/18 15:40 119/57 02/16/18 15:25 131/52 02/16/18 15:10 138/56 02/16/18 14:55 139/61 02/16/18 14:40 144/54 02/16/18 14:25 151/57 02/16/18 14:10 154/57 02/16/18 13:55 144/62 02/16/18 13:40 159/69 02/16/18 13:25 144/67 02/16/18 13:10 141/77 02/16/18 12:55 132/71 02/16/18 12:40 139/75 02/16/18 12:25 150/68 02/16/18 12:10 97.6 F 18 144/53 02/16/18 11:45 80 02/16/18 11:43 17 98 02/16/18 11:35 98.0 F 81 18 150/69 99 Intake and Output 02/16/18 02/17/18 02/17/18 23:59 07:59 15:59 Intake Total 350 / 350 350 / 350 240 / 240 Output Total 300 / 300 Balance 50 / 50 350 / 350 240 / 240 Intake: Oral 240 / 240 Blood Product 350 / 350 350 / 350 Rbcs Leuko Poor As-1 Unit 350 / 350 [id number] Rbcs Leuko Poor As-1 Unit 0 / 0 350 / 350 [id number] Output: Urine 300 / 300 Other: Meal Dinner Breakfast Percent of Meal Consumed 95% 50% Stool Size Moderate Moderate Stool Consistency liquid loose liquid Stool Color Brown Brown # Bowel Movements 1 1 Weight 95.3 kg Blood Glucose* 190 95 Patient Weight 02/17/18 23:59 Weight 95.3 kg - General Appearance Exam: General appearance: Present: well-developed, well-nourished, appears started age , obese EENT: Present: ATNC, eye blinking and strabismis (appears chronic) Neck: Present: supple Respiratory: Present: clear Cardiology: Present: no edema, normal S1, normal S2 Dialysis Vascular Access: Venous Catheter (Rt IJ temporary HD catheter with dressing C/D/I) Gastrointestinal: Present: no guarding, obese Additional Comments: foot dressing C/D/I Neurologic: Present: no asterixis, alert and oriented x3 Musculoskeletal: Present: deformities Psychiatric: Present: cooperative - Lab 02/17/18 03:48 02/17/18 03:48 Most recent lab results ABG pH 7.47 pH Units (7.32-7.45) H 02/05/18 11:49 ABG pCO2 35 mmHg (35-45) 02/05/18 11:49 ABG pO2 43 mmHg (85-104) L* 02/05/18 11:49 ABG HCO3 25 mEq/L (21-27) 02/05/18 11:49 ABG O2 Saturation 82 % (95-98) L 02/05/18 11:49 Calcium 7.6 mg/dL (8.6-10.3) L 02/17/18 03:48 Phosphorus 4.2 mg/dL (2.7-4.5) 02/06/18 04:15 Magnesium 1.9 mg/dL (1.6-2.6) 02/15/18 02:55 Consult Discharge Plan - Plan Additional Instructions: PWB right lower extremity. Orthowedge shoe for heel transfers. Follow up with Dr. Denny in wound care clinic next week. Referrals: Mayela Ayoub CNP [Advanced Practice Nurse] - 02/26/18 8:40 am Guero Clement DO [Primary Care Provider] - 02/18/18 1:00 pm ()
[2018-02-17] MEDS: Insulin LISPRO 300 UNITS/3 ML VIAL SQ SCH ×4 (12:28→21:28)
--- NOTE | 2018-02-17 13:12 | Internal Med Progress Note ---
<Emigdio Negron - Last Filed: 02/17/18 17:24> Hospitalist Progress Note - Encounter Date of Encounter: 02/17/18 - Exam Vitals: Temp Pulse Resp BP Pulse Ox 97.7 F 79 18 170/83 98 02/17/18 12:03 02/17/18 12:03 02/17/18 12:03 02/17/18 12:03 02/17/18 12:03 - Assessment and Plan (1) Sepsis Current Visit: Yes Status: Resolved (2) Necrosis of toe Current Visit: Yes Status: Acute (3) Chest pain Current Visit: Yes Status: Resolved (4) ESRD (end stage renal disease) on dialysis Current Visit: Yes Status: Chronic (5) Diabetes Current Visit: Yes Status: Chronic (6) HTN (hypertension) Current Visit: Yes Status: Chronic (7) CAD (coronary artery disease) Current Visit: No Status: Chronic (8) KEMAR (obstructive sleep apnea) Current Visit: Yes Status: Chronic (9) DVT prophylaxis Current Visit: Yes Status: Acute (10) Acute on chronic anemia Current Visit: Yes Status: Acute (11) Anemia Current Visit: Yes Status: Suspected - Time Spent with Patient Total time spent is greater than 50% in coordination of care (as documented) at patient's floor/unit and/or counseling patient: Internal Medicine: Result - Labs CBC & Chem 7: 02/17/18 03:48 02/17/18 03:48 Labs: Short CBC 02/17/18 Range/Units 03:48 WBC 7.7 (4.3-11.1) K/mcL Hgb 10.0 L D (11.5-15.4) g/dL Hct 30.8 L (35.3-44.9) % Plt Count 231 (140-400) K/mcL Neutrophils # 5.9 (1.6-8.9) K/mcL BMP 02/17/18 03:48 Sodium 132 L Potassium 4.3 Chloride 98 Carbon Dioxide 26 BUN 21 H Creatinine 4.31 H Glucose 116 H Calcium 7.6 L - ABG Interpretation ABG results: ABG ABG pH 7.47 pH Units (7.32-7.45) H 02/05/18 11:49 ABG pCO2 35 mmHg (35-45) 02/05/18 11:49 ABG pO2 43 mmHg (85-104) L* 02/05/18 11:49 ABG O2 Saturation 82 % (95-98) L 02/05/18 11:49 PT/INR, D-dimer PT 16.0 Seconds (9.4-12.1) H 02/05/18 11:20 Consult Discharge Plan - Plan Additional Instructions: PWB right lower extremity. Orthowedge shoe for heel transfers. Follow up with Dr. Denny in wound care clinic next week. Referrals: Mayela Ayoub CNP [Advanced Practice Nurse] - 02/26/18 8:40 am Guero Clement DO [Primary Care Provider] - 02/18/18 1:00 pm () - Attending Attestation I examined this patient and my medical decision-making was reviewed with the Resident Physician on 02/17/18. I agree with the documented findings, disposition and treatment plan as described except to the extent set forth below. Ms Orozco is currently admitted for MRSA bacteremia thought related to gangrenous toe. She remains moderate to high risk due to potential for worsening clinical status. Ms Orozco feels OK. She is tired today. No back pain at this time. No abdominal pain. No fever or chills. Repeat blood cx negative at this time. Exam alert Comfortable Mucus membranes dry Heart reg and distant Lungs diminished but clear Abd soft and nontender Dressing intact I/P 1. MRSA bacteremia - per ID. On Vancomycin. 2. Gangrenous toe with Klebsiella and MRSA - Ceftriaxone and Vancomycin 3. ESRD on dialysis Further diagnoses and plan as above. <Isabel Jones - Last Filed: 02/17/18 21:28> Hospitalist Progress Note - Encounter Date of Encounter: 02/17/18 Time of Encounter: 10:10 - Subjective Interval History: Ms. Orozco was well overnight. Her vitals were stable overnight. Her labs were reviewed prior to seeing her. Her BMP showed elevated creatinine of 4.31 and yesterday was 6.27 yesterday. She is having good oral intake. She denies fever, chills, nausea, emesis, shortness of breath or chest pain. - Exam Vitals: Temp Pulse Resp BP Pulse Ox 97.7 F 79 18 170/83 98 02/17/18 12:03 02/17/18 12:03 02/17/18 12:03 02/17/18 12:03 02/17/18 12:03 Exam: Gen.: Vitals noted. No acute distress. AAOx3 HEENT: PERRL/EOMI, oropharynx clear, Normocephalic, atraumatic, MMM Cardiac: RRR, no murmur, +S1/S2 Pulmonary: CTA bilaterally, no wheezes, rales or rhonchi, equal chest expansion Abdomen: soft, nontender, BS noted, no guarding MSK: ROM intact, no joint swelling noted Extremities: no BLE edema, nontender calf, no cyanosis or clubbing. Right foot bandaged without evidence of infection Neuro: A&Ox3, moves all extremities, no focal deficits Psych: Appropriate mood and behavior - Assessment and Plan (1) Sepsis Current Visit: Yes Status: Resolved Assessment and Plan: Sepsis, resolved with MRSA bacteremia and R hallus klebsiella and Staph aureus infection- suspected source is necrotic toe, possibly PD cath ID following, cont IV vanc -likely to need 4-6 weeks iv vanc on dc, fu id recs PD removed on 02/12, right hallux toe amputation on 02/12. Peripheral blood cultures drawn 02/05 are positive 2/2 sets for MRSA. peripheral blood cultures drawn 02/06/18 are positive 2/2 sets for MRSA cultures drawn from the Perma-cath 02/06/18 are positive 2/2 sets for MRSA Status post Perm-cath removal 02/07/18 by IR. catheter tip 02/07 positive for MRSA 02/09 bl cxs gpc + 1/2 sets 02/11 repeat staph aureus, pending speciation and sensitivities 02/13 bl cxs sent to have cxs with toe and pd cath removed, ngtd IR placement of temp HD cath 02/10, ideally would have been when bl cxs grow negative, however deferred to Nephro, will need a perm cath placed prior to dc per nephro however needs neg cxs first Peritoneal dialysis removed by surgery 02/12 - wound care with iodoform packing changed daily for the next 7 days - surgery signed off Toe amputation 02/12 FREDIS neg for vegetation Abx as per ID recommendations. Currently receiving vancomycin which previous blood cultures have been sensitive to and rocephin - Likely course of 4-6 weeks per ID note. (2) Necrosis of toe Current Visit: Yes Status: Acute Assessment and Plan: Necrosis of toe, right- wound cx as above, podiatry following, amputation 02/12, cont iv vanc + rocephin Blood cultures negative since admission nonweightbearing right lower extremity will be dispensed a OrthoWedge shoe by podiatry to help offload the forefoot when ambulatory. Follow-up with Dr. Denny in wound care clinic next week. (3) Chest pain Current Visit: Yes Status: Resolved Assessment and Plan: Chest Pain, resolved, mild trop elevation and stable likely 2/2 sepsis on admit - seen by cards, she will fu outpt, FREDIS neg (4) ESRD (end stage renal disease) on dialysis Current Visit: Yes Status: Chronic Assessment and Plan: Nephro following for HD currently with temp hd cath that was placed prior to neg bl cxs as noted above due to need for routine HD next HD today, friday HD temp cath placed by IR on 02/11. (5) Diabetes Current Visit: Yes Status: Chronic Assessment and Plan: Known history of diabetes with neuropathy and ESRD on dialysis. bs at goal, today 116 A1c 7.0% in november 2017 -Continue insulin sliding scale and basal insulin Levemir 10 units qhs -accu checks -ADA diet, CV diet (6) HTN (hypertension) Current Visit: Yes Status: Chronic Assessment and Plan: Continue monitoring bp, at times elevated above goal Continues to be elevated today in 150-60s systolic -Continue home meds: lisinopril, imdur, metoprolol -nephro following -she will require outpt fu at dc (7) CAD (coronary artery disease) Current Visit: No Status: Chronic (8) KEMAR (obstructive sleep apnea) Current Visit: Yes Status: Chronic Assessment and Plan: cpap at night (9) Acute on chronic anemia Current Visit: Yes Status: Acute Assessment and Plan: Acute on Chronic Anemia, multifactorial, cont slow down trend. Had episode of occult blood per stool, could be due to constipation. - Today hgb of 7.6, decreased from previous 8.4/7.9/8.1/9.0 - Baseline hgb appears to be around 8-10 - Hx of Gastric Ulcers, vs Anemia of Chronic Disease -did have episode of brown emesis with hgb drop and concern if this could be ugib, vs feculent on admit - gi following, egd 02/10 demonstrated 3 gastric ulcers with adherent clot, bx taken, , started on ppi + carafate - vte ppx scds only - Nephrology note mentions goal Hgb of 10 - Patient denies melena, hematochezia Plan - Continue to monitor and transfuse if <7 - Will obtain afternoon H/H to monitor for slow drop - Repeat FOBT - Will discuss with Nephro goal and any further recommendations. (10) CAD (coronary artery disease) Current Visit: Yes Status: Acute Assessment and Plan: CAD, stable -Continue home meds for chronic disease management as above, fu outpt as above - Chest pain assessment as above (11) DVT prophylaxis Current Visit: Yes Status: Acute Assessment and Plan: heparin with HD, no pharm vte ppx heparin due to cont worsening anemia, scds - Time Spent with Patient Total time spent is greater than 50% in coordination of care (as documented) at patient's floor/unit and/or counseling patient: Plan of Care Discussed with: patient Internal Medicine: Result - Labs CBC & Chem 7: 02/17/18 03:48 02/17/18 03:48 Labs: Short CBC 02/17/18 Range/Units 03:48 WBC 7.7 (4.3-11.1) K/mcL Hgb 10.0 L D (11.5-15.4) g/dL Hct 30.8 L (35.3-44.9) % Plt Count 231 (140-400) K/mcL Neutrophils # 5.9 (1.6-8.9) K/mcL BMP 02/17/18 03:48 Sodium 132 L Potassium 4.3 Chloride 98 Carbon Dioxide 26 BUN 21 H Creatinine 4.31 H Glucose 116 H Calcium 7.6 L - ABG Interpretation ABG results: ABG ABG pH 7.47 pH Units (7.32-7.45) H 02/05/18 11:49 ABG pCO2 35 mmHg (35-45) 02/05/18 11:49 ABG pO2 43 mmHg (85-104) L* 02/05/18 11:49 ABG O2 Saturation 82 % (95-98) L 02/05/18 11:49 PT/INR, D-dimer PT 16.0 Seconds (9.4-12.1) H 02/05/18 11:20 <Emigdio Negron - Last Filed: 02/17/18 17:24> (1) Sepsis Qualifiers: Sepsis type: methicillin susceptible Staphylococcus aureus Qualified Code(s) : A41.01 - Sepsis due to Methicillin susceptible Staphylococcus aureus (3) Chest pain Qualifiers: Chest pain type: unspecified Qualified Code(s): R07.9 - Chest pain, unspecified (5) Diabetes Qualifiers: Diabetes mellitus type: type 2 Diabetes mellitus group home insulin use: with group home use Diabetes mellitus complication status: with kidney complications Diabetes mellitus complication detail: with chronic kidney disease Chronic kidney disease stage: on chronic dialysis Qualified Code(s): E11.22 - Type 2 diabetes mellitus with diabetic chronic kidney disease; N18.6 - End stage renal disease; 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 transplanted heart: [place] heart Associated angina: without angina Qualified Code(s): I25.10 - Atherosclerotic heart disease of [place] coronary artery without angina pectoris (11) Anemia Qualifiers: Anemia type: due to chronic kidney disease Chronic kidney disease stage: on chronic dialysis Qualified Code(s): N18.6 - End stage renal disease; D63.1 - Anemia in chronic kidney disease; Z99.2 - Dependence on renal dialysis <Robert,Isabel - Last Filed: 02/17/18 21:28> (1) Sepsis Qualifiers: Sepsis type: methicillin susceptible Staphylococcus aureus Qualified Code(s) : A41.01 - Sepsis due to Methicillin susceptible Staphylococcus aureus (3) Chest pain Qualifiers: Chest pain type: unspecified Qualified Code(s): R07.9 - Chest pain, unspecified (5) Diabetes Qualifiers: Diabetes mellitus type: type 2 Diabetes mellitus group home insulin use: with group home use Diabetes mellitus complication status: with kidney complications Diabetes mellitus complication detail: with chronic kidney disease Chronic kidney disease stage: on chronic dialysis Qualified Code(s): E11.22 - Type 2 diabetes mellitus with diabetic chronic kidney disease; N18.6 - End stage renal disease; 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 transplanted heart: [place] heart Associated angina: without angina Qualified Code(s): I25.10 - Atherosclerotic heart disease of [place] coronary artery without angina pectoris
--- NOTE | 2018-02-17 14:14 | Infectious Disease Progress No ---
Date of Encounter: 02/17/18 Time of Encounter: 11:50 - Assessment and Plan (1) Sepsis Current Visit: Yes Status: Resolved The patient had 3 sepsis criteria plus hypotension. Likely secondary to bacteremia, right great toe infection, and UTI. WBC normalized. Tachycardia resolved. Afebrile. Peripheral blood cultures obtained 02/05/18 are positive for MRSA 2 sets. Additional blood cultures drawn 02/06/18 x 2 sets from a peripheral stick are positive 2/2 sets as well as 2/2 sets from the Perma-cath. Repeat peripheral blood cultures drawn 02/09/18 are positive 1/2 sets. Repeat peripheral blood cultures drawn 02/11/18 are positive 1/2 sets. repeat blood cultures drawn 02/13/18 are NGTD x 2 sets. Qualifiers: Sepsis type: methicillin susceptible Staphylococcus aureus Qualified Code(s ): A41.01 - Sepsis due to Methicillin susceptible Staphylococcus aureus (2) Bacteremia Current Visit: Yes Status: Acute Causative organism: MRSA. Source: right great toe vs. Perma-cath. Peripheral blood cultures drawn 02/05/18 are positive 2/2 sets for MRSA. Repeat peripheral blood cultures drawn 02/06/18 are positive 2/2 sets as well. Cultures drawn from the Perma-cath 02/06/18 are positive 2/2 sets as well. Status post Perm-cath removal 02/07/18 by IR. Repeat peripheral blood cultures drawn 02/09/18 are positive 1/2 sets. Additional peripheral blood cultures drawn 02/11/18 are positive 1/2 sets. Repeat blood cultures drawn 02/13/18 are NGTD x 2 sets. No endocarditis stigmata noted on exam. The patient is having some thoracic back pain which she attributes to the hospital bed, but will have a low threshold for imaging if back pain worsens/ persists. The patient has one major and one minor Modified Self's Criteria. TTE negative for vegetation. FREDIS negative. Continue Vancomycin IV. Pharmacy to dose. Goal trough ~15. Duration of treatment depends on the clinical picture, but likely a total of 4- 6 weeks due to the right great toe infection. Monitor renal function and for drug toxicity and dose-adjust antibiotics. Will discuss with Nephrology, nut hopefully we can give the Vancomycin with HD. (3) Necrosis of toe Current Visit: Yes Status: Acute Location: Right great toe. Etiology: Unclear. The patient does have a known history of PVD. There is also concern that there may be an element of infection as well. X-ray of the right foot was negative for osteomyelitis. [facility] been consulted. STatus post amputation of right great toe 02/12/[address] Denny. Intra-op note reviewed. Pathology negative for osteomyelitis. No cultures were sent. Wound culture positive for MRSA and K. oxytoca. Continue Rocephin 2 grams IV daily. Continue vancomycin IV. Pharmacy to dose. Goal trough approximately 15. Duration of treatment depends on the clinical picture, but likely 4-6 weeks. Monitor renal function for drug toxicity and dose adjust antibiotics. Consult VAT for Powerglide placement prior to discharge. Will need weekly CBC, BUN/Cr, ESR, and CRP. Will need weekly IV care per protocol. Follow up with ID 02/26/18 at 0900. (4) Dysuria Current Visit: Yes Status: Resolved The patient reports a one-week history of urinary frequency and dysuria. Culture positive for E. coli. Continue antibiotics as above for now. (5) Encephalopathy Current Visit: Yes Status: Resolved Likely multifactorial: sepsis + hyperammonemia. No focal neuro deficits noted on exam. Resolved. Continue to monitor closely. (6) Hyperammonemia Current Visit: Yes Status: Resolved Ammonia level elevated at 76. Etiology unclear. LFTs are normal. CT of the abdomen and pelvis was negative for acute abnormality. Resolved. Further workup and management per the primary team. (7) Anemia Current Visit: Yes Status: Chronic Hemoglobin down to 7.4 on admission. Hgb up to 10. No acute bleeding noted on exam. Further workup and management per the primary nephrology teams. Qualifiers: Anemia type: due to chronic kidney disease Chronic kidney disease stage: on chronic dialysis Qualified Code(s): N18.6 - End stage renal disease; D63.1 - Anemia in chronic kidney disease; Z99.2 - Dependence on renal dialysis (8) Chest pain Current Visit: Yes Status: Resolved Etiology unclear. Pain is reproducible on exam. EKGs have been unchanged. CT of the chest was negative. Resolved. Further workup and management per the primary team. Qualifiers: Chest pain type: unspecified Qualified Code(s): R07.9 - Chest pain, unspecified (9) Pulmonary HTN Current Visit: No Status: Chronic (10) CAD (coronary artery disease) Current Visit: No Status: Chronic Qualifiers: Coronary Disease-Associated Artery/Lesion type: unspecified vessel or lesion type [place] vs. transplanted heart: kake heart Associated angina: without angina Qualified Code(s): I25.10 - Atherosclerotic heart disease of [place] coronary artery without angina pectoris (11) KEMAR (obstructive sleep apnea) Current Visit: Yes Status: Chronic (12) ESRD (end stage renal disease) Current Visit: No Status: Chronic Nephrology has been consulted to assist with HD management. We will dose adjust antibiotics based on HD status. (13) COPD (chronic obstructive pulmonary disease) Current Visit: No Status: Chronic Qualifiers: COPD type: COPD with acute exacerbation Qualified Code(s): J44.1 - Chronic obstructive pulmonary disease with (acute) exacerbation - Subjective Interval history: Patient seen and examined sitting up in the bedside chair. No acute events noted overnight. Patient states overall she is okay today. Status post amputation of right great toe 02/12/[address] Denny. Denies any fevers or chills or rigors. Denies chest pain, shortness of breath, or cough. Denies any nausea or vomiting. Reports appetite is okay. She denies any abdominal pain , urinary complaints. She denies any oral thrush or any skin lesions. Denies foot or back pain. Status post FREDIS 91 that was negative. Status post EGD and temp HD catheter placement 02/10/18. Awaiting finalization of blood cultures before placement of Perma-cath. Infect Dis PN-Objective Data - Labs CBC & Chem 7: 02/17/18 03:48 02/17/18 03:48 Labs: Laboratory Results - last 24 hr 02/16/18 02/16/18 02/16/18 07:38 11:37 13:56 WBC RBC Hgb Hct MCV MCH MCHC RDW Plt Count MPV Immature Gran % Seg Neutrophils % Lymphocytes % Monocytes % Eosinophils % Basophils % Neutrophils # Lymphocytes # Monocytes # Eosinophils # Basophils # Sodium Potassium Chloride Carbon Dioxide BUN Creatinine Est GFR ( Amer) Est GFR (Non-Af Amer) BUN/Creatinine Ratio Glucose POC Glucose 85 115 H Calculated Osmolality Calcium Stool Occult Blood Blood Type A POSITIVE Antibody Screen NEGATIVE Crossmatch See Detail 02/16/18 02/16/18 02/16/18 16:22 18:00 20:09 WBC RBC Hgb Hct MCV MCH MCHC RDW Plt Count MPV Immature Gran % Seg Neutrophils % Lymphocytes % Monocytes % Eosinophils % Basophils % Neutrophils # Lymphocytes # Monocytes # Eosinophils # Basophils # Sodium Potassium Chloride Carbon Dioxide BUN Creatinine Est GFR ( Amer) Est GFR (Non-Af Amer) BUN/Creatinine Ratio Glucose POC Glucose 133 H 190 H Calculated Osmolality Calcium Stool Occult Blood Positive A Blood Type Antibody Screen Crossmatch 02/17/18 02/17/18 02/17/18 03:48 03:48 08:00 WBC 7.7 RBC 3.17 L Hgb 10.0 L D Hct 30.8 L MCV 97.2 MCH 31.5 MCHC 32.5 RDW 18.8 H Plt Count 231 MPV 9.4 Immature Gran % 4.2 H Seg Neutrophils % 76.8 Lymphocytes % 7.8 Monocytes % 9.4 Eosinophils % 1.3 Basophils % 0.5 Neutrophils # 5.9 Lymphocytes # 0.6 Monocytes # 0.7 Eosinophils # 0.1 Basophils # 0.0 Sodium 132 L Potassium 4.3 Chloride 98 Carbon Dioxide 26 BUN 21 H Creatinine 4.31 H Est GFR ( Amer) 13 L Est GFR (Non-Af Amer) 11 L BUN/Creatinine Ratio 5 L Glucose 116 H POC Glucose 95 Calculated Osmolality 278 L Calcium 7.6 L Stool Occult Blood Blood Type Antibody Screen Crossmatch Cultures: Cultures 02/11/18 16:11 Blood Culture - Final Peripheral Venipuncture No growth. Final report. 02/09/18 11:35 Blood Culture - Preliminary Peripheral Venipuncture Gram Positive Cocci 02/11/18 16:11 Blood Culture - Final Peripheral Venipuncture Methicillin Resistant S.aureus 02/09/18 08:08 Blood Culture - Final Peripheral Venipuncture No growth. Final report. 02/13/18 12:18 Blood Culture - Preliminary Peripheral Venipuncture Culture is incubating and being continuously monitored for growth. Final report to follow. 02/13/18 12:23 Blood Culture - Preliminary Peripheral Venipuncture Culture is incubating and being continuously monitored for growth. Final report to follow. 02/07/18 15:24 Catheter Tip Culture - Final Intravenous or Arterial Cath Methicillin Resistant S.aureus 02/05/18 14:10 Body Fluid Culture - Final Peritoneal Fluid 02/05/18 11:20 Blood Culture - Final Peripheral Venipuncture Methicillin Resistant S.aureus 02/05/18 11:20 Blood Culture - Final Peripheral Venipuncture Methicillin Resistant S.aureus 02/06/18 03:22 Blood Culture - Final Peripheral Venipuncture Methicillin Resistant S.aureus 02/06/18 14:39 Blood Culture - Final Central Venous Catheter Methicillin Resistant S.aureus 02/06/18 03:22 Blood Culture - Final Peripheral Venipuncture Methicillin Resistant S.aureus 02/06/18 14:39 Blood Culture - Final Central Venous Catheter Methicillin Resistant S.aureus 02/05/18 13:50 Urine Culture - Final Urine,Catheterized Escherichia coli 02/05/18 13:30 Wound Culture - Final Right Great Toe Klebsiella oxytoca Staphylococcus aureus Serology 02/16/18 02/12/18 02/05/18 Range/Units 18:00 04:40 16:57 Ur Specimen Adequacy Urine Color (Yellow) Urine Clarity (Clear) Urine pH (5.0-8.0) pH Units Ur Specific [place] (1.010-1.025) Urine Protein (Neg-Trace) mg/dL Urine Glucose (UA) (Normal) mg/dL Urine Ketones (Negative) mg/dL Urine Blood (Negative) Urine Nitrite (Negative) Urine Bilirubin (Negative) Urine Urobilinogen (Normal) mg/dL Ur Leukocyte Esterase (Negative) Urine Microscopic RBC (0-3) per hpf Urine Microscopic WBC (0-3) per hpf Ur Squamous Epith Cells (None-Few) per lpf Urine Bacteria (None-Few) per hpf Hyaline Casts (None-Few) per lpf Ur Culture Indicated? (NO) Peritoneal Appearance (Clear) Peritoneal Volume Peritoneal RBC Periton Tot Nuc Cells Periton Neutrophils % Periton Band Neuts % Periton Lymphocytes % % Periton Monocytes % % Stool Occult Blood Positive A Positive A (Negative) A. baumannii (PCR) (Not Detect) Lynne albicans (PCR) (Not Detect) C. glabrata (PCR) (Not Detect) C. krusei (PCR) (Not Detect) C. parapsilosis (PCR) (Not Detect) C. tropicalis (PCR) (Not Detect) Enterobacteriac sp PCR (Not Detect) E. cloacae complex PCR (Not Detect) Enterococcus sp PCR (Not Detect) E. coli (PCR) (Not Detect) H. influenzae (PCR) (Not Detect) Hep Bs Antigen Nonreactive (Nonreactive) Hep Bs Antibody 0.00 mIU/mL Klebsiella oxytoca PCR (Not Detect) Klebsiella pneumoniae (Not Detect) List. monocytogenes PCR (Not Detect) N. meningitidis (PCR) (Not Detect) Proteus species (PCR) (Not Detect) Serratia marcescens PCR (Not Detect) Staphylococcus sp PCR (Not Detect) Staph aureus (PCR) (Not Detect) mecA-Methicil Res Gene (Not Detect) Streptococcus sp PCR (Not Detect) Group A Strep DNA (Not Detect) Group B Strep (PCR) (Not Detect) Strep pneumoniae (PCR) (Not Detect) P. aeruginosa (PCR) (Not Detect) Aki/B-Vanco Res Genes (Not Detect) KPC (blaKPC) Detect PCR (Not Detect) 02/05/18 02/05/18 02/05/18 Range/Units 14:10 11:20 10:58 Ur Specimen Adequacy See below A Urine Color Yellow (Yellow) Urine Clarity Turbid A (Clear) Urine pH 6.0 (5.0-8.0) pH Units Ur Specific [place] 1.017 (1.010-1.025) Urine Protein >=300 H (Neg-Trace) mg/dL Urine Glucose (UA) 250 H (Normal) mg/dL Urine Ketones Negative (Negative) mg/dL Urine Blood Moderate H (Negative) Urine Nitrite Negative (Negative) Urine Bilirubin Negative (Negative) Urine Urobilinogen Normal (Normal) mg/dL Ur Leukocyte Esterase Large H (Negative) Urine Microscopic RBC 15-30 H (0-3) per hpf Urine Microscopic WBC TNTC H (0-3) per hpf Ur Squamous Epith Cells Many H (None-Few) per lpf Urine Bacteria Many H (None-Few) per hpf Hyaline Casts None Seen (None-Few) per lpf Ur Culture Indicated? NO. A (NO) Peritoneal Appearance HAZY (Clear) Peritoneal Volume TNP Peritoneal RBC TNP Periton Tot Nuc Cells TNP Periton Neutrophils 62.0 % Periton Band Neuts 2.0 % Periton Lymphocytes % 24.0 % Periton Monocytes % 12.0 % Stool Occult Blood (Negative) A. baumannii (PCR) Not Detected (Not Detect) Lynne albicans (PCR) Not Detected (Not Detect) C. glabrata (PCR) Not Detected (Not Detect) C. krusei (PCR) Not Detected (Not Detect) C. parapsilosis (PCR) Not Detected (Not Detect) C. tropicalis (PCR) Not Detected (Not Detect) Enterobacteriac sp PCR Not Detected (Not Detect) E. cloacae complex PCR Not Detected (Not Detect) Enterococcus sp PCR Not Detected (Not Detect) E. coli (PCR) Not Detected (Not Detect) H. influenzae (PCR) Not Detected (Not Detect) Hep Bs Antigen (Nonreactive) Hep Bs Antibody mIU/mL Klebsiella oxytoca PCR Not Detected (Not Detect) Klebsiella pneumoniae Not Detected (Not Detect) List. monocytogenes PCR Not Detected (Not Detect) N. meningitidis (PCR) Not Detected (Not Detect) Proteus species (PCR) Not Detected (Not Detect) Serratia marcescens PCR Not Detected (Not Detect) Staphylococcus sp PCR DETECTED A (Not Detect) Staph aureus (PCR) DETECTED A (Not Detect) mecA-Methicil Res Gene DETECTED A (Not Detect) Streptococcus sp PCR Not Detected (Not Detect) Group A Strep DNA Not Detected (Not Detect) Group B Strep (PCR) Not Detected (Not Detect) Strep pneumoniae (PCR) Not Detected (Not Detect) P. aeruginosa (PCR) Not Detected (Not Detect) Aki/B-Vanco Res Genes Not Detected (Not Detect) KPC (blaKPC) Detect PCR Not Detected (Not Detect) Exam - Constitutional Vitals: Temp Pulse Resp BP Pulse Ox 97.7 F 79 18 170/83 98 02/17/18 12:03 02/17/18 12:03 02/17/18 12:03 02/17/18 12:03 02/17/18 12:03 General appearance: cooperative, no acute distress, obese - Head Head exam: Present: atraumatic, normal inspection, normocephalic - Eye Eye exam: Present: EOMI, normal appearance, PERRL Pupils: Present: normal accommodation - ENT ENT exam: Present: mucous membranes moist - Neck Neck exam: Present: normal inspection Additional comments: Temporary HD catheter noted to the right neck with transparent dressing C/D/I. - Respiratory Respiratory exam: Present: CTAB. Absent: rales, respiratory distress, rhonchi, wheezes - Cardiovascular Cardiovascular exam: Present: RRR, +S1, +S2 - GI/Abdominal GI/Abdominal exam: Present: normal bowel sounds, soft. Absent: distended, tenderness - Extremities Exam Extremities exam: Present: normal inspection. Absent: joint swelling, pedal edema, tenderness Additional comments: Right foot dressing C/D/I. - Back Exam Back exam: Present: normal inspection. Absent: paraspinal tenderness, vertebral tenderness - Neurological Exam Neurological exam: Present: alert, oriented X3, no focal deficits - Psychiatric Psychiatric exam: Present: normal affect, normal mood - Skin Skin exam: Present: dry, intact, normal color, warm Consult Discharge Plan - Plan Additional Instructions: PWB right lower extremity. Orthowedge shoe for heel transfers. Follow up with Dr. Denny in wound care clinic next week. Referrals: aMyela Ayoub CNP [Advanced Practice Nurse] - 02/26/18 8:40 am Guero Clement DO [Primary Care Provider] - 02/18/18 1:00 pm () - Attending Attestation I examined this patient and my medical decision-making was reviewed with the Resident Physician. I agree with the documented findings, disposition and treatment plan as described except to the extent set forth below.
[2018-02-17] MEDS: Melatonin 3 MG TABLET PO PRN (21:29)
[2018-02-17] MEDS: *HR* HYDROcodone/Acet 5/325 mg TABLET PO PRN (21:29)
[2018-02-17] MEDS: Insulin DETEMIR 100 UNIT/ML X5UNITS SQ SCH (21:29)
[2018-02-18 05:35] LABS: Basophils # 0.1 K/mcL (0.0-0.2); Basophils % 0.7 %; Eosinophils # 0.2 K/mcL (0.0-0.6); Eosinophils % 2.5 %; Hematocrit 30.2 % (35.3-44.9); Hemoglobin 9.9 g/dL (11.5-15.4); Immature Granulocytes % 2.4 % (0-4); Lymphocytes # 0.7 K/mcL (0.6-4.6); Lymphocytes % 9.7 %; Mean Corpuscular HGB Conc 32.8 g/dL (31.6-35.5); Mean Corpuscular Hemoglobin 31.4 pg (28.0-33.3); Mean Corpuscular Volume 95.9 fL (83.0-100.0); Mean Platelet Volume 9.2 fL (9.4-12.4); Monocytes # 0.7 K/mcL (0.0-1.3); Neutrophils # 5.3 K/mcL (1.6-8.9); Platelet Count 227 K/mcL (140-400); Red Blood Count 3.15 M/mcL (3.82-4.97); Red Cell Distribution Width 18.6 % (11.5-14.5); Segmented Neutrophils % 74.7 %
[2018-02-18 05:39] LABS: INR 1.2; Prothrombin Time 13.7 Seconds (9.4-12.1)
[2018-02-18 05:51] LABS: Calcium 7.5 mg/dL (8.6-10.3); Potassium 4.1 mEq/L (3.5-5.1)
[2018-02-18] MEDS ORDERED: 0.9 % Sodium Chloride 250 ML IVC PRN (06:50)
[2018-02-18] MEDS ORDERED: 0.9 % Sodium Chloride 1,000 ML ONE (07:27)
[2018-02-18] MEDS: Tiotropium 18 MCG inhalation IH SCH (07:54)
[2018-02-18] MEDS: Insulin LISPRO 300 UNITS/3 ML VIAL SQ SCH ×4 (08:33→21:12)
[2018-02-18] MEDS: cefTRIAXone 2,000 MG in Water for inj. (sterile) 20 ML 20 ML IVP SCH (09:17)
[2018-02-18] MEDS: Metoprolol 100 MG TABLET PO SCH (09:18)
[2018-02-18] MEDS: Fenofibrate 54 MG TABLET PO SCH (09:18)
[2018-02-18] MEDS: Isosorbide MONOnitrate (24 HR) 30 MG TAB.ER.24H PO SCH (09:18)
[2018-02-18] MEDS: Sucralfate 1 GM TABLET PO SCH ×3 (09:19→18:14)
[2018-02-18] MEDS: Gabapentin 100 MG CAPSULE PO SCH ×3 (09:19→21:05)
[2018-02-18] MEDS: Furosemide 40 MG TABLET PO SCH ×2 (09:19→13:21)
--- NOTE | 2018-02-18 09:53 | Internal Med Progress Note ---
<Emigdio Negron - Last Filed: 02/18/18 17:10> Hospitalist Progress Note - Encounter Date of Encounter: 02/18/18 - Exam Vitals: Temp Pulse Resp BP Pulse Ox 98.7 F 85 15 159/75 98 02/18/18 14:00 02/18/18 11:38 02/18/18 14:00 02/18/18 17:00 02/18/18 11:38 - Assessment and Plan (1) Sepsis Current Visit: Yes Status: Resolved (2) Necrosis of toe Current Visit: Yes Status: Acute (3) Chest pain Current Visit: Yes Status: Resolved (4) ESRD (end stage renal disease) on dialysis Current Visit: Yes Status: Chronic (5) Diabetes Current Visit: Yes Status: Chronic (6) HTN (hypertension) Current Visit: Yes Status: Chronic (7) CAD (coronary artery disease) Current Visit: No Status: Chronic (8) KEMAR (obstructive sleep apnea) Current Visit: Yes Status: Chronic (9) DVT prophylaxis Current Visit: Yes Status: Acute (10) Acute on chronic anemia Current Visit: Yes Status: Chronic (11) CAD (coronary artery disease) Current Visit: Yes Status: Acute - Time Spent with Patient Total time spent is greater than 50% in coordination of care (as documented) at patient's floor/unit and/or counseling patient: Internal Medicine: Result - Labs CBC & Chem 7: 02/18/18 05:20 02/18/18 05:20 Labs: Short CBC 02/18/18 Range/Units 05:20 WBC 7.1 (4.3-11.1) K/mcL Hgb 9.9 L (11.5-15.4) g/dL Hct 30.2 L (35.3-44.9) % Plt Count 227 (140-400) K/mcL Neutrophils # 5.3 (1.6-8.9) K/mcL BMP 02/18/18 05:20 Sodium 132 L Potassium 4.1 Chloride 99 Carbon Dioxide 25 BUN 30 H Creatinine 5.34 H Glucose 111 H Calcium 7.5 L - ABG Interpretation ABG results: ABG ABG pH 7.47 pH Units (7.32-7.45) H 02/05/18 11:49 ABG pCO2 35 mmHg (35-45) 02/05/18 11:49 ABG pO2 43 mmHg (85-104) L* 02/05/18 11:49 ABG O2 Saturation 82 % (95-98) L 02/05/18 11:49 PT/INR, D-dimer PT 13.7 Seconds (9.4-12.1) H 02/18/18 04:00 Consult Discharge Plan - Plan Additional Instructions: PWB right lower extremity. Orthowedge shoe for heel transfers. Follow up with Dr. Denny in wound care clinic next week. Referrals: Mayela Ayoub, CLINICAL INFORMATICIST [Advanced Practice Nurse] - 02/26/18 8:40 am Guero Clement DO [Primary Care Provider] - () - Attending Attestation I examined this patient and my medical decision-making was reviewed with the Resident Physician on 02/18/18. I agree with the documented findings, disposition and treatment plan as described except to the extent set forth below. Ms Orozco is currently admitted for MRSA bacteremia presumed due to gangrenous toe. She remains moderate to high risk due to potential for worsening clinical status. Ms Orozco is in dialysis. She feels OK. No fever or chills. Blood cultures now negative for 5 days. No CP or SOB at this time. No GI issues. Exam alert Comfortable Mucus membranes dry Heart reg and not tachy No wheeze abd soft Edema present Moves all extremities. I/P 1. MRSA bacteremia - per ID recommendations 2. Gangrenous toe s/p amp 3. ESRD - needs tunnelled catheter - maybe tomorrow since blood cx negative now Further diagnoses and plan as above <Franc Andrade - Last Filed: 02/18/18 18:16> Hospitalist Progress Note - Encounter Date of Encounter: 02/18/18 Time of Encounter: 09:53 - Subjective Interval History: Patient was seen and examined at bedside this morning. She states she is doing well this morning with no complaints of fevers, chills, nausea, vomiting, pain. Her diarrhea has much improved. Questions were answered and she has no concerns today. 1 BM yesterday, soft and non liquid - Exam Vitals: Temp Pulse Resp BP Pulse Ox 98.5 F 79 18 152/62 98 02/18/18 07:56 02/18/18 07:56 02/18/18 07:56 02/18/18 07:56 02/18/18 07:56 Exam: Gen.: Vitals noted. No acute distress. AAOx3 HEENT: PERRL/EOMI, oropharynx clear, Normocephalic, atraumatic, MMM Cardiac: RRR, no murmur, +S1/S2 Pulmonary: CTA bilaterally, no wheezes, rales or rhonchi, equal chest expansion Abdomen: soft, nontender, BS noted, no guarding MSK: ROM intact, no joint swelling noted Extremities: no BLE edema, nontender calf, no cyanosis or clubbing. Right foot bandaged without evidence of infection . appears to be healing well Neuro: A&Ox3, moves all extremities, no focal deficits Psych: Appropriate mood and behavior - Assessment and Plan (1) Sepsis Current Visit: Yes Status: Resolved Assessment and Plan: Sepsis, resolved with MRSA bacteremia and R hallus klebsiella and Staph aureus infection- suspected source is necrotic toe, possibly PD cath ID following, cont IV vanc -likely to need 4-6 weeks iv vanc on dc, fu id recs PD removed on 02/12, right hallux toe amputation on 02/12. Peripheral blood cultures drawn 02/05 are positive 2/2 sets for MRSA. peripheral blood cultures drawn 02/06/18 are positive 2/2 sets for MRSA cultures drawn from the Perma-cath 02/06/18 are positive 2/2 sets for MRSA Status post Perm-cath removal 02/07/18 by IR. catheter tip 02/07 positive for MRSA 10/ bl cxs x2 positive MRSA / bl cxs x2 positive MRSA 02/13 bl cxs final no growth Per nephrology note, will plan for permacath insertion tomorrow. NPO midnight. Peritoneal dialysis removed by surgery 02/12 - wound care with iodoform packing changed daily for the next 7 days - surgery signed off Toe amputation 02/12 FREDIS neg for vegetation Abx as per ID recommendations. Currently receiving vancomycin which previous blood cultures have been sensitive to and rocephin - Likely course of 4-6 weeks per ID note. (2) Necrosis of toe Current Visit: Yes Status: Acute Assessment and Plan: Necrosis of toe, right- wound cx as above, podiatry following, amputation 02/12, cont iv vanc + rocephin Blood cultures as above. Wound cultures show Klebsiella and staph aureus nonweightbearing right lower extremity will be dispensed a OrthoWedge shoe by podiatry to help offload the forefoot when ambulatory. Follow-up with Dr. Denyn in wound care clinic next week. (3) Chest pain Current Visit: Yes Status: Resolved Assessment and Plan: Chest Pain, resolved, mild trop elevation and stable likely 2/2 sepsis on admit - seen by cards, she will fu outpt, FREDIS neg (4) ESRD (end stage renal disease) on dialysis Current Visit: Yes Status: Chronic Assessment and Plan: Nephro following for HD currently with temp hd cath that was placed prior to neg bl cxs as noted above due to need for routine HD next HD Friday, defer to nephrology HD temp cath placed by IR on 02/11. Plan for permacath placement tomorrow, 02/19. NPO midnight. No AC to hold (5) Diabetes Current Visit: Yes Status: Chronic Assessment and Plan: Known history of diabetes with neuropathy and ESRD on dialysis. bs at goal, today 111 A1c 7.0% in november 2017 -Continue insulin sliding scale and basal insulin Levemir 10 units qhs -accu checks -ADA diet, CV diet (6) HTN (hypertension) Current Visit: Yes Status: Chronic Assessment and Plan: Continue monitoring bp, at times elevated above goal Continues to be elevated today in 130s-60s systolic -Continue home meds: lisinopril, imdur, metoprolol -nephro following -she will require outpt fu at dc (7) CAD (coronary artery disease) Current Visit: No Status: Chronic Assessment and Plan: CAD, stable -Continue home meds for chronic disease management as above, fu outpt as above - Chest pain assessment as above (8) KEMAR (obstructive sleep apnea) Current Visit: Yes Status: Chronic Assessment and Plan: cpap at night (9) DVT prophylaxis Current Visit: Yes Status: Acute Assessment and Plan: heparin with HD, no pharm vte ppx heparin due to anemia, scds (10) Acute on chronic anemia Current Visit: Yes Status: Chronic Assessment and Plan: Acute on Chronic Anemia, multifactorial, cont slow down trend. Had episode of occult blood per stool, could be due to constipation. - Today hgb of 9.9 after 2 units 10/8 for progressive decreasing, previous 10.0/ 8.4/7.9/8.1/9.0 - Baseline hgb appears to be around 8-10 - Hx of Gastric Ulcers, vs Anemia of Chronic Disease - gi following, egd 02/10 demonstrated 3 gastric ulcers with adherent clot, bx taken, , started on ppi + carafate - vte ppx scds only - Nephrology note mentions goal Hgb of 10 - Patient denies melena, hematochezia Plan - Continue to monitor and transfuse if <7 - Patient is likely at baseline. - Will discuss with Nephro goal and any further recommendations. DVT Prophylaxis: scd - Time Spent with Patient Total time spent is greater than 50% in coordination of care (as documented) at patient's floor/unit and/or counseling patient: Internal Medicine: Result - Labs CBC & Chem 7: 02/18/18 05:20 02/18/18 05:20 Labs: Short CBC 02/18/18 Range/Units 05:20 WBC 7.1 (4.3-11.1) K/mcL Hgb 9.9 L (11.5-15.4) g/dL Hct 30.2 L (35.3-44.9) % Plt Count 227 (140-400) K/mcL Neutrophils # 5.3 (1.6-8.9) K/mcL BMP 02/18/18 05:20 Sodium 132 L Potassium 4.1 Chloride 99 Carbon Dioxide 25 BUN 30 H Creatinine 5.34 H Glucose 111 H Calcium 7.5 L - ABG Interpretation ABG results: ABG ABG pH 7.47 pH Units (7.32-7.45) H 02/05/18 11:49 ABG pCO2 35 mmHg (35-45) 02/05/18 11:49 ABG pO2 43 mmHg (85-104) L* 02/05/18 11:49 ABG O2 Saturation 82 % (95-98) L 02/05/18 11:49 PT/INR, D-dimer PT 13.7 Seconds (9.4-12.1) H 02/18/18 04:00 <Emigdio Negron - Last Filed: 02/18/18 17:10> (1) Sepsis Qualifiers: Sepsis type: methicillin susceptible Staphylococcus aureus Qualified Code(s) : A41.01 - Sepsis due to Methicillin susceptible Staphylococcus aureus (3) Chest pain Qualifiers: Chest pain type: unspecified Qualified Code(s): R07.9 - Chest pain, unspecified (5) Diabetes Qualifiers: Diabetes mellitus type: type 2 Diabetes mellitus terminal gauger insulin use: with halfway use Diabetes mellitus complication status: with kidney complications Diabetes mellitus complication detail: with chronic kidney disease Chronic kidney disease stage: on chronic dialysis Qualified Code(s): E11.22 - Type 2 diabetes mellitus with diabetic chronic kidney disease; N18.6 - End stage renal disease; Z79.4 - [facility] (current) use of 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 transplanted heart: [place] heart Associated angina: without angina Qualified Code(s): I25.10 - Atherosclerotic heart disease of [place] coronary artery without angina pectoris <Franc Andrade - Last Filed: 02/18/18 18:16> (1) Sepsis Qualifiers: Sepsis type: methicillin susceptible Staphylococcus aureus Qualified Code(s) : A41.01 - Sepsis due to Methicillin susceptible Staphylococcus aureus (3) Chest pain Qualifiers: Chest pain type: unspecified Qualified Code(s): R07.9 - Chest pain, unspecified (5) Diabetes Qualifiers: Diabetes mellitus type: type 2 Diabetes mellitus terminal gauger insulin use: with halfway use Diabetes mellitus complication status: with kidney complications Diabetes mellitus complication detail: with chronic kidney disease Chronic kidney disease stage: on chronic dialysis Qualified Code(s): E11.22 - Type 2 diabetes mellitus with diabetic chronic kidney disease; N18.6 - End stage renal disease; 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 transplanted heart: [place] heart Associated angina: without angina Qualified Code(s): I25.10 - Atherosclerotic heart disease of [place] coronary artery without angina pectoris
--- NOTE | 2018-02-18 10:31 | Nephrology Progress Note ---
Date of Encounter: 02/18/18 Time of Encounter: 09:40 - Assessment and Plan (1) ESRD (end stage renal disease) Current Visit: No Status: Chronic ESRD on chronic HD MWF, with the next HD today. I reviewed her labs, vitals, med list, I/Os, daily weights and with complex MDM and E/M, I placed HD orders. She has a Rt IJ temporary HD catheter currently and will await the finalization of her BCx before a Permacath could be replaced, which would be needed to be accomplished before she can be discharged. Avoid antiplatelet Rx if needed for 5 days before Permacath placement and goal INR for the [place] [facility] is generally <1.4. Her BCx are still not finalized but when finalized, then she'd be a candidate for placement of a Permacath. (2) Hyponatremia Current Visit: Yes Status: Acute (3) Anemia Current Visit: Yes Status: Chronic Qualifiers: Anemia type: due to chronic kidney disease Chronic kidney disease stage: on chronic dialysis Qualified Code(s): N18.6 - End stage renal disease; D63.1 - Anemia in chronic kidney disease; Z99.2 - Dependence on renal dialysis (4) Diabetes Current Visit: Yes Status: Chronic Qualifiers: Diabetes mellitus type: type 2 Diabetes mellitus terminal operations supervisor insulin use: with terminal operations supervisor use Diabetes mellitus complication status: with kidney complications Diabetes mellitus complication detail: with chronic kidney disease Chronic kidney disease stage: on chronic dialysis Qualified Code(s) : E11.22 - Type 2 diabetes mellitus with diabetic chronic kidney disease; N18.6 - End stage renal disease; Z79.4 - terminal operations supervisor (current) use of insulin; Z99.2 - Dependence on renal dialysis (5) COPD (chronic obstructive pulmonary disease) Current Visit: No Status: Chronic Qualifiers: COPD type: unspecified COPD Qualified Code(s): J44.9 - Chronic obstructive pulmonary disease, unspecified (6) Gangrene of toe of right foot Current Visit: Yes Status: Acute Subjective Principal diagnosis: s/p toe amputation Interval history: Pt was s/e earlier today. She reported having a good dialysis treatment yesterday. We talked about the process of awaiting BCx and ideally having a [place] [facility]. She reaffirmed that her primary nephrology group is with the [facility]. Objective - Vital Signs Vital signs: Vital Signs Temp Pulse Resp BP Pulse Ox 02/18/18 07:56 98.5 F 79 18 152/62 98 02/18/18 07:54 16 97 02/18/18 04:40 98.5 F 74 18 137/62 99 02/18/18 03:34 98.5 F 74 18 137/62 99 02/18/18 00:53 98.6 F 78 16 135/61 98 02/18/18 00:15 16 155/67 100 02/18/18 00:12 16 98 02/17/18 21:20 98.9 F 82 16 155/67 97 02/17/18 20:35 18 98 02/17/18 19:32 98.9 F 79 16 155/67 97 02/17/18 17:36 98.4 F 79 17 181/88 98 02/17/18 15:44 16 100 02/17/18 12:03 97.7 F 79 18 170/83 98 02/17/18 11:53 16 98 Intake and Output 02/17/18 02/18/18 02/18/18 23:59 07:59 15:59 Intake Total 360 / 360 Output Total 100 / 100 Balance -100 / -100 360 / 360 Intake: Oral 360 / 360 Output: Urine 100 / 100 Other: Meal Breakfast Percent of Meal Consumed 90% Stool Size Moderate Stool Consistency loose Stool Color Brown # Bowel Movement Diapers 1 Weight 96.8 kg Blood Glucose* 164 106 Patient Weight 02/18/18 23:59 Weight 96.8 kg - Lab 02/18/18 05:20 02/18/18 05:20 Most recent lab results ABG pH 7.47 pH Units (7.32-7.45) H 02/05/18 11:49 ABG pCO2 35 mmHg (35-45) 02/05/18 11:49 ABG pO2 43 mmHg (85-104) L* 02/05/18 11:49 ABG HCO3 25 mEq/L (21-27) 02/05/18 11:49 ABG O2 Saturation 82 % (95-98) L 02/05/18 11:49 Calcium 7.5 mg/dL (8.6-10.3) L 02/18/18 05:20 Phosphorus 4.2 mg/dL (2.7-4.5) 02/06/18 04:15 Magnesium 1.9 mg/dL (1.6-2.6) 02/15/18 02:55 Consult Discharge Plan - Plan Additional Instructions: PWB right lower extremity. Orthowedge shoe for heel transfers. Follow up with Dr. Denny in wound care clinic next week. Referrals: Mayela Ayoub CNP [Advanced Practice Nurse] - 02/26/18 8:40 am Guero Clement DO [Primary Care Provider] - ()
[2018-02-18] MEDS ORDERED: *HR* Heparin 10,000 UNIT/10 ML VIAL IV PRN (14:47)
--- NOTE | 2018-02-18 16:59 | Infectious Disease Progress No ---
Date of Encounter: 02/18/18 Time of Encounter: 10:25 - Assessment and Plan (1) Sepsis Current Visit: Yes Status: Resolved The patient had 3 sepsis criteria plus hypotension. Likely secondary to bacteremia, right great toe infection, and UTI. WBC normalized. Tachycardia resolved. Afebrile. Peripheral blood cultures obtained 02/05/18 are positive for MRSA 2 sets. Additional blood cultures drawn 02/06/18 x 2 sets from a peripheral stick are positive 2/2 sets as well as 2/2 sets from the Perma-cath. Repeat peripheral blood cultures drawn 02/09/18 are positive 1/2 sets. Repeat peripheral blood cultures drawn 02/11/18 are positive 1/2 sets. repeat blood cultures drawn 02/13/18 are negative x 2 sets. Qualifiers: Sepsis type: methicillin susceptible Staphylococcus aureus Qualified Code(s ): A41.01 - Sepsis due to Methicillin susceptible Staphylococcus aureus (2) Bacteremia Current Visit: Yes Status: Acute Causative organism: MRSA. Source: right great toe vs. Perma-cath. Peripheral blood cultures drawn 02/05/18 are positive 2/2 sets for MRSA. Repeat peripheral blood cultures drawn 02/06/18 are positive 2/2 sets as well. Cultures drawn from the Perma-cath 02/06/18 are positive 2/2 sets as well. Status post Perm-cath removal 02/07/18 by IR. Repeat peripheral blood cultures drawn 02/09/18 are positive 1/2 sets. Additional peripheral blood cultures drawn 02/11/18 are positive 1/2 sets. Repeat blood cultures drawn 02/13/18 are negative x 2 sets. No endocarditis stigmata noted on exam. The patient is having some thoracic back pain which she attributes to the hospital bed, but will have a low threshold for imaging if back pain worsens/ persists. The patient has one major and one minor Modified Self's Criteria. TTE negative for vegetation. FREDIS negative. Continue Vancomycin IV. Pharmacy to dose. Goal trough ~15. Duration of treatment depends on the clinical picture, but likely a total of 4- 6 weeks due to the right great toe infection. Monitor renal function and for drug toxicity and dose-adjust antibiotics. Will discuss with Nephrology, nut hopefully we can give the Vancomycin with HD. (3) Necrosis of toe Current Visit: Yes Status: Acute Location: Right great toe. Etiology: Unclear. The patient does have a known history of PVD. There is also concern that there may be an element of infection as well. X-ray of the right foot was negative for osteomyelitis. [employer] been consulted. STatus post amputation of right great toe 02/12/[address] Denny. Intra-op note reviewed. Pathology negative for osteomyelitis. No cultures were sent. Wound culture positive for MRSA and K. oxytoca. Continue Rocephin 2 grams IV daily. Continue vancomycin IV. Pharmacy to dose. Goal trough approximately 15. Duration of treatment depends on the clinical picture, but likely 4-6 weeks. Monitor renal function for drug toxicity and dose adjust antibiotics. Powerglide already placed. Will need weekly CBC, BUN/Cr, ESR, and CRP. Will need weekly IV care per protocol. Follow up with ID 02/26/18 at 0900. (4) Dysuria Current Visit: Yes Status: Resolved The patient reports a one-week history of urinary frequency and dysuria. Culture positive for E. coli. Continue antibiotics as above for now. (5) Encephalopathy Current Visit: Yes Status: Resolved Likely multifactorial: sepsis + hyperammonemia. No focal neuro deficits noted on exam. Resolved. Continue to monitor closely. (6) Hyperammonemia Current Visit: Yes Status: Resolved Ammonia level elevated at 76. Etiology unclear. LFTs are normal. CT of the abdomen and pelvis was negative for acute abnormality. Resolved. Further workup and management per the primary team. (7) Anemia Current Visit: Yes Status: Chronic Hemoglobin down to 7.4 on admission. Hgb 9.9 today. No acute bleeding noted on exam. Further workup and management per the primary nephrology teams. Qualifiers: Anemia type: due to chronic kidney disease Chronic kidney disease stage: on chronic dialysis Qualified Code(s): N18.6 - End stage renal disease; D63.1 - Anemia in chronic kidney disease; Z99.2 - Dependence on renal dialysis (8) Nausea Current Visit: No Status: Resolved The patient reports persistent nausea for the past couple of weeks. Etiology unclear. GI consulted. Status post EGD that showed non-bleeding gastric ulcers. Resolved. (9) Chest pain Current Visit: Yes Status: Resolved Etiology unclear. Pain is reproducible on exam. EKGs have been unchanged. CT of the chest was negative. Resolved. Further workup and management per the primary team. Qualifiers: Chest pain type: unspecified Qualified Code(s): R07.9 - Chest pain, unspecified (10) Pulmonary HTN Current Visit: No Status: Chronic (11) CAD (coronary artery disease) Current Visit: No Status: Chronic Qualifiers: Coronary Disease-Associated Artery/Lesion type: [place] artery [place] vs. transplanted heart: [place] heart Associated angina: without angina Qualified Code(s): I25.10 - Atherosclerotic heart disease of [place] coronary artery without angina pectoris (12) KEMAR (obstructive sleep apnea) Current Visit: Yes Status: Chronic (13) CHF (congestive heart failure) Current Visit: Yes Status: Deleted Qualifiers: Heart failure type: unspecified Heart failure chronicity: chronic Qualified Code(s): I50.9 - Heart failure, unspecified (14) ESRD (end stage renal disease) Current Visit: No Status: Chronic Nephrology has been consulted to assist with HD management. We will dose adjust antibiotics based on HD status. (15) COPD (chronic obstructive pulmonary disease) Current Visit: No Status: Chronic Qualifiers: COPD type: COPD with acute exacerbation Qualified Code(s): J44.1 - Chronic obstructive pulmonary disease with (acute) exacerbation - Subjective Interval history: Patient seen and examined. No acute events noted overnight. Patient states overall she is okay today. Status post amputation of right great toe 02/12/[address] Denny. Denies any fevers or chills or rigors. Denies chest pain, shortness of breath, or cough. Denies any nausea or vomiting. Reports appetite is okay. She denies any abdominal pain, urinary complaints. She denies any oral thrush or any skin lesions. Denies foot or back pain. Status post FREDIS 9105/29 that was negative. Status post EGD and temp HD catheter placement 02/10/18. Awaiting finalization of blood cultures before placement of Perma-cath. Infect Dis PN-Objective Data - Labs CBC & Chem 7: 02/18/18 05:20 02/18/18 05:20 Labs: Laboratory Results - last 24 hr 02/17/18 02/17/18 02/17/18 12:01 17:22 20:29 WBC RBC Hgb Hct MCV MCH MCHC RDW Plt Count MPV Immature Gran % Seg Neutrophils % Lymphocytes % Monocytes % Eosinophils % Basophils % Neutrophils # Lymphocytes # Monocytes # Eosinophils # Basophils # PT INR Sodium Potassium Chloride Carbon Dioxide BUN Creatinine Est GFR ( Amer) Est GFR (Non-Af Amer) BUN/Creatinine Ratio Glucose POC Glucose 210 H 130 H 164 H Calculated Osmolality Calcium Random Vancomycin 02/18/18 02/18/18 02/18/18 04:00 05:20 05:20 WBC 7.1 RBC 3.15 L Hgb 9.9 L Hct 30.2 L MCV 95.9 MCH 31.4 MCHC 32.8 RDW 18.6 H Plt Count 227 MPV 9.2 L Immature Gran % 2.4 Seg Neutrophils % 74.7 Lymphocytes % 9.7 Monocytes % 10.0 Eosinophils % 2.5 Basophils % 0.7 Neutrophils # 5.3 Lymphocytes # 0.7 Monocytes # 0.7 Eosinophils # 0.2 Basophils # 0.1 PT 13.7 H INR 1.2 Sodium Potassium Chloride Carbon Dioxide BUN Creatinine Est GFR ( Amer) Est GFR (Non-Af Amer) BUN/Creatinine Ratio Glucose POC Glucose Calculated Osmolality Calcium Random Vancomycin 16 02/18/18 02/18/18 02/18/18 05:20 07:50 11:35 WBC RBC Hgb Hct MCV MCH MCHC RDW Plt Count MPV Immature Gran % Seg Neutrophils % Lymphocytes % Monocytes % Eosinophils % Basophils % Neutrophils # Lymphocytes # Monocytes # Eosinophils # Basophils # PT INR Sodium 132 L Potassium 4.1 Chloride 99 Carbon Dioxide 25 BUN 30 H Creatinine 5.34 H Est GFR ( Amer) 10 L Est GFR (Non-Af Amer) 8 L BUN/Creatinine Ratio 6 Glucose 111 H POC Glucose 106 H 167 H Calculated Osmolality 281 Calcium 7.5 L Random Vancomycin Cultures: Cultures 02/13/18 12:23 Blood Culture - Final Peripheral Venipuncture No growth. Final report. 02/13/18 12:18 Blood Culture - Final Peripheral Venipuncture No growth. Final report. 02/09/18 11:35 Blood Culture - Final Peripheral Venipuncture Micrococcus luteus 02/11/18 16:11 Blood Culture - Final Peripheral Venipuncture No growth. Final report. 02/11/18 16:11 Blood Culture - Final Peripheral Venipuncture Methicillin Resistant S.aureus 02/09/18 08:08 Blood Culture - Final Peripheral Venipuncture No growth. Final report. 02/07/18 15:24 Catheter Tip Culture - Final Intravenous or Arterial Cath Methicillin Resistant S.aureus 02/05/18 14:10 Body Fluid Culture - Final Peritoneal Fluid 02/05/18 11:20 Blood Culture - Final Peripheral Venipuncture Methicillin Resistant S.aureus 02/05/18 11:20 Blood Culture - Final Peripheral Venipuncture Methicillin Resistant S.aureus 02/06/18 03:22 Blood Culture - Final Peripheral Venipuncture Methicillin Resistant S.aureus 02/06/18 14:39 Blood Culture - Final Central Venous Catheter Methicillin Resistant S.aureus 02/06/18 03:22 Blood Culture - Final Peripheral Venipuncture Methicillin Resistant S.aureus 02/06/18 14:39 Blood Culture - Final Central Venous Catheter Methicillin Resistant S.aureus 02/05/18 13:50 Urine Culture - Final Urine,Catheterized Escherichia coli 02/05/18 13:30 Wound Culture - Final Right Great Toe Klebsiella oxytoca Staphylococcus aureus Serology 02/16/18 02/12/18 02/05/18 Range/Units 18:00 04:40 16:57 Ur Specimen Adequacy Urine Color (Yellow) Urine Clarity (Clear) Urine pH (5.0-8.0) pH Units Ur Specific [place] (1.010-1.025) Urine Protein (Neg-Trace) mg/dL Urine Glucose (UA) (Normal) mg/dL Urine Ketones (Negative) mg/dL Urine Blood (Negative) Urine Nitrite (Negative) Urine Bilirubin (Negative) Urine Urobilinogen (Normal) mg/dL Ur Leukocyte Esterase (Negative) Urine Microscopic RBC (0-3) per hpf Urine Microscopic WBC (0-3) per hpf Ur Squamous Epith Cells (None-Few) per lpf Urine Bacteria (None-Few) per hpf Hyaline Casts (None-Few) per lpf Ur Culture Indicated? (NO) Peritoneal Appearance (Clear) Peritoneal Volume Peritoneal RBC Periton Tot Nuc Cells Periton Neutrophils % Periton Band Neuts % Periton Lymphocytes % % Periton Monocytes % % Stool Occult Blood Positive A Positive A (Negative) A. baumannii (PCR) (Not Detect) Lynne albicans (PCR) (Not Detect) C. glabrata (PCR) (Not Detect) C. krusei (PCR) (Not Detect) C. parapsilosis (PCR) (Not Detect) C. tropicalis (PCR) (Not Detect) Enterobacteriac sp PCR (Not Detect) E. cloacae complex PCR (Not Detect) Enterococcus sp PCR (Not Detect) E. coli (PCR) (Not Detect) H. influenzae (PCR) (Not Detect) Hep Bs Antigen Nonreactive (Nonreactive) Hep Bs Antibody 0.00 mIU/mL Klebsiella oxytoca PCR (Not Detect) Klebsiella pneumoniae (Not Detect) List. monocytogenes PCR (Not Detect) N. meningitidis (PCR) (Not Detect) Proteus species (PCR) (Not Detect) Serratia marcescens PCR (Not Detect) Staphylococcus sp PCR (Not Detect) Staph aureus (PCR) (Not Detect) mecA-Methicil Res Gene (Not Detect) Streptococcus sp PCR (Not Detect) Group A Strep DNA (Not Detect) Group B Strep (PCR) (Not Detect) Strep pneumoniae (PCR) (Not Detect) P. aeruginosa (PCR) (Not Detect) Aki/B-Vanco Res Genes (Not Detect) KPC (blaKPC) Detect PCR (Not Detect) 02/05/18 02/05/18 02/05/18 Range/Units 14:10 11:20 10:58 Ur Specimen Adequacy See below A Urine Color Yellow (Yellow) Urine Clarity Turbid A (Clear) Urine pH 6.0 (5.0-8.0) pH Units Ur Specific [place] 1.017 (1.010-1.025) Urine Protein >=300 H (Neg-Trace) mg/dL Urine Glucose (UA) 250 H (Normal) mg/dL Urine Ketones Negative (Negative) mg/dL Urine Blood Moderate H (Negative) Urine Nitrite Negative (Negative) Urine Bilirubin Negative (Negative) Urine Urobilinogen Normal (Normal) mg/dL Ur Leukocyte Esterase Large H (Negative) Urine Microscopic RBC 15-30 H (0-3) per hpf Urine Microscopic WBC TNTC H (0-3) per hpf Ur Squamous Epith Cells Many H (None-Few) per lpf Urine Bacteria Many H (None-Few) per hpf Hyaline Casts None Seen (None-Few) per lpf Ur Culture Indicated? NO. A (NO) Peritoneal Appearance HAZY (Clear) Peritoneal Volume TNP Peritoneal RBC TNP Periton Tot Nuc Cells TNP Periton Neutrophils 62.0 % Periton Band Neuts 2.0 % Periton Lymphocytes % 24.0 % Periton Monocytes % 12.0 % Stool Occult Blood (Negative) A. baumannii (PCR) Not Detected (Not Detect) Lynne albicans (PCR) Not Detected (Not Detect) C. glabrata (PCR) Not Detected (Not Detect) C. krusei (PCR) Not Detected (Not Detect) C. parapsilosis (PCR) Not Detected (Not Detect) C. tropicalis (PCR) Not Detected (Not Detect) Enterobacteriac sp PCR Not Detected (Not Detect) E. cloacae complex PCR Not Detected (Not Detect) Enterococcus sp PCR Not Detected (Not Detect) E. coli (PCR) Not Detected (Not Detect) H. influenzae (PCR) Not Detected (Not Detect) Hep Bs Antigen (Nonreactive) Hep Bs Antibody mIU/mL Klebsiella oxytoca PCR Not Detected (Not Detect) Klebsiella pneumoniae Not Detected (Not Detect) List. monocytogenes PCR Not Detected (Not Detect) N. meningitidis (PCR) Not Detected (Not Detect) Proteus species (PCR) Not Detected (Not Detect) Serratia marcescens PCR Not Detected (Not Detect) Staphylococcus sp PCR DETECTED A (Not Detect) Staph aureus (PCR) DETECTED A (Not Detect) mecA-Methicil Res Gene DETECTED A (Not Detect) Streptococcus sp PCR Not Detected (Not Detect) Group A Strep DNA Not Detected (Not Detect) Group B Strep (PCR) Not Detected (Not Detect) Strep pneumoniae (PCR) Not Detected (Not Detect) P. aeruginosa (PCR) Not Detected (Not Detect) Aki/B-Vanco Res Genes Not Detected (Not Detect) KPC (blaKPC) Detect PCR Not Detected (Not Detect) Exam - Constitutional Vitals: Temp Pulse Resp BP Pulse Ox 98.7 F 85 15 164/76 98 02/18/18 14:00 02/18/18 11:38 02/18/18 14:00 02/18/18 16:30 02/18/18 11:38 General appearance: cooperative, no acute distress, obese - Head Head exam: Present: atraumatic, normal inspection, normocephalic - Eye Eye exam: Present: EOMI, normal appearance, PERRL Pupils: Present: normal accommodation - ENT ENT exam: Present: mucous membranes moist - Neck Neck exam: Present: normal inspection - Respiratory Respiratory exam: Present: CTAB. Absent: rales, respiratory distress, rhonchi, wheezes - Cardiovascular Cardiovascular exam: Present: RRR, +S1, +S2 - GI/Abdominal GI/Abdominal exam: Present: distended (obese), normal bowel sounds, soft. Absent: tenderness - Extremities Exam Additional comments: Right foot dressing C/D/I. - Neurological Exam Neurological exam: Present: alert, oriented X3, no focal deficits - Psychiatric Psychiatric exam: Present: normal affect, normal mood - Skin Skin exam: Present: dry, intact, normal color, warm Consult Discharge Plan - Plan Additional Instructions: PWB right lower extremity. Orthowedge shoe for heel transfers. Follow up with Dr. Denny in wound care clinic next week. Referrals: Mayela Ayoub, MARIELLA [Advanced Practice Nurse] - 02/26/18 8:40 am Guero Clement DO [Primary Care Provider] - () - Attending Attestation I examined this patient and my medical decision-making was reviewed with the Resident Physician. I agree with the documented findings, disposition and treatment plan as described except to the extent set forth below.
[2018-02-18] MEDS ORDERED: Vancomycin 500 MG in 0.9 % Sodium Chloride Mini Bag 100 ML IVPB ONE (20:00)
[2018-02-18] MEDS: *HR* HYDROcodone/Acet 5/325 mg TABLET PO PRN (21:05)
[2018-02-18] MEDS: Insulin DETEMIR 100 UNIT/ML X5UNITS SQ SCH (21:05)
[2018-02-18] MEDS: Melatonin 3 MG TABLET PO PRN (21:05)
[2018-02-19 04:41] LABS: Basophils % 0.7 %; Eosinophils # 0.2 K/mcL (0.0-0.6); Eosinophils % 2.7 %; Hematocrit 29.3 % (35.3-44.9); Hemoglobin 9.4 g/dL (11.5-15.4); Immature Granulocytes % 2.2 % (0-4); Lymphocytes # 0.7 K/mcL (0.6-4.6); Lymphocytes % 13.5 %; Mean Corpuscular HGB Conc 32.1 g/dL (31.6-35.5); Mean Corpuscular Hemoglobin 31.2 pg (28.0-33.3); Mean Corpuscular Volume 97.3 fL (83.0-100.0); Mean Platelet Volume 9.3 fL (9.4-12.4); Monocytes # 0.6 K/mcL (0.0-1.3); Monocytes % 11.3 %; Neutrophils # 3.8 K/mcL (1.6-8.9); Platelet Count 223 K/mcL (140-400); Red Blood Count 3.01 M/mcL (3.82-4.97); Red Cell Distribution Width 18.1 % (11.5-14.5); Segmented Neutrophils % 69.6 %
[2018-02-19 04:57] LABS: Calcium 7.5 mg/dL (8.6-10.3); Potassium 3.7 mEq/L (3.5-5.1)
[2018-02-19] MEDS: Tiotropium 18 MCG inhalation IH SCH (07:48)
[2018-02-19] MEDS: cefTRIAXone 2,000 MG in Water for inj. (sterile) 20 ML 20 ML IVP SCH (08:26)
[2018-02-19] MEDS: Metoprolol 100 MG TABLET PO SCH (08:27)
[2018-02-19] MEDS: Fenofibrate 54 MG TABLET PO SCH (08:36)
[2018-02-19] MEDS: Sucralfate 1 GM TABLET PO SCH ×3 (08:37→17:02)
[2018-02-19] MEDS: Gabapentin 100 MG CAPSULE PO SCH ×3 (08:37→20:50)
[2018-02-19] MEDS: Furosemide 40 MG TABLET PO SCH ×2 (08:37→14:25)
[2018-02-19] MEDS: Insulin LISPRO 300 UNITS/3 ML VIAL SQ SCH ×4 (08:39→20:51)
[2018-02-19] MEDS: Isosorbide MONOnitrate (24 HR) 30 MG TAB.ER.24H PO SCH (08:40)
[2018-02-19] MEDS ORDERED: *HR* FentaNYL (PF) 100 MCG/2 ML VIAL IVP ONE (12:51)
[2018-02-19] MEDS ORDERED: *HR* Midazolam HCl 2 MG/2 ML VIAL IVP ONE (12:51)
[2018-02-19] MEDS ORDERED: 0.9 % Sodium Chloride 500 ML ONE (12:57)
[2018-02-19] MEDS ORDERED: Heparin 1,000 UNITS/500 mL 500 ML ONE (13:05)
[2018-02-19] MEDS ORDERED: *HR* Heparin 5,000 UNIT/ML VIAL ONE (13:39)
--- NOTE | 2018-02-19 13:42 | Pre-Sedation Evaluation ---
Pre-sedation evaluation - Pre-sedation checklist Date of procedure: 02/12/18 Procedure: EGD Recent Vitals: Last Vital Signs Temp 98.4 F 02/19/18 11:34 Pulse 75 02/19/18 13:35 Resp 18 02/19/18 11:34 BP 178/81 02/19/18 13:35 Pulse Ox 100 02/19/18 13:35 H&P (including ROS) documented in medical record: Yes Previous reaction to sedatives/anesthetics: No Dietary Status: NPO after Midnight Airway Assessment: Patient can open mouth completely, TMJ function normal, Micrognathia (under-bite, receding chin) absent, Neck with adequate range of motion Dentition: No loose teeth or bridges Possible difficult airway: No ASA Classification *see protocol: CLASS II-Mild systemic disease Plan of Care: Pt appropriate candidate for procedure/moderate/conscious sedation , Risks/benefits of procedure/sedation discussed w/ patient/family, If not NPO; Risk of intake outweiged by necessity to perform procedure Cardiac Registry (Cardio Only) - Functional Capacity - Clincal Frailty Scale Clinical Frailty Scale: Managing Well
--- NOTE | 2018-02-19 13:43 | IR Procedure Note ---
Date of procedure: 02/19/18 Consent Obtained: Written consent Timeout: Correct patient and procedure verified, Correct site verified, Time out performed, Skin prep completed Indications: renal failure Procedure Performed: permacath Was there an historian research assistant present: No Site/Technique: rt IJ to RA Results/Findings: adequate placement Estimated blood loss (cc): 4 Complications: None; Tolerated procedure well Post Procedure Treatment Plan: OK to dialyze Specimen: none
--- NOTE | 2018-02-19 15:34 | Internal Med Progress Note ---
<Isabel Jones - Last Filed: 02/19/18 17:32> Hospitalist Progress Note - Encounter Date of Encounter: 02/19/18 Time of Encounter: 09:25 - Subjective Interval History: Ms. Orozco was examined at bedside this morning. She was eager about her perma cath today. Her vitals were stable overnight. Her blood pressure was high overnight, from 168/74 to 199/79. Her labs were reviewed and showed an improvement of creatinine from 5.34 yesterday to 3.84 today. She is having good oral intake. She denies fever, chills, nausea, emesis, shortness of breath or chest pain. - Exam Vitals: Temp Pulse Resp BP Pulse Ox 98.3 F 84 18 162/67 97 02/19/18 15:09 02/19/18 15:09 02/19/18 15:09 02/19/18 15:09 02/19/18 15:09 Exam: Gen.: Vitals noted. No acute distress. AAOx3 HEENT: PERRL/EOMI, oropharynx clear, Normocephalic, atraumatic, moist mucus membranes Cardiac: RRR, no murmur, +S1/S2 Pulmonary: CTA bilaterally, no wheezes, rales or rhonchi, equal chest expansion Abdomen: soft, nontender, BS noted, no guarding, healing incision site on the abdomen MSK: ROM intact, no joint swelling noted Extremities: no BLE edema, nontender calf, no cyanosis or clubbing. Right foot bandaged without evidence of infection Neuro: A&Ox3, moves all extremities, no focal deficits Psych: Appropriate mood and behavior - Assessment and Plan (1) Sepsis Current Visit: Yes Status: Resolved Assessment and Plan: Sepsis, resolved with MRSA bacteremia and R hallus klebsiella and Staph aureus infection- suspected source is necrotic toe, possibly PD cath ID following, cont IV vanc -likely to need 4-6 weeks iv vanc on dc, fu id recs PD removed on 02/12, right hallux toe amputation on 02/12. Peripheral blood cultures drawn 02/05 are positive 2/2 sets for MRSA. peripheral blood cultures drawn 02/06/18 are positive 2/2 sets for MRSA cultures drawn from the Perma-cath 02/06/18 are positive 2/2 sets for MRSA Status post Perm-cath removal 02/07/18 by IR. catheter tip 02/07 positive for MRSA 02/09 bl cxs x2 positive MRSA 02/11 bl cxs x2 positive MRSA 02/13 bl cxs final no growth S/P permacath insertion today Peritoneal dialysis removed by surgery 02/12 - wound care with iodoform packing changed daily for the next 7 days - surgery signed off Toe amputation 02/12 FREDIS neg for vegetation Abx as per ID recommendations. Currently receiving vancomycin which previous blood cultures have been sensitive to and rocephin - Likely course of 4-6 weeks per ID note. (2) Necrosis of toe Current Visit: Yes Status: Acute Assessment and Plan: Necrosis of toe, right- wound cx as above, podiatry following, amputation 02/12 Blood cultures as above. Wound cultures show Klebsiella and staph aureus will be dispensed a OrthoWedge shoe by podiatry to help offload the forefoot when ambulatory. Plan: Cont iv vanc + rocephin Nonweightbearing right lower extremity Follow-up with Dr. Denny in wound care clinic next week (3) Chest pain Current Visit: Yes Status: Resolved Assessment and Plan: Chest Pain, resolved, mild trop elevation and stable likely 2/2 sepsis on admit - seen by cards, she will fu outpt, FREDIS neg (4) ESRD (end stage renal disease) on dialysis Current Visit: Yes Status: Chronic Assessment and Plan: Nephro following for HD currently with temp hd cath that was placed prior to neg bl cxs as noted above due to need for routine HD next HD Friday, defer to nephrology HD temp cath placed by IR on 02/11. Plan: S/P permacath insertion (5) Diabetes Current Visit: Yes Status: Chronic Assessment and Plan: Known history of diabetes with neuropathy and ESRD on dialysis. bs at goal, today 96 likely due to NPO diet A1c 7.0% in november 2017 -Continue insulin sliding scale and basal insulin Levemir 10 units qhs -accu checks -ADA diet, CV diet (6) HTN (hypertension) Current Visit: Yes Status: Chronic Assessment and Plan: Continue monitoring bp, at times elevated above goal Continues to be elevated, today 199 to 156 -Continue home meds: lisinopril, imdur, metoprolol -Nephro following -she will require outpatient follow up at discharge (7) CAD (coronary artery disease) Current Visit: No Status: Chronic Assessment and Plan: CAD, stable -Continue home meds for chronic disease management as above, outpatient follow up -Chest pain assessment as above (8) KEMAR (obstructive sleep apnea) Current Visit: Yes Status: Chronic Assessment and Plan: cpap at night (9) Acute on chronic anemia Current Visit: Yes Status: Chronic Assessment and Plan: Acute on Chronic Anemia, multifactorial, cont slow down trend. Had episode of occult blood per stool, could be due to constipation. - Today hgb of 9.4 after 2 units on 02/16 for progressive decreasing, previous 10.0/8.4/7.9/8.1/9.0 - Baseline hgb appears to be around 8-10 - Hx of Gastric Ulcers, vs Anemia of Chronic Disease - Gi following, egd 02/10 demonstrated 3 gastric ulcers with adherent clot, bx taken, , started on ppi + carafate - vte ppx scds only - Nephrology note mentions goal Hgb of 10 - Patient denies melena, hematochezia Plan - Continue to monitor and transfuse if <7 - Patient is likely at baseline. (10) DVT prophylaxis Current Visit: Yes Status: Acute Assessment and Plan: heparin with HD, no pharm vte ppx heparin due to anemia, scds (11) CAD (coronary artery disease) Current Visit: Yes Status: Acute Assessment and Plan: CAD, stable -Continue home meds for chronic disease management as above, outpatient follow up as above -Chest pain assessment as above - Time Spent with Patient Total time spent is greater than 50% in coordination of care (as documented) at patient's floor/unit and/or counseling patient: less than 15 minutes Plan of Care Discussed with: patient Internal Medicine: Result - Labs CBC & Chem 7: 02/19/18 04:15 02/19/18 04:15 Labs: Short CBC 02/19/18 Range/Units 04:15 WBC 5.5 (4.3-11.1) K/mcL Hgb 9.4 L (11.5-15.4) g/dL Hct 29.3 L (35.3-44.9) % Plt Count 223 (140-400) K/mcL Neutrophils # 3.8 (1.6-8.9) K/mcL BMP 02/19/18 04:15 Sodium 135 L Potassium 3.7 Chloride 99 Carbon Dioxide 28 BUN 21 H Creatinine 3.84 H Glucose 96 Calcium 7.5 L - ABG Interpretation ABG results: ABG ABG pH 7.47 pH Units (7.32-7.45) H 02/05/18 11:49 ABG pCO2 35 mmHg (35-45) 02/05/18 11:49 ABG pO2 43 mmHg (85-104) L* 02/05/18 11:49 ABG O2 Saturation 82 % (95-98) L 02/05/18 11:49 PT/INR, D-dimer PT 13.7 Seconds (9.4-12.1) H 02/18/18 04:00 - Impressions Impressions Insertion Tunneled Catheter 02/19/18 00:00 IMPRESSION: Successful fluoroscopy guided tunneled catheter placement. RECOMMENDATIONS: [facility] for dialysis. D/ / 02/19/2018 14:26:09 Dixie Mittal MD / [email or web address] Interpreting Provider: Dixie Mittal MD Consult Discharge Plan - Plan Additional Instructions: PWB right lower extremity. Orthowedge shoe for heel transfers. Follow up with Dr. Denny in wound care clinic next week. Referrals: Mayela Ayoub, MARIELLA [Advanced Practice Nurse] - 02/26/18 8:40 am Guero Clement DO [Primary Care Provider] - () <Emigdio Negron - Last Filed: 02/19/18 18:13> Hospitalist Progress Note - Encounter Date of Encounter: 02/19/18 - Exam Vitals: Temp Pulse Resp BP Pulse Ox 98.3 F 88 16 162/67 97 02/19/18 15:09 02/19/18 17:00 02/19/18 15:57 02/19/18 15:09 02/19/18 15:57 - Assessment and Plan (1) Sepsis Current Visit: Yes Status: Resolved (2) Necrosis of toe Current Visit: Yes Status: Acute (3) Chest pain Current Visit: Yes Status: Resolved (4) ESRD (end stage renal disease) on dialysis Current Visit: Yes Status: Chronic (5) Diabetes Current Visit: Yes Status: Chronic (6) HTN (hypertension) Current Visit: Yes Status: Chronic (7) CAD (coronary artery disease) Current Visit: No Status: Chronic (8) KEMAR (obstructive sleep apnea) Current Visit: Yes Status: Chronic (9) DVT prophylaxis Current Visit: Yes Status: Acute (10) Acute on chronic anemia Current Visit: Yes Status: Chronic - Time Spent with Patient Total time spent is greater than 50% in coordination of care (as documented) at patient's floor/unit and/or counseling patient: Internal Medicine: Result - Labs CBC & Chem 7: 02/19/18 04:15 02/19/18 04:15 Labs: Short CBC 02/19/18 Range/Units 04:15 WBC 5.5 (4.3-11.1) K/mcL Hgb 9.4 L (11.5-15.4) g/dL Hct 29.3 L (35.3-44.9) % Plt Count 223 (140-400) K/mcL Neutrophils # 3.8 (1.6-8.9) K/mcL BMP 02/19/18 04:15 Sodium 135 L Potassium 3.7 Chloride 99 Carbon Dioxide 28 BUN 21 H Creatinine 3.84 H Glucose 96 Calcium 7.5 L - ABG Interpretation ABG results: ABG ABG pH 7.47 pH Units (7.32-7.45) H 02/05/18 11:49 ABG pCO2 35 mmHg (35-45) 02/05/18 11:49 ABG pO2 43 mmHg (85-104) L* 02/05/18 11:49 ABG O2 Saturation 82 % (95-98) L 02/05/18 11:49 PT/INR, D-dimer PT 13.7 Seconds (9.4-12.1) H 02/18/18 04:00 - Impressions Impressions Insertion Tunneled Catheter 02/19/18 00:00 IMPRESSION: Successful fluoroscopy guided tunneled catheter placement. RECOMMENDATIONS: Okay for dialysis. D/ / 02/19/2018 14:26:09 Dixie Mittal MD / [email or web address] Interpreting Provider: Dixie Mittal MD - Attending Attestation I examined this patient and my medical decision-making was reviewed with the Resident Physician on 02/19/18. I agree with the documented findings, disposition and treatment plan as described except to the extent set forth below. Ms Orozco is currently admitted for MRSA bacteremia from infected toe. She remains moderate to high risk due to potential for worsening clinical status. Ms Orozco is to have permacath today. No fever or chills. Blood cx negative. No GI issues. Exam Alert. Comfortable Mucus membranes moist Heart not tachy No wheeze abd soft I/P 1. MRSA bacteremia on IV abx 2. ESRD on HD Permacath today Anticipate d/c to rehab tomorrow. <Isabel Jones - Last Filed: 02/19/18 17:32> (1) Sepsis Qualifiers: Sepsis type: methicillin susceptible Staphylococcus aureus Qualified Code(s) : A41.01 - Sepsis due to Methicillin susceptible Staphylococcus aureus (3) Chest pain Qualifiers: Chest pain type: unspecified Qualified Code(s): R07.9 - Chest pain, unspecified (5) Diabetes Qualifiers: Diabetes mellitus type: type 2 Diabetes mellitus half-way insulin use: with director long term care use Diabetes mellitus complication status: with kidney complications Diabetes mellitus complication detail: with chronic kidney disease Chronic kidney disease stage: on chronic dialysis Qualified Code(s): E11.22 - Type 2 diabetes mellitus with diabetic chronic kidney disease; N18.6 - End stage renal disease; Z79.4 - penitentiary (current) use of insulin; Z99.2 - Dependence on renal dialysis (6) HTN (hypertension) Qualifiers: Hypertension type: essential hypertension Qualified Code(s): I10 - Essential (primary) hypertension (7) CAD (coronary artery disease) Qualifiers: Coronary Disease-Associated Artery/Lesion type: [place] artery [place] vs. transplanted heart: [place] heart Associated angina: without angina Qualified Code(s): I25.10 - Atherosclerotic heart disease of [place] coronary artery without angina pectoris <Emigdio Negron - Last Filed: 02/19/18 18:13> (1) Sepsis Qualifiers: Sepsis type: methicillin susceptible Staphylococcus aureus Qualified Code(s) : A41.01 - Sepsis due to Methicillin susceptible Staphylococcus aureus (3) Chest pain Qualifiers: Chest pain type: unspecified Qualified Code(s): R07.9 - Chest pain, unspecified (5) Diabetes Qualifiers: Diabetes mellitus type: type 2 Diabetes mellitus half-way insulin use: with half-way use Diabetes mellitus complication status: with kidney complications Diabetes mellitus complication detail: with chronic kidney disease Chronic kidney disease stage: on chronic dialysis Qualified Code(s): E11.22 - Type 2 diabetes mellitus with diabetic chronic kidney disease; N18.6 - End stage renal disease; Z79.4 - supervisor intermediates (current) use of insulin; Z99.2 - Dependence on renal dialysis (6) HTN (hypertension) Qualifiers: Hypertension type: essential hypertension Qualified Code(s): I10 - Essential (primary) hypertension (7) CAD (coronary artery disease) Qualifiers: Coronary Disease-Associated Artery/Lesion type: [place] artery [place] vs. transplanted heart: [place] heart Associated angina: without angina Qualified Code(s): I25.10 - Atherosclerotic heart disease of [place] coronary artery without angina pectoris
--- NOTE | 2018-02-19 17:19 | Event Note ---
Date of Encounter: 02/19/18 Time of Encounter: 17:16 Nephrology Update ESRD on HD MWF and now that her bacteria has led to BCx finalized with no- growth as of last night (see yesterday's note), I had recommended a Permacath for today, which has been done. Okay to d/c from a nephro perspective, but if she is still here tomorrow, then I'll plan for inpatient HD.
[2018-02-19] MEDS: *HR* HYDROcodone/Acet 5/325 mg TABLET PO PRN (20:50)
[2018-02-19] MEDS: Melatonin 3 MG TABLET PO PRN (20:50)
[2018-02-19] MEDS: Insulin DETEMIR 100 UNIT/ML X5UNITS SQ SCH (20:50)
[2018-02-20 04:52] LABS: Basophils % 0.7 %; Eosinophils # 0.2 K/mcL (0.0-0.6); Eosinophils % 3.5 %; Hematocrit 30.6 % (35.3-44.9); Hemoglobin 9.7 g/dL (11.5-15.4); Immature Granulocytes % 0.9 % (0-4); Lymphocytes # 0.7 K/mcL (0.6-4.6); Lymphocytes % 12.6 %; Mean Corpuscular HGB Conc 31.7 g/dL (31.6-35.5); Mean Corpuscular Hemoglobin 30.8 pg (28.0-33.3); Mean Corpuscular Volume 97.1 fL (83.0-100.0); Mean Platelet Volume 9.2 fL (9.4-12.4); Monocytes # 0.7 K/mcL (0.0-1.3); Monocytes % 12.6 %; Neutrophils # 3.8 K/mcL (1.6-8.9); Platelet Count 225 K/mcL (140-400); Red Blood Count 3.15 M/mcL (3.82-4.97); Red Cell Distribution Width 17.7 % (11.5-14.5); Segmented Neutrophils % 69.7 %
[2018-02-20 05:10] LABS: Calcium 7.7 mg/dL (8.6-10.3); Potassium 4.1 mEq/L (3.5-5.1)
[2018-02-20] MEDS ORDERED: *HR* Heparin 10,000 UNIT/10 ML VIAL IV PRN (07:11)
[2018-02-20] MEDS: cefTRIAXone 2,000 MG in Water for inj. (sterile) 20 ML 20 ML IVP SCH (07:39)
[2018-02-20] MEDS: Tiotropium 18 MCG inhalation IH SCH (07:40)
[2018-02-20] MEDS: Sucralfate 1 GM TABLET PO SCH ×3 (07:40→16:42)
[2018-02-20] MEDS: Furosemide 40 MG TABLET PO SCH ×2 (07:40→13:25)
[2018-02-20] MEDS: Gabapentin 100 MG CAPSULE PO SCH ×2 (07:40→13:25)
[2018-02-20] MEDS: Isosorbide MONOnitrate (24 HR) 30 MG TAB.ER.24H PO SCH (07:40)
[2018-02-20] MEDS: Metoprolol 100 MG TABLET PO SCH (07:40)
[2018-02-20] MEDS: Fenofibrate 54 MG TABLET PO SCH (07:40)
[2018-02-20] MEDS: Insulin LISPRO 300 UNITS/3 ML VIAL SQ SCH ×3 (09:18→16:47)
--- NOTE | 2018-02-20 11:06 | Nephrology Progress Note ---
Date of Encounter: 02/20/18 Time of Encounter: 09:50 - Assessment and Plan (1) ESRD (end stage renal disease) Status: Chronic Plan for HD today -- I reviewed her labs, vitals, med list, I/Os, daily weights and with complex MDM and E/M, I placed HD orders. Permacath now in place. (2) Hyponatremia Status: Acute Resolving (3) Anemia Status: Chronic Goal Hgb is 10-11. Transfusion parameters per primary team Qualifiers: Anemia type: due to chronic kidney disease Chronic kidney disease stage: on chronic dialysis Qualified Code(s): N18.6 - End stage renal disease; D63.1 - Anemia in chronic kidney disease; Z99.2 - Dependence on renal dialysis (4) Diabetes Status: Chronic As per primary. Qualifiers: Diabetes mellitus type: type 2 Diabetes mellitus customer success intern insulin use: with customer success intern use Diabetes mellitus complication status: with kidney complications Diabetes mellitus complication detail: with chronic kidney disease Chronic kidney disease stage: on chronic dialysis Qualified Code(s) : E11.22 - Type 2 diabetes mellitus with diabetic chronic kidney disease; N18.6 - End stage renal disease; Z79.4 - repairer wood furniture (current) use of insulin; Z99.2 - Dependence on renal dialysis Subjective Principal diagnosis: s/p toe amputation Interval history: Pt was s/e earlier today. She did not affirm N/V/D or other major complaints. Objective - Vital Signs Vital signs: Vital Signs Temp Pulse Resp BP Pulse Ox 02/20/18 10:25 119/54 02/20/18 10:10 123/55 02/20/18 09:55 130/57 02/20/18 09:40 140/58 02/20/18 09:25 136/57 02/20/18 09:10 97.7 F 16 142/63 02/20/18 07:56 97.9 F 74 18 153/62 96 02/20/18 07:42 18 100 02/20/18 05:38 98.6 F 76 18 148/64 100 02/20/18 00:34 16 97 02/20/18 00:25 98.8 F 74 18 134/58 96 02/19/18 21:43 99.1 F 78 19 147/63 90 02/19/18 20:59 18 97 02/19/18 17:00 88 02/19/18 15:57 16 97 02/19/18 15:09 98.3 F 84 18 162/67 97 02/19/18 14:12 98.4 F 79 18 199/79 95 02/19/18 13:35 75 178/81 100 02/19/18 13:30 74 190/89 100 02/19/18 13:25 73 183/89 100 02/19/18 13:20 72 189/94 100 02/19/18 13:16 73 187/88 100 02/19/18 11:34 98.4 F 74 18 169/70 98 02/19/18 11:08 16 98 Intake and Output 02/19/18 02/20/18 02/20/18 23:59 07:59 15:59 Intake Total 240 / 240 840 / 840 Output Total 300 / 300 Balance 240 / 240 -300 / -300 840 / 840 Intake: Oral 240 / 240 240 / 240 Intake, Rinseback and Flushes 600 / 600 Output: Urine 300 / 300 Other: Meal Dinner Breakfast Percent of Meal Consumed 75% 90% Stool Size Moderate Stool Consistency loose liquid Stool Color Brown Blood Glucose* 229 93 105 Hemodialysis Net Fluid Removed 936 (mL) - General Appearance Exam: General appearance: Present: well-developed, well-nourished, appears started age , obese with no changes on general appearance. EENT: Present: ATNC, eye blinking and strabismis as before. Neck: Present: supple Respiratory: Present: clear Cardiology: Present: no edema, normal S1, normal S2 Dialysis Vascular Access: Venous Catheter Permacath noted with dressing C/D/I. Gastrointestinal: Present: no guarding, obese Additional Comments: foot dressing C/D/I Neurologic: Present: no asterixis, alert and oriented x3 Musculoskeletal: Present: deformities Psychiatric: Present: cooperative - Lab 02/20/18 04:00 02/20/18 04:00 Most recent lab results ABG pH 7.47 pH Units (7.32-7.45) H 02/05/18 11:49 ABG pCO2 35 mmHg (35-45) 02/05/18 11:49 ABG pO2 43 mmHg (85-104) L* 02/05/18 11:49 ABG HCO3 25 mEq/L (21-27) 02/05/18 11:49 ABG O2 Saturation 82 % (95-98) L 02/05/18 11:49 Calcium 7.7 mg/dL (8.6-10.3) L 02/20/18 04:00 Phosphorus 4.2 mg/dL (2.7-4.5) 02/06/18 04:15 Magnesium 1.9 mg/dL (1.6-2.6) 02/15/18 02:55 Consult Discharge Plan - Plan Additional Instructions: PWB right lower extremity. Orthowedge shoe for heel transfers. Follow up with Dr. Denny in wound care clinic next week. Follow-up with PCP and nephrology within 1 week. Take all medications as prescribed and return to the hospital stay worsening return of symptoms. Referrals: Mayela Ayoub CNP [Advanced Practice Nurse] - 02/26/18 8:40 am Guero Clement DO [Primary Care Provider] - 02/26/18 2:00 pm () Prescriptions: Sucralfate [Carafate] 1 gm PO TIDAC #12 tablet
--- NOTE | 2018-02-20 13:40 | Discharge Summary ---
<Franc Andrade - Last Filed: 02/20/18 15:59> - NOTES TO OUTPATIENT PROVIDER Notes to Outpatient Provider: Patient admitted for MRSA bacteremia likely secondary to necrotic right toe status post amputation. Dialysis catheters exchanged and blood cultures are negative, final growth. She will need 4-6 weeks of IV vancomycin per infectious disease recommendation. Prescription written for 3 times weekly following dialysis. Follow-up arranged with infectious disease. 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 Peripheral blood cultures drawn 02/05 are positive 2/2 sets for MRSA. peripheral blood cultures drawn 02/06/18 are positive 2/2 sets for MRSA cultures drawn from the Perma-cath 02/06/18 are positive 2/2 sets for MRSA Status post Perm-cath removal 02/07/18 by IR. catheter tip 02/07 positive for MRSA 02/09 bl cxs x2 positive MRSA 02/11 bl cxs x2 positive MRSA 02/13 bl cxs final no growth S/P permacath insertion today Peritoneal dialysis removed by surgery 02/12 - wound care with iodoform packing changed daily for the next 7 days - surgery signed off Toe amputation 02/12 FREDIS neg for vegetation Abx as per ID recommendations. Currently receiving vancomycin which previous blood cultures have been sensitive to and rocephin - Likely course of 4-6 weeks per ID note. Qualifiers: Sepsis type: methicillin susceptible Staphylococcus aureus Qualified Code(s ): A41.01 - Sepsis due to Methicillin susceptible Staphylococcus aureus (2) Necrosis of toe Priority: Secondary Status: Resolved Assessment and Plan: Necrosis of toe, right- wound cx as above, podiatry following, amputation 02/12 Blood cultures as above. Wound cultures show Klebsiella and staph aureus will be dispensed a OrthoWedge shoe by podiatry to help offload the forefoot when ambulatory. Plan: Cont iv vanc Nonweightbearing right lower extremity Follow-up with Dr. Denny in wound care clinic next week (3) Chest pain Priority: Secondary Status: Resolved Qualifiers: Chest pain type: unspecified Qualified Code(s): R07.9 - Chest pain, unspecified (4) ESRD (end stage renal disease) on dialysis Priority: Secondary Status: Chronic (5) Diabetes Priority: Secondary Status: Chronic Qualifiers: Diabetes mellitus type: type 2 Diabetes mellitus usp insulin use: with usp use Diabetes mellitus complication status: with kidney complications Diabetes mellitus complication detail: with chronic kidney disease Chronic kidney disease stage: on chronic dialysis Qualified Code(s) : E11.22 - Type 2 diabetes mellitus with diabetic chronic kidney disease; N18.6 - End stage renal disease; Z79.4 - longterm (current) use of insulin; Z99.2 - Dependence on renal dialysis (6) HTN (hypertension) Priority: Secondary Status: Chronic Qualifiers: Hypertension type: essential hypertension Qualified Code(s): I10 - Essential (primary) hypertension (7) CAD (coronary artery disease) Priority: Secondary Status: Chronic Qualifiers: Coronary Disease-Associated Artery/Lesion type: [place] artery [place] vs. transplanted heart: [place] heart Associated angina: without angina Qualified Code(s): I25.10 - Atherosclerotic heart disease of [place] coronary artery without angina pectoris (8) KEMAR (obstructive sleep apnea) Priority: Secondary Status: Chronic (9) DVT prophylaxis Priority: Secondary Status: Acute (10) Acute on chronic anemia Priority: Secondary Status: Resolved Assessment and Plan: Acute on Chronic Anemia, multifactorial, cont slow down trend. Had episode of occult blood per stool, could be due to constipation. - Today hgb of 9.4 after 2 units on 02/16 for progressive decreasing, previous 10.0/8.4/7.9/8.1/9.0 - Baseline hgb appears to be around 8-10 - Hx of Gastric Ulcers, vs Anemia of Chronic Disease - Gi following, egd 02/10 demonstrated 3 gastric ulcers with adherent clot, bx taken, , started on ppi + carafate - vte ppx scds only - Nephrology note mentions goal Hgb of 10 - Patient denies melena, hematochezia Plan - Continue to monitor and transfuse if <7 - Patient is likely at baseline. Hospital course: Ms. Orozco is a 57 year old female with past medical history of COPD, CAD, diabetes, end-stage renal disease, hypertension who presented to the emergency department with complaint of chest pain. She was transferred to [facility] emergency department and upon arrival to this facility EKG and troponin were within normal limits. Upon arrival to this facility, vital signs significant for a fever of 102.2, heart rate 100, blood pressure 93/43 lactic acid 3.9. Cardiac workup including troponin, EKG, echocardiogram were unremarkable, low normal troponin of 0.06. Other laboratory findings. For ammonia of 76 which is down trended after lactulose to within normal limits, BNP of 580, H/H of 7.4/ 23.4, WBC elevation of 16.0. Cardiology was consulted and no further testing was performed. She was admitted to this facility for severe sepsis secondary to necrotic right toe versus catheter associated bacteremia. Blood cultures were positive for MRSA on , , , 03/11. She did have a dialysis catheter with culture tip growing MRSA as well as peritoneal dialysis catheter growing MRSA. Wound culture from right toe growing Klebsiella and Staphylococcus aureus. Urine culture did grow Escherichia coli which she received full course of Rocephin. She was treated with IV vancomycin and infectious disease was consulted. FREDIS was negative for vegetation. She did have right third toe amputation on 02/12 with podiatry as well as permacath removal on same date. Pathology from surgery revealed soft tissue with gangrenous necrosis and bone with focal osteonecrosis. Dialysis catheter was removed with 2 days of break before replacing on 02/13. She then again had a guidewire assisted permacath placement on 02/19. During course of hospital stay, patient's symptoms and lab results have improved. Gastroenterology was consulted for anemia. She did not undergo an EGD which showed an oozing gastric ulcers which she was given Carafate and PPI. She did not receive blood transfusions for a total of 5 units of packed red blood cells. Infectious disease is recommending 4-6 weeks of IV vancomycin total. Blood cultures on 02/13 returned with final no growth 2. Leukocytosis and lactic acidosis have resolved. She did receive her normal MWF hemodialysis while inpatient. On day of discharge, patient is medically stable with vital signs within normal limits. Laboratory results returned to baseline and patient is eager to return home. [facility]acement was [facility] through [facility] where she will be able to receive her IV vancomycin after dialysis. She will follow-up with infectious disease as well as PCP after discharge. Discharge discussed with: patient, family, social work, case management - Time Spent with Patient Total time spent providing and/or coordinating discharge services: - Discharge Medications Prescriptions: Sucralfate [Carafate] 1 gm PO TIDAC #12 tablet Home Medications: Albuterol Sulfate [Proair Hfa] 1 - 2 puff IH Q4-6H PRN 07/10/17 [History] Atorvastatin [Lipitor] 40 mg PO HS 07/10/17 [History] Esomeprazole Magnesium [Nexium] 40 mg PO DAILY 07/10/17 [History] Fenofibrate Nanocrystallized [Triglide] 160 mg PO DAILY 07/10/17 [History] Furosemide [Lasix] 40 mg PO 1400 07/10/17 [History] Furosemide [Lasix] 80 mg PO QAM 07/10/17 [History] Insulin Glargine,Hum.rec.anlog [Lantus Solostar] 60 unit SQ QPM 07/10/17 [ History] Isosorbide MONOnitrate (24 HR) [Imdur] 30 mg PO DAILY 07/10/17 [History] Lisinopril [Zestril] 10 mg PO BID 07/10/17 [History] Metoprolol [Lopressor] 50 mg PO QPM 07/10/17 [History] Metoprolol [Lopressor] 100 mg PO QAM 07/10/17 [History] Oxybutynin [Ditropan] 5 mg PO TID 07/10/17 [History] Renal Vitamin [Renal Caps Softgel] 1 mg PO DAILY 07/10/17 [History] Sertraline [Zoloft] 25 mg PO DAILY 07/10/17 [History] Sevelamer [Renvela] 800 mg PO TIDWM 07/10/17 [History] Tiotropium [Spiriva] 18 mcg IH DAILY 07/10/17 [History] Insulin LISPRO [HumaLOG] 15 - 20 units SQ TID 12/30/17 [History] Gabapentin [Neurontin] 100 mg PO TID 02/05/18 [History] Sucralfate [Carafate] 1 gm PO TIDAC #12 tablet 02/20/18 [Rx] Allergies/Adverse Reactions: 3 Allergy/AdvReac Type Severity Reaction Status Date / Time Penicillins Allergy Hives Verified 12/30/17 12:35 Sulfa (Sulfonamide Allergy Hives Verified 12/30/17 12:35 Antibiotics) hydrocodone AdvReac Nausea Verified 12/30/17 12:35 metformin [From Glucophage] AdvReac Nausea Verified 12/30/17 12:35 niacin AdvReac Redness of Verified 12/30/17 12:35 Skin Oxycodone [From Percocet] AdvReac Nausea Verified 12/30/17 12:35 tramadol [From Ultram] AdvReac Nausea Verified 12/30/17 12:35 Date of admission: 02/05/18 10:51 Primary care physician: Guero Clement DO Consults: 02/05/18 10:58 Consult to Infectious Diseases [CONS] Routine Consulting Provider: Infectious Disease [place] Reason for Consult: sepsis unclear source possible right toe; also with PC and PD cath that appear okay Call Completed: Yes Consult to Nephrology [CONS] Routine Consulting Provider: Kidney [facility]/MONA/KRISTY/TRACY Reason for Consult: ESRD on HD; volume overload Call Completed: Yes 02/05/18 11:07 Consult to Podiatry [CONS] Routine Consulting Provider: [facility] Reason for Consult: necrotic right foot; eval for need for debridement; possible osteo Call Completed: Yes 02/06/18 07:23 Consult to Cardiology [CONS] Routine Comment: Consulting Provider: Cardiology [place] Reason for Consult: Chest pain, elevated troponin Call Completed: No 02/06/18 10:50 Consult to Critical Care [CONS] Routine Consulting Provider: Pulm [facility] [place] Reason for Consult: MRSA bacteremia, anemia Call Completed: Yes 02/06/18 11:05 Consult to Gastroenterology [CONS] Routine Consulting Provider: Gastroenterology [place] Reason for Consult: Poss GI bleed Call Completed: Yes 02/07/18 10:55 Consult to Interventional Radiology [CONS] Routine Consulting Provider: Radiology [facility] Reason for Consult: removal of right IJ permacath and placement of temp Call Completed: Yes 02/09/18 09:18 Consult to Interventional Radiology [CONS] Stat Consulting Provider: Radiology [facility] Reason for Consult: temporary HD line placement Time Notified: 09:20 Call Completed: Yes 02/09/18 09:30 Consult to Dialysis [CONS] ONCE 02/10/18 08:30 Consult to Dialysis [CONS] ONCE 02/11/18 10:00 Consult to Dialysis [CONS] ONCE 02/11/18 15:34 Consult to Surgery [CONS] Routine Consulting Provider: Surgery [facility] Reason for Consult: Please remove PD cath. Spoke with Kathe Thomas CNP. Time Notified: 15:35 Call Completed: Yes 02/13/18 08:00 Consult to Dialysis [CONS] ONCE 02/13/18 10:06 Consult to Occupational Therapy [CONS] Routine Comment: Evaluate, develop and implement POC Reason for Consult: weakness Does patient have active BEDREST order?: No Is patient medically & hemodynamically stable?: Yes Patient assessed for mobility or mobilized this visit?: Yes Consult to Physical Therapy [CONS] Routine Comment: Evaluate, develop and implement POC Reason for Consult: weakness Does patient have active BEDREST order?: No Is patient medically & hemodynamically stable?: Yes Patient assessed for mobility or mobilized this visit?: Yes 02/16/18 08:45 Consult to Dialysis [CONS] ONCE 02/18/18 07:00 Consult to Dialysis [CONS] ONCE 02/19/18 05:30 Consult to Interventional Radiology [CONS] Routine Consulting Provider: Radiology [facility] Reason for Consult: Please evaluate for replacement of a Permacath now that her Bactermia has been treated. BCx are finalzed as no growth. Thank you Call Completed: No 02/20/18 07:15 Consult to Dialysis [CONS] ONCE Discharging clinician: Franc Andrade Anticipated date of discharge: 02/20/18 - Constitutional Vitals: Temp Pulse Resp BP Pulse Ox 98.3 F 74 14 148/58 96 02/20/18 12:50 02/20/18 07:56 02/20/18 12:50 02/20/18 12:50 02/20/18 07:56 Exam: Gen.: Vitals noted. No acute distress. AAOx3, resting comfortably in bed HEENT: PERRL/EOMI, oropharynx clear, Normocephalic, atraumatic, moist mucus membranes Cardiac: RRR, no murmur, +S1/S2 Pulmonary: CTA bilaterally, no wheezes, rales or rhonchi, equal chest expansion Abdomen: soft, nontender, BS noted, no guarding, healing incision site on the abdomen MSK: ROM intact, no joint swelling noted Extremities: no BLE edema, nontender calf, no cyanosis or clubbing. Right foot bandaged without evidence of infection Neuro: A&Ox3, moves all extremities, no focal deficits Psych: Appropriate mood and behavior - Patient Status Disposition: Transfer SNF Condition: Fair Functional capacity at discharge: uses cane/walker Overall status at discharge: patient is progressing back to baseline - Discharge Instructions Follow Up With: Mayela Ayoub CNP [Advanced Practice Nurse] - 02/26/18 8:40 am Guero Clement DO [Primary Care Provider] - 02/26/18 2:00 pm () Additional Instructions: PWB right lower extremity. Orthowedge shoe for heel transfers. Follow up with Dr. Denny in wound care clinic next week. Follow-up with PCP and nephrology within 1 week. Take all medications as prescribed and return to the hospital stay worsening return of symptoms. 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 [IR] Routine 02/21/18 04:00 Basic Metabolic Panel AM 0400 Complete Blood Count [HEME] AM 0400 Date of Encounter: 02/20/18 - Discharge Diagnosis (1) Sepsis Status: Resolved Qualifiers: Sepsis type: methicillin susceptible Staphylococcus aureus Qualified Code(s ): A41.01 - Sepsis due to Methicillin susceptible Staphylococcus aureus (2) Necrosis of toe Status: Resolved (3) Chest pain Status: Resolved Qualifiers: Chest pain type: unspecified Qualified Code(s): R07.9 - Chest pain, unspecified (4) ESRD (end stage renal disease) on dialysis Status: Chronic (5) Diabetes Status: Chronic Qualifiers: Diabetes mellitus type: type 2 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 Diabetes mellitus complication status: with kidney complications Diabetes mellitus complication detail: with chronic kidney disease Chronic kidney disease stage: on chronic dialysis Qualified Code(s) : E11.22 - Type 2 diabetes mellitus with diabetic chronic kidney disease; N18.6 - End stage renal disease; 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 transplanted heart: [place] heart Associated angina: without angina Qualified Code(s): I25.10 - Atherosclerotic heart disease of [place] coronary artery without angina pectoris (8) KEMAR (obstructive sleep apnea) Status: Chronic (9) DVT prophylaxis Status: Acute (10) Acute on chronic anemia Status: Resolved Hospital course: Ms. Orozco is a 57 year old female - Time Spent with Patient Total time spent providing and/or coordinating discharge services: 39min Date of admission: 02/05/18 10:51 Primary care physician: Guero Clement DO Consults: 02/05/18 10:58 Consult to Infectious Diseases [CONS] Routine Consulting Provider: Infectious [facility] Reason for Consult: sepsis unclear source possible right toe; also with PC and PD cath that appear okay Call Completed: Yes Consult to Nephrology [CONS] Routine Consulting Provider: Kidney [facility]/MONA/KRISTY/TRACY Reason for Consult: ESRD on HD; volume overload Call Completed: Yes 02/05/18 11:07 Consult to Podiatry [CONS] Routine Consulting Provider: [facility] Reason for Consult: necrotic right foot; eval for need for debridement; possible osteo Call Completed: Yes 02/06/18 07:23 Consult to Cardiology [CONS] Routine Comment: Consulting Provider: Cardiology [facility] Reason for Consult: Chest pain, elevated troponin Call Completed: No 02/06/18 10:50 Consult to Critical Care [CONS] Routine Consulting Provider: Pulm Crit [facility] Reason for Consult: MRSA bacteremia, anemia Call Completed: Yes 02/06/18 11:05 Consult to Gastroenterology [CONS] Routine Consulting Provider: Gastroenterology [place] Reason for Consult: Poss GI bleed Call Completed: Yes 02/07/18 10:55 Consult to Interventional Radiology [CONS] Routine Consulting Provider: Radiology [facility] Reason for Consult: removal of right IJ permacath and placement of temp Call Completed: Yes 02/09/18 09:18 Consult to Interventional Radiology [CONS] Stat Consulting Provider: Radiology [facility] Reason for Consult: temporary HD line placement Time Notified: 09:20 Call Completed: Yes 02/09/18 09:30 Consult to Dialysis [CONS] ONCE 02/10/18 08:30 Consult to Dialysis [CONS] ONCE 02/11/18 10:00 Consult to Dialysis [CONS] ONCE 02/11/18 15:34 Consult to Surgery [CONS] Routine Consulting Provider: Surgery [facility] Reason for Consult: Please remove PD cath. Spoke with Kathe Thomas CNP. Time Notified: 15:35 Call Completed: Yes 02/13/18 08:00 Consult to Dialysis [CONS] ONCE 02/13/18 10:06 Consult to Occupational Therapy [CONS] Routine Comment: Evaluate, develop and implement POC Reason for Consult: weakness Does patient have active BEDREST order?: No Is patient medically & hemodynamically stable?: Yes Patient assessed for mobility or mobilized this visit?: Yes Consult to Physical Therapy [CONS] Routine Comment: Evaluate, develop and implement POC Reason for Consult: weakness Does patient have active BEDREST order?: No Is patient medically & hemodynamically stable?: Yes Patient assessed for mobility or mobilized this visit?: Yes 02/16/18 08:45 Consult to Dialysis [CONS] ONCE 02/18/18 07:00 Consult to Dialysis [CONS] ONCE 02/19/18 05:30 Consult to Interventional Radiology [CONS] Routine Consulting Provider: Radiology [facility] Reason for Consult: Please evaluate for replacement of a Permacath now that her Bactermia has been treated. BCx are finalzed as no growth. Thank you Call Completed: No 02/20/18 07:15 Consult to Dialysis [CONS] ONCE - Constitutional Vitals: Temp Pulse Resp BP Pulse Ox 98.5 F 82 18 155/61 97 02/20/18 15:43 02/20/18 15:43 02/20/18 15:43 02/20/18 15:43 02/20/18 15:43 - Attending Attestation I examined this patient and my medical decision-making was reviewed with the Resident Physician on 02/20/18. I agree with the documented findings, disposition and treatment plan as described except to the extent set forth below. Ms Orozco has been admitted for MRSA bacteremia due to necrotic toe. She now has clear blood cultures. She has a new dialysis catheter and had dialysis today. She is ready for discharge to SNF Exam Alert Comfortable Mucus membranes dry Heart not tachy No wheeze Abd soft Plan D/C to SNF today Complete abx Follow up as outpatient.
--- NOTE | 2018-02-20 13:44 | Physician Discharge Referral ---
ExtendedCare Referral Info Transfer To: [facility] Provider in Charge after Transfer: PCP Institutional Level of Care: Skilled - Diagnosis (1) Sepsis Priority: Primary Status: Resolved (2) Necrosis of toe Priority: Secondary Status: Resolved (3) Chest pain Priority: Secondary Status: Resolved (4) ESRD (end stage renal disease) on dialysis Priority: Secondary Status: Chronic (5) Diabetes Priority: Secondary Status: Chronic (6) HTN (hypertension) Priority: Secondary Status: Chronic (7) CAD (coronary artery disease) Priority: Secondary Status: Chronic (8) KEMAR (obstructive sleep apnea) Priority: Secondary Status: Chronic (9) DVT prophylaxis Priority: Secondary Status: Acute (10) Acute on chronic anemia Priority: Secondary Status: Resolved Prognosis: Fair Aware of Diagnosis: Patient Aware of Prognosis: Patient - Transfer Medications Prescriptions: Sucralfate [Carafate] 1 gm PO TIDAC #12 tablet Home Medications: Albuterol Sulfate [Proair Hfa] 1 - 2 puff IH Q4-6H PRN 07/10/17 [History] Atorvastatin [Lipitor] 40 mg PO HS 07/10/17 [History] Esomeprazole Magnesium [Nexium] 40 mg PO DAILY 07/10/17 [History] Fenofibrate Nanocrystallized [Triglide] 160 mg PO DAILY 07/10/17 [History] Furosemide [Lasix] 40 mg PO 1400 07/10/17 [History] Furosemide [Lasix] 80 mg PO QAM 07/10/17 [History] Insulin Glargine,Hum.rec.anlog [Lantus Solostar] 60 unit SQ QPM 07/10/17 [ History] Isosorbide MONOnitrate (24 HR) [Imdur] 30 mg PO DAILY 07/10/17 [History] Lisinopril [Zestril] 10 mg PO BID 07/10/17 [History] Metoprolol [Lopressor] 50 mg PO QPM 07/10/17 [History] Metoprolol [Lopressor] 100 mg PO QAM 07/10/17 [History] Oxybutynin [Ditropan] 5 mg PO TID 07/10/17 [History] Renal Vitamin [Renal Caps Softgel] 1 mg PO DAILY 07/10/17 [History] Sertraline [Zoloft] 25 mg PO DAILY 07/10/17 [History] Sevelamer [Renvela] 800 mg PO TIDWM 07/10/17 [History] Tiotropium [Spiriva] 18 mcg IH DAILY 07/10/17 [History] Insulin LISPRO [HumaLOG] 15 - 20 units SQ TID 12/30/17 [History] Gabapentin [Neurontin] 100 mg PO TID 02/05/18 [History] Sucralfate [Carafate] 1 gm PO TIDAC #12 tablet 02/20/18 [Rx] Allergies/Adverse Reactions: 3 Allergy/AdvReac Type Severity Reaction Status Date / Time Penicillins Allergy Hives Verified 12/30/17 12:35 Sulfa (Sulfonamide Allergy Hives Verified 12/30/17 12:35 Antibiotics) hydrocodone AdvReac Nausea Verified 12/30/17 12:35 metformin [From Glucophage] AdvReac Nausea Verified 12/30/17 12:35 niacin AdvReac Redness of Verified 12/30/17 12:35 Skin Oxycodone [From Percocet] AdvReac Nausea Verified 12/30/17 12:35 tramadol [From Ultram] AdvReac Nausea Verified 12/30/17 12:35 - Respiratory Orders Smoking Cessation: Smoking cessation has been advised. For more information, call the [place] Tobacco Quit Line at 5-208-BVDDNOW. - Advance Directives Code Status: Full Code - Diet Orders No Concentrated Sweets CERTIFICATION: I certify that the transfer of the above named patient to an Extended Care Facility is necessary for the continuing treatment of the diagnosis listed. The above information is true and accurate reflection of patient's current condition. Confidential - Redisclosure prohibited without a patient's written consent.
[2018-02-20 15:44] VITALS: BP 155/61
[2018-02-20] MEDS: *HR* HYDROcodone/Acet 5/325 mg TABLET PO PRN (16:42)
[2018-02-20] MEDS ORDERED: Aminoglycoside Consult 1 EACH MC ONE (19:31)
[2018-02-20] MEDS ORDERED: Vancomycin 500 MG in 0.9 % Sodium Chloride Mini Bag 100 ML IVPB ONE (20:00)
== END 2018-02-20 19:32 | DRG 252 ==
LOC: ICNU → SUATTDRO 10:51 → 2NNU 02-08 16:00
PROVIDERS: ADMIT Internal Medicine; ATTEND Internal Medicine
PROC: ENDOEBX (2018-02-10 13:00)